=== PATIENT | female | born 1940 | race Two or more races ===

== ENCOUNTER 2017-08-27 17:16 | Inpatient (IN) | payer OTHER ==
--- NOTE | 2017-08-27 18:31 | PDOC ---
History of Present Illness - History of Present Illness Initial Comments: 08/27/17 21:48 Ms. Pierre is a 76 yo female w/ pmh of HTN, "poor circulation," and unspecified heart problems recently moved from [facility] who presents following fall in the bathroom earlier today. Per son, she was walking into the bathroom to urinate when she tripped and fell, hitting her head on the wall. She denies loss of consciousness but says she fell to the ground. She attempted to get up by bracing herself on the bathtub but says she hurt her stomach doing so. She is currently complaining of headache and left side pain. <Twan Perez - Last Filed: 08/27/17 21:48> <Jony Tipton - Last Filed: 08/28/17 01:22> - General Chief Complaint: Lightheaded Stated Complaint: NAUSEA Time Seen by Provider: 08/27/17 18:31 Past History - Past Medical History Cardiac Disorders: Yes (caRDIAC ARREST) COPD: No HTN: Yes Thyroid Disease: Yes - Surgical History Cholecystectomy: Yes - Suicide/Smoking/Psychosocial Hx Smoking History: Former smoker Have you smoked in the past 12 months: No Information on smoking cessation initiated: No Hx Alcohol Use: No Drug/Substance Use Hx: No Substance Use Type: None <Twan Perez - Last Filed: 08/27/17 21:48> <Jony Tipton - Last Filed: 08/28/17 01:22> - Past Medical History Allergies/Adverse Reactions: Allergies Allergy/AdvReac Type Severity Reaction Status Date / Time Penicillins Allergy Verified 08/27/17 17:24 Review of Systems - Review of Systems Comments:: 08/27/17 21:58 GENERAL/CONSTITUTIONAL: No fever or chills. No weakness. HEAD, EYES, EARS, NOSE AND THROAT: No change in vision. No ear pain or discharge. No sore throat. CARDIOVASCULAR:+Pain she localizes to the sternum. No shortness of breath RESPIRATORY: No cough, wheezing, or hemoptysis. GASTROINTESTINAL: No nausea, vomiting, diarrhea or constipation. GENITOURINARY: No dysuria, frequency, or change in urination. MUSCULOSKELETAL: +Pain localized to anterior left lower ribs SKIN: No rash NEUROLOGIC: +Current bitemporal frontal headache. No vertigo, loss of consciousness, or change in strength/sensation. ENDOCRINE: No increased thirst. No abnormal weight change HEMATOLOGIC/LYMPHATIC: No anemia, easy bleeding, or history of blood clots. ALLERGIC/IMMUNOLOGIC: No hives or skin allergy. <Twan Perez - Last Filed: 08/27/17 21:48> *Physical Exam - Vital Signs Last Vital Signs Temp Pulse Resp BP Pulse Ox 97.7 F 47 L 20 164/81 95 08/27/17 17:25 08/27/17 17:25 08/27/17 17:25 08/27/17 17:25 08/27/17 17:25 - Physical Exam Comments: 08/27/17 22:03 GENERAL: Awake, alert, and fully oriented, in no acute distress HEAD: No signs of trauma, normocephalic, atraumatic EYES: PERRLA, EOMI, sclera anicteric, conjunctiva clear ENT: Auricles normal inspection, hearing grossly normal, nares patent, oropharynx clear without exudates. Moist mucosa NECK: Normal ROM, supple, no lymphadenopathy, JVD, or masses LUNGS: +Pain with palpation of ribs on anterior left side. Reproducible pain with palpation of sternum. No distress, speaks full sentences, clear to auscultation bilaterally HEART: Regular rate and rhythm, normal S1 and S2, no murmurs, rubs or gallops, peripheral pulses normal and equal bilaterally. ABDOMEN: Soft, nontender, normoactive bowel sounds. No guarding, no rebound. No masses EXTREMITIES: Normal inspection, Normal range of motion, no edema. No clubbing or cyanosis. NEUROLOGICAL: Cranial nerves II through XII grossly intact. Normal speech, normal gait, no focal sensorimotor deficits SKIN: Warm, Dry, normal turgor, no rashes or lesions noted. <Twan Perez - Last Filed: 08/27/17 21:48> - Vital Signs Last Vital Signs Temp Pulse Resp BP Pulse Ox 97.7 F 47 L 20 164/81 95 08/27/17 17:25 08/27/17 17:25 08/27/17 17:25 08/27/17 17:25 08/27/17 17:25 <Jony Tipton - Last Filed: 08/28/17 01:22> ED Treatment Course - LABORATORY CBC & Chemistry Diagram: 08/27/17 21:00 08/27/17 21:00 <Twan Perez - Last Filed: 08/27/17 21:48> - LABORATORY CBC & Chemistry Diagram: 08/27/17 21:00 08/27/17 23:15 - ADDITIONAL ORDERS Additional order review: Laboratory Results 08/28/17 08/27/17 08/27/17 00:11 23:15 23:15 PT with INR 19.10 H INR 1.69 H Sodium 143 Potassium 4.6 Chloride 105 Carbon Dioxide 33 H Anion Gap 5 L BUN 22 H Creatinine 1.3 H Creat Clearance w eGFR 39.61 Random Glucose 143 H Lactic Acid Calcium 8.3 L Total Bilirubin 0.5 AST 38 H ALT 51 Alkaline Phosphatase 105 Creatine Kinase 49 Troponin I < 0.02 Total Protein 7.6 Albumin 3.1 L Lipase 08/27/17 08/27/17 08/27/17 21:00 21:00 21:00 PT with INR INR Sodium Cancelled Potassium Cancelled Chloride Cancelled Carbon Dioxide Cancelled Anion Gap Cancelled BUN Cancelled Creatinine Cancelled Creat Clearance w eGFR Cancelled Random Glucose Cancelled Lactic Acid 1.0 Calcium Cancelled Total Bilirubin Cancelled AST Cancelled ALT Cancelled Alkaline Phosphatase Cancelled Creatine Kinase Cancelled Troponin I Cancelled Total Protein Cancelled Albumin Cancelled Lipase Cancelled 08/27/17 21:00 RBC 4.17 MCV 90.8 MCHC 33.7 RDW 16.2 H MPV 9.5 Neutrophils % 63.1 Lymphocytes % 24.4 Monocytes % 9.4 Eosinophils % 2.3 Basophils % 0.8 <Jony Tipton - Last Filed: 08/28/17 01:22> Medical Decision Making - Medical Decision Making 08/27/17 22:07 Ms. Pierre presents with described acute mechanical fall - will workup to r/o cardiac causes and order CT Scan to r/o acute bleed or neck problems. Care will be continued by Dr. Tipton. <Twan Perez - Last Filed: 08/27/17 21:48> *DC/Admit/Observation/Transfer <Twan Perez - Last Filed: 08/27/17 21:48> - Discharge Dispostion Admit: Yes <Jony Tipton - Last Filed: 08/28/17 01:22> Diagnosis at time of Disposition: Head injury due to trauma Qualifiers: Encounter type: initial encounter Qualified Code(s): S09.90XA - Unspecified injury of head, initial encounter - Discharge Dispostion Condition at time of disposition: Fair
--- NOTE | 2017-08-27 20:57 | PDOC ---
Attending Attestation - Resident Resident Name: Raleigh Perezorn - ED Attending Attestation I have performed the following: I have examined & evaluated the patient, The case was reviewed & discussed with the resident, I agree w/resident's findings & plan, Exceptions are as noted - HPI HPI: 08/28/17 00:49 76-year-old Khmer-speaking female with history of hypertension, peripheral vascular disease, CHF, on Coumadin brought in by EMS after a mechanical fall with head trauma and questionable LOC. - Physicial Exam PE: 08/28/17 00:49 Patient is awake and alert, well-nourished, in no distress Normocephalic/atraumatic PERRLA, EOMI neck: No obvious deformity, minimal C1/C2 midline tenderness to palpation, cta rrr Cranial nerves II through XII are grossly intact; motor is 5 of 54; no pronation drift; - Medical Decision Making 08/28/17 00:50 Patient 76-year-old female with multiple carbonated is brought into the ER with closed head injury after mechanical fall. In the ER, patient is without focal neurological deficits. CT of head shows a hyperdense lesion to the right frontal area which appears extra-axial which may represent meningioma versus countercoup injury. Observation and repeat CT is recommended. We'll place and observation for further evaluation and repeat CT head.
[2017-08-27 21:17] LABS: BASOPHIL 0.8 % (0-2.0); EOSINOPHIL 2.3 % (0-4.5); MCH 30.6 pg (25.7-33.7); MCHC 33.7 g/dl (32.0-36.0); MEAN CELL VOLUME 90.8 fl (80-96); MEAN PLT VOLUME 9.5 fl (7.5-11.1); NEUTROPHILS 63.1 % (42.8-82.8); PLATELET COUNT 219 K/MM3 (134-434); RDW 16.2 % (11.6-15.6); WHITE BLOOD COUNT 4.2 K/mm3 (4.0-10.0)
[2017-08-27 23:51] LABS: ALBUMIN 3.1 g/dl (3.4-5.0); ANION GAP 5 (8-16); BILIRUBIN,TOTAL 0.5 mg/dL (0.2-1.0); CALCIUM 8.3 mg/dL (8.5-10.1); CO2 33 mmol/L (21-32); CREATININE 1.3 mg/dL (0.55-1.02); GLUCOSE,RANDOM 143 mg/dL (74-106); SGOT/AST 38 U/L (15-37); SGPT/ALT 51 U/L (12-78); TOT PROT 7.6 g/dl (6.4-8.2)
[2017-08-27 23:53] LABS: ALK PHOS 105 U/L (45-117)
[2017-08-27 23:54] LABS: CPK 49 IU/L (26-192); TROPONIN I < 0.02 ng/ml (0.00-0.05)
[2017-08-28 00:48] LABS: INR 1.69 (0.82-1.09); PROTHROMBIN TIME (PATIENT) 19.1 SEC (9.98-11.88)
[2017-08-28] MEDS ORDERED: ACETAMINOPHEN 325 MG TABLET (FP) PO ONE (01:05)
[2017-08-28] MEDS ORDERED: ACETAMINOPHEN 325 MG TABLET (FP) ONE (01:26)
--- NOTE | 2017-08-28 01:28 | HP ---
CHIEF COMPLAINT: s/p Mechanical Fall, Headache PCP: HISTORY OF PRESENT ILLNESS: This is a 76 y/o woman with a PMHx of: HTN, Arrhythmia, CHF, DM, Peripheral Disease, Hypothyroid, Spinal Stenosis. Who presents to the ED s/p mechanical fall. Patient is Venezuelan speaking property specialist used. Patient reports tripping on her way to the bathroom, hitting her head against the wall. Patient unsure of ? LOC. Patient reports having a temporal GALLARDO. Denies N/V or blurred vision. Patient denies fever, chills, cough, SOB, dizziness, CP. ER course was notable for: (1) CT Head- subcentimeter rounded hyperdensity in the anterior right frontal region, ?meningioma cannot r/o ICH (2) Chest Xray- no consolidation, pulmonary vascular congestion, pleural effusion (3) INR 1.69 Recent Travel: from [place] PAST MEDICAL HISTORY: See HPI PAST SURGICAL HISTORY: Cholecystectomy Hysterectomy C- sections x2 Social History: Smoking: Former Alcohol: None Drugs: None Lives with family Family History: Non-Contributory Allergies Penicillins Allergy (Verified 08/27/17 17:24) HOME MEDICATIONS: Home Medications Medication Instructions Recorded Amlodipine Besylate 10 mg PO DAILY 08/28/17 Ammonium Lactate Cream [Lac-Hydrin 1 applic TP BID 08/28/17 12% *Cream*] Aspirin/Dipyridamole [Aggrenox -] 1 combo PO BID 08/28/17 Atorvastatin Ca [Lipitor] 80 mg PO HS 08/28/17 Donepezil HCl [Aricept -] 5 mg PO DAILY 08/28/17 Ergocalciferol [Drisdol Oral 5,000 units PO DAILY 08/28/17 Solution -] Folic Acid 1 mg PO DAILY 08/28/17 Gabapentin [Neurontin] 300 mg PO BID 08/28/17 Glipizide Xl [Glucotrol Xl -] 5 mg PO BID 08/28/17 Losartan Potassium 100 mg PO 08/28/17 Meclizine HCl 12.5 mg PO BID 08/28/17 Metoprolol Succinate [Toprol Xl -] 12.5 mg PO DAILY 08/28/17 Sitagliptin Phosphate [Januvia] 50 mg PO 08/28/17 REVIEW OF SYSTEMS CONSTITUTIONAL: Absent: fever, chills, diaphoresis, generalized weakness, malaise, loss of appetite, weight change HEENT: Absent: rhinorrhea, nasal congestion, throat pain, throat swelling, difficulty swallowing, mouth swelling, ear pain, eye pain, visual changes CARDIOVASCULAR: Absent: chest pain, syncope, palpitations, irregular heart rate, lightheadedness , peripheral edema RESPIRATORY: Absent: cough, shortness of breath, dyspnea with exertion, orthopnea, wheezing, stridor, hemoptysis GASTROINTESTINAL: abdominal pain Absent: abdominal distension, nausea, vomiting, diarrhea, constipation, melena, hematochezia GENITOURINARY: Absent: dysuria, frequency, urgency, hesitancy, hematuria, flank pain, genital pain MUSCULOSKELETAL: Absent: myalgia, arthralgia, joint swelling, back pain, neck pain SKIN: Absent: rash, itching, pallor HEMATOLOGIC/IMMUNOLOGIC: Absent: easy bleeding, easy bruising, lymphadenopathy, frequent infections ENDOCRINE: Absent: unexplained weight gain, unexplained weight loss, heat intolerance, cold intolerance NEUROLOGIC: headache Absent: focal weakness or paresthesias, dizziness, unsteady gait, seizure, mental status changes, bladder or bowel incontinence PSYCHIATRIC: Absent: anxiety, depression, suicidal or homicidal ideation, hallucinations. PHYSICAL EXAMINATION Vital Signs - 24 hr 08/27/17 17:25 Temperature 97.7 F Pulse Rate 47 L Respiratory 20 Rate Blood Pressure 164/81 O2 Sat by Pulse 95 Oximetry (%) GENERAL: Awake, alert, and fully oriented, in no acute distress. HEAD: Normal with no signs of trauma. +TN to bilateral temporal aspect EYES: Pupils equal, round and reactive to light, extraocular movements intact, sclera anicteric, conjunctiva clear. No lid lag. EARS, NOSE, THROAT: Ears normal, nares patent, oropharynx clear without exudates. Moist mucous membranes. NECK: Normal range of motion, supple without lymphadenopathy, JVD, or masses. + TN to C1/C2 LUNGS: Breath sounds equal, clear to auscultation bilaterally. No wheezes, and no crackles. No accessory muscle use. HEART: Regular rate and rhythm, normal S1 and S2 without murmur, rub or gallop. ABDOMEN: Soft, nontender, not distended, normoactive bowel sounds, no guarding, no rebound, no masses. No hepatomegaly or splenomegaly. MUSCULOSKELETAL: Normal range of motion at all joints. No bony deformities or tenderness. No CVA tenderness. UPPER EXTREMITIES: 2+ pulses, warm, well-perfused. No cyanosis. No clubbing. No peripheral edema. LOWER EXTREMITIES: 2+ pulses, warm, well-perfused. No calf tenderness. No peripheral edema. NEUROLOGICAL: Cranial nerves II-XII intact. Normal speech. Gait not observed. PSYCHIATRIC: Cooperative. Good eye contact. Appropriate mood and affect. SKIN: Warm, dry, normal turgor, no rashes or lesions noted, normal capillary refill. Laboratory Results - last 24 hr 08/27/17 08/27/17 08/27/17 21:00 21:00 21:00 WBC 4.2 RBC 4.17 Hgb 12.8 Hct 37.9 MCV 90.8 MCH 30.6 MCHC 33.7 RDW 16.2 H Plt Count 219 MPV 9.5 Neutrophils % 63.1 Lymphocytes % 24.4 Monocytes % 9.4 Eosinophils % 2.3 Basophils % 0.8 PT with INR INR Sodium Cancelled Potassium Cancelled Chloride Cancelled Carbon Dioxide Cancelled Anion Gap Cancelled BUN Cancelled Creatinine Cancelled Creat Clearance w eGFR Cancelled Random Glucose Cancelled Lactic Acid Calcium Cancelled Total Bilirubin Cancelled AST Cancelled ALT Cancelled Alkaline Phosphatase Cancelled Creatine Kinase Cancelled Troponin I Cancelled Total Protein Cancelled Albumin Cancelled Lipase Cancelled 08/27/17 08/27/17 08/27/17 21:00 23:15 23:15 WBC RBC Hgb Hct MCV MCH MCHC RDW Plt Count MPV Neutrophils % Lymphocytes % Monocytes % Eosinophils % Basophils % PT with INR INR Sodium 143 Potassium 4.6 Chloride 105 Carbon Dioxide 33 H Anion Gap 5 L BUN 22 H Creatinine 1.3 H Creat Clearance w eGFR 39.61 Random Glucose 143 H Lactic Acid 1.0 Calcium 8.3 L Total Bilirubin 0.5 AST 38 H ALT 51 Alkaline Phosphatase 105 Creatine Kinase 49 Troponin I < 0.02 Total Protein 7.6 Albumin 3.1 L Lipase 08/28/17 00:11 WBC RBC Hgb Hct MCV MCH MCHC RDW Plt Count MPV Neutrophils % Lymphocytes % Monocytes % Eosinophils % Basophils % PT with INR 19.10 H INR 1.69 H Sodium Potassium Chloride Carbon Dioxide Anion Gap BUN Creatinine Creat Clearance w eGFR Random Glucose Lactic Acid Calcium Total Bilirubin AST ALT Alkaline Phosphatase Creatine Kinase Troponin I Total Protein Albumin Lipase ASSESSMENT/PLAN: This is a 76 y/o woman with a PMHx of: HTN, CHF, Arrhythmia, DM, PVD, Hypothyroid. Placed in Observation for Head Injury for further evaluation of their emergent condition. 1. Head Injury - s/p mechanical fall - CT Head- report ? meningioma cannot r/o ICH - Will repeat Head CT without contrast in 12 hrs - Will hold Coumadin and Aggrenox until repeat CT results-secondary to increase risk of bleeding - HOB elevated 30 degrees - Fall precautions - Monitor vitals 2. Subtherapeutic INR - Hold Coumadin until repeat CT results 3. Arrhythmia - ?Afib - [id number] Score 7 - EKG reviewed, no prior study to compare - Continue Amiodarone, Cardizem - Hold Coumadin r/o ICH 4. CHF -Chest Xray- reviewed -Continue Lasix -Monitor renal function 5. HTN - Monitor BP - Continue med with parameters 6. Diabetes Mellitus - Controlled - BGMs - Continue home meds 7. Hypothyroid - TSH in am - Continue Levothyroxine 8. PVD - Continue Gabapentin 9. FEN - Tolerates PO Fluids - Replete lytes prn - Low Na, Diabetic Diet 10 DVT Prophylaxis - OOB - SCDs Code Status: Full Code Dispo: Observation Problem List - Problem (1) Head injury due to trauma Code(s): S09.90XA - UNSPECIFIED INJURY OF HEAD, INITIAL ENCOUNTER Qualifiers: Encounter type: initial encounter Qualified Code(s): S09.90XA - Unspecified injury of head, initial encounter (2) Subtherapeutic international normalized ratio (INR) Code(s): R79.1 - ABNORMAL COAGULATION PROFILE (3) Arrhythmia Code(s): I49.9 - CARDIAC ARRHYTHMIA, UNSPECIFIED (4) HTN (hypertension) Code(s): I10 - ESSENTIAL (PRIMARY) HYPERTENSION (5) Diabetes mellitus Code(s): E11.9 - TYPE 2 DIABETES MELLITUS WITHOUT COMPLICATIONS (6) Spinal stenosis Code(s): M48.00 - SPINAL STENOSIS, SITE UNSPECIFIED (7) PVD (peripheral vascular disease) Code(s): I73.9 - PERIPHERAL VASCULAR DISEASE, UNSPECIFIED (8) DVT prophylaxis Code(s): ILR8704 - Visit type - Emergency Visit Emergency Visit: Yes ED Registration Date: 08/28/17 Care time: The patient presented to the Emergency Department on the above date and was hospitalized for further evaluation of their emergent condition. - New Patient This patient is new to me today: Yes Date on this admission: 08/28/17 - Critical Care Critical Care patient: No
[2017-08-28] MEDS ORDERED: sitaGLIPtin PHOSPHATE 50 MG TABLET PO SCH (07:00)
[2017-08-28] MEDS ORDERED: DONEPEZIL HCL 5 MG TABLET (FP) PO SCH (10:00)
[2017-08-28] MEDS ORDERED: amLODIPine BESYLATE 10 MG TABLET (FP) PO SCH (10:00)
[2017-08-28] MEDS ORDERED: FOLIC ACID 1 MG TABLET (FP) PO SCH (10:00)
[2017-08-28] MEDS ORDERED: GABAPENTIN 300 MG CAPSULE (FP) PO SCH (10:00)
[2017-08-28] MEDS ORDERED: METOPROLOL SUCCINATE 25 MG TAB.SR.24H (FP) PO SCH (10:00)
[2017-08-28] MEDS ORDERED: glipiZIDE-XL 5 MG TAB.ER.24 PO SCH (10:00)
[2017-08-28] MEDS ORDERED: INSULIN SLIDING SCALE (NOVOLOG) 1 VIAL SQ SCH (11:00)
--- NOTE | 2017-08-28 12:53 | EKG ---
Test Reason : Blood Pressure : / mmHG Vent. Rate : 051 BPM Atrial Rate : 051 BPM P-R Int : 190 ms QRS Dur : 118 ms QT Int : 520 ms P-R-T Axes : 009 -27 023 degrees QTc Int : 479 ms SINUS BRADYCARDIA LEFT VENTRICULAR HYPERTROPHY WITH QRS WIDENING ABNORMAL ECG NO PREVIOUS ECGS AVAILABLE Confirmed by CONSTANTINE HICKMAN, JAMES ([id number]) on 08/28/2017 12:53:11 PM Referred By: Confirmed By:JAMES FITCH MD
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
[2017-08-28] MEDS ORDERED: ATORVASTATIN CA 80 MG TABLET (FP) PO SCH (22:00)
--- NOTE | 2017-08-28 23:36 | RAPID ---
Physical Examination Vital Signs: Vital Signs Temperature 99.3 F 08/28/17 22:09 Pulse Rate 49 L 08/28/17 22:09 Respiratory Rate 18 08/28/17 22:09 Blood Pressure 117/51 08/28/17 22:09 O2 Sat by Pulse Oximetry (%) 99 08/28/17 22:09 Constitutional: Yes: Well Nourished, Moderate Distress Eyes: Yes: WNL, Conjunctiva Clear, EOM Intact, PERRL HENT: Yes: WNL, Atraumatic, Normocephalic Neck: Yes: WNL, Supple, Trachea Midline Cardiovascular: Yes: Bradycardia, S1, S2 Respiratory: Yes: WNL, Regular, CTA Bilaterally Gastrointestinal: Yes: WNL ...Rectal Exam: Yes: Deferred Renal/: Yes: WNL Breast(s): Yes: WNL Musculoskeletal: Yes: Other (L- Hip pain) Extremities: Yes: Other (L- shoulder pain) Edema: No Peripheral Pulses WNL: Yes Neurological: Yes: Alert, Oriented, Cran Nerves II-XII Intact, Unsteady Gait ...Motor Strength: WNL Psychiatric: Yes: Alert, Oriented Labs: CBC, BMP 08/27/17 21:00 08/27/17 23:15 Rapid Response - Rapid Response Assessment: Rapid Response called overhead Arrived to bedside, patient found sitting on the floor c/o L- shoulder and L- Hip pain. This is a 76 y/o woman with a PMHx of: HTN, CHF, Arrhythmia, DM, PVD, Hypothyroid. Placed in Observation for Head Injury secondary to mechanical fall at home. A/P Stat- Xray L- Shoulder/Hip r/o fx and dislocation Continue neuro checks Activity Bedrest Monitor vitals Consider PT and Short Term Rehab for unsteady gait Critical Care Total Critical Care Time (in minutes): 40 Critical Care Statement: The care of this patient involved high complexity decision making to prevent further life threatening deterioration of the patient 's condition and/or to evaluate & treat vital organ system(s) failure or risk of failure.
--- NOTE | 2017-08-28 23:48 | FALL ---
Fall Exam - Event Witnessed fall: No Location of Fall: Patient Room Fall from: While ambulating - Pre-Fall Fall Risk: High Risk Mental Status: Alert Current Medications: Current Medications Generic Name Dose Route Start Last Admin Trade Name Laura PRN Reason Stop Dose Admin Acetaminophen 1,000 mg 08/28/17 23:31 Ofirmev Injection - IVPB 08/28/17 23:32 ONCE ONE Amiodarone HCl 200 mg 08/28/17 11:30 Cordarone - PO DAILY BIA Diltiazem HCl 120 mg 08/29/17 10:00 Cardizem Cd - PO DAILY BIA Levothyroxine Sodium 25 mcg 08/29/17 07:00 Synthroid - PO AM BIA - Post-Fall Patient Outcome: Pain Only (L- shoulder, L-Hip/pelvis, L-Knee, L- Tib/Fib xrays ordered r/o fx) Exam Findings: Patient received AAOx3, HEENT- Normocephalic, Atraumatic, PERRL, +EOMS, Ears- no drainage,Nares intact, Neck- +TN to palpation (no change fro , no lymphadenopathy, Trach Treatment: Analgesia, Ice Pack Vital Signs: Vital Signs Temperature 99.3 F 08/28/17 22:09 Pulse Rate 49 L 08/28/17 22:09 Respiratory Rate 18 08/28/17 22:09 Blood Pressure 117/51 08/28/17 22:09 O2 Sat by Pulse Oximetry (%) 99 08/28/17 22:09 LOC Post-Fall: Unchanged Identify factors for HIGH RISK for Head Injury: Pt on anticoagulant ( Coumadin hx- not currently taking secondary to r/o ICH)
[2017-08-29] MEDS ORDERED: ACETAMINOPHEN 1000 MG/100 ML VIAL (NON FORMULARY) IVPB ONE (00:15)
[2017-08-29] MEDS: LEVOTHYROXINE NA 25 MCG TABLET (FP) PO SCH (06:17)
[2017-08-29 08:03] LABS: BASOPHIL 0.3 % (0-2.0); EOSINOPHIL 3.6 % (0-4.5); MCH 30.1 pg (25.7-33.7); MCHC 33.4 g/dl (32.0-36.0); MEAN PLT VOLUME 8.8 fl (7.5-11.1); NEUTROPHILS 66.5 % (42.8-82.8); PLATELET COUNT 173 K/MM3 (134-434); WHITE BLOOD COUNT 5.3 K/mm3 (4.0-10.0)
[2017-08-29 08:32] LABS: ANION GAP 4 (8-16); CALCIUM 8.1 mg/dL (8.5-10.1); CO2 31 mmol/L (21-32); CREATININE 1.1 mg/dL (0.55-1.02); GLUCOSE,RANDOM 102 mg/dL (74-106)
[2017-08-29] MEDS ORDERED: METOPROLOL TARTRATE 50 MG TABLET (FP) PO SCH (10:00)
[2017-08-29] MEDS: ACETAMINOPHEN 325 MG TABLET (FP) PO PRN ×2 (11:11→23:11)
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
--- NOTE | 2017-08-29 13:19 | CONSULT ---
Consult - text type - Consultation Consultation Note: Neurology CHIEF COMPLAINT: s/p Mechanical Fall, Headache HISTORY OF PRESENT ILLNESS: This is a 76 y/o woman with a PMHx of: HTN, Arrhythmia, CHF, DM, Peripheral Disease, Hypothyroid, Spinal Stenosis who presents to the ED s/p mechanical fall. Patient is Estonian speaking and reported tripping on her way to the bathroom, hitting her head against the wall. Patient unsure of ?LOC. Patient reported having a temporal GALLARDO. Denies N/V or blurred vision. Patient denies fever, chills, cough, SOB, dizziness, CP. she does demonstrate left leg weakness , but is unclear if this is limited by pain of the left hip. in the ER, she completed CT Head which showed subcentimeter rounded hyperdensity in the anterior right frontal region, ?meningioma cannot r/o ICH. she is admitted for further evaluation and management and an MRI of the brain demonstrated 1.2 x 1.2 cm right frontal hyperintensity possibly a meningioma as well as adjacent subarachnoid hemorrhage but no acute infarct. I was consulted and ordered an MRI withcontrast to further evaluate meningioma. I also recommended neurosurgical consultation, Dr. Strickland to be notified. Added Keppra 500 mg twice a day for seizure prevention. Discussed this with patient and hospitalist, both were in agreement. PAST MEDICAL HISTORY: See HPI PAST SURGICAL HISTORY: Cholecystectomy Hysterectomy C- sections x2 Social History: Smoking: Former Alcohol: None Drugs: None Lives with family Family History: Non-Contributory Allergies Penicillins Allergy (Verified 08/27/17 17:24) HOME MEDICATIONS: Home Medications Medication Instructions Recorded Amlodipine Besylate 10 mg PO DAILY 08/28/17 Ammonium Lactate Cream [Lac-Hydrin 1 applic TP BID 08/28/17 12% *Cream*] Aspirin/Dipyridamole [Aggrenox -] 1 combo PO BID 08/28/17 Atorvastatin Ca [Lipitor] 80 mg PO HS 08/28/17 Donepezil HCl [Aricept -] 5 mg PO DAILY 08/28/17 Ergocalciferol [Drisdol Oral 5,000 units PO DAILY 08/28/17 Solution -] Folic Acid 1 mg PO DAILY 08/28/17 Gabapentin [Neurontin] 300 mg PO BID 08/28/17 Glipizide Xl [Glucotrol Xl -] 5 mg PO BID 08/28/17 Losartan Potassium 100 mg PO 08/28/17 Meclizine HCl 12.5 mg PO BID 08/28/17 Metoprolol Succinate [Toprol Xl -] 12.5 mg PO DAILY 08/28/17 Sitagliptin Phosphate [Januvia] 50 mg PO 08/28/17 REVIEW OF SYSTEMS CONSTITUTIONAL: Absent: fever, chills, diaphoresis, generalized weakness, malaise, loss of appetite, weight change HEENT: Absent: rhinorrhea, nasal congestion, throat pain, throat swelling, difficulty swallowing, mouth swelling, ear pain, eye pain, visual changes CARDIOVASCULAR: Absent: chest pain, syncope, palpitations, irregular heart rate, lightheadedness , peripheral edema RESPIRATORY: Absent: cough, shortness of breath, dyspnea with exertion, orthopnea, wheezing, stridor, hemoptysis GASTROINTESTINAL: abdominal pain Absent: abdominal distension, nausea, vomiting, diarrhea, constipation, melena, hematochezia GENITOURINARY: Absent: dysuria, frequency, urgency, hesitancy, hematuria, flank pain, genital pain MUSCULOSKELETAL: Absent: myalgia, arthralgia, joint swelling, back pain, neck pain SKIN: Absent: rash, itching, pallor HEMATOLOGIC/IMMUNOLOGIC: Absent: easy bleeding, easy bruising, lymphadenopathy, frequent infections ENDOCRINE: Absent: unexplained weight gain, unexplained weight loss, heat intolerance, cold intolerance NEUROLOGIC: headache Absent: focal weakness or paresthesias, dizziness, unsteady gait, seizure, mental status changes, bladder or bowel incontinence PSYCHIATRIC: Absent: anxiety, depression, suicidal or homicidal ideation, hallucinations. PHYSICAL EXAMINATION Vital Signs Period Temp Pulse Resp BP Sys/Elder Pulse Ox Last 24 Hr 97.8 F-99.3 F 47-73 16-18 117-183/51-107 97-99 GENERAL: Awake, alert, and fully oriented, in no acute distress. HEAD: Normal with no signs of trauma. +TN to bilateral temporal aspect EYES: Pupils equal, round and reactive to light, extraocular movements intact, sclera anicteric, conjunctiva clear. No lid lag. EARS, NOSE, THROAT: Ears normal, nares patent, oropharynx clear without exudates. Moist mucous membranes. NECK: Normal range of motion, supple without lymphadenopathy, JVD, or masses. + TN to C1/C2 LUNGS: Breath sounds equal, clear to auscultation bilaterally. No wheezes, and no crackles. No accessory muscle use. HEART: Regular rate and rhythm, normal S1 and S2 without murmur, rub or gallop. ABDOMEN: Soft, nontender, not distended, normoactive bowel sounds, no guarding, no rebound, no masses. No hepatomegaly or splenomegaly. MUSCULOSKELETAL: Normal range of motion at all joints. No bony deformities or tenderness. No CVA tenderness. UPPER EXTREMITIES: 2+ pulses, warm, well-perfused. No cyanosis. No clubbing. No peripheral edema. LOWER EXTREMITIES: 2+ pulses, warm, well-perfused. No calf tenderness. No peripheral edema. NEUROLOGICAL: Cranial nerves II-XII intact. Normal speech. strength in upper extremities bilateral and ssymmetric, strength in left lower extremity 0/5, right 4+/5, gait deferred PSYCHIATRIC: Cooperative. Good eye contact. Appropriate mood and affect. SKIN: Warm, dry, normal turgor, no rashes or lesions noted, normal capillary refill. CBCD WBC 5.3 K/mm3 (4.0-10.0) 08/29/17 06:00 RBC 3.83 M/mm3 (3.60-5.2) 08/29/17 06:00 Hgb 11.5 GM/dL (10.7-15.3) D 08/29/17 06:00 Hct 34.5 % (32.4-45.2) 08/29/17 06:00 MCV 90.0 fl (80-96) 08/29/17 06:00 MCHC 33.4 g/dl (32.0-36.0) 08/29/17 06:00 RDW 16.0 % (11.6-15.6) H 08/29/17 06:00 Plt Count 173 K/MM3 (134-434) D 08/29/17 06:00 MPV 8.8 fl (7.5-11.1) 08/29/17 06:00 CMP Sodium 140 mmol/L (136-145) 08/29/17 06:00 Potassium 3.9 mmol/L (3.5-5.1) 08/29/17 06:00 Chloride 105 mmol/L (98-107) 08/29/17 06:00 Carbon Dioxide 31 mmol/L (21-32) 08/29/17 06:00 Anion Gap 4 (8-16) L 08/29/17 06:00 BUN 19 mg/dL (7-18) H 08/29/17 06:00 Creatinine 1.1 mg/dL (0.55-1.02) H 08/29/17 06:00 Creat Clearance w eGFR 39.61 (>60) 08/27/17 23:15 Calcium 8.1 mg/dL (8.5-10.1) L 08/29/17 06:00 Total Bilirubin 0.5 mg/dL (0.2-1.0) 08/27/17 23:15 AST 38 U/L (15-37) H 08/27/17 23:15 ALT 51 U/L (12-78) 08/27/17 23:15 Alkaline Phosphatase 105 U/L (45-117) 08/27/17 23:15 Total Protein 7.6 g/dl (6.4-8.2) 08/27/17 23:15 Albumin 3.1 g/dl (3.4-5.0) L 08/27/17 23:15 CT head reviewed X 3. MRI brain review ASSESSMENT/PLAN: 76 y/o woman with a PMHx of: HTN, Arrhythmia, CHF, DM, Peripheral Disease, Hypothyroid, Spinal Stenosis who presents to the ED s/p mechanical fall. Patient is Estonian speaking and reported tripping on her way to the bathroom, hitting her head against the wall. Patient unsure of ?LOC. Patient reported having a temporal GALLARDO. Denies N/V or blurred vision. Patient denies fever, chills , cough, SOB, dizziness, CP. she does demonstrate left leg weakness, but is unclear if this is limited by pain of the left hip. in the ER, she completed CT Head which showed subcentimeter rounded hyperdensity in the anterior right frontal region, ?meningioma cannot r/o ICH. She is admitted for further evaluation and management and an MRI of the brain demonstrated 1.2 x 1.2 cm right frontal hyperintensity possibly a meningioma as well as adjacent subarachnoid hemorrhage but no acute infarct. MRI with contrast to further evaluate meningioma. Dr. Strickland to be notified, neurosurgery consultation. Added Keppra 500 mg twice a day for seizure prevention. Hold antiplatelet and anticoagulation due to subarachnoid hemorrhage May be able to restart in 48 hours, as would also want to be cautious to prevent any ischemic strokes blood pressure control, goal less than 130/90 Continue antihypertensive medications especially in context of subarachnoid blood Stat head CT for acute changes in mental status or clinical deterioration fall precautions, recommended Continue close monitoring
--- NOTE | 2017-08-29 16:29 | CON.CARD ---
Consult Consult Specialty:: Cardiology Referred by:: Johan Reason for Consultation:: paf, bradycardia preop - History of Present Illness Chief Complaint: fall History of Present Illness: She is a 76 y/o woman with HTN, PAF on amiodarone metoprolol diltiazem and coumadin, CHF, NIDDM, Peripheral Arterial Disease, Hypothyroidism, Spinal Stenosis who was admitted s/p mechanical fall. No LOC, cp sob, palps or dizziness. Exercise tolerance is poor. Fell in hospital found on CT scan with right frontal ICH and possible meningioma. - History Source History Provided By: Family Member, Medical Record - Past Medical History Cardio/Vascular: Yes: AFIB - Alcohol/Substance Use Hx Alcohol Use: No - Smoking History Smoking history: Former smoker Have you smoked in the past 12 months: No Home Medications - Allergies Allergies/Adverse Reactions: Allergies Allergy/AdvReac Type Severity Reaction Status Date / Time Penicillins Allergy Verified 08/27/17 17:24 - Home Medications Home Medications: Ambulatory Orders Amiodarone HCl [Cordarone -] 200 mg PO DAILY 08/28/17 Coumadin 4 mg PO DAILY 08/28/17 Diltiazem Cd [Cardizem Cd -] 120 mg PO DAILY 08/28/17 Furosemide [Lasix -] 40 mg PO DAILY 08/28/17 Levothyroxine [Synthroid -] 25 mcg PO DAILY 08/28/17 Metoprolol Tartrate [Lopressor -] 50 mg PO DAILY 08/28/17 Vital Signs: Vital Signs Temperature 98.2 F 08/29/17 06:00 Pulse Rate 50 L 08/29/17 06:00 Respiratory Rate 18 08/29/17 06:00 Blood Pressure 146/74 08/29/17 06:00 O2 Sat by Pulse Oximetry (%) 99 08/28/17 23:55 Constitutional: Yes: No Distress, Calm Eyes: Yes: Conjunctiva Clear, EOM Intact HENT: Yes: Atraumatic, Normocephalic Neck: Yes: Supple, Trachea Midline Respiratory: Yes: CTA Bilaterally Gastrointestinal: Yes: Normal Bowel Sounds, Soft Cardiovascular: Yes: Regular Rate and Rhythm, Bradycardia JVD: No Carotid Bruit: No PMI: Non-Displaced Heart Sounds: Yes: S1, S2 Edema: No Peripheral Pulses WNL: Yes - Other Data Labs, Other Data: CBC, BMP 08/29/17 06:00 08/29/17 06:00 INR, PTT INR 1.69 (0.82-1.09) H 08/28/17 00:11 Imaging - Results EKG: Report Reviewed (garcía nssttw changes.) Assessment/Plan Stop diltiazem. Continue metoprolol and amiodarone. Hold all AC for now. Echo to assess LV function. No cardiac contraindications to surgery if needed. She is at intermediate risk.
--- NOTE | 2017-08-29 17:11 | PN ---
Progress Note (short form) - Note Progress Note: NEUROSURGERY CONSULT DICTATED Chart reviewed CT/MRI reviewed Pt examined H/o HTN, Arrhythmia, CHF, DM, PAD Hypothyroid, Spinal Stenosis is s/p mechanical fall. Reported tripping on her way to the bathroom, hitting her head against the wall in the L side on back. Patient denies LOC. + frontal GALLARDO. Denies N/V or blurred vision. Patient denies fever, chills. Has left leg weakness, but is unclear if this is limited by pain of the left hip. in the ER. On Keppra 500 mg twice a day for seizure prevention. She fell on more time going to bathroom yesterday. PE: AF, VSS General- unremarkable, distal pulses diminished symmetrically CN- intact; Motor- 4+/5 except L IP 3/5 limited by hip pain; Sensation- decreased vibratory sensation B feet; DTR- hyporeflexic INR 1.[address]- periventricular small vessel dz; R frontal hyperdensity MRI brain noncontrast- R frontal lesion c/w possible cortical contusion vs hemorrhagic lesion Recommend MRI brain with/without higinio to determine if this is contusion or hemorrhagic tumor such as meningioma, though given fall this is more likely a contusion D/w pt and family at bedside
[2017-08-29] MEDS ORDERED: ACETAMINOPHEN 325 MG TABLET (FP) PO PRN (18:06)
[2017-08-29] MEDS: METOPROLOL TARTRATE 50 MG TABLET (FP) PO SCH (18:16)
[2017-08-29] MEDS: FUROSEMIDE 40 MG TABLET (FP) PO SCH (18:16)
[2017-08-29] MEDS: AMIODARONE HCL 200 MG TABLET (FP) PO SCH (18:16)
[2017-08-29] MEDS: levETIRAcetam 500 MG TABLET (FP) PO SCH ×2 (18:16→23:04)
[2017-08-29 20:56] LABS: BASOPHIL 0.3 % (0-2.0); MCH 30.6 pg (25.7-33.7); MCHC 33.9 g/dl (32.0-36.0); MEAN CELL VOLUME 90.1 fl (80-96); MEAN PLT VOLUME 9.1 fl (7.5-11.1); NEUTROPHILS 69.2 % (42.8-82.8); PLATELET COUNT 182 K/MM3 (134-434); RDW 15.8 % (11.6-15.6)
[2017-08-29] MEDS: INSULIN SLIDING SCALE (NOVOLOG) 1 VIAL SQ SCH (23:07)
[2017-08-30] MEDS: LEVOTHYROXINE NA 25 MCG TABLET (FP) PO SCH (06:33)
[2017-08-30] MEDS: INSULIN SLIDING SCALE (NOVOLOG) 1 VIAL SQ SCH ×4 (06:35→21:39)
--- NOTE | 2017-08-30 07:55 | CONS ---
DATE OF CONSULTATION: 08/29/2017 CHIEF COMPLAINT: Status post fall with headache. HISTORY OF PRESENT ILLNESS: The patient is a 76-year-old right-hand dominant female with a history of multiple medical problems including hypertension, diabetes, cardiac arrhythmia, congestive heart failure, peripheral arterial disease, spinal stenosis, and hypothyroidism who is status post a fall at home. She states that she was going to the bathroom at home and fell and hit her head backwards against the wall on the left side. She denies loss of consciousness. She had some frontal headache since her admission. She denies any further nausea, vomiting, or blurry vision. She has no diplopia. She has no fever or chills. She does not have any witnessed seizure activities. The patient stated that she has been having some left hip area pain since her fall. She has difficulty ambulating as a result. She was subsequently found to have a nondisplaced fracture to the superior inferior pubic ramus. There was no evidence of a hip fracture. There was a small hematoma also noted on CT scan. PAST MEDICAL HISTORY: Significant for diabetes, hypertension, congestive heart failure, hypothyroidism, spinal stenosis, peripheral arterial disease. CURRENT MEDICATIONS: Include Tylenol, amiodarone, Keppra, Lopressor, insulin, Lasix, Synthroid. ALLERGIES: PENICILLIN. SOCIAL HISTORY: She does not smoke or drink. She lives at home with her family. She does not work. REVIEW OF SYSTEMS: Otherwise negative for other major constitutional, head, neck, cardiovascular, pulmonary, gastrointestinal, genitourinary, endocrinologic, neurologic, or psychological problems except for the above. PHYSICAL EXAMINATION: General: The patient is lying down in bed. Her family is at bedside. Vital Signs: Temperature 98.2, blood pressure 146/74 with pulse rate of 50. HEENT: Shows her to be normocephalic, atraumatic, anicteric. Neck: Supple with no carotid bruits. Coronary: Demonstrates her to be bradycardic. Lungs: Clear bilaterally. Abdomen: Benign. Extremities: Shows no obvious signs of DVT. Neurologic: The patient is awake, alert, and oriented x4. She is Greek- speaking only. Cranial nerve examination is intact 2-12. Motor examination shows at least 4+/5 strength bilateral upper and lower extremities except left iliopsoas, which is 3/5 limited by pain. Sensory examination is intact to light touch. She has decreased vibratory sensation in the distal bilateral lower extremities. Deep tendon reflexes are hyporeflexive throughout. There is no pathological or long-tract sign. Gait is not tested for safety reasons. LABORATORY EXAMINATION: Shows sodium to be 140, potassium 3.8, BUN 19, creatinine 1.1, calcium 8.1, INR 1.69. White blood cell count 5.4, hemoglobin 11.5, platelet count 173,000. CT scan of the head from August 28 as well as August 29 were reviewed. There is a right frontal hyperdense lesion, which appeared to be cortical and subcortical in nature. There is a moderate periventricular small ventral defect. There is mild atrophy. MRI of the brain without contrast demonstrated no acute ischemia. There is a 1.2-cm x 1.3-cm right frontal convexity lesion, which is both cortical and subcortical. However, given the location, this could be either a contrecoup contusion or hemorrhagic neoplasm. There is also a right parotid gland lesion of 1.5 cm x 1.2 cm. IMPRESSION: 1. Right frontal cortical/subcortical hyperdense hemorrhagic lesion, probable contusion, rule out hemorrhagic neoplasm/meningioma. 2. Right parotid gland lesion. 3. Hypertension. 4. Congestive heart failure. 5. Hypothyroidism. 6. Diabetes with likely diabetic peripheral neuropathy. 7. Pelvic fracture. RECOMMENDATIONS: The patient presents with a right frontal hemorrhagic lesion after a mechanical fall. She did not have clear seizure activities; however, she still falls when she walks even when hospitalized. She states her proximal left lower extremity is weak, and there is no CT scan evidence of hip fracture. There is evidence of a pubic ramus fracture, however. An MRI of the brain with and without contrast is recommended to rule out enhancing tumor. However, given her history of mechanical fall, this may be a contrecoup contusion. She does have elevated INR initially, which could have perpetuated the hemorrhagic component of the contusion. The above was discussed with the patient and her family at bedside today. Further recommendation and assessment will be made upon availability of the brain MRI with and without gadolinium. LOBITO MOE M.D. [id number] MTDD
[2017-08-30 08:20] LABS: BASOPHIL 0.4 % (0-2.0); EOSINOPHIL 4.2 % (0-4.5); MEAN CELL VOLUME 90.7 fl (80-96); MEAN PLT VOLUME 9.3 fl (7.5-11.1); NEUTROPHILS 63.6 % (42.8-82.8); PLATELET COUNT 174 K/MM3 (134-434)
[2017-08-30 08:24] LABS: ALBUMIN 2.6 g/dl (3.4-5.0); ANION GAP 6 (8-16); CALCIUM 7.6 mg/dL (8.5-10.1); CO2 30 mmol/L (21-32); GLUCOSE,RANDOM 98 mg/dL (74-106); MAGNESIUM 2.2 mg/dL (1.8-2.4)
[2017-08-30 08:33] LABS: ALK PHOS 100 U/L (45-117); BILIRUBIN,TOTAL 0.9 mg/dL (0.2-1.0); CHOLESTEROL 148 mg/dL (50-200); CREATININE 1.3 mg/dL (0.55-1.02); PHOSPHOROUS 3.7 mg/dL (2.5-4.9); SGOT/AST 25 U/L (15-37); SGPT/ALT 40 U/L (12-78); THYROID STIMULATING HORMONE 3.11 uIU/ml (0.358-3.74); TOT PROT 6.7 g/dl (6.4-8.2)
--- NOTE | 2017-08-30 09:09 | PN ---
Progress Note (short form) - Note Progress Note: NEUROSURGERY No dizziness, slight frontal H/A PE: AF, VSS General- unremarkable, distal pulses diminished symmetrically CN- intact; Motor- 4+/5 except L IP 3/5 limited by hip pain; Sensation- decreased vibratory sensation B feet; DTR- hyporeflexic Cr 1.3; BUN 21; eGFR 39.[address]- periventricular small vessel dz; R frontal hyperdensity MRI brain noncontrast- R frontal lesion c/w possible cortical contusion vs hemorrhagic lesion; R parotid gland 2 cm lesion Recommend MRI brain with/without higinio to determine if this is contusion or hemorrhagic tumor such as meningioma, though given fall this is more likely a contusion Keep well hydrated D/w pt W/u for R parotid gland lesion, consider ENT input
[2017-08-30] MEDS: levETIRAcetam 500 MG TABLET (FP) PO SCH ×2 (09:34→21:39)
[2017-08-30] MEDS: METOPROLOL TARTRATE 50 MG TABLET (FP) PO SCH (09:34)
[2017-08-30] MEDS: FUROSEMIDE 40 MG TABLET (FP) PO SCH (09:34)
[2017-08-30] MEDS: AMIODARONE HCL 200 MG TABLET (FP) PO SCH (09:34)
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
--- NOTE | 2017-08-30 20:06 | PN ---
Progress Note, Physician Chief Complaint: Patient complains of headache. She denies chest pain, SOB at rest, palpitation or dizziness. Tele shows sinus bradycardia without pauses. History of Present Illness: 76 year-old woman with a PMHx of HTN, paroxysmal atrial fibrillation on amiodarone metoprolol, diltiazem and coumadin, CHF, NIDDM, PVD, hypothyroidism, spinal stenosis who was admitted s/p mechanical fall. No LOC. She had sinus bradycardia. Dilt was discontinued. Seen by Neurosurgery for small homogeneously enhancing right frontal dural based lesion without associated edema, c/w calcified meningioma. No neurosurgical intervention recommended. Follow up MRI with/without higinio in 3 months. Her exercise tolerance is poor. But she has no chest pain, SOB at rest, palpitation, edema, orthopnea or PND. - Current Medication List Current Medications: Active Medications Acetaminophen (Tylenol -) 650 mg PO Q4H PRN PRN Reason: FEVER OR PAIN Last Admin: 08/29/17 23:11 Dose: 650 mg Amiodarone HCl (Cordarone -) 200 mg PO DAILY [facility] Last Admin: 08/30/17 09:34 Dose: 200 mg Furosemide (Lasix -) 40 mg PO DAILY [facility] Last Admin: 08/30/17 09:34 Dose: 40 mg Insulin Aspart (Novolog Vial Sliding Scale -) 1 vial SQ ACHS [facility] PRN Reason: Protocol Last Admin: 08/30/17 17:33 Dose: Not Given Levetiracetam (Keppra -) 500 mg PO BID [facility] Last Admin: 08/30/17 09:34 Dose: 500 mg Levothyroxine Sodium (Synthroid -) 25 mcg PO AM [facility] Last Admin: 08/30/17 06:33 Dose: 25 mcg Metoprolol Tartrate (Lopressor -) 50 mg PO DAILY [facility] Last Admin: 08/30/17 09:34 Dose: 50 mg - Objective Vital Signs: Vital Signs Temperature 98.3 F 08/30/17 18:00 Pulse Rate 52 L 08/30/17 18:00 Respiratory Rate 18 08/30/17 18:00 Blood Pressure 152/73 08/30/17 18:00 O2 Sat by Pulse Oximetry (%) 97 08/30/17 09:00 Constitutional: Yes: Well Nourished, No Distress, Calm Eyes: Yes: Conjunctiva Clear, EOM Intact HENT: Yes: Atraumatic, Normocephalic Neck: Yes: Supple, Trachea Midline Cardiovascular: Yes: Regular Rate and Rhythm, Bradycardia Respiratory: Yes: Regular, CTA Bilaterally Gastrointestinal: Yes: Normal Bowel Sounds, Soft ...Rectal Exam: Yes: Deferred Musculoskeletal: Yes: WNL Edema: No Peripheral Pulses WNL: Yes Labs: CBC, BMP 08/30/17 06:00 08/30/17 06:00 INR, PTT INR 1.69 (0.82-1.09) H 08/28/17 00:11 Assessment/Plan 76 year-old woman with a PMHx of HTN, paroxysmal atrial fibrillation on amiodarone metoprolol, diltiazem and coumadin, CHF, NIDDM, PVD, hypothyroidism, spinal stenosis who was admitted s/p mechanical fall. No LOC. She had sinus bradycardia. Dilt was discontinued. Seen by Neurosurgery for small homogeneously enhancing right frontal dural based lesion without associated edema, c/w calcified meningioma. No neurosurgical intervention recommended. Follow up MRI with/without higinio in 3 months. 1) Paroxysmal atrial fibrillation: Remains in sinus with bradycardia while on amiodarone and metoprolol. Diltiazem was discontinued. Continue metoprolol and amiodarone. Continue tele. Hold all AC for now. 2) HTN: systolic BP is mildly elevated. May decrease and change Metoprolol to long acting: Metoprolol succinate to 25 mg daily. Consider adding ARB: Diovan for BP control if her BP remains elevated after decrease metoprolol. Echo to assess LV function.
[2017-08-31] MEDS: INSULIN SLIDING SCALE (NOVOLOG) 1 VIAL SQ SCH ×2 (06:32→11:51)
[2017-08-31] MEDS: LEVOTHYROXINE NA 25 MCG TABLET (FP) PO SCH (06:33)
[2017-08-31 07:16] LABS: ANION GAP 5 (8-16); CALCIUM 7.8 mg/dL (8.5-10.1); CO2 30 mmol/L (21-32); CREATININE 1.5 mg/dL (0.55-1.02); GLUCOSE,RANDOM 96 mg/dL (74-106)
--- NOTE | 2017-08-31 08:06 | PN ---
Progress Note (short form) - Note Progress Note: NEUROSURGERY In telemetry No dizziness, minimal frontal H/A In sinus now PE: AF, VSS General- unremarkable, distal pulses diminished symmetrically CN- intact; Motor- 4+/5 except L IP 3/5 limited by hip pain; Sensation- decreased vibratory sensation B feet; DTR- hyporeflexic MRI brain noncontrast- R frontal lesion c/w calcified meningioma Stable neurologically F/u brain MRI in 3 months to ascertain stability Pelvic ramus fx W/u for R parotid gland lesion, consider ENT input
[2017-08-31] MEDS: levETIRAcetam 500 MG TABLET (FP) PO SCH ×2 (09:36→21:16)
[2017-08-31] MEDS: FUROSEMIDE 40 MG TABLET (FP) PO SCH (09:37)
[2017-08-31] MEDS: AMIODARONE HCL 200 MG TABLET (FP) PO SCH (09:37)
[2017-08-31] MEDS: METOPROLOL TARTRATE 50 MG TABLET (FP) PO SCH (11:46)
--- NOTE | 2017-08-31 11:51 | PN ---
Progress Note (short form) - Note Progress Note: Pt seen and examined. Vincentian speaking. She is a 76 year old female s/p recent fall. C/o moderate pain in the left hemipelvis, and anterior groin area. PE LLE is NVI Good ROM at the left hip, knee, ankle, foot, toes + pain in the left ant groin with L hip ROM, not severe No LLE shortening or malrotation Xrays/CT scan Show left nondisplaced superior and inferior pubic rami fractures. No acute pathology of the left hip Imp 76 F s/p fall with nondisplaced L pubic rami fractures Rec No surgery indicated P.T., ambulation, WBAT Anticoagulation, even if low dose ASA, and SCDs while in bed Can DC from an ortho pov
[2017-08-31] MEDS ORDERED: oxyCODONE HCL 5 MG TABLET PO PRN (12:51)
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
--- NOTE | 2017-08-31 16:22 | PN ---
Progress Note, Physician Chief Complaint: Patient complains of LLQ pain. Headache improved. She denies chest pain, SOB at rest, palpitation or dizziness. Tele shows sinus bradycardia in low 50's. No pauses noted. History of Present Illness: 76 year-old woman with a PMHx of HTN, paroxysmal atrial fibrillation on amiodarone metoprolol, diltiazem and coumadin, CHF, NIDDM, PVD, hypothyroidism, spinal stenosis who was admitted s/p mechanical fall. No LOC. She had sinus bradycardia. Dilt was discontinued. Seen by Neurosurgery for small homogeneously enhancing right frontal dural based lesion without associated edema, c/w calcified meningioma. No neurosurgical intervention recommended. Follow up MRI with/without higinio in 3 months. Her exercise tolerance is poor. But she has no chest pain, SOB at rest, palpitation, edema, orthopnea or PND. - Current Medication List Current Medications: Active Medications Acetaminophen (Tylenol -) 650 mg PO Q4H PRN PRN Reason: FEVER OR PAIN Last Admin: 08/29/17 23:11 Dose: 650 mg Amiodarone HCl (Cordarone -) 200 mg PO DAILY [facility] Last Admin: 08/31/17 09:37 Dose: 200 mg Furosemide (Lasix -) 40 mg PO DAILY [facility] Last Admin: 08/31/17 09:37 Dose: 40 mg Levetiracetam (Keppra -) 500 mg PO BID [facility] Last Admin: 08/31/17 09:36 Dose: 500 mg Levothyroxine Sodium (Synthroid -) 25 mcg PO AM [facility] Last Admin: 08/31/17 06:33 Dose: 25 mcg Metoprolol Succinate (Toprol Xl -) 25 mg PO DAILY [facility] Oxycodone HCl (Roxicodone -) 5 mg PO Q6H PRN PRN Reason: PAIN - Objective Vital Signs: Vital Signs Temperature 98.6 F 08/31/17 14:00 Pulse Rate 50 L 08/31/17 14:00 Respiratory Rate 18 08/31/17 14:00 Blood Pressure 129/62 08/31/17 14:00 O2 Sat by Pulse Oximetry (%) 96 08/30/17 21:00 Constitutional: Yes: Well Nourished, No Distress, Calm Eyes: Yes: WNL, Conjunctiva Clear, EOM Intact HENT: Yes: WNL, Atraumatic, Normocephalic Neck: Yes: WNL, Supple, Trachea Midline Cardiovascular: Yes: Regular Rate and Rhythm, Bradycardia Respiratory: Yes: Regular, CTA Bilaterally Gastrointestinal: Yes: Normal Bowel Sounds, Soft, Other (Mild LLQ pain on palpation.) ...Rectal Exam: Yes: Deferred Extremities: Yes: WNL Edema: No Peripheral Pulses WNL: Yes Labs: CBC, BMP 08/30/17 06:00 08/31/17 05:05 INR, PTT INR 1.69 (0.82-1.09) H 08/28/17 00:11 Assessment/Plan 76 year-old woman with a PMHx of HTN, paroxysmal atrial fibrillation on amiodarone metoprolol, diltiazem and coumadin, CHF, NIDDM, PVD, hypothyroidism, spinal stenosis who was admitted s/p mechanical fall. No LOC. She had sinus bradycardia. Dilt was discontinued. Seen by Neurosurgery for small homogeneously enhancing right frontal dural based lesion without associated edema, c/w calcified meningioma. No neurosurgical intervention recommended. Follow up MRI with/without higinio in 3 months. 1) Paroxysmal atrial fibrillation: Remains in sinus with bradycardia while on amiodarone and metoprolol. Sinus bradycardia noted. Diltiazem was discontinued. Metoprolol should be discontinued. Continue amiodarone for rhythm control. Continue tele. Hold all AC for now. 2) HTN: BP is within normal range. Discontinue Metoprolol succinate for sinus bradycardia. Consider adding ARB: Diovan for BP control if her BP remains elevated after stopping metoprolol. Echo to assess LV function.
[2017-08-31] MEDS ORDERED: MAGNESIUM HYDROX 2400MG/30ML ORAL SUSPENSION 30 ML CUP PO ONE (20:11)
[2017-08-31] MEDS: ACETAMINOPHEN 325 MG TABLET (FP) PO PRN (22:24)
[2017-09-01] MEDS: LEVOTHYROXINE NA 25 MCG TABLET (FP) PO SCH (06:27)
[2017-09-01 08:39] LABS: BASOPHIL 0.6 % (0-2.0); EOSINOPHIL 4.9 % (0-4.5); MCH 30.2 pg (25.7-33.7); MEAN CELL VOLUME 91.5 fl (80-96); MEAN PLT VOLUME 8.5 fl (7.5-11.1); NEUTROPHILS 56.6 % (42.8-82.8); PLATELET COUNT 175 K/MM3 (134-434); RDW 16.2 % (11.6-15.6); WHITE BLOOD COUNT 4.8 K/mm3 (4.0-10.0)
--- NOTE | 2017-09-01 08:54 | PN ---
Progress Note (short form) - Note Progress Note: Neurology HISTORY OF PRESENT ILLNESS: This is a 76 y/o woman with a PMHx of: HTN, Arrhythmia, CHF, DM, Peripheral Disease, Hypothyroid, Spinal Stenosis who presents to the ED s/p mechanical fall. Patient is Occitan speaking and reported tripping on her way to the bathroom, hitting her head against the wall. Patient unsure of ?LOC. Patient reported having a temporal GALLARDO. MRI of the brain demonstrated 1.2 x 1.2 cm right frontal hyperintensity, thereafter MRI [place] with contrast completed and reviewed, confirmed calcified meningioma but no acute infarct. Dr. Strickland notes reviewed and did not recommend surgical intervention at this time. Added Keppra 500 mg twice a day for seizure prevention. Also with parotid gland growth and this is being considered for further investigation. AC had been held due to SAH seen on prior MRI. Would recommend restarting this, but if further procedures to be done soon, then may have to hold AC further. No new neurologic events of the weekend. Active Medications Acetaminophen (Tylenol -) 650 mg PO Q4H PRN PRN Reason: FEVER OR PAIN Last Admin: 08/31/17 22:24 Dose: 650 mg Amiodarone HCl (Cordarone -) 200 mg PO DAILY [facility] Last Admin: 08/31/17 09:37 Dose: 200 mg Furosemide (Lasix -) 40 mg PO DAILY [facility] Last Admin: 08/31/17 09:37 Dose: 40 mg Levetiracetam (Keppra -) 500 mg PO BID [facility] Last Admin: 08/31/17 21:16 Dose: 500 mg Levothyroxine Sodium (Synthroid -) 25 mcg PO AM [facility] Last Admin: 09/01/17 06:27 Dose: 25 mcg Oxycodone HCl (Roxicodone -) 5 mg PO Q6H PRN PRN Reason: PAIN Polyethylene Glycol (Miralax (For Daily Use) -) 17 gm PO DAILY [facility] PHYSICAL EXAMINATION Vital Signs Period Temp Pulse Resp BP Sys/Elder Pulse Ox Last 24 Hr 97.6 F-98.7 F 47-53 18-18 116-129/61-65 96 GENERAL: Awake, alert, and fully oriented, in no acute distress. HEAD: Normal with no signs of trauma. +TN to bilateral temporal aspect EYES: Pupils equal, round and reactive to light, extraocular movements intact, sclera anicteric, conjunctiva clear. No lid lag. EARS, NOSE, THROAT: Ears normal, nares patent, oropharynx clear without exudates. Moist mucous membranes. NECK: Normal range of motion, supple without lymphadenopathy, JVD, or masses. + TN to C1/C2 LUNGS: Breath sounds equal, clear to auscultation bilaterally. No wheezes, and no crackles. No accessory muscle use. HEART: Regular rate and rhythm, normal S1 and S2 without murmur, rub or gallop. ABDOMEN: Soft, nontender, not distended, normoactive bowel sounds, no guarding, no rebound, no masses. No hepatomegaly or splenomegaly. MUSCULOSKELETAL: Normal range of motion at all joints. No bony deformities or tenderness. No CVA tenderness. UPPER EXTREMITIES: 2+ pulses, warm, well-perfused. No cyanosis. No clubbing. No peripheral edema. LOWER EXTREMITIES: 2+ pulses, warm, well-perfused. No calf tenderness. No peripheral edema. NEUROLOGICAL: Cranial nerves II-XII intact. Normal speech. strength in upper extremities bilateral and ssymmetric, strength in left lower extremity 0/5, right 4+/5, gait deferred PSYCHIATRIC: Cooperative. Good eye contact. Appropriate mood and affect. SKIN: Warm, dry, normal turgor, no rashes or lesions noted, normal capillary refill. CBCD WBC 5.0 K/mm3 (4.0-10.0) 08/30/17 06:00 RBC 3.83 M/mm3 (3.60-5.2) 08/30/17 06:00 Hgb 11.5 GM/dL (10.7-15.3) 08/30/17 06:00 Hct 34.8 % (32.4-45.2) 08/30/17 06:00 MCV 90.7 fl (80-96) 08/30/17 06:00 MCHC 33.0 g/dl (32.0-36.0) 08/30/17 06:00 RDW 16.0 % (11.6-15.6) H 08/30/17 06:00 Plt Count 174 K/MM3 (134-434) 08/30/17 06:00 MPV 9.3 fl (7.5-11.1) 08/30/17 06:00 CMP Sodium 140 mmol/L (136-145) 08/31/17 05:05 Potassium 3.7 mmol/L (3.5-5.1) 08/31/17 05:05 Chloride 105 mmol/L (98-107) 08/31/17 05:05 Carbon Dioxide 30 mmol/L (21-32) 08/31/17 05:05 Anion Gap 5 (8-16) L 08/31/17 05:05 BUN 35 mg/dL (7-18) H D 08/31/17 05:05 Creatinine 1.5 mg/dL (0.55-1.02) H 08/31/17 05:05 Creat Clearance w eGFR 39.61 (>60) 08/30/17 06:00 Calcium 7.8 mg/dL (8.5-10.1) L 08/31/17 05:05 Total Bilirubin 0.9 mg/dL (0.2-1.0) D 08/30/17 06:00 AST 25 U/L (15-37) D 08/30/17 06:00 ALT 40 U/L (12-78) D 08/30/17 06:00 Alkaline Phosphatase 100 U/L (45-117) 08/30/17 06:00 Total Protein 6.7 g/dl (6.4-8.2) 08/30/17 06:00 Albumin 2.6 g/dl (3.4-5.0) L 08/30/17 06:00 CT head reviewed X 3. MRI brain review MRI brain with contrast reviewed ASSESSMENT/PLAN: 76 y/o woman with a PMHx of: HTN, Arrhythmia, CHF, DM, Peripheral Disease, Hypothyroid, Spinal Stenosis who presents to the ED s/p mechanical fall. Patient is Occitan speaking and reported tripping on her way to the bathroom, hitting her head against the wall. Patient unsure of ?LOC. Patient reported having a temporal GALLARDO. Denies N/V or blurred vision. Patient denies fever, chills , cough, SOB, dizziness, CP. she does demonstrate left leg weakness, but is unclear if this is limited by pain of the left hip. in the ER, she completed CT Head which showed subcentimeter rounded hyperdensity in the anterior right frontal region, ?meningioma cannot r/o ICH. She is admitted for further evaluation and management and an MRI of the brain demonstrated 1.2 x 1.2 cm right frontal hyperintensity possibly a meningioma as well as adjacent subarachnoid hemorrhage but no acute infarct. Dr. Strickland notes reviewed, no surgical intervention rec'd at this time Keppra 500 mg twice a day for seizure prevention. Held antiplatelet and anticoagulation due to subarachnoid hemorrhage, but likely can restart now that it's been > 48hr off blood pressure control, goal less than 130/90 Continue antihypertensive medications especially in context of subarachnoid blood fall precautions, recommended Continue close monitoring
--- NOTE | 2017-09-01 09:21 | PN ---
Progress Note (short form) - Note Progress Note: Ortho Pt seen and examined s/p left superior and inferior pubic rami fx PE- + ttp, decr rom, nvi a/p PT wbat dvt ppx pain control d/c planning d/w Dr. Howard
[2017-09-01 09:29] LABS: INR 1.07 (0.82-1.09); PROTHROMBIN TIME (PATIENT) 12.1 SEC (9.98-11.88)
[2017-09-01 09:45] LABS: ALBUMIN 2.5 g/dl (3.4-5.0); ANION GAP 5 (8-16); CALCIUM 7.8 mg/dL (8.5-10.1); CO2 32 mmol/L (21-32); GLUCOSE,RANDOM 129 mg/dL (74-106); SGPT/ALT 37 U/L (12-78)
[2017-09-01 09:48] LABS: ALK PHOS 95 U/L (45-117); BILIRUBIN,TOTAL 0.7 mg/dL (0.2-1.0); CREATININE 1.6 mg/dL (0.55-1.02); SGOT/AST 27 U/L (15-37); TOT PROT 6.6 g/dl (6.4-8.2)
[2017-09-01] MEDS: AMIODARONE HCL 200 MG TABLET (FP) PO SCH (09:50)
[2017-09-01] MEDS: POLYETHYLENE GLYCOL 3350 119 GM BTL PO SCH (09:50)
[2017-09-01] MEDS: levETIRAcetam 500 MG TABLET (FP) PO SCH ×2 (09:50→21:44)
--- NOTE | 2017-09-01 09:51 | PN ---
Progress Note (short form) - Note Progress Note: NEUROSURGERY In telemetry Minimal frontal H/A only, improving L pelvic/groin pain PE: AF, VSS General- unremarkable, distal pulses diminished symmetrically CN- intact; Motor- 4+/5 except L IP 3/5 limited by hip pain; Sensation- decreased vibratory sensation B feet; DTR- hyporeflexic MRI brain noncontrast- R frontal lesion c/w calcified meningioma Stable neurologically F/u brain MRI in 3 months to ascertain stability Pelvic ramus fx, WBAG per ortho W/u for R parotid gland lesion, consider ENT input Rehab pending
[2017-09-01] MEDS ORDERED: METOPROLOL SUCCINATE 25 MG TAB.SR.24H (FP) PO SCH (10:00)
--- NOTE | 2017-09-01 13:25 | PN ---
Physical Exam: SUBJECTIVE: Patient seen and examined at the bedside. She reports intermittent headaches relieved with Tylenol. OBJECTIVE: Vital Signs Period Temp Pulse Resp BP Sys/Elder Pulse Ox Last 24 Hr 97.7 F-98.7 F 47-53 18-18 116-130/61-68 96-96 GENERAL: The patient is awake, alert, and fully oriented, in no acute distress, mosotho speaking HEAD: Normal with no signs of trauma. EYES: PERRL, extraocular movements intact, sclera anicteric, conjunctiva clear. No ptosis. ENT: Ears normal, nares patent, oropharynx clear without exudates, moist mucous membranes. NECK: Trachea midline, full range of motion, supple. LUNGS: Breath sounds equal, clear to auscultation bilaterally, no wheezes, no crackles, no accessory muscle use. HEART: Prox. afib noted on cardiac rn ABDOMEN: Soft, nontender, nondistended, normoactive bowel sounds, no guarding, no rebound, no hepatosplenomegaly, no masses. EXTREMITIES: no edema. NEUROLOGICAL: Normal speech, gait not observed. PSYCH: Normal mood, normal affect. SKIN: Warm, dry, normal turgor, no rashes or lesions noted Laboratory Results - last 24 hr 09/01/17 09/01/17 09/01/17 08:22 08:22 08:22 WBC 4.8 RBC 3.64 Hgb 11.0 Hct 33.3 MCV 91.5 MCH 30.2 MCHC 33.0 RDW 16.2 H Plt Count 175 MPV 8.5 Neutrophils % 56.6 Lymphocytes % 24.6 Monocytes % 13.3 H Eosinophils % 4.9 H Basophils % 0.6 PT with INR 12.10 H INR 1.07 D Sodium 141 Potassium 3.7 Chloride 104 Carbon Dioxide 32 Anion Gap 5 L BUN 33 H Creatinine 1.6 H Creat Clearance w eGFR 31.17 Random Glucose 129 H D Calcium 7.8 L Total Bilirubin 0.7 D AST 27 ALT 37 Alkaline Phosphatase 95 Total Protein 6.6 Albumin 2.5 L Active Medications Generic Name Dose Route Start Last Admin Trade Name Freq PRN Reason Stop Dose Admin Acetaminophen 650 mg 08/29/17 10:49 08/31/17 22:24 Tylenol - PO 650 mg Q4H PRN Administration FEVER OR PAIN Amiodarone HCl 200 mg 08/29/17 16:45 09/01/17 09:50 Cordarone - PO 200 mg DAILY [facility] Administration Furosemide 40 mg 08/29/17 17:00 08/31/17 09:37 Lasix - PO 40 mg DAILY BIA Administration Levetiracetam 500 mg 08/29/17 12:15 09/01/17 09:50 Keppra - PO 500 mg BID BIA Administration Levothyroxine Sodium 25 mcg 08/29/17 07:00 09/01/17 06:27 Synthroid - PO 25 mcg AM BIA Administration Oxycodone HCl 5 mg 08/31/17 12:51 Roxicodone - PO Q6H PRN PAIN Polyethylene Glycol 17 gm 09/01/17 10:00 09/01/17 09:50 Miralax (For Daily Use) - PO 17 grams DAILY BIA Administration ASSESSMENT/PLAN: Patient is a 76 year old female with a significant past medical history of hypertension, cardiac arrhythmia, CHF, diabetes mellitus, peripheral disease, Hypothyroid and spinal stenosis. She presented to the ED on 08/29/2017 after a mechanical fall at home. Patient reports she fell while getting out of the bathtub and hit her head against the wall. Patient unsure if she has any LOC. Patient denies fever, chills, cough, SOB, dizziness, or chest pain. During hospitalization, patient sustained a superior and inferior public veronika. fx after falling in her room. On admission, she was found to have right frontal lesion and a right parotid gland lesion. Imaging: Head CT: subcentimeter rounded hyperdensity in the anterior right frontal region , ?meningioma cannot r/o ICH, mild curvilinear susceptibility in the surrounding sulci suggestive of small volume subarachnoid hemorrhage Chest xray - no consolidation, pulmonary vascular congestion, pleural effusion MRI brain - R frontal lesion with calcified meningioma, right partoid gland lesion seen Neurology: Right frontal lesion, Subarachnoid hemorrhage MRI shoes calcified meningioma wit suggestive subarchnoid hemorrhage At this time, no neurosurgical intervention recommended but patient will need a follow up MRI in 3 months On Keppra 500mg BID Re-start anti-platelet or anticoagulation once cleared by cardiology Right parotid gland lesion CT guided biopsy with IR ordered Cardiology: Paroxysmal atrial fibrillation, likely chronic SB on cardiac rn, episodes of afib On Amiodorone for rate control Toprol stopped for bradycardia Cardiology: CHF/Heart failure On Lasix 40mg PO Echo pending Hypertension Monitor BP, Diovan to be added if BP elevated Muscular/Skeletal Pubic rami fractures with hematoma Seen by Ortho, no surgical intervention per ortho, WBAT Restart ASA and anticoags once Endocrine: Diabetes Novolog sliding scale ac/hs Hypothyroidism On Synthroid F.E.N. Fluids: tolerating PO Electrolytes: monitor Nutrition: regular/low sodium diet Prophylaxis: DVT: SCDs GI: deferred
--- NOTE | 2017-09-01 17:00 | PN ---
Progress Note, Physician Chief Complaint: AFIB History of Present Illness: This is a 76 year-old woman with a PMHx of HTN, paroxysmal atrial fibrillation on amiodarone, metoprolol, diltiazem and coumadin, CHF, NIDDM, PVD, hypothyroidism, spinal stenosis who was admitted s/p mechanical fall. No LOC. She had sinus bradycardia. Dilt was discontinued. Seen by Neurosurgery for small homogeneously enhancing right frontal dural based lesion without associated edema, c/w calcified meningioma. No neurosurgical intervention recommended. Follow up MRI with/without higinio in 3 months is planned. 09/01/17 Remains comfortable in NAD. - Current Medication List Current Medications: Active Medications Acetaminophen (Tylenol -) 650 mg PO Q4H PRN PRN Reason: FEVER OR PAIN Last Admin: 08/31/17 22:24 Dose: 650 mg Amiodarone HCl (Cordarone -) 200 mg PO DAILY [facility] Last Admin: 09/01/17 09:50 Dose: 200 mg Furosemide (Lasix -) 40 mg PO DAILY [facility] Last Admin: 08/31/17 09:37 Dose: 40 mg Levetiracetam (Keppra -) 500 mg PO BID [facility] Last Admin: 09/01/17 09:50 Dose: 500 mg Levothyroxine Sodium (Synthroid -) 25 mcg PO AM [facility] Last Admin: 09/01/17 06:27 Dose: 25 mcg Oxycodone HCl (Roxicodone -) 5 mg PO Q6H PRN PRN Reason: PAIN Polyethylene Glycol (Miralax (For Daily Use) -) 17 gm PO DAILY [facility] Last Admin: 09/01/17 09:50 Dose: 17 grams - Objective Vital Signs: Vital Signs Temperature 98.5 F 09/01/17 14:00 Pulse Rate 50 L 09/01/17 14:00 Respiratory Rate 20 09/01/17 14:00 Blood Pressure 111/61 09/01/17 14:00 O2 Sat by Pulse Oximetry (%) 96 09/01/17 09:00 Constitutional: Yes: No Distress Neck: Yes: WNL Cardiovascular: Yes: Regular Rate and Rhythm (NL S1S2, NO MRHG) Respiratory: Yes: CTA Bilaterally Gastrointestinal: Yes: Soft Extremities: Yes: WNL Edema: No Neurological: Yes: Alert, Oriented (Grossly Non focal) Labs: CBC, BMP 09/01/17 08:22 09/01/17 08:22 INR, PTT INR 1.07 (0.82-1.09) D 09/01/17 08:22 Assessment/Plan Assessment/Plan 76 year-old woman with a PMHx of HTN, paroxysmal atrial fibrillation on amiodarone metoprolol, diltiazem and coumadin, CHF, NIDDM, PVD, hypothyroidism, spinal stenosis who was admitted s/p mechanical fall. No LOC. She had sinus bradycardia. Dilt was discontinued. Seen by Neurosurgery for small homogeneously enhancing right frontal dural based lesion without associated edema, c/w calcified meningioma. No neurosurgical intervention recommended. Follow up MRI with/without higinio in 3 months. 1) Paroxysmal atrial fibrillation: Remains in sinus with bradycardia while on amiodarone and metoprolol. Sinus bradycardia noted. HR 50 BPM Diltiazem was discontinued. Metoprolol was discontinued. Continue amiodarone for rhythm control. Continue telem. Hold all AC for now. 2) HTN: BP is within normal range.l. Echo noted, normal LV function.
[2017-09-01] MEDS ORDERED: DOCUSATE SODIUM 100 MG CAPSULE (FP) PO ONE (18:45)
[2017-09-01] MEDS ORDERED: POLYETHYLENE GLYCOL 3350 119 GM BTL PO ONE (18:45)
[2017-09-02] MEDS: ACETAMINOPHEN 325 MG TABLET (FP) PO PRN (03:11)
[2017-09-02] MEDS: LEVOTHYROXINE NA 25 MCG TABLET (FP) PO SCH (06:18)
--- NOTE | 2017-09-02 07:44 | PN ---
Progress Note (short form) - Note Progress Note: NEUROSURGERY Minimal frontal H/A L pelvic/groin pain PE: AF, VSS General- unremarkable, distal pulses diminished symmetrically CN- intact; Motor- 4+/5 except L IP 3/5 limited by hip pain; Sensation- inbtact LT; DTR- hyporeflexic MRI brain with contrast- R frontal dural-based enhancing lesion c/w calcified meningioma Stable neurologically F/u brain MRI in 3 months to ascertain stability Pelvic ramus fx, WBAG per ortho Consider ENT eval prior to discharge, d/w application software engineer pending
[2017-09-02 08:24] LABS: ANION GAP 5 (8-16); CALCIUM 7.7 mg/dl (8.4-10.2); CO2 31 mmol/L (22-28); CREATININE 1.2 mg/dl (0.6-1.3); GLUCOSE,RANDOM 88 mg/dl (74-106)
[2017-09-02 08:25] LABS: ALBUMIN 2.3 g/dl (3.5-5.0); ALK PHOS 86 U/L (32-92); BILIRUBIN,TOTAL 0.9 mg/dl (0.2-1.0); MAGNESIUM 2.4 mg/dL (1.8-2.4); SGOT/AST 27 U/L (10-42); SGPT/ALT 32 U/L (10-40); TOT PROT 6.3 g/dl (6.4-8.3)
[2017-09-02] MEDS: POLYETHYLENE GLYCOL 3350 119 GM BTL PO SCH (09:19)
[2017-09-02] MEDS: AMIODARONE HCL 200 MG TABLET (FP) PO SCH (09:19)
[2017-09-02] MEDS: levETIRAcetam 500 MG TABLET (FP) PO SCH ×2 (09:19→21:42)
--- NOTE | 2017-09-02 09:34 | PN ---
Progress Note (short form) - Note Progress Note: Neurology HISTORY OF PRESENT ILLNESS: This is a 76 y/o woman with a PMHx of: HTN, Arrhythmia, CHF, DM, Peripheral Disease, Hypothyroid, Spinal Stenosis who presents to the ED s/p mechanical fall. Patient is Welsh speaking and reported tripping on her way to the bathroom, hitting her head against the wall. Patient unsure of ?LOC. Patient reported having a temporal GALLARDO. MRI of the brain demonstrated 1.2 x 1.2 cm right frontal hyperintensity, thereafter MRI [place] with contrast completed and reviewed, confirmed calcified meningioma but no acute infarct. Dr. Strickland notes reviewed and did not recommend surgical intervention at this time. Added Keppra 500 mg twice a day for seizure prevention. Also with parotid gland growth and this is being considered for further investigation. AC had been held due to SAH seen on prior MRI. Would recommend restarting this, but if further procedures to be done soon, then may have to hold AC further. No new neurologic events of the weekend. Spoke to keycase assembler, plan likely for SNF. Active Medications Acetaminophen (Tylenol -) 650 mg PO Q4H PRN PRN Reason: FEVER OR PAIN Last Admin: 09/02/17 03:11 Dose: 650 mg Amiodarone HCl (Cordarone -) 200 mg PO DAILY [facility] Last Admin: 09/02/17 09:19 Dose: 200 mg Furosemide (Lasix -) 40 mg PO DAILY [facility] Last Admin: 08/31/17 09:37 Dose: 40 mg Levetiracetam (Keppra -) 500 mg PO BID [facility] Last Admin: 09/02/17 09:19 Dose: 500 mg Levothyroxine Sodium (Synthroid -) 25 mcg PO AM [facility] Last Admin: 09/02/17 06:18 Dose: 25 mcg Oxycodone HCl (Roxicodone -) 5 mg PO Q6H PRN PRN Reason: PAIN Last Admin: 09/02/17 08:30 Dose: 5 mg Polyethylene Glycol (Miralax (For Daily Use) -) 17 gm PO DAILY [facility] Last Admin: 09/02/17 09:19 Dose: 17 grams PHYSICAL EXAMINATION Vital Signs Period Temp Pulse Resp BP Sys/Elder Pulse Ox Last 24 Hr 97.8 F-98.8 F 48-59 14-20 111-137/54-74 96 GENERAL: Awake, alert, and fully oriented, in no acute distress. HEAD: Normal with no signs of trauma. +TN to bilateral temporal aspect EYES: Pupils equal, round and reactive to light, extraocular movements intact, sclera anicteric, conjunctiva clear. No lid lag. EARS, NOSE, THROAT: Ears normal, nares patent, oropharynx clear without exudates. Moist mucous membranes. NECK: Normal range of motion, supple without lymphadenopathy, JVD, or masses. + TN to C1/C2 LUNGS: Breath sounds equal, clear to auscultation bilaterally. No wheezes, and no crackles. No accessory muscle use. HEART: Regular rate and rhythm, normal S1 and S2 without murmur, rub or gallop. ABDOMEN: Soft, nontender, not distended, normoactive bowel sounds, no guarding, no rebound, no masses. No hepatomegaly or splenomegaly. MUSCULOSKELETAL: Normal range of motion at all joints. No bony deformities or tenderness. No CVA tenderness. UPPER EXTREMITIES: 2+ pulses, warm, well-perfused. No cyanosis. No clubbing. No peripheral edema. LOWER EXTREMITIES: 2+ pulses, warm, well-perfused. No calf tenderness. No peripheral edema. NEUROLOGICAL: Cranial nerves II-XII intact. Normal speech. strength in upper extremities bilateral and ssymmetric, strength in left lower extremity 0/5, right 4+/5, gait deferred PSYCHIATRIC: Cooperative. Good eye contact. Appropriate mood and affect. SKIN: Warm, dry, normal turgor, no rashes or lesions noted, normal capillary refill. CBCD WBC 4.8 K/mm3 (4.0-10.0) 09/01/17 08:22 RBC 3.64 M/mm3 (3.60-5.2) 09/01/17 08:22 Hgb 11.0 GM/dL (10.7-15.3) 09/01/17 08:22 Hct 33.3 % (32.4-45.2) 09/01/17 08:22 MCV 91.5 fl (80-96) 09/01/17 08:22 MCHC 33.0 g/dl (32.0-36.0) 09/01/17 08:22 RDW 16.2 % (11.6-15.6) H 09/01/17 08:22 Plt Count 175 K/MM3 (134-434) 09/01/17 08:22 MPV 8.5 fl (7.5-11.1) 09/01/17 08:22 CMP Sodium 141 mmol/L (136-145) 09/02/17 05:22 Potassium 4.0 mmol/L (3.5-5.1) 09/02/17 05:22 Chloride 105 mmol/L (98-107) 09/02/17 05:22 Carbon Dioxide 31 mmol/L (22-28) H 09/02/17 05:22 Anion Gap 5 (8-16) L 09/02/17 05:22 BUN 25 mg/dl (7-18) H 09/02/17 05:22 Creatinine 1.2 mg/dl (0.6-1.3) 09/02/17 05:22 Creat Clearance w eGFR 43.45 (>60) 09/02/17 05:22 Calcium 7.7 mg/dl (8.4-10.2) L 09/02/17 05:22 Total Bilirubin 0.9 mg/dl (0.2-1.0) 09/02/17 05:22 AST 27 U/L (10-42) 09/02/17 05:22 ALT 32 U/L (10-40) 09/02/17 05:22 Alkaline Phosphatase 86 U/L (32-92) 09/02/17 05:22 Total Protein 6.3 g/dl (6.4-8.3) L 09/02/17 05:22 Albumin 2.3 g/dl (3.5-5.0) L 09/02/17 05:22 CT head reviewed X 3. MRI brain review MRI brain with contrast reviewed ASSESSMENT/PLAN: 76 y/o woman with a PMHx of: HTN, Arrhythmia, CHF, DM, Peripheral Disease, Hypothyroid, Spinal Stenosis who presents to the ED s/p mechanical fall. Patient is Welsh speaking and reported tripping on her way to the bathroom, hitting her head against the wall. Patient unsure of ?LOC. Patient reported having a temporal GALLARDO. Denies N/V or blurred vision. Patient denies fever, chills , cough, SOB, dizziness, CP. she does demonstrate left leg weakness, but is unclear if this is limited by pain of the left hip. in the ER, she completed CT Head which showed subcentimeter rounded hyperdensity in the anterior right frontal region, ?meningioma cannot r/o ICH. She is admitted for further evaluation and management and an MRI of the brain demonstrated 1.2 x 1.2 cm right frontal hyperintensity possibly a meningioma as well as adjacent subarachnoid hemorrhage but no acute infarct. Dr. Strickland notes reviewed, no surgical intervention rec'd at this time Keppra 500 mg twice a day for seizure prevention. Held antiplatelet and anticoagulation due to subarachnoid hemorrhage, but likely can restart now that it's been > 48hr off blood pressure control, goal less than 130/90 Continue antihypertensive medications especially in context of subarachnoid blood fall precautions, recommended Possible for SNF
[2017-09-02] MEDS ORDERED: BISACODYL 10 MG SUPP.RECT PR PRN (09:35)
--- NOTE | 2017-09-02 11:19 | PN ---
Physical Exam: SUBJECTIVE: Patient seen and examined OBJECTIVE: Patient reports constipation x 3-4 days, Miralax and colace given w/o relief Dulcolax AL ordered Patient for Ct guided biopsy today discharge planning once cleared by cardiology to restart anticoags. If coumadin is to be restarted, pt s/b therapeutic prior to d/c Vital Signs Period Temp Pulse Resp BP Sys/Elder Pulse Ox Last 24 Hr 97.8 F-98.8 F 48-59 14-20 111-137/54-74 95-96 GENERAL: The patient is awake, alert, and fully oriented, in no acute distress, frisian speaking HEAD: Normal with no signs of trauma. EYES: PERRL, extraocular movements intact, sclera anicteric, conjunctiva clear. No ptosis. ENT: Ears normal, nares patent, oropharynx clear without exudates, moist mucous membranes. NECK: Trachea midline, full range of motion, supple. LUNGS: Breath sounds equal, clear to auscultation bilaterally, no wheezes, no crackles, no accessory muscle use. HEART: Prox. afib noted on monitoring specialist ABDOMEN: Soft, +bowel sounds, mildly distended, c/o constipation EXTREMITIES: no edema. NEUROLOGICAL: Normal speech, gait not observed. PSYCH: Normal mood, normal affect. SKIN: Warm, dry, normal turgor, no rashes or lesions noted Laboratory Results - last 24 hr 09/02/17 05:22 Sodium 141 Potassium 4.0 Chloride 105 Carbon Dioxide 31 H Anion Gap 5 L BUN 25 H Creatinine 1.2 Creat Clearance w eGFR 43.45 Random Glucose 88 Calcium 7.7 L Magnesium 2.4 Total Bilirubin 0.9 AST 27 ALT 32 Alkaline Phosphatase 86 Total Protein 6.3 L Albumin 2.3 L Active Medications Generic Name Dose Route Start Last Admin Trade Name Freq PRN Reason Stop Dose Admin Acetaminophen 650 mg 08/29/17 10:49 09/02/17 03:11 Tylenol - PO 650 mg Q4H PRN Administration FEVER OR PAIN Amiodarone HCl 200 mg 08/29/17 16:45 09/02/17 09:19 Cordarone - PO 200 mg DAILY BIA Administration Bisacodyl 10 mg 09/02/17 09:35 Dulcolax Suppository - AL DAILY PRN CONSTIPATION Furosemide 40 mg 08/29/17 17:00 08/31/17 09:37 Lasix - PO 40 mg DAILY BIA Administration Levetiracetam 500 mg 08/29/17 12:15 09/02/17 09:19 Keppra - PO 500 mg BID BIA Administration Levothyroxine Sodium 25 mcg 08/29/17 07:00 09/02/17 06:18 Synthroid - PO 25 mcg AM BIA Administration Oxycodone HCl 5 mg 08/31/17 12:51 09/02/17 08:30 Roxicodone - PO 5 mg Q6H PRN Administration PAIN Polyethylene Glycol 17 gm 09/01/17 10:00 09/02/17 09:19 Miralax (For Daily Use) - PO 17 grams DAILY [facility] Administration ASSESSMENT/PLAN: Patient is a 76 year old female with a significant past medical history of hypertension, cardiac arrhythmia, CHF, diabetes mellitus, peripheral disease, Hypothyroid and spinal stenosis. She presented to the ED on 08/29/2017 after a mechanical fall at home. Patient reports she fell while getting out of the bathtub and hit her head against the wall. Patient unsure if she has any LOC. Patient denies fever, chills, cough, SOB, dizziness, or chest pain. During hospitalization, patient sustained a superior and inferior public veronika. fx after falling in her room. On admission, she was also found to have right frontal lesion and a right parotid gland lesion. Imaging: Head CT: subcentimeter rounded hyperdensity in the anterior right frontal region , ?meningioma cannot r/o ICH, mild curvilinear susceptibility in the surrounding sulci suggestive of small volume subarachnoid hemorrhage Chest xray - no consolidation, pulmonary vascular congestion, pleural effusion MRI brain - R frontal lesion with calcified meningioma, right partoid gland lesion seen Neurology: Right frontal lesion, Subarachnoid hemorrhage MRI shoes calcified meningioma wit suggestive subarchnoid hemorrhage At this time, no neurosurgical intervention recommended but patient will need a follow up MRI in 3 months with neurosurgery On Keppra 500mg BID Re-start anti-platelet or anticoagulation once cleared by cardiology/neuro Right parotid gland lesion CT guided biopsy with IR ordered Cardiology: Paroxysmal atrial fibrillation, likely chronic SB on monitoring specialist, episodes of afib On Amiodorone for rate control Toprol stopped for bradycardia On Coumadin 4mg home dose, if coumadin to be restarted, INR should be therapeutic prior to d/c Cardiology: CHF/Heart failure On Lasix 40mg PO Echo reviewed Hypertension Monitor BP, Diovan to be added if BP elevated Muscular/Skeletal Pubic rami fractures with hematoma Seen by Ortho, no surgical intervention per ortho, WBAT Restart ASA and anticoags once Endocrine: Diabetes Novolog sliding scale ac/hs Hypothyroidism On Synthroid F.E.N. Fluids: tolerating PO Electrolytes: monitor Nutrition: regular/low sodium diet Prophylaxis: DVT: SCDs GI: deferred Visit type - Emergency Visit Emergency Visit: Yes ED Registration Date: 08/29/17 Care time: The patient presented to the Emergency Department on the above date and was hospitalized for further evaluation of their emergent condition. - New Patient This patient is new to me today: No - Critical Care Critical Care patient: No - Discharge Referral Referred to [facility] Med P.C.: No
[2017-09-02 12:50] LABS: MCH 30.1 pg (25.7-33.7); MCHC 32.7 g/dl (32.0-36.0); MEAN CELL VOLUME 92.2 fl (80-96); PLATELET COUNT 171 K/MM3 (134-434); RDW 16.5 % (11.6-15.6); WHITE BLOOD COUNT 4.4 K/mm3 (4.0-10.0)
[2017-09-02 12:51] LABS: BASOPHIL 0.8 % (0-2.0); EOSINOPHIL 4.7 % (0-4.5); NEUTROPHILS 54.8 % (42.8-82.8)
--- NOTE | 2017-09-02 16:39 | PN ---
Progress Note, Physician Chief Complaint: AFIB History of Present Illness: This is a 76 year-old woman with a PMHx of HTN, paroxysmal atrial fibrillation on amiodarone, metoprolol, diltiazem and coumadin, CHF, NIDDM, PVD, hypothyroidism, spinal stenosis who was admitted s/p mechanical fall. No LOC. She had sinus bradycardia. Dilt was discontinued. Seen by Neurosurgery for small homogeneously enhancing right frontal dural based lesion without associated edema, c/w calcified meningioma. No neurosurgical intervention recommended. Follow up MRI with/without higinio in 3 months is planned. 09/02/17 Remains comfortable in NAD. - Current Medication List Current Medications: Active Medications Acetaminophen (Tylenol -) 650 mg PO Q4H PRN PRN Reason: FEVER OR PAIN Last Admin: 09/02/17 03:11 Dose: 650 mg Amiodarone HCl (Cordarone -) 200 mg PO DAILY [facility] Last Admin: 09/02/17 09:19 Dose: 200 mg Bisacodyl (Dulcolax Suppository -) 10 mg HI DAILY PRN PRN Reason: CONSTIPATION Furosemide (Lasix -) 40 mg PO DAILY [facility] Last Admin: 08/31/17 09:37 Dose: 40 mg Levetiracetam (Keppra -) 500 mg PO BID [facility] Last Admin: 09/02/17 09:19 Dose: 500 mg Levothyroxine Sodium (Synthroid -) 25 mcg PO AM [facility] Last Admin: 09/02/17 06:18 Dose: 25 mcg Oxycodone HCl (Roxicodone -) 5 mg PO Q6H PRN PRN Reason: PAIN Last Admin: 09/02/17 08:30 Dose: 5 mg Polyethylene Glycol (Miralax (For Daily Use) -) 17 gm PO DAILY [facility] Last Admin: 09/02/17 09:19 Dose: 17 grams - Objective Vital Signs: Vital Signs Temperature 98.3 F 09/02/17 13:40 Pulse Rate 57 L 09/02/17 13:40 Respiratory Rate 16 09/02/17 13:40 Blood Pressure 124/58 09/02/17 13:40 O2 Sat by Pulse Oximetry (%) 95 09/02/17 10:00 Constitutional: Yes: Well Nourished Neck: Yes: WNL Cardiovascular: Yes: Pulse Irregular (NL S1S2, no MRHG) Respiratory: Yes: WNL Gastrointestinal: Yes: Soft Extremities: Yes: WNL Edema: No Neurological: Yes: Alert, Oriented (Grossly non focal) Labs: CBC, BMP 09/02/17 05:22 09/02/17 05:22 INR, PTT INR 1.07 (0.82-1.09) D 09/01/17 08:22 Assessment/Plan Assessment/Plan 76 year-old woman with a PMHx of HTN, paroxysmal atrial fibrillation on amiodarone metoprolol, diltiazem and coumadin, CHF, NIDDM, PVD, hypothyroidism, spinal stenosis who was admitted s/p mechanical fall. No LOC. She had sinus bradycardia. Dilt was discontinued. Seen by Neurosurgery for small homogeneously enhancing right frontal dural based lesion without associated edema, c/w calcified meningioma. No neurosurgical intervention recommended. Follow up MRI with/without higinio in 3 months. 1) Paroxysmal atrial fibrillation: Remains in sinus with bradycardia while on amiodarone and metoprolol. Sinus bradycardia noted. HR 50 BPM Diltiazem was discontinued. Metoprolol was discontinued. Continue amiodarone for rhythm control. If it is ok from a Neurosurgical and post biopsy standpoint to restart AC then I would favor Eliquis 2.5 mg PO Q12 hours or can restart Coumadin to an INR of 2 - 3. 2) HTN: BP is within normal range.l. Echo noted, normal LV function.
--- NOTE | 2017-09-02 18:26 | DS ---
Physical Exam: SUBJECTIVE: Patient seen and examined at the bedside. States she is comfortable, only complaint is constipation. OBJECTIVE: Patient reports constipation x 3-4 days, dulcolax, colace and senna tonight scheduled Patient s/p Ct guided biopsy today, results pending Started on Eliquis 2.5mg tonight, stop Coumadin Vital Signs Period Temp Pulse Resp BP Sys/Elder Pulse Ox Last 24 Hr 97.8 F-98.8 F 48-59 14-20 124-137/54-74 95-96 PHYSICAL EXAM GENERAL: The patient is awake, alert, and fully oriented, in no acute distress, icelandic speaking HEAD: Normal with no signs of trauma. EYES: PERRL, extraocular movements intact, sclera anicteric, conjunctiva clear. No ptosis. ENT: Ears normal, nares patent, oropharynx clear without exudates, moist mucous membranes. NECK: Trachea midline, full range of motion, supple. LUNGS: Breath sounds equal, clear to auscultation bilaterally, no wheezes, no crackles, no accessory muscle use. HEART: Prox. afib noted on director cardiac ABDOMEN: Soft, +bowel sounds, mildly distended, c/o constipation EXTREMITIES: no edema. NEUROLOGICAL: Normal speech, gait not observed. PSYCH: Normal mood, normal affect. SKIN: Warm, dry, normal turgor, no rashes or lesions noted LABS Laboratory Results - last 24 hr 09/02/17 09/02/17 05:22 05:22 WBC 4.4 RBC 3.39 L Hgb 10.2 L Hct 31.3 L MCV 92.2 MCH 30.1 MCHC 32.7 RDW 16.5 H Plt Count 171 MPV 9.0 Neutrophils % 54.8 Lymphocytes % 26.4 Monocytes % 13.3 H Eosinophils % 4.7 H Basophils % 0.8 Sodium 141 Potassium 4.0 Chloride 105 Carbon Dioxide 31 H Anion Gap 5 L BUN 25 H Creatinine 1.2 Creat Clearance w eGFR 43.45 Random Glucose 88 Calcium 7.7 L Magnesium 2.4 Total Bilirubin 0.9 AST 27 ALT 32 Alkaline Phosphatase 86 Total Protein 6.3 L Albumin 2.3 L HOSPITAL COURSE: Date of Admission:08/29/17 Date of Discharge: 09/02/17 ASSESSMENT/PLAN: Patient is a 76 year old female with a significant past medical history of hypertension, cardiac arrhythmia, CHF, diabetes mellitus, peripheral disease, Hypothyroid and spinal stenosis. She presented to the ED on 08/29/2017 after a mechanical fall at home. Patient reports she fell while getting out of the bathtub and hit her head against the wall. Patient unsure if she has any LOC. Patient denies fever, chills, cough, SOB, dizziness, or chest pain. During hospitalization, patient sustained a superior and inferior public veronika. fx after falling in her room. On admission, she was also found to have right frontal lesion and a right parotid gland lesion. Imaging: Head CT: subcentimeter rounded hyperdensity in the anterior right frontal region , ?meningioma cannot r/o ICH, mild curvilinear susceptibility in the surrounding sulci suggestive of small volume subarachnoid hemorrhage Chest xray - no consolidation, pulmonary vascular congestion, pleural effusion MRI brain - R frontal lesion with calcified meningioma, right partoid gland lesion seen Neurology: Right frontal lesion, Subarachnoid hemorrhage MRI shoes calcified meningioma with suggestive subarchnoid hemorrhage At this time, no neurosurgical intervention recommended but patient will need a follow up MRI in 3 months with neurosurgery On Keppra 500mg BID to continue as an outpatient Home coumadin to be stopped and patient to be started on Eliquis 2.5mg tonight and then BID Right parotid gland lesion CT guided biopsy with IR today, results pending Follow up results as an outpatient Cardiology: Paroxysmal atrial fibrillation, likely chronic SB on director cardiac, episodes of afib On Amiodorone for rate control On Eliquis 2.5mg BID Cardiology: CHF/Heart failure On Lasix 40mg PO Hypertension Monitor BP, Diovan to be added if BP elevated Muscular/Skeletal Pubic rami fractures with hematoma Seen by Ortho, no surgical intervention per ortho, WBAT Discharge to rehab Endocrine: Diabetes Novolog sliding scale ac/hs Hypothyroidism On Synthroid Disposition: Full code. Discharge tomorrow to 09/03/2017 to [facility] for rehab. Discharge Summary Reason For Visit: TRAUMATIC INJURY OF HEAD Condition: Stable - Instructions Diet, Activity, Other Instructions: Mrs. Ignacio Emerson: You will need to please follow up with Dr. Strickland for a repeat MRI of your brain in 3 months (No later than November 2017). Continue the Coumadin but please have your levels checked in 2-3 days to make sure you are therapeutic. Referrals: Brett Strickland MD [Staff Physician] - Hong Lorenzo MD [Staff Physician] - Сергей Caceres MD [Staff Physician] - - Home Medications Comprehensive Discharge Medication List: Ambulatory Orders Amiodarone HCl [Cordarone -] 200 mg PO DAILY 08/28/17 Coumadin 4 mg PO DAILY 08/28/17 Diltiazem Cd [Cardizem Cd -] 120 mg PO DAILY 08/28/17 Furosemide [Lasix -] 40 mg PO DAILY 08/28/17 Levothyroxine [Synthroid -] 25 mcg PO DAILY 08/28/17 Metoprolol Tartrate [Lopressor -] 50 mg PO DAILY 08/28/17 - Discharge Referral Referred to [facility] No
[2017-09-02] MEDS ORDERED: SENNOSIDES 8.6MG TABLET (FP) PO PRN (18:27)
[2017-09-02] MEDS ORDERED: APIXABAN 2.5 MG TABLET PO SCH (18:30)
[2017-09-02] MEDS ORDERED: APIXABAN 2.5 MG TABLET PO ONE (18:45)
[2017-09-02] MEDS: DOCUSATE SODIUM 100 MG CAPSULE (FP) PO SCH ×2 (18:45→21:42)
[2017-09-03] MEDS: LEVOTHYROXINE NA 25 MCG TABLET (FP) PO SCH (06:45)
[2017-09-03] MEDS: DOCUSATE SODIUM 100 MG CAPSULE (FP) PO SCH (06:45)
[2017-09-03 07:22] LABS: BASOPHIL 0.5 % (0-2.0); EOSINOPHIL 3.6 % (0-4.5); MCH 29.9 pg (25.7-33.7); MCHC 32.4 g/dl (32.0-36.0); MEAN CELL VOLUME 92.1 fl (80-96); MEAN PLT VOLUME 9.2 fl (7.5-11.1); PLATELET COUNT 171 K/MM3 (134-434); RDW 16.2 % (11.6-15.6); WHITE BLOOD COUNT 4.8 K/mm3 (4.0-10.0)
[2017-09-03 07:34] LABS: INR 1.15 (0.82-1.09)
[2017-09-03 07:46] LABS: ALBUMIN 2.4 g/dl (3.4-5.0); ANION GAP 5 (8-16); CALCIUM 7.8 mg/dL (8.5-10.1); CO2 30 mmol/L (21-32); GLUCOSE,RANDOM 90 mg/dL (74-106); MAGNESIUM 2.4 mg/dL (1.8-2.4)
[2017-09-03 07:51] LABS: ALK PHOS 89 U/L (45-117); CREATININE 1.2 mg/dL (0.55-1.02); SGOT/AST 28 U/L (15-37); SGPT/ALT 32 U/L (12-78); TOT PROT 6.5 g/dl (6.4-8.2)
[2017-09-03 07:56] VITALS: BP 138/74; PULSE 57
[2017-09-03] MEDS: AMIODARONE HCL 200 MG TABLET (FP) PO SCH (09:10)
[2017-09-03] MEDS: levETIRAcetam 500 MG TABLET (FP) PO SCH (09:10)
[2017-09-03] MEDS: POLYETHYLENE GLYCOL 3350 119 GM BTL PO SCH (09:11)
--- NOTE | 2017-09-03 09:13 | PN ---
Progress Note (short form) - Note Progress Note: NEUROSURGERY Getting a sponge bath L pelvic/groin pain better PE: AF, VSS General- unremarkable CN- intact; Motor- 4+/5 except L IP 3/5 limited by hip pain; Sensation- intact LT; DTR- hyporeflexic MRI brain with contrast- R frontal dural-based enhancing lesion c/w calcified meningioma Stable neurologically F/u brain MRI in 3 months to ascertain stability Pelvic sup and inf rami fx, WBAG per ortho Consider ENT eval post-bx parotid lesion Rehab Will sign off, reconsult prn
[2017-09-03] MEDS ORDERED: FUROSEMIDE 40 MG TABLET (FP) PO SCH (09:15)
[2017-09-03] MEDS ORDERED: APIXABAN 2.5 MG TABLET PO SCH (10:00)
[2017-09-03 12:59] VITALS: TEMP 98.9
--- NOTE | 2017-09-05 16:43 | PATH ---
Cytology Non-Gynecological Report Patient Name: PANCHITO REYES [facility]. Rec. #: [id number] /Age/Gender: 1940 (Age: 76) / M Account: [id number] Location: EMERGENCY ROOM Taken: 09/02/2017 Received: 09/02/2017 Reported: 09/05/2017 Physicians: Casey Olson ACNP Specimen(s) Received Parotid mass Clinical History Right parotid nodule, 1.82 x 1.66 x 1.16 cm Final Diagnosis PAROTID, RIGHT, FINE NEEDLE ASPIRATION: SATISFACTORY FOR EVALUATION. SALIVARY GLAND NEOPLASM. SEE COMMENT. Comment: The neoplasm is comprised of cellular fragments and aggregates of epithelial/myoepithelial cells with nuclear grooves and clearing/inclusions. No appreciable stroma is identified. Cell block material shows focal inspissated material. Immunohistochemical stains performed and interpreted at [facility] show CK7 highlights the epithelial cells, while p63 is positive in myoepithelial cells. Mucicarmine shows weak non-specific staining. Additional Immunohistochemical stains performed at [place], [place] ([id number]) and interpreted at [facility] show CK5/6 is diffusely positive, while proliferative marker, ki-67 is low (~ 3%). 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 Suggest clinical/radiologic and histologic correlation for definitive subclassification. Electronically Signed Chelsea Mclaughlin M.D. Gross Description Received are eight direct smears, four of which are air-dried and Diff-Quik stained, and four of which are alcohol fixed and Pap stained. Also received is 20 ml of bloody formalin from which one cellblock is prepared.
== END 2017-09-03 12:03 | DRG 964 ==
LOC: JER 17:16 → EDSEX 17:16 → JERBED 08-28 01:22 → UNDOADMOB 08-28 01:22 → JERBED 08-28 01:25 → UNDOADMOB 08-28 01:47 → JERBED 08-28 01:47 → J8W 08-28 23:22 → INTOOBSV 08-29 15:32 → OBSVTOIN 08-29 15:32 → J8W 08-30 14:34 → J4W 08-30 14:34
PROVIDERS: ADMIT Internal Medicine; ATTEND Registered Nurse
DX: S06.6X9A Traumatic subarachnoid hemorrhage with loss of consciousness of unspecified duration, initial encounter (principal); S32.512A Fracture of superior rim of left pubis, initial encounter for closed fracture; I13.0 Hypertensive heart and chronic kidney disease with heart failure and stage 1 through stage 4 chronic kidney disease, or unspecified chronic kidney disease; S32.592A Other specified fracture of left pubis, initial encounter for closed fracture; I48.0 Paroxysmal atrial fibrillation; I50.9 Heart failure, unspecified; E11.22 Type 2 diabetes mellitus with diabetic chronic kidney disease; N18.3 Chronic kidney disease, stage 3 (moderate); W01.198A Fall on same level from slipping, tripping and stumbling with subsequent striking against other object, initial encounter; W22.8XXA Striking against or struck by other objects, initial encounter; Y93.89 Activity, other specified; Y92.031 Bathroom in apartment as the place of occurrence of the external cause; Y99.8 Other external cause status; Z86.74 Personal history of sudden cardiac arrest; Z87.891 Personal history of nicotine dependence; Z79.01 Long term (current) use of anticoagulants; I73.9 Peripheral vascular disease, unspecified; E03.9 Hypothyroidism, unspecified; M48.00 Spinal stenosis, site unspecified; R79.1 Abnormal coagulation profile; M19.90 Unspecified osteoarthritis, unspecified site; M25.512 Pain in left shoulder; M25.562 Pain in left knee; K11.8 Other diseases of salivary glands; G44.89 Other headache syndrome; I48.2 Chronic atrial fibrillation; K59.00 Constipation, unspecified
CPT/HCPCS: 36415; 70450-TC; 70551-TC; 70552-TC; 71010-TC; 71111-TC; 72125-TC; 72192-TC; 73030-TC-LT; 73523-TC; 73562-TC-LT; 73590-TC-LT; 76942-TC; 80048; 80053; 80061; 82550; 83605; 83721; 83735; 84100; 84443; 84484; 85025; 85610; 86850; 86900; 86901; 88173; 88305-TC; 88313-TC; 88341-TC; 88342-TC; 93005; 93010; 93306-TC; 97116-GP; 97161-GP; 99285-25; A9576; G0378

== ENCOUNTER 2018-02-04 12:16 | Inpatient (IN) | payer OTHER ==
[2018-02-04 12:54] VITALS: BMI 29.2
--- NOTE | 2018-02-04 12:56 | PDOC ---
History of Present Illness - General Chief Complaint: Chest Pain Stated Complaint: CHEST PAIN - History of Present Illness Initial Comments: 76 year old female with a significant past medical history of hypertension, afib (Eliquis 2.5 BID; noncompliant for last week), CHF, diabetes mellitus, peripheral disease, Hypothyroid and spinal stenosis. 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 No relieving factors. She states the pain was worsened when walking around her home and she similarly endorsed accompanying lightheadness and stomach pain. Of note, pt's daughter was recently in a fight with her fiance and pt has been emotionally distressed and depressed the last few days as result. Pt has no PMD and was recently discharged from [facility] in October and has been living with her daughter. She has recently run out of her home cardiac meds, including eliquis, and has not taken them for the past week. She does not follow with a brushing machine operator. No hx of OR. Family hx of cardiomegaly. Denies F/C, N/V, SOB, diarrhea, constipation, urinary complaints, sensory changes. Denies orthopnea, PND, HADLEY at baseline, claudications or recent palpitations. Endorses lightheadness, abdominal pain this AM accompanying chest pain. Upon receiving SL nitro in ED, pt states CP has resolved. Allergies: Penicillin, ASA - rash, N/V Past surgical history: GB removal, STANTON+BSO Social History: Lives with daughter, No alcohol or drug use, former smoker PMD: None 02/04/18 13:49 Past History - Past Medical History Allergies/Adverse Reactions: Allergies Allergy/AdvReac Type Severity Reaction Status Date / Time Penicillins Allergy Intermediate Rash Verified 02/04/18 12:39 Home Medications: Ambulatory Orders Amiodarone HCl [Cordarone -] 200 mg PO DAILY 08/28/17 Apixaban [Eliquis -] 2.5 mg PO BID tablet 09/02/17 Docusate Sodium [Colace -] 100 mg PO TID capsule 09/02/17 Polyethylene Glycol 3350 [Miralax 119 gm Btl -] 17 gm PO DAILY bottle 09/02/17 Sennosides [Senna -] 2 tab PO HS PRN tablet 09/02/17 levETIRAcetam [Keppra -] 500 mg PO BID #0 tablet 09/02/17 oxyCODONE HCL [Roxicodone -] 5 mg PO Q6H PRN #14 tablet MDD 4 doses 09/02/17 Acetaminophen 650 mg PO Q4H 02/04/18 Ammonium Lactate [Skin Treatment] 225 gm TP BID 02/04/18 Atorvastatin Ca [Lipitor] 80 mg PO HS 02/04/18 Donepezil HCl 5 mg PO DAILY 02/04/18 Folic Acid 1 mg PO DAILY 02/04/18 Gabapentin 300 mg PO BID 02/04/18 Levothyroxine [Synthroid -] 50 mcg PO AM 02/04/18 Losartan Potassium 100 mg PO DAILY 02/04/18 Meclizine HCl 12.5 mg PO BID 02/04/18 Cancer: Yes (THROAT) Cardiac Disorders: Yes (caRDIAC ARREST) COPD: No HTN: Yes Thyroid Disease: Yes - Surgical History Cardiac Surgery: No Cholecystectomy: Yes Lung Surgery: No - Suicide/Smoking/Psychosocial Hx Smoking History: Never smoked Have you smoked in the past 12 months: No Information on smoking cessation initiated: No Hx Alcohol Use: No Drug/Substance Use Hx: No Substance Use Type: None Review of Systems - Review of Systems Comments:: GENERAL/CONSTITUTIONAL: No fever or chills. lightheadness, weakness this AM. HEAD, EYES, EARS, NOSE AND THROAT: No change in vision. No ear pain or discharge. No sore throat. CARDIOVASCULAR:+ chest pain, 10/10, radiating to shoulder. No shortness of breath RESPIRATORY: No cough, wheezing, or hemoptysis. GASTROINTESTINAL: + abdominal pain. No nausea, vomiting, diarrhea or constipation. GENITOURINARY: No dysuria, frequency, or change in urination. MUSCULOSKELETAL: No joint or muscle swelling or pain. No neck or back pain. SKIN: No rash NEUROLOGIC: No headache, vertigo, loss of consciousness, or change in strength/ sensation. ENDOCRINE: No increased thirst. No abnormal weight change HEMATOLOGIC/LYMPHATIC: No anemia, easy bleeding, or history of blood clots. ALLERGIC/IMMUNOLOGIC: No hives or skin allergy. 02/04/18 13:42 *Physical Exam - Vital Signs Last Vital Signs Temp Pulse Resp BP Pulse Ox 98.1 F 70 22 169/80 97 02/04/18 12:30 02/04/18 12:30 02/04/18 12:30 02/04/18 12:30 02/04/18 12:30 - Physical Exam Comments: GENERAL: Elderly woman, Awake, alert, and fully oriented, in no acute distress HEAD: No signs of trauma, normocephalic, atraumatic EYES: PERRLA, EOMI, sclera anicteric, conjunctiva clear ENT: Auricles normal inspection, hearing grossly normal, nares patent, oropharynx clear without exudates. Moist mucosa NECK: Normal ROM, supple, no lymphadenopathy, JVD, or masses LUNGS: No distress, speaks full sentences, clear to auscultation bilaterally HEART: IRR IRR, normal S1 and S2, no murmurs, rubs or gallops, peripheral pulses normal and equal bilaterally. ABDOMEN: Soft, nontender, normoactive bowel sounds. No guarding, no rebound. No masses. L sided CVA tenderness. EXTREMITIES : Trace pedal edema BL. 1+ DP, PT pulses. Normal inspection, Normal range of motion, no edema. No clubbing or cyanosis. NEUROLOGICAL: Cranial nerves II through XII grossly intact. Normal speech, normal gait, no focal sensorimotor deficits SKIN: Warm, Dry, normal turgor, no rashes or lesions noted 02/04/18 13:43 Heart Score/ECG Review - Age Age: >/= 65 - ECG Intrepretation Rhythm: Irregularly Irregular - Terry Terry: Normal - QRS Poor R Wave Progression: Yes - ST and T Flattened T Waves: No Prolonged Q-T Interval: Yes Comment:: qtc 449 02/04/18 19:19 - ECG Impressions Normal ECG: No Non-specific ST Elevation: No Ischemic Changes: No ED Treatment Course - LABORATORY CBC & Chemistry Diagram: 02/04/18 13:25 02/04/18 13:25 Medical Decision Making - Medical Decision Making 77 yo woman w/ pmh of CHF, afib and hypothyroidism presenting with substernal CP worsened on exertion, likely unstable angina vs. costochondritis vs. GERD vs. anxiety. Of note, pt noncompliant with cardiac meds for last week due to no further prescriptions. Pt received EKG notable for afib with no ischemic changes. Ordered of CBC, CMP, Trops, CXR. Pt ordered for plavix, nitro patch, eliquis, famotidine. First trop neg. Discussed case with JONH. Will admit to hospitalist group for tele obs. 02/04/18 18:17 Pt hypertensive to 190s systolic. Gave 10mg Norvasc. Discussed with JONH. 02/04/18 19:20 *DC/Admit/Observation/Transfer Diagnosis at time of Disposition: Unstable angina, HTN (hypertension) - Discharge Dispostion Condition at time of disposition: Stable Decision to Admit order: Yes Decision to Admit order Date/Time: Case discussed with MAR. Will admit as tele obs. Will require cardiac eval and possible stress test. 02/04/18 18:34 - Referrals - Patient Instructions - Post Discharge Activity
[2018-02-04 13:32] LABS: BASO % 0.6 % (0-2.0); EOS % 6.7 % (0-4.5); HEMATOCRIT 35.4 % (32.4-45.2); HEMOGLOBIN 11.7 GM/dL (10.7-15.3); LYMPH % 35.4 % (8-40); MCH 29.9 pg (25.7-33.7); MCHC 33.1 g/dl (32.0-36.0); MEAN CELL VOLUME 90.1 fl (80-96); MEAN PLT VOLUME 8.3 fl (7.5-11.1); MONO % 10.3 % (3.8-10.2); PLATELET COUNT 192 K/MM3 (134-434); RBC 3.93 M/mm3 (3.60-5.2); RDW 15.6 % (11.6-15.6); WHITE BLOOD COUNT 4.9 K/mm3 (4.0-10.0)
[2018-02-04 14:10] LABS: INR 1.01 (0.82-1.09); PROTHROMBIN TIME (PATIENT) 11.4 SEC (9.7-13.0)
[2018-02-04] MEDS ORDERED: CLOPIDOGREL BISULFATE 75 MG TABLET (FP) PO ONE (14:21)
[2018-02-04] MEDS ORDERED: NITROGLYCERIN 2% OINTMENT - 1GM PACKET TD ONE ×2 (14:21→15:00)
[2018-02-04] MEDS ORDERED: RANITIDINE HCL 150 MG TABLET (FP) PO ONE (14:26)
--- NOTE | 2018-02-04 14:30 | PDOC ---
Attending Attestation - Resident Resident Name: Anmol Umaña - ED Attending Attestation I have performed the following: I have examined & evaluated the patient, The case was reviewed & discussed with the resident, I agree w/resident's findings & plan, Exceptions are as noted <Jony Tipton - Last Filed: 02/04/18 14:47> - HPI HPI: 02/04/18 14:47 The patient is a 77 year old female, with a significant past medical history of hypertension, AFib (Eliquis, noncompliant for last week), CHF, diabetes, peripheral disease, hypothyroidism and spinal stenosis, who presents to the emergency department with chest pain since approximately 22:00 last night. She reports her pain is a crushing tightness that radiates into her left shoulder, which she rates a 10/10 since last night. Patient reports waking up with the same pain and EMS was activated. During transport patient was given sublingual Nitro and her pain has since resolved. Patient reports mild dyspnea on exertion and dizziness this morning, but denies any diaphoresis, palpitations, or lower extremity edema. The patient reports increased stressors at home over the past couple of days. Patient has no PCP and was recently discharged from [facility] in October and has been living with her daughter. She reports she recently ran out of her Coumadin and as a result has been noncompliant for 1 week. She reports some epigastric discomfort, but denies any nausea or vomiting. She denies any recent travel or sick contacts. Allergies: Penicillins Past surgical history: cholecystectomy Social History: Lives with daughter. Non smoker. No ETOH or recreational drug use, - Physicial Exam PE: 02/04/18 14:51 CONSTITUTIONAL: Well-appearing; well-nourished; in no apparent distress HEAD: Normocephalic; atraumatic EYES: PERRL; EOM intact ENMT: External appears normal; normal oropharynx NECK: Supple; non-tender; no cervical lymphadenopathy. CARD:Irregularly irregular; Normal S1, S2. No murmurs, rubs, or gallops RESP: Normal chest excursion with respiration; breath sounds clear and equal bilaterally; no wheezes, rhonchi, or rales ABD: Soft, non-distended; non-tender; no palpable organomegaly, no palpable hernias EXT: Trace pedal edema BL. Limited internal and external rotation of Right hip( chronic). 1+ DP, PT pulses. Normal ROM in bilateral upper extremities; non- tender to palpation SKIN: Warm, dry, no rash NEURO: No focal neurological deficiencies. - Medical Decision Making 02/04/18 14:51 Documentation prepared by Jadyn Shelby, acting as medical genetics director for Jony Titpon MD. First call placed to Dr. Alcazar at 16:30. Awaiting call back. <Jadyn Shelby - Last Filed: 02/04/18 16:30>
[2018-02-04] MEDS ORDERED: RANITIDINE HCL 150 MG TABLET (FP) ONE (14:59)
[2018-02-04] MEDS ORDERED: CLOPIDOGREL BISULFATE 75 MG TABLET (FP) ONE (15:00)
[2018-02-04] MEDS ORDERED: APIXABAN 2.5 MG TABLET PO SCH ×2 (15:45→22:00)
[2018-02-04 16:00] LABS: ALBUMIN 3.3 g/dl (3.4-5.0); CALCIUM 8.6 mg/dL (8.5-10.1); CHLORIDE 108 mmol/L (98-107); POTASSIUM 3.7 mmol/L (3.5-5.1); SODIUM 144 mmol/L (136-145)
[2018-02-04 16:09] LABS: ALK PHOS 96 U/L (45-117); ANION GAP 7 (8-16); BILIRUBIN,TOTAL 0.7 mg/dL (0.2-1.0); BLOOD UREA NITROGEN 21 mg/dL (7-18); CO2 29 mmol/L (21-32); CREATININE 1.1 mg/dL (0.55-1.02); GLUCOSE,RANDOM 144 mg/dL (74-106); SGOT/AST 45 U/L (15-37); SGPT/ALT 53 U/L (12-78); TOT PROT 8.1 g/dl (6.4-8.2)
[2018-02-04] MEDS ORDERED: ACETAMINOPHEN 325 MG TABLET (FP) PO ONE (17:36)
[2018-02-04] MEDS ORDERED: LOSARTAN POTASSIUM 50 MG TABLET (FP) PO ONE (17:38)
[2018-02-04] MEDS ORDERED: ACETAMINOPHEN 325 MG TABLET (FP) ONE (17:54)
[2018-02-04] MEDS ORDERED: LOSARTAN POTASSIUM 25 MG TABLET ONE (17:55)
[2018-02-04] MEDS ORDERED: SENNOSIDES 8.6MG TABLET (FP) PO PRN (18:48)
--- NOTE | 2018-02-04 18:58 | HP ---
CHIEF COMPLAINT:Chest pain PCP:Unknown HISTORY OF PRESENT ILLNESS: 77F PMH of hypertension, AFib (Eliquis, noncompliant for last week), CHF, hypothyroidism and spinal stenosis, who presents to the emergency department with chest pain since last night. Translation per daughter. Patient reports chest pain tightness and heaviness. She states to radiates to her left shoulder and arm. Patient given sublingual nitroglycerin by EMS and pain resolved. She states she was dizzy and short of breath this morning as well which resolved as well. Patient has been shuffling between the homes of her 7 kids after alf discharge and they have been throwing her out. she has not seen a doctor since discharge from [facility] this October and has run out of medications. Patient has no PCP and was recently discharged from [facility] in October and has been living with her daughter. She reports she recently ran out of her Coumadin and as a result has been noncompliant for 1 week. She reports some epigastric discomfort, but denies any nausea or vomiting. She denies any recent travel or sick contacts. ER course was notable for: (1)Labs (2)CXR Recent Travel:Denies PAST MEDICAL HISTORY:A fib CHF hypothyroidism PAST SURGICAL HISTORY:Cholecystectomy Social History: Smoking:Denies Alcohol:Denies Drugs: Denies Allergies Penicillins Allergy (Intermediate, Verified 02/04/18 12:39) Rash HOME MEDICATIONS: Home Medications Medication Instructions Recorded Amiodarone HCl [Cordarone -] 200 mg PO DAILY 08/28/17 Apixaban [Eliquis -] 2.5 mg PO BID tablet 09/02/17 Docusate Sodium [Colace -] 100 mg PO TID capsule 09/02/17 Polyethylene Glycol 3350 [Miralax 17 gm PO DAILY bottle 09/02/17 119 gm Btl -] Sennosides [Senna -] 2 tab PO HS PRN tablet 09/02/17 levETIRAcetam [Keppra -] 500 mg PO BID #0 tablet 09/02/17 oxyCODONE HCL [Roxicodone -] 5 mg PO Q6H PRN #14 tablet MDD 4 09/02/17 doses Acetaminophen 650 mg PO Q4H 02/04/18 Ammonium Lactate [Skin Treatment] 225 gm TP BID 02/04/18 Atorvastatin Ca [Lipitor] 80 mg PO HS 02/04/18 Donepezil HCl 5 mg PO DAILY 02/04/18 Folic Acid 1 mg PO DAILY 02/04/18 Gabapentin 300 mg PO BID 02/04/18 Levothyroxine [Synthroid -] 50 mcg PO AM 02/04/18 Losartan Potassium 100 mg PO DAILY 02/04/18 Meclizine HCl 12.5 mg PO BID 02/04/18 REVIEW OF SYSTEMS CONSTITUTIONAL: Absent: fever, chills, diaphoresis, generalized weakness, malaise, loss of appetite, weight change HEENT: Absent: rhinorrhea, nasal congestion, throat pain, throat swelling, difficulty swallowing, mouth swelling, ear pain, eye pain, visual changes Present: Headache CARDIOVASCULAR: Absent: syncope, palpitations, irregular heart rate, lightheadedness, peripheral edema Present: Chest pain and tightness RESPIRATORY: Absent: cough, orthopnea, wheezing, stridor, hemoptysis Present: shortness of breath, dyspnea with exertion GASTROINTESTINAL: Absent: abdominal pain, abdominal distension, nausea, vomiting, diarrhea, constipation, melena, hematochezia Present: abdominal discomfort GENITOURINARY: Absent: dysuria, frequency, urgency, hesitancy, hematuria, flank pain, genital pain MUSCULOSKELETAL: Absent: myalgia, arthralgia, joint swelling, back pain, neck pain SKIN: Absent: rash, itching, pallor HEMATOLOGIC/IMMUNOLOGIC: Absent: easy bleeding, easy bruising, lymphadenopathy, frequent infections ENDOCRINE: Absent: unexplained weight gain, unexplained weight loss, heat intolerance, cold intolerance NEUROLOGIC: Absent: headache, focal weakness or paresthesias, dizziness, unsteady gait, seizure, mental status changes, bladder or bowel incontinence PSYCHIATRIC: Absent: anxiety, depression, suicidal or homicidal ideation, hallucinations. PHYSICAL EXAMINATION Vital Signs - 24 hr 02/04/18 02/04/18 02/04/18 12:30 16:09 17:59 Temperature 98.1 F Pulse Rate 70 Pulse Rate [ 58 L 71 Radial] Respiratory 22 20 20 Rate Blood Pressure 169/80 Blood Pressure 174/88 168/93 [Left Arm] O2 Sat by Pulse 97 97 96 Oximetry (%) GENERAL: Awake, alert, and fully oriented, in no acute distress. HEAD: Normal with no signs of trauma. EYES: Pupils equal, round and reactive to light, extraocular movements intact EARS, NOSE, THROAT: Moist mucous membranes. NECK: no JVD. Rght parotid mass LUNGS: Breath sounds equal, clear to auscultation bilaterally. No wheezes, and no crackles. No accessory muscle use. HEART: Regular rate and rhythm, normal S1 and S2 3/6 systoic murmur at RUSB ABDOMEN: Soft, nontender, not distended MUSCULOSKELETAL: No CVA tenderness. UPPER EXTREMITIES: No peripheral edema. LOWER EXTREMITIES: trace peripheral edema NEUROLOGICAL: Cranial nerves II-XII intact. Laboratory Results - last 24 hr 02/04/18 02/04/18 02/04/18 13:25 13:25 13:25 WBC 4.9 RBC 3.93 Hgb 11.7 D Hct 35.4 MCV 90.1 MCH 29.9 MCHC 33.1 RDW 15.6 Plt Count 192 MPV 8.3 Neutrophils % 47.0 D Lymphocytes % 35.4 D Monocytes % 10.3 H Eosinophils % 6.7 H D Basophils % 0.6 PT with INR 11.40 INR 1.01 Sodium 144 Potassium 3.7 Chloride 108 H Carbon Dioxide 29 Anion Gap 7 L BUN 21 H Creatinine 1.1 H Creat Clearance w eGFR 47.91 Random Glucose 144 H Calcium 8.6 Total Bilirubin 0.7 D AST 45 H ALT 53 Alkaline Phosphatase 96 Creatine Kinase 52 Troponin I < 0.02 Total Protein 8.1 Albumin 3.3 L TSH 02/04/18 13:25 WBC RBC Hgb Hct MCV MCH MCHC RDW Plt Count MPV Neutrophils % Lymphocytes % Monocytes % Eosinophils % Basophils % PT with INR INR Sodium Potassium Chloride Carbon Dioxide Anion Gap BUN Creatinine Creat Clearance w eGFR Random Glucose Calcium Total Bilirubin AST ALT Alkaline Phosphatase Creatine Kinase Troponin I Total Protein Albumin TSH 4.22 H EKG: NSR ASSESSMENT/PLAN: 77F with multiple medical problems who presents to the ED with chest pain. 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 Moreno Visit type - Emergency Visit Emergency Visit: Yes ED Registration Date: 02/04/18 Care time: The patient presented to the Emergency Department on the above date and was hospitalized for further evaluation of their emergent condition. - New Patient This patient is new to me today: Yes Date on this admission: 02/04/18 - Critical Care Critical Care patient: No Hospitalist Screening - Colonoscopy Questionnaire Colonoscopy Questionnaire: Colonoscopy Questionnaire - Patient: 50 - 75 years old and never had a screening colonoscopy: No History of colon or rectal polyps, or CA: No History of IBD, Crohn's disease or UC: No History of abdominal radiation therapy as a child: No - Relative: 1 with colon or rectal CA, or polyps at age 60 or younger: No Colon or rectal CA diagnosed at age 45 or younger: No Multiple relatives with colon or rectal CA: No - Outcome: Screening Result: Negative Screen
[2018-02-04] MEDS ORDERED: amLODIPine BESYLATE 10 MG TABLET (FP) PO ONE (19:21)
[2018-02-04] MEDS ORDERED: cloNIDine HCL 0.1 MG TABLET PO ONE (20:30)
[2018-02-04] MEDS ORDERED: amLODIPine BESYLATE 5 MG TABLET (FP) ONE (20:35)
[2018-02-04] MEDS ORDERED: cloNIDine HCL 0.1 MG TABLET ONE (20:36)
--- NOTE | 2018-02-04 23:36 | PN ---
Teaching Attending Note Name of Resident: Julien Fregoso ATTENDING PHYSICIAN STATEMENT I saw and evaluated the patient. Chart, data, imaging reviewed. I reviewed the resident's note and discussed the case with the resident. I agree with the resident's findings and plan as documented. SUBJECTIVE: 77F PMH of hypertension, AFib (Eliquis, noncompliant for last week), CHF, hypothyroidism and spinal stenosis c/o chest pain since 5/10 at night. No orthorpenea, or difficulty worsening excercise intolerance. BIBA, give NGL by EMS with some improvement of chest pain that started insiduously. Pain radiated down to left shoulder. Patient has no PCP and was recently discharged from [facility] in October and has been living with her daughter. She has been off her medications for the last week. OBJECTIVE: Last Vital Signs Temp Pulse Resp BP Pulse Ox 98.1 F 66 22 184/92 97 02/04/18 12:30 02/04/18 20:44 02/04/18 20:44 02/04/18 20:44 02/04/18 20:44 general -nad, appears comfortable heent -nc, at, moist oral mucosa neck - supple cv -s1+s2+ rrr no murmurs chest- cta b/l abdomen-obese, soft, nontender ext- no pedal edema skin - neg for rashes Abnormal Lab Results 02/04/18 02/04/18 02/04/18 13:25 13:25 13:25 Monocytes % 10.3 H Eosinophils % 6.7 H D Chloride 108 H Anion Gap 7 L BUN 21 H Creatinine 1.1 H Random Glucose 144 H AST 45 H Albumin 3.3 L TSH 4.22 H EKG - reviewed, nsr, normal rate, negative for any ischemic changes troponin- neg ASSESSMENT AND PLAN: #77yo woman with chest pain, heart score was 5. Less Likely active ACS. Cardiac enzyme negative with ekg not suggestive of ischemic changes. -tele/observation -ASA -morphine PRN for pain -serial troponin -transthoracic echo -cardiology consult -will likely need cardiac stress test #severe asymptomatic HTN- likely from medication noncompliance -clonidone 0.2mg PO -restart home medications #History of afib - currently ekg showing sinus rhythm -continue eliquis #Hypothyroidism -continue synthroid DVT ppx - on eliquis
[2018-02-04] MEDS: ATORVASTATIN CA 80 MG TABLET (FP) PO SCH (23:48)
[2018-02-04] MEDS: levETIRAcetam 500 MG TABLET (FP) PO SCH (23:49)
[2018-02-04] MEDS: GABAPENTIN 300 MG CAPSULE (FP) PO SCH (23:49)
[2018-02-04] MEDS: APIXABAN 2.5 MG TABLET PO SCH (23:49)
[2018-02-04] MEDS: MECLIZINE HCL 12.5 MG TABLET PO SCH (23:49)
[2018-02-05 06:31] LABS: HEMATOCRIT 30.9 % (32.4-45.2); HEMOGLOBIN 10.3 GM/dL (10.7-15.3); MCH 30.1 pg (25.7-33.7); MCHC 33.4 g/dl (32.0-36.0); MEAN CELL VOLUME 90.2 fl (80-96); MEAN PLT VOLUME 8.4 fl (7.5-11.1); PLATELET COUNT 165 K/MM3 (134-434); RBC 3.42 M/mm3 (3.60-5.2); RDW 15.5 % (11.6-15.6); WHITE BLOOD COUNT 3.7 K/mm3 (4.0-10.0)
[2018-02-05] MEDS ORDERED: LEVOTHYROXINE NA 50 MCG TABLET (FP) PO SCH (07:00)
[2018-02-05 07:06] LABS: BLOOD UREA NITROGEN 21 mg/dL (7-18); CHLORIDE 108 mmol/L (98-107); CO2 30 mmol/L (21-32); CREATININE 1.2 mg/dL (0.55-1.02); GLUCOSE,RANDOM 97 mg/dL (74-106); POTASSIUM 3.5 mmol/L (3.5-5.1); SODIUM 143 mmol/L (136-145)
[2018-02-05 07:07] LABS: ALBUMIN 2.7 g/dl (3.4-5.0); ANION GAP 5 (8-16); CALCIUM 8.3 mg/dL (8.5-10.1); CHOLESTEROL 110 mg/dL (50-200); MAGNESIUM 2.2 mg/dL (1.8-2.4); SGOT/AST 32 U/L (15-37); SGPT/ALT 41 U/L (12-78)
[2018-02-05 07:09] LABS: ALK PHOS 80 U/L (45-117); BILIRUBIN,TOTAL 0.7 mg/dL (0.2-1.0); HDL CHOLESTEROL 54 mg/dL (40-60); PHOSPHOROUS 4.4 mg/dL (2.5-4.9); TOT PROT 6.8 g/dl (6.4-8.2); TRIGLYCERIDES 59 mg/dL (35-160)
[2018-02-05] MEDS ORDERED: PNEUMOC 13-VAL CONJ-DIP CRM/PF 0.5 ML DISP.SYRIN IM ONE (09:00)
[2018-02-05] MEDS ORDERED: FLU VACCINE QUAD 60 MCG/0.5 ML (MDV 17-18) IM ONE (09:00)
[2018-02-05] MEDS: LOSARTAN POTASSIUM 50 MG TABLET (FP) PO SCH (09:26)
[2018-02-05] MEDS: APIXABAN 2.5 MG TABLET PO SCH ×2 (09:27→21:10)
[2018-02-05] MEDS: levETIRAcetam 500 MG TABLET (FP) PO SCH ×2 (09:27→21:10)
[2018-02-05] MEDS: GABAPENTIN 300 MG CAPSULE (FP) PO SCH ×2 (09:27→21:10)
[2018-02-05] MEDS: MECLIZINE HCL 12.5 MG TABLET PO SCH ×2 (09:27→21:10)
[2018-02-05] MEDS: FOLIC ACID 1 MG TABLET (FP) PO SCH (09:27)
[2018-02-05] MEDS: AMIODARONE HCL 200 MG TABLET (FP) PO SCH (09:27)
[2018-02-05] MEDS: DONEPEZIL HCL 5 MG TABLET (FP) PO SCH (09:27)
[2018-02-05] MEDS: POLYETHYLENE GLYCOL 3350 119 GM BTL PO SCH (09:33)
[2018-02-05] MEDS ORDERED: LOSARTAN POTASSIUM 50 MG TABLET (FP) PO SCH (10:00)
[2018-02-05] MEDS ORDERED: PATIENT'S OWN MEDICATION (NON-FORMULARY) (Losartan Potassium [Losartan Potassium] 100 MG) PO SCH (10:00)
--- NOTE | 2018-02-05 10:31 | PN ---
Teaching Attending Note Name of Resident: Сергей Davis ATTENDING PHYSICIAN STATEMENT I saw and evaluated the patient. I reviewed the resident's note and discussed the case with the resident. I agree with the resident's findings and plan as documented. SUBJECTIVE: Patient denies any chest pain at this time OBJECTIVE: Vital Signs Temperature 98.3 F 02/05/18 02:00 Pulse Rate 55 L 02/05/18 06:00 Respiratory Rate 20 02/05/18 06:00 Blood Pressure 119/63 02/05/18 06:00 O2 Sat by Pulse Oximetry (%) 97 02/04/18 21:40 CBCD WBC 3.7 K/mm3 (4.0-10.0) L 02/05/18 06:05 RBC 3.42 M/mm3 (3.60-5.2) L 02/05/18 06:05 Hgb 10.3 GM/dL (10.7-15.3) L D 02/05/18 06:05 Hct 30.9 % (32.4-45.2) L 02/05/18 06:05 MCV 90.2 fl (80-96) 02/05/18 06:05 MCHC 33.4 g/dl (32.0-36.0) 02/05/18 06:05 RDW 15.5 % (11.6-15.6) 02/05/18 06:05 Plt Count 165 K/MM3 (134-434) 02/05/18 06:05 MPV 8.4 fl (7.5-11.1) 02/05/18 06:05 CMP Sodium 143 mmol/L (136-145) 02/05/18 06:05 Potassium 3.5 mmol/L (3.5-5.1) 02/05/18 06:05 Chloride 108 mmol/L (98-107) H 02/05/18 06:05 Carbon Dioxide 30 mmol/L (21-32) 02/05/18 06:05 Anion Gap 5 (8-16) L 02/05/18 06:05 BUN 21 mg/dL (7-18) H 02/05/18 06:05 Creatinine 1.2 mg/dL (0.55-1.02) H 02/05/18 06:05 Creat Clearance w eGFR 43.34 (>60) 02/05/18 06:05 Random Glucose 97 mg/dL (74-106) 02/05/18 06:05 Calcium 8.3 mg/dL (8.5-10.1) L 02/05/18 06:05 Total Bilirubin 0.7 mg/dL (0.2-1.0) 02/05/18 06:05 AST 32 U/L (15-37) 02/05/18 06:05 ALT 41 U/L (12-78) 02/05/18 06:05 Alkaline Phosphatase 80 U/L (45-117) 02/05/18 06:05 Total Protein 6.8 g/dl (6.4-8.2) 02/05/18 06:05 Albumin 2.7 g/dl (3.4-5.0) L 02/05/18 06:05 CARDIAC ENZYMES Creatine Kinase 37 IU/L (26-192) 02/05/18 01:00 Troponin I < 0.02 ng/ml (0.00-0.05) 02/05/18 01:00 Current Medications Generic Name Dose Route Start Last Admin Trade Name Laura PRN Reason Stop Dose Admin Amiodarone HCl 200 mg 02/05/18 10:00 02/05/18 09:27 Cordarone - PO 200 mg DAILY BIA Administration Apixaban 2.5 mg 02/04/18 22:00 02/05/18 09:27 Eliquis - PO 2.5 mg BID BIA Administration Atorvastatin Calcium 80 mg 02/04/18 22:00 02/04/18 23:48 Lipitor - PO 80 mg HS BIA Administration Donepezil HCl 5 mg 02/05/18 10:00 02/05/18 09:27 Aricept - PO 5 mg DAILY BIA Administration Folic Acid 1 mg 02/05/18 10:00 02/05/18 09:27 Folic Acid - PO 1 mg DAILY BIA Administration Gabapentin 300 mg 02/04/18 22:00 02/05/18 09:27 Neurontin - PO 300 mg BID BIA Administration Levetiracetam 500 mg 02/04/18 22:00 02/05/18 09:27 Keppra - PO 500 mg BID BIA Administration Levothyroxine Sodium 50 mcg 02/05/18 07:00 02/05/18 06:21 Synthroid - PO 50 mcg AM BIA Administration Losartan Potassium 100 mg 02/05/18 10:00 02/05/18 09:26 Cozaar - PO 100 mg DAILY BIA Administration Meclizine HCl 12.5 mg 02/04/18 22:00 02/05/18 09:27 Antivert - PO 12.5 mg BID BIA Administration Polyethylene Glycol 17 gm 02/05/18 10:00 02/05/18 09:33 Miralax (For Daily Use) - PO Not Given DAILY BIA Senna 2 tab 02/04/18 18:48 Senna - PO HS PRN CONSTIPATION Home Medications Medication Instructions Recorded Amiodarone HCl [Cordarone -] 200 mg PO DAILY 08/28/17 Apixaban [Eliquis -] 2.5 mg PO BID tablet 09/02/17 Docusate Sodium [Colace -] 100 mg PO TID capsule 09/02/17 Polyethylene Glycol 3350 [Miralax 17 gm PO DAILY bottle 09/02/17 119 gm Btl -] Sennosides [Senna -] 2 tab PO HS PRN tablet 09/02/17 levETIRAcetam [Keppra -] 500 mg PO BID #0 tablet 09/02/17 oxyCODONE HCL [Roxicodone -] 5 mg PO Q6H PRN #14 tablet MDD 4 09/02/17 doses Acetaminophen 650 mg PO Q4H 02/04/18 Ammonium Lactate [Skin Treatment] 225 gm TP BID 02/04/18 Atorvastatin Ca [Lipitor] 80 mg PO HS 02/04/18 Donepezil HCl 5 mg PO DAILY 02/04/18 Folic Acid 1 mg PO DAILY 02/04/18 Gabapentin 300 mg PO BID 02/04/18 Levothyroxine [Synthroid -] 50 mcg PO AM 02/04/18 Losartan Potassium 100 mg PO DAILY 02/04/18 Meclizine HCl 12.5 mg PO BID 02/04/18 Laboratory Tests 02/04/18 02/04/18 02/04/18 13:25 13:25 19:00 Troponin I < 0.02 < 0.02 TSH 4.22 H 02/05/18 01:00 Troponin I < 0.02 TSH PE: per resident's note ASSESSMENT AND PLAN: 77F with multiple medical problems who presents to the ED with chest pain. 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
--- NOTE | 2018-02-05 14:18 | EKG ---
Test Reason : Blood Pressure : / mmHG Vent. Rate : 070 BPM Atrial Rate : 070 BPM P-R Int : 172 ms QRS Dur : 116 ms QT Int : 416 ms P-R-T Axes : 044 -18 038 degrees QTc Int : 449 ms NORMAL SINUS RHYTHM LEFT VENTRICULAR HYPERTROPHY WITH QRS WIDENING ABNORMAL ECG WHEN COMPARED WITH ECG OF 27-AUG-2017 21:49, NONSPECIFIC T WAVE ABNORMALITY NOW EVIDENT IN LATERAL LEADS Confirmed by CONSTANTINE HICKMAN, JAMES ([id number]) on 02/05/2018 2:18:12 PM Referred By: Confirmed By:JAMES FITCH MD
--- NOTE | 2018-02-05 15:38 | CON.CARD ---
Consult Consult Specialty:: Cardiology Referred by:: Moncho Moreno Reason for Consultation:: Chest pain - History of Present Illness Chief Complaint: Chest pain History of Present Illness: 77 year old female with a pmhx of htn, afib on apixaban, diastolic chf, hypothyroidism, and spinal stenosis who presents with chest pain. Patient was home when developed left sided chest tightness and heaviness. Non radiating but sob associated. No pnd, orthopnea, or edema. +Dyspnea on exertion. - Past Medical History Cardio/Vascular: Yes: AFIB - Alcohol/Substance Use Hx Alcohol Use: No - Smoking History Smoking history: Never smoked Have you smoked in the past 12 months: No Home Medications - Allergies Allergies/Adverse Reactions: Allergies Allergy/AdvReac Type Severity Reaction Status Date / Time Penicillins Allergy Intermediate Rash Verified 02/04/18 12:39 - Home Medications Home Medications: Ambulatory Orders Amiodarone HCl [Cordarone -] 200 mg PO DAILY 08/28/17 Apixaban [Eliquis -] 2.5 mg PO BID tablet 09/02/17 Docusate Sodium [Colace -] 100 mg PO TID capsule 09/02/17 Polyethylene Glycol 3350 [Miralax 119 gm Btl -] 17 gm PO DAILY bottle 09/02/17 Sennosides [Senna -] 2 tab PO HS PRN tablet 09/02/17 levETIRAcetam [Keppra -] 500 mg PO BID #0 tablet 09/02/17 oxyCODONE HCL [Roxicodone -] 5 mg PO Q6H PRN #14 tablet MDD 4 doses 09/02/17 Acetaminophen 650 mg PO Q4H 02/04/18 Ammonium Lactate [Skin Treatment] 225 gm TP BID 02/04/18 Atorvastatin Ca [Lipitor] 80 mg PO HS 02/04/18 Donepezil HCl 5 mg PO DAILY 02/04/18 Folic Acid 1 mg PO DAILY 02/04/18 Gabapentin 300 mg PO BID 02/04/18 Levothyroxine [Synthroid -] 50 mcg PO AM 02/04/18 Losartan Potassium 100 mg PO DAILY 02/04/18 Meclizine HCl 12.5 mg PO BID 02/04/18 Vital Signs: Vital Signs Temperature 97.9 F 02/05/18 14:10 Pulse Rate 54 L 02/05/18 14:10 Respiratory Rate 18 02/05/18 14:10 Blood Pressure 122/62 02/05/18 14:10 O2 Sat by Pulse Oximetry (%) 100 02/05/18 09:00 Constitutional: Yes: No Distress Respiratory: Yes: CTA Bilaterally Gastrointestinal: Yes: Normal Bowel Sounds, Soft Cardiovascular: Yes: Regular Rate and Rhythm JVD: No Carotid Bruit: No PMI: Non-Displaced Heart Sounds: Yes: S1, S2 Murmur: No: Systolic Murmur Extremities: Yes: WNL Edema: No - Other Data Labs, Other Data: CBC, BMP 02/05/18 06:05 02/05/18 06:05 INR, PTT INR 1.01 (0.82-1.09) 02/04/18 13:25 Troponin, BNP 02/04/18 02/04/18 02/05/18 13:25 19:00 01:00 Troponin I < 0.02 < 0.02 < 0.02 Troponin, BNP 02/04/18 02/04/18 02/05/18 13:25 19:00 01:00 Troponin I < 0.02 < 0.02 < 0.02 Imaging - Results Chest X-ray: Report Reviewed EKG: Image Reviewed Problem List - Problems (1) HTN (hypertension) Code(s): I10 - ESSENTIAL (PRIMARY) HYPERTENSION Assessment/Plan 77 year old female with a pmhx of htn, afib on apixaban, diastolic chf, hypothyroidism, and spinal stenosis who presents with chest pain. Patient was home when developed left sided chest tightness and heaviness. Non radiating but sob associated. No pnd, orthopnea, or edema. +Dyspnea on exertion. Currently feels well with no complaints CE's neg Tele unremarkable EKG: sinus with LVH with qrs widening Echo normal lvef, no significant valve disease 1) Chest pain No acute ischemic changes, no events on tele, CE's negative Normal LVEF Would plan for Nuclear Stress Test lexiscan NPO after midnight. Aspirin/statin. No beta carmen as HR runs around 50bpm 2) HTN Controlled on home losartan 3) Afib On amiodarone and in sinus On NOAC for AC
--- NOTE | 2018-02-05 16:03 | PN ---
Physical Exam: SUBJECTIVE: Pt reports some hoarseness in her voice and endorses some cold intolerance. Pt denies any trouble swallowing, shortness of breath, CP/ discomfort, palpitations, abdominal pain, diarrhea, constipation, n/v/f/c at the current moment OBJECTIVE: Vital Signs Period Temp Pulse Resp BP Sys/Elder Pulse Ox Last 24 Hr 97.9 F-98.3 F 54-71 18-22 108-184/52-93 96-100 GENERAL: NAD, awake, alert, laying in bed. HEENT: EOMI, YUDY, sclera anicteric NECK: Fullness of L neck felt without any overt nodules or spiculated masses, no JVD LUNGS: CTA bilaterally, no wheezes, no crackles, no accessory muscle use. HEART: Bradycardic with regular rhythm, S1, S2 without murmur ABDOMEN: Soft, NT/ND, normoactive bowel sounds, no guarding, no rebound, no hepatomegaly, no masses. EXTREMITIES: 2+ DP pulses, warm, no edema. NEUROLOGICAL: Cranial nerves II through XII grossly intact. Strength 5/5 grossly , sensation grossly intact. gait not observed. PSYCH: Pleasant, Normal mood, normal affect. SKIN: Warm, dry, no rashes or lesions noted Laboratory Results - last 24 hr 02/04/18 02/04/18 02/04/18 13:25 13:25 19:00 WBC RBC Hgb Hct MCV MCH MCHC RDW Plt Count MPV Sodium 144 Potassium 3.7 Chloride 108 H Carbon Dioxide 29 Anion Gap 7 L BUN 21 H Creatinine 1.1 H Creat Clearance w eGFR 47.91 Random Glucose 144 H Hemoglobin A1c % Calcium 8.6 Phosphorus Magnesium Total Bilirubin 0.7 D AST 45 H ALT 53 Alkaline Phosphatase 96 Creatine Kinase 52 Troponin I < 0.02 < 0.02 Total Protein 8.1 Albumin 3.3 L Triglycerides Cholesterol Total LDL Cholesterol HDL Cholesterol TSH 4.22 H 02/05/18 02/05/18 02/05/18 01:00 06:05 06:05 WBC 3.7 L RBC 3.42 L Hgb 10.3 L D Hct 30.9 L MCV 90.2 MCH 30.1 MCHC 33.4 RDW 15.5 Plt Count 165 MPV 8.4 Sodium 143 Potassium 3.5 Chloride 108 H Carbon Dioxide 30 Anion Gap 5 L BUN 21 H Creatinine 1.2 H Creat Clearance w eGFR 43.34 Random Glucose 97 Hemoglobin A1c % Calcium 8.3 L Phosphorus 4.4 Magnesium 2.2 Total Bilirubin 0.7 AST 32 ALT 41 Alkaline Phosphatase 80 Creatine Kinase 37 Troponin I < 0.02 Total Protein 6.8 Albumin 2.7 L Triglycerides 59 Cholesterol 110 Total LDL Cholesterol 59 HDL Cholesterol 54 TSH 02/05/18 06:05 WBC RBC Hgb Hct MCV MCH MCHC RDW Plt Count MPV Sodium Potassium Chloride Carbon Dioxide Anion Gap BUN Creatinine Creat Clearance w eGFR Random Glucose Hemoglobin A1c % 6.0 Calcium Phosphorus Magnesium Total Bilirubin AST ALT Alkaline Phosphatase Creatine Kinase Troponin I Total Protein Albumin Triglycerides Cholesterol Total LDL Cholesterol HDL Cholesterol TSH Active Medications Generic Name Dose Route Start Last Admin Trade Name Freq PRN Reason Stop Dose Admin Amiodarone HCl 200 mg 02/05/18 10:00 02/05/18 09:27 Cordarone - PO 200 mg DAILY BIA Administration Apixaban 2.5 mg 02/04/18 22:00 02/05/18 09:27 Eliquis - PO 2.5 mg BID BIA Administration Atorvastatin Calcium 80 mg 02/04/18 22:00 02/04/18 23:48 Lipitor - PO 80 mg HS BIA Administration Donepezil HCl 5 mg 02/05/18 10:00 02/05/18 09:27 Aricept - PO 5 mg DAILY BIA Administration Folic Acid 1 mg 02/05/18 10:00 02/05/18 09:27 Folic Acid - PO 1 mg DAILY BIA Administration Gabapentin 300 mg 02/04/18 22:00 02/05/18 09:27 Neurontin - PO 300 mg BID BIA Administration Levetiracetam 500 mg 02/04/18 22:00 02/05/18 09:27 Keppra - PO 500 mg BID BIA Administration Levothyroxine Sodium 50 mcg 02/05/18 07:00 02/05/18 06:21 Synthroid - PO 50 mcg AM BIA Administration Losartan Potassium 100 mg 02/05/18 10:00 02/05/18 09:26 Cozaar - PO 100 mg DAILY BIA Administration Meclizine HCl 12.5 mg 02/04/18 22:00 02/05/18 09:27 Antivert - PO 12.5 mg BID BIA Administration Polyethylene Glycol 17 gm 02/05/18 10:00 02/05/18 09:33 Miralax (For Daily Use) - PO Not Given DAILY BIA Senna 2 tab 02/04/18 18:48 Senna - PO HS PRN CONSTIPATION ASSESSMENT/PLAN: 1) Odynophagia/Hoarsesness --Neck XR ordered for r/o tracheal compression --Resulted in R tracheal deviation due to soft tissues; by my read patent trachea --ENT evaluation for airway patency --Will likely need CT scan of soft tissues --? previous neck biopsy brought up by daughter; will need to investigate further 2) Atypical Chest Pain --Cardiology on board --Echo shows normal LVEF; no ischemic changes noted --NPO after midnight for Nuclear stress test --Continue Statin 3) Bradycardia: --May be due to hypothyroidism --Increased Synthroid to 100 in lieu of hypothyroid symptoms and TSH elevation at 4.22 --Hoping to see bradycardia resolve 4) Pre-diabetic A1c 6.0% 5) Atrial fibrillation amiodarone 200mg PO qdaily Continue Eliquis 2.5mg PO BID 6) HTN Cozaar 100mg PO qdaily 7) Constipation Miralax 17gm PO qdaily Senna 2 tab PO HS PRN FEN: --Tolerating PO --Electrolyte abnormalities: None today --Nutrition: Cholesterol controlled diet; NPO after midnight for Nuclear stress test PPX: DVT - already on Eliquis GI - Not indicated Dispo: Continue Tele monitoring Case discussed with Dr. Roman Davis, DO - IM PGY-1 Visit type - Emergency Visit Emergency Visit: No - New Patient This patient is new to me today: No - Critical Care Critical Care patient: No
[2018-02-05] MEDS ORDERED: LEVOTHYROXINE NA 100 MCG TABLET (FP) PO SCH (16:04)
[2018-02-05] MEDS: ATORVASTATIN CA 80 MG TABLET (FP) PO SCH (21:10)
[2018-02-06 06:12] VITALS: TEMP 98.3
[2018-02-06 07:26] LABS: HEMOGLOBIN 10.1 GM/dL (10.7-15.3); MCH 30.4 pg (25.7-33.7); MCHC 33.6 g/dl (32.0-36.0); MEAN CELL VOLUME 90.5 fl (80-96); MEAN PLT VOLUME 8.7 fl (7.5-11.1); PLATELET COUNT 154 K/MM3 (134-434); RBC 3.32 M/mm3 (3.60-5.2); RDW 15.7 % (11.6-15.6); WHITE BLOOD COUNT 3.8 K/mm3 (4.0-10.0)
[2018-02-06 07:49] LABS: ALBUMIN 2.7 g/dl (3.4-5.0); ALK PHOS 82 U/L (45-117); ANION GAP 4 (8-16); BILIRUBIN,TOTAL 0.7 mg/dL (0.2-1.0); BLOOD UREA NITROGEN 27 mg/dL (7-18); CALCIUM 8.3 mg/dL (8.5-10.1); CHLORIDE 109 mmol/L (98-107); CO2 30 mmol/L (21-32); CREATININE 1.2 mg/dL (0.55-1.02); GLUCOSE,RANDOM 91 mg/dL (74-106); SGOT/AST 27 U/L (15-37); SODIUM 143 mmol/L (136-145); TOT PROT 6.7 g/dl (6.4-8.2)
[2018-02-06 07:50] LABS: SGPT/ALT 36 U/L (12-78)
[2018-02-06] MEDS: FOLIC ACID 1 MG TABLET (FP) PO SCH (09:17)
[2018-02-06] MEDS: APIXABAN 2.5 MG TABLET PO SCH (09:17)
[2018-02-06] MEDS: LOSARTAN POTASSIUM 50 MG TABLET (FP) PO SCH (09:17)
[2018-02-06] MEDS: MECLIZINE HCL 12.5 MG TABLET PO SCH (09:17)
[2018-02-06] MEDS: AMIODARONE HCL 200 MG TABLET (FP) PO SCH (09:17)
[2018-02-06] MEDS: DONEPEZIL HCL 5 MG TABLET (FP) PO SCH (09:17)
[2018-02-06] MEDS: levETIRAcetam 500 MG TABLET (FP) PO SCH (09:18)
[2018-02-06] MEDS: POLYETHYLENE GLYCOL 3350 119 GM BTL PO SCH (09:18)
[2018-02-06] MEDS: GABAPENTIN 300 MG CAPSULE (FP) PO SCH (09:18)
[2018-02-06] MEDS ORDERED: ACETAMINOPHEN 325 MG TABLET (FP) PO PRN (09:32)
[2018-02-06] MEDS ORDERED: REGADENOSON 0.4 MG/5 ML PRE-FILLED SYRINGE IVPUSH ONE ×2 (10:00→10:26)
--- NOTE | 2018-02-06 10:53 | PN ---
Progress Note, Physician Chief Complaint: No chest pain or sob overnight Tele: sinus with no events History of Present Illness: 77 year old female with a pmhx of htn, afib on apixaban, diastolic chf, hypothyroidism, and spinal stenosis who presents with chest pain. Patient was home when developed left sided chest tightness and heaviness. Non radiating but sob associated. No pnd, orthopnea, or edema. +Dyspnea on exertion. - Current Medication List Current Medications: Active Medications Acetaminophen (Tylenol -) 650 mg PO Q6H PRN PRN Reason: pain 4-6 Amiodarone HCl (Cordarone -) 200 mg PO DAILY [facility] Last Admin: 02/06/18 09:17 Dose: Not Given Apixaban (Eliquis -) 2.5 mg PO BID [facility] Last Admin: 02/06/18 09:17 Dose: Not Given Atorvastatin Calcium (Lipitor -) 80 mg PO HS [facility] Last Admin: 02/05/18 21:10 Dose: 80 mg Donepezil HCl (Aricept -) 5 mg PO DAILY [facility] Last Admin: 02/06/18 09:17 Dose: Not Given Folic Acid (Folic Acid -) 1 mg PO DAILY [facility] Last Admin: 02/06/18 09:17 Dose: Not Given Gabapentin (Neurontin -) 300 mg PO BID [facility] Last Admin: 02/06/18 09:18 Dose: Not Given Levetiracetam (Keppra -) 500 mg PO BID [facility] Last Admin: 02/06/18 09:18 Dose: Not Given Levothyroxine Sodium (Synthroid -) 100 mcg PO AM [facility] Last Admin: 02/06/18 06:37 Dose: 100 mcg Losartan Potassium (Cozaar -) 100 mg PO DAILY [facility] Last Admin: 02/06/18 09:17 Dose: Not Given Meclizine HCl (Antivert -) 12.5 mg PO BID [facility] Last Admin: 02/06/18 09:17 Dose: Not Given Polyethylene Glycol (Miralax (For Daily Use) -) 17 gm PO DAILY [facility] Last Admin: 02/06/18 09:18 Dose: Not Given Senna (Senna -) 2 tab PO HS PRN PRN Reason: CONSTIPATION - Objective Vital Signs: Vital Signs Temperature 98.3 F 02/06/18 06:00 Pulse Rate 57 L 02/06/18 06:00 Respiratory Rate 20 02/06/18 06:00 Blood Pressure 103/46 02/06/18 06:00 O2 Sat by Pulse Oximetry (%) 99 02/05/18 21:00 Constitutional: Yes: No Distress Neck: Yes: Supple Cardiovascular: Yes: Regular Rate and Rhythm, S1, S2. No: JVD, Murmur Respiratory: Yes: CTA Bilaterally Gastrointestinal: Yes: Normal Bowel Sounds, Soft Extremities: Yes: WNL Edema: No Labs: CBC, BMP 02/06/18 06:15 02/06/18 06:15 INR, PTT INR 1.01 (0.82-1.09) 02/04/18 13:25 Problem List - Problems (1) HTN (hypertension) Code(s): I10 - ESSENTIAL (PRIMARY) HYPERTENSION Assessment/Plan 77 year old female with a pmhx of htn, afib on apixaban, diastolic chf, hypothyroidism, and spinal stenosis who presents with chest pain. Patient was home when developed left sided chest tightness and heaviness. Non radiating but sob associated. No pnd, orthopnea, or edema. +Dyspnea on exertion. Currently feels well with no complaints CE's neg Tele unremarkable EKG: sinus with LVH with qrs widening Echo normal lvef, no significant valve disease 1) Chest pain No acute ischemic changes, no events on tele, CE's negative Normal LVEF Would plan for Nuclear Stress Test lexiscan today Aspirin/statin. No beta carmen as HR runs around 50bpm If stress test is positive for ischemia please contact me . If negative for ischemia than no further work up from cardiac perspective 2) HTN Controlled on home losartan 3) Afib On amiodarone and in sinus On NOAC for AC
--- NOTE | 2018-02-06 12:36 | CON.ENT ---
Consult Consult Specialty:: ENT Reason for Consultation:: Tracheal deviation in the upper chest/low neck - History of Present Illness Chief Complaint: abnormal cxr finding History of Present Illness: as per med rec. 76 year old female with a significant past medical history of hypertension, afib (Eliquis 2.5 BID; noncompliant for last week), CHF, diabetes mellitus, peripheral disease, Hypothyroid and spinal stenosis. Per daughter serving as adjunct professor of english, pt began experiencing 10/10 crushing substernal chest pain with radiation to L shoulder this AM around 3AM. No relieving factors. She states the pain was worsened when walking around her home and she similarly endorsed accompanying lightheadness and stomach pain. Of note, pt's daughter was recently in a fight with her fiance and pt has been emotionally distressed and depressed the last few days as result. Pt has no PMD and was recently discharged from [facility] in October and has been living with her daughter. She has recently run out of her home cardiac meds, including eliquis, and has not taken them for the past week. She does not follow with a carpenter form. No hx of [place]. Family hx of cardiomegaly. There is no clinical sx of tracheal stenosis - History Source History Provided By: Medical Record - Past Medical History Cardio/Vascular: Yes: AFIB - Alcohol/Substance Use Hx Alcohol Use: No - Smoking History Smoking history: Never smoked Have you smoked in the past 12 months: No Home Medications - Allergies Allergies/Adverse Reactions: Allergies Allergy/AdvReac Type Severity Reaction Status Date / Time Penicillins Allergy Intermediate Rash Verified 02/04/18 12:39 - Home Medications Home Medications: Ambulatory Orders Amiodarone HCl [Cordarone -] 200 mg PO DAILY 08/28/17 Apixaban [Eliquis -] 2.5 mg PO BID tablet 09/02/17 Docusate Sodium [Colace -] 100 mg PO TID capsule 09/02/17 Polyethylene Glycol 3350 [Miralax 119 gm Btl -] 17 gm PO DAILY bottle 09/02/17 Sennosides [Senna -] 2 tab PO HS PRN tablet 09/02/17 levETIRAcetam [Keppra -] 500 mg PO BID #0 tablet 09/02/17 oxyCODONE HCL [Roxicodone -] 5 mg PO Q6H PRN #14 tablet MDD 4 doses 09/02/17 Acetaminophen 650 mg PO Q4H 02/04/18 Ammonium Lactate [Skin Treatment] 225 gm TP BID 02/04/18 Atorvastatin Ca [Lipitor] 80 mg PO HS 02/04/18 Donepezil HCl 5 mg PO DAILY 02/04/18 Folic Acid 1 mg PO DAILY 02/04/18 Gabapentin 300 mg PO BID 02/04/18 Levothyroxine [Synthroid -] 50 mcg PO AM 02/04/18 Losartan Potassium 100 mg PO DAILY 02/04/18 Meclizine HCl 12.5 mg PO BID 02/04/18 Physical Exam-ENT Vital Signs: Vital Signs Temperature 98.3 F 02/06/18 06:00 Pulse Rate 52 L 02/06/18 10:00 Respiratory Rate 18 02/06/18 10:00 Blood Pressure 129/74 02/06/18 10:00 O2 Sat by Pulse Oximetry (%) 99 02/06/18 09:00 Constitutional: Yes: Other (Pt was not on the floor when I came to see her) Imaging - Results Chest X-ray: Report Reviewed (tracheal deviation) Problem List - Problems (1) Tracheal deviation Assessment/Plan: Suggest CT scan to define the cause of deviation, possibly thyroid gland. Pt can f/u as outpatient. This appears to be a chronic issue. Code(s): J39.8 - OTHER SPECIFIED DISEASES OF UPPER RESPIRATORY TRACT
[2018-02-06 14:55] VITALS: BP 171/85; PULSE 61
--- NOTE | 2018-02-06 15:23 | DS ---
Physical Exam: SUBJECTIVE: Patient seen and examined OBJECTIVE: Vital Signs Period Temp Pulse Resp BP Sys/Elder Pulse Ox Last 24 Hr 98.1 F-98.8 F 52-76 18-20 103-171/46-85 99-99 PHYSICAL EXAM GENERAL: The patient is awake, alert, and fully oriented, in no acute distress. HEAD: Normal with no signs of trauma. EYES: PERRL, extraocular movements intact, sclera anicteric, conjunctiva clear. ENT: Ears normal, nares patent, oropharynx clear without exudates, moist mucous membranes. NECK: Trachea midline, full range of motion, supple. LUNGS: Breath sounds equal, clear to auscultation bilaterally, no wheezes, no crackles, no accessory muscle use. HEART: Regular rate and rhythm, S1, S2 without murmur, rub or gallop. ABDOMEN: Soft, nontender, nondistended, normoactive bowel sounds, no guarding, no rebound, no hepatosplenomegaly, no masses. EXTREMITIES: 2+ pulses, warm, well-perfused, no edema. NEUROLOGICAL: Cranial nerves II through XII grossly intact. Normal speech, gait not observed. PSYCH: Normal mood, normal affect. SKIN: Warm, dry, normal turgor, no rashes or lesions noted. LABS Laboratory Results - last 24 hr 02/05/18 02/06/18 02/06/18 06:05 06:15 06:15 WBC 3.8 L RBC 3.32 L Hgb 10.1 L Hct 30.0 L MCV 90.5 MCH 30.4 MCHC 33.6 RDW 15.7 H Plt Count 154 MPV 8.7 Sodium 143 Potassium 4.0 Chloride 109 H Carbon Dioxide 30 Anion Gap 4 L BUN 27 H Creatinine 1.2 H Creat Clearance w eGFR 43.34 Random Glucose 91 Hemoglobin A1c % 6.0 Calcium 8.3 L Total Bilirubin 0.7 AST 27 ALT 36 Alkaline Phosphatase 82 Total Protein 6.7 Albumin 2.7 L HOSPITAL COURSE: Date of Admission:02/04/18 Date of Discharge: 02/06/18 <Сергей Davis - Last Filed: 02/06/18 15:23> Physical Exam: Vital Signs Temperature 98.3 F 02/06/18 14:00 Pulse Rate 61 02/06/18 14:00 Respiratory Rate 20 02/06/18 14:00 Blood Pressure 171/85 02/06/18 14:00 O2 Sat by Pulse Oximetry (%) 99 02/06/18 09:00 CBCD WBC 3.8 K/mm3 (4.0-10.0) L 02/06/18 06:15 RBC 3.32 M/mm3 (3.60-5.2) L 02/06/18 06:15 Hgb 10.1 GM/dL (10.7-15.3) L 02/06/18 06:15 Hct 30.0 % (32.4-45.2) L 02/06/18 06:15 MCV 90.5 fl (80-96) 02/06/18 06:15 MCHC 33.6 g/dl (32.0-36.0) 02/06/18 06:15 RDW 15.7 % (11.6-15.6) H 02/06/18 06:15 Plt Count 154 K/MM3 (134-434) 02/06/18 06:15 MPV 8.7 fl (7.5-11.1) 02/06/18 06:15 CMP Sodium 143 mmol/L (136-145) 02/06/18 06:15 Potassium 4.0 mmol/L (3.5-5.1) 02/06/18 06:15 Chloride 109 mmol/L (98-107) H 02/06/18 06:15 Carbon Dioxide 30 mmol/L (21-32) 02/06/18 06:15 Anion Gap 4 (8-16) L 02/06/18 06:15 BUN 27 mg/dL (7-18) H 02/06/18 06:15 Creatinine 1.2 mg/dL (0.55-1.02) H 02/06/18 06:15 Creat Clearance w eGFR 43.34 (>60) 02/06/18 06:15 Random Glucose 91 mg/dL (74-106) 02/06/18 06:15 Calcium 8.3 mg/dL (8.5-10.1) L 02/06/18 06:15 Total Bilirubin 0.7 mg/dL (0.2-1.0) 02/06/18 06:15 AST 27 U/L (15-37) 02/06/18 06:15 ALT 36 U/L (12-78) 02/06/18 06:15 Alkaline Phosphatase 82 U/L (45-117) 02/06/18 06:15 Total Protein 6.7 g/dl (6.4-8.2) 02/06/18 06:15 Albumin 2.7 g/dl (3.4-5.0) L 02/06/18 06:15 CARDIAC ENZYMES Creatine Kinase 37 IU/L (26-192) 02/05/18 01:00 Troponin I < 0.02 ng/ml (0.00-0.05) 02/05/18 01:00 Home Medications Medication Instructions Recorded Amiodarone HCl [Cordarone -] 200 mg PO DAILY 08/28/17 Apixaban [Eliquis -] 2.5 mg PO BID tablet 09/02/17 Docusate Sodium [Colace -] 100 mg PO TID capsule 09/02/17 Polyethylene Glycol 3350 [Miralax 17 gm PO DAILY bottle 09/02/17 119 gm Btl -] Sennosides [Senna -] 2 tab PO HS PRN tablet 09/02/17 levETIRAcetam [Keppra -] 500 mg PO BID #0 tablet 09/02/17 oxyCODONE HCL [Roxicodone -] 5 mg PO Q6H PRN #14 tablet MDD 4 09/02/17 doses Acetaminophen 650 mg PO Q4H 02/04/18 Ammonium Lactate [Skin Treatment] 225 gm TP BID 02/04/18 Atorvastatin Ca [Lipitor] 80 mg PO HS 02/04/18 Donepezil HCl 5 mg PO DAILY 02/04/18 Folic Acid 1 mg PO DAILY 02/04/18 Gabapentin 300 mg PO BID 02/04/18 Losartan Potassium 100 mg PO DAILY 02/04/18 Meclizine HCl 12.5 mg PO BID 02/04/18 Levothyroxine [Synthroid -] 100 mcg PO AM #30 tablet 02/06/18 <Nirmala Owens - Last Filed: 02/06/18 20:09> Discharge Summary Reason For Visit: UNSTABLE ANGINA PECTORIS; EPIGASTRIC PAIN Current Active Problems Chest pain in adult (Acute) DVT prophylaxis (Acute) Tracheal deviation (Acute) HTN (hypertension) (Chronic) Hypothyroidism (Chronic) - Home Medications Comprehensive Discharge Medication List: Ambulatory Orders Amiodarone HCl [Cordarone -] 200 mg PO DAILY 08/28/17 Apixaban [Eliquis -] 2.5 mg PO BID tablet 09/02/17 Docusate Sodium [Colace -] 100 mg PO TID capsule 09/02/17 Polyethylene Glycol 3350 [Miralax 119 gm Btl -] 17 gm PO DAILY bottle 09/02/17 Sennosides [Senna -] 2 tab PO HS PRN tablet 09/02/17 levETIRAcetam [Keppra -] 500 mg PO BID #0 tablet 09/02/17 oxyCODONE HCL [Roxicodone -] 5 mg PO Q6H PRN #14 tablet MDD 4 doses 09/02/17 Acetaminophen 650 mg PO Q4H 02/04/18 Ammonium Lactate [Skin Treatment] 225 gm TP BID 02/04/18 Atorvastatin Ca [Lipitor] 80 mg PO HS 02/04/18 Donepezil HCl 5 mg PO DAILY 02/04/18 Folic Acid 1 mg PO DAILY 02/04/18 Gabapentin 300 mg PO BID 02/04/18 Losartan Potassium 100 mg PO DAILY 02/04/18 Meclizine HCl 12.5 mg PO BID 02/04/18 Levothyroxine [Synthroid -] 100 mcg PO AM #30 tablet 02/06/18 <Сергей Davis - Last Filed: 02/06/18 15:23> - Home Medications Comprehensive Discharge Medication List: Ambulatory Orders Amiodarone HCl [Cordarone -] 200 mg PO DAILY 08/28/17 Apixaban [Eliquis -] 2.5 mg PO BID tablet 09/02/17 Docusate Sodium [Colace -] 100 mg PO TID capsule 09/02/17 Polyethylene Glycol 3350 [Miralax 119 gm Btl -] 17 gm PO DAILY bottle 09/02/17 Sennosides [Senna -] 2 tab PO HS PRN tablet 09/02/17 levETIRAcetam [Keppra -] 500 mg PO BID #0 tablet 09/02/17 oxyCODONE HCL [Roxicodone -] 5 mg PO Q6H PRN #14 tablet MDD 4 doses 09/02/17 Acetaminophen 650 mg PO Q4H 02/04/18 Ammonium Lactate [Skin Treatment] 225 gm TP BID 02/04/18 Atorvastatin Ca [Lipitor] 80 mg PO HS 02/04/18 Donepezil HCl 5 mg PO DAILY 02/04/18 Folic Acid 1 mg PO DAILY 02/04/18 Gabapentin 300 mg PO BID 02/04/18 Losartan Potassium 100 mg PO DAILY 02/04/18 Meclizine HCl 12.5 mg PO BID 02/04/18 Levothyroxine [Synthroid -] 100 mcg PO AM #30 tablet 02/06/18 <Nirmala Owens - Last Filed: 02/06/18 20:09> Condition: Stable - Instructions Diet, Activity, Other Instructions: You were hospitalized due to your chest pain. Your EKG, labs to measure heart damage, and nuclear perfusion scan were all negative for any cardiac problems. In addition you had an ultrasound of your heart which showed normal size and function of your heart. While you were here we found that you had a slow heart beat, complained of being cold, and had a lab value which showed an under- active thryoid despite your Synthroid dose. We increased your synthroid dose and you should follow instructions as below. MEDICATIONS: We increased your Synthroid dose to 100mcg ONCE daily by mouth --This new prescription will be sent to your pharmacy ([facility]) --We recommend follow-up with your primary care provider to re-draw a TSH value (measures thyroid function) in 3-4 weeks with this change FOLLOW-UP We recommend following up with your primary medical doctor within the next week. If you do not have a regular doctor feel free to call and schedule an appointment with Dr. Mcbride. 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 We would recommend a CT scan of your neck as an outpatient, however being that you had your neck biopsied you should follow-up with Dr. Bertrand for further oncology work -up. You will also be discharged with a visiting nurse service at home to prospecting driller helper you in your daily living. Referrals: Horacio Mcbride MD [Staff Physician] - Ruy Bertrand MD [Staff Physician] - Disposition: HOME
== END 2018-02-06 15:51 | disposition home or self-care (01) | DRG 311 ==
LOC: JER 12:16 → OBSVTOIN 18:53 → JERBED 18:53 → J4W 21:34
PROVIDERS: ADMIT Internal Medicine; ATTEND Internal Medicine
DX: I20.0 Unstable angina (principal); I50.32 Chronic diastolic (congestive) heart failure; I48.91 Unspecified atrial fibrillation; C07 Malignant neoplasm of parotid gland; I11.0 Hypertensive heart disease with heart failure; Z91.14 Patient's other noncompliance with medication regimen; J39.8 Other specified diseases of upper respiratory tract; Z79.01 Long term (current) use of anticoagulants; E03.9 Hypothyroidism, unspecified; M48.00 Spinal stenosis, site unspecified; Z87.891 Personal history of nicotine dependence; Z86.74 Personal history of sudden cardiac arrest; I73.9 Peripheral vascular disease, unspecified; E78.5 Hyperlipidemia, unspecified; G62.9 Polyneuropathy, unspecified
CPT/HCPCS: 36415; 71045-TC-FY; 78452-TC; 80053; 80061; 82550; 83036; 83721; 83735; 84100; 84443; 84484; 85025; 85027; 85610; 93005; 93010; 93017; 93306-TC; 97116-GP; 97161-GP; 99285-25; A9502; J0735; J2785

== ENCOUNTER 2018-02-07 16:23 | Emergency (ER) | payer OTHER ==
[2018-02-07 16:31] VITALS: BP 159/87; PULSE 73; TEMP 97.9; BMI 29.8
[2018-02-07 17:34] LABS: HEMATOCRIT 33.4 % (32.4-45.2); HEMOGLOBIN 11.6 GM/dL (10.7-15.3); LYMPH % 31.5 % (8-40); MCHC 34.7 g/dl (32.0-36.0); MEAN CELL VOLUME 89.6 fl (80-96); MEAN PLT VOLUME 8.3 fl (7.5-11.1); MONO % 10.2 % (3.8-10.2); NEUT % 49.3 % (42.8-82.8); PLATELET COUNT 177 K/MM3 (134-434); RBC 3.72 M/mm3 (3.60-5.2); RDW 15.7 % (11.6-15.6); WHITE BLOOD COUNT 3.2 K/mm3 (4.0-10.0)
[2018-02-07 17:45] LABS: INR 1.03 (0.82-1.09); PROTHROMBIN TIME (PATIENT) 11.6 SEC (9.7-13.0)
[2018-02-07 17:48] LABS: ACTIVATED PTT 31.2 SECONDS (26.9-34.4)
[2018-02-07 17:57] LABS: ALBUMIN 3.2 g/dl (3.4-5.0); ALK PHOS 97 U/L (45-117); ANION GAP 4 (8-16); BILIRUBIN,TOTAL 0.7 mg/dL (0.2-1.0); BLOOD UREA NITROGEN 20 mg/dL (7-18); CALCIUM 8.6 mg/dL (8.5-10.1); CHLORIDE 107 mmol/L (98-107); CO2 30 mmol/L (21-32); CREATININE 1.1 mg/dL (0.55-1.02); GLUCOSE,RANDOM 125 mg/dL (74-106); POTASSIUM 4.4 mmol/L (3.5-5.1); SGOT/AST 45 U/L (15-37); SGPT/ALT 51 U/L (12-78); SODIUM 141 mmol/L (136-145)
--- NOTE | 2018-02-07 18:23 | PDOC ---
History of Present Illness <Ashlee Sauer - Last Filed: 02/07/18 19:03> <Heather Pollard - Last Filed: 02/07/18 21:53> - History of Present Illness Initial Comments: 02/07/18 18:14 "The patient is a year old female, with a significant past medical history of hypertension, AFib, CHF, diabetes (not on meds), peripheral vascular disease, hypothyroidism, unstable angina, history of DVT on eliquis, and spinal stenosis , who presents to the emergency department with bilateral leg pain and elevated blood glucose. The patient describes her leg pain as a tingling sensation shooting down both legs for the past few weeks. However, she noticed that the pain was a little worse on the right, making her concerned that she may have a recurrent DVT. Pt also reports a blood glucose reading of 323 this morning after eating breakfast. She is not on insulin or any other antihyperglycemics. Also, pt was discharged yesterday after 2 day admission for chest pain. She reports her medications were not sent over to her pharmacy and is requesting a refill on all her meds. She states that she does not have a PMD at this time and cannot get new prescriptions. She denies recent fevers, chills, or dizziness. She denies recent nausea, vomit , diarrhea or constipation. She denies recent dysuria, frequency, urgency or hematuria. She denies recent chest pain or shortness of breath. Allergies: Penicillins and Aspirin. Social history: Nonsmoker. Denies EtOH use and recreational drug use. <Jac Collazo - Last Filed: 02/08/18 10:53> - General Chief Complaint: Blood Sugar Problem Stated Complaint: BLOOD SUGAR PROBLEM Time Seen by Provider: 02/07/18 16:52 Past History <Ashlee Sauer - Last Filed: 02/07/18 19:03> <Heather Pollard - Last Filed: 02/07/18 21:53> - Past Medical History Cancer: Yes (THROAT) Cardiac Disorders: Yes (caRDIAC ARREST,anlarged heart) COPD: No Diabetes: Yes HTN: Yes Hypercholesterolemia: Yes Psychiatric Problems: Yes (depression, anxeity) Thyroid Disease: Yes - Surgical History Cardiac Surgery: No Cholecystectomy: Yes Lung Surgery: No - Suicide/Smoking/Psychosocial Hx Smoking History: Never smoked Have you smoked in the past 12 months: No Information on smoking cessation initiated: No Hx Alcohol Use: No Drug/Substance Use Hx: No Substance Use Type: None <Jac Collazo - Last Filed: 02/08/18 10:53> - Past Medical History Allergies/Adverse Reactions: Allergies Allergy/AdvReac Type Severity Reaction Status Date / Time Penicillins Allergy Intermediate Rash Verified 02/07/18 16:26 aspirin Allergy Verified 02/07/18 16:27 Home Medications: Ambulatory Orders Amiodarone HCl [Cordarone -] 200 mg PO DAILY 08/28/17 Apixaban [Eliquis -] 2.5 mg PO BID tablet 09/02/17 Docusate Sodium [Colace -] 100 mg PO TID capsule 09/02/17 Polyethylene Glycol 3350 [Miralax 119 gm Btl -] 17 gm PO DAILY bottle 09/02/17 Sennosides [Senna -] 2 tab PO HS PRN tablet 09/02/17 levETIRAcetam [Keppra -] 500 mg PO BID #0 tablet 09/02/17 oxyCODONE HCL [Roxicodone -] 5 mg PO Q6H PRN #14 tablet MDD 4 doses 09/02/17 Acetaminophen 650 mg PO Q4H 02/04/18 Ammonium Lactate [Skin Treatment] 225 gm TP BID 02/04/18 Atorvastatin Ca [Lipitor] 80 mg PO HS 02/04/18 Donepezil HCl 5 mg PO DAILY 02/04/18 Folic Acid 1 mg PO DAILY 02/04/18 Gabapentin 300 mg PO BID 02/04/18 Losartan Potassium 100 mg PO DAILY 02/04/18 Meclizine HCl 12.5 mg PO BID 02/04/18 Levothyroxine [Synthroid -] 100 mcg PO AM #30 tablet 02/06/18 Amiodarone HCl 200 mg PO DAILY #30 tablet 02/07/18 Apixaban [Eliquis -] 2.5 mg PO BID #60 tablet 02/07/18 Atorvastatin Ca [Lipitor] 80 mg PO HS #30 tab 02/07/18 Donepezil HCl [Aricept -] 5 mg PO DAILY #30 tablet 02/07/18 Losartan Potassium [Cozaar -] 100 mg PO DAILY #60 tablet 02/07/18 levETIRAcetam [Keppra -] 500 mg PO BID #60 tablet 02/07/18 Review of Systems - Review of Systems Comments:: 02/07/18 18:23 "GENERAL/CONSTITUTIONAL: No fever or chills. No weakness. HEAD, EYES, EARS, NOSE AND THROAT: No change in vision. No ear pain or discharge. No sore throat. CARDIOVASCULAR: No chest pain or shortness of breath. RESPIRATORY: No cough, wheezing, or hemoptysis. GASTROINTESTINAL: No nausea, vomiting, diarrhea or constipation. GENITOURINARY: No dysuria, frequency, or change in urination. MUSCULOSKELETAL: + Bilateral leg pain. No joint or muscle swelling or pain. No neck or back pain. SKIN: No rash NEUROLOGIC: No vertigo, loss of consciousness, or change in strength/sensation. ENDOCRINE: No increased thirst. No abnormal weight change. HEMATOLOGIC/LYMPHATIC: No anemia, easy bleeding, or history of blood clots. ALLERGIC/IMMUNOLOGIC: No hives or skin allergy. " <Jac Collazo - Last Filed: 02/08/18 10:53> *Physical Exam - Vital Signs Last Vital Signs Temp Pulse Resp BP Pulse Ox 97.9 F 73 18 159/87 100 02/07/18 16:27 02/07/18 16:27 02/07/18 16:27 02/07/18 16:27 02/07/18 16:27 <Ashlee Sauer - Last Filed: 02/07/18 19:03> - Vital Signs Last Vital Signs Temp Pulse Resp BP Pulse Ox 97.9 F 73 18 159/87 100 02/07/18 16:27 02/07/18 16:27 02/07/18 16:27 02/07/18 16:27 02/07/18 16:27 <Heather Pollard - Last Filed: 02/07/18 21:53> - Vital Signs Last Vital Signs Temp Pulse Resp BP Pulse Ox 97.9 F 73 18 159/87 100 02/07/18 16:27 02/07/18 16:27 02/07/18 16:27 02/07/18 16:27 02/07/18 16:27 - Physical Exam Comments: 02/07/18 18:24 "GENERAL: Awake, alert, and fully oriented, in no acute distress. HEAD: No signs of trauma EYES: PERRLA, EOMI, sclera anicteric, conjunctiva clear ENT: Auricles normal inspection, hearing grossly normal, nares patent, oropharynx clear without exudates. Moist mucosa NECK: Nontender, no stepoffs, Normal ROM, supple, no lymphadenopathy, JVD, or masses LUNGS: Breath sounds equal, clear to auscultation bilaterally. No wheezes, and no crackles HEART: Regular rate and rhythm, normal S1 and S2, no murmurs, rubs or gallops ABDOMEN: Soft, nontender, normoactive bowel sounds. No guarding, no rebound. No masses EXTREMITIES: Normal range of motion, no edema. No clubbing or cyanosis. No cords, erythema, or tenderness NEUROLOGICAL: Cranial nerves II through XII intact. 5/5 strength and sensation in all extremities, Normal speech, normal gait, normal cerebellar function SKIN: Warm, Dry, normal turgor, no rashes or lesions noted. " <Jac Collazo - Last Filed: 02/08/18 10:53> ED Treatment Course - LABORATORY CBC & Chemistry Diagram: 02/07/18 17:20 02/07/18 17:20 - ADDITIONAL ORDERS Additional order review: Laboratory Results 02/07/18 02/07/18 02/07/18 17:20 17:20 17:20 PT with INR 11.60 INR 1.03 PTT (Actin FS) 31.2 Sodium 141 Potassium 4.4 Chloride 107 Carbon Dioxide 30 Anion Gap 4 L BUN 20 H Creatinine 1.1 H Creat Clearance w eGFR 47.91 Random Glucose 125 H Calcium 8.6 Total Bilirubin 0.7 AST 45 H ALT 51 Alkaline Phosphatase 97 Total Protein 8.0 Albumin 3.2 L Acetone, Qual Negative L 02/07/18 17:20 RBC 3.72 MCV 89.6 MCHC 34.7 RDW 15.7 H MPV 8.3 Neutrophils % 49.3 Lymphocytes % 31.5 Monocytes % 10.2 Eosinophils % 8.0 H Basophils % 1.0 <Ashlee Sauer - Last Filed: 02/07/18 19:03> - LABORATORY CBC & Chemistry Diagram: 02/07/18 17:20 02/07/18 17:20 - ADDITIONAL ORDERS Additional order review: Laboratory Results 02/07/18 02/07/18 02/07/18 17:20 17:20 17:20 PT with INR 11.60 INR 1.03 PTT (Actin FS) 31.2 Sodium 141 Potassium 4.4 Chloride 107 Carbon Dioxide 30 Anion Gap 4 L BUN 20 H Creatinine 1.1 H Creat Clearance w eGFR 47.91 Random Glucose 125 H Calcium 8.6 Total Bilirubin 0.7 AST 45 H ALT 51 Alkaline Phosphatase 97 Total Protein 8.0 Albumin 3.2 L Acetone, Qual Negative L 02/07/18 17:20 RBC 3.72 MCV 89.6 MCHC 34.7 RDW 15.7 H MPV 8.3 Neutrophils % 49.3 Lymphocytes % 31.5 Monocytes % 10.2 Eosinophils % 8.0 H Basophils % 1.0 <Heather Pollard - Last Filed: 02/07/18 21:53> - LABORATORY CBC & Chemistry Diagram: 02/07/18 17:20 02/07/18 17:20 - ADDITIONAL ORDERS Additional order review: Laboratory Results 02/07/18 02/07/18 02/07/18 17:20 17:20 17:20 PT with INR 11.60 INR 1.03 PTT (Actin FS) 31.2 Sodium 141 Potassium 4.4 Chloride 107 Carbon Dioxide 30 Anion Gap 4 L BUN 20 H Creatinine 1.1 H Creat Clearance w eGFR 47.91 Random Glucose 125 H Calcium 8.6 Total Bilirubin 0.7 AST 45 H ALT 51 Alkaline Phosphatase 97 Total Protein 8.0 Albumin 3.2 L Acetone, Qual Negative L 02/07/18 17:20 RBC 3.72 MCV 89.6 MCHC 34.7 RDW 15.7 H MPV 8.3 Neutrophils % 49.3 Lymphocytes % 31.5 Monocytes % 10.2 Eosinophils % 8.0 H Basophils % 1.0 - RADIOLOGY Radiology Studies Ordered: Category Date Time Status DUPLEX VASCUL US-2LEGS [US] Stat Ultrasound 02/07/18 17:14 Ordered <Jac Collazo - Last Filed: 02/08/18 10:53> Medical Decision Making - Medical Decision Making 02/07/18 21:54 Patient Name: MELVA HINSON THIS IS A PRELIMINARY REPORT FROM [facility] ATTENDANT IMAGES: 60 EXAM DATE AND TIME: 2018-02-07 18:11:18 EXAM: US Duplex Bilateral Lower Extremity Veins CLINICAL HISTORY: b/l le swelling TECHNIQUE: Real-time duplex ultrasound scan of the bilateral lower extremity veins integrating B-mode two-dimensional vascular structure, Doppler spectral analysis, color flow Doppler imaging and compression. COMPARISON: No relevant prior studies available. FINDINGS: RIGHT DEEP VEINS: There is NO evidence of acute deep vein thrombosis from the common femoral to the visualized calf veins on the RIGHT. RIGHT SUPERFICIAL VEINS: No thrombus in the visualized right superficial veins. Incomplete/limited evaluation on this study. LEFT DEEP VEINS: There is NO evidence of acute deep vein thrombosis from the common femoral to the visualized calf veins on the LEFT. LEFT SUPERFICIAL VEINS: No thrombus in the visualized left superficial veins. Incomplete/limited evaluation on this study. SOFT TISSUES: No popliteal cyst is imaged. IMPRESSION: NO evidence of acute deep vein thrombosis in the visualized venous segments. CPT: 02023. Duplex scan of the lower extremity veins, complete bilateral study. THIS DOCUMENT HAS BEEN ELECTRONICALLY SIGNED Pt went home with her daughter. Follow with PMD <Heather Pollard - Last Filed: 02/07/18 21:53> - Medical Decision Making 02/07/18 18:24 77 F with bilateral leg pain, R>L. Will r/o DVT given prior h/o DVT, though clinically no evidence. Pt also with elevated fsg at home, though this was after eating breakfast. Will check electrolytes to r/o metabolic derangement. - Labs - BLE US - Med refill 02/07/18 18:51 Pt with normal labs. glucose 125. Medication refills sent to pharmacy. Pt signed out to oncoming attending at 7pm, pending LE dopplers and re- evaluation. Case discussed in detail with oncoming Emergency Physician including history, physical exam and ancillary studies. Oncoming Emergency Physician has assumed care for the patient and will complete the evaluation and treatment. Patient is aware of the plan. <Jac Collazo - Last Filed: 02/08/18 10:53> *DC/Admit/Observation/Transfer - Attestations Scribe Attestion: 02/07/18 19:03 Documentation prepared by Ashlee Sauer, acting as biomedical specialist for Jac Collazo MD. <Ashlee Sauer - Last Filed: 02/07/18 19:03> - Discharge Dispostion Decision to Admit order: No <Heather Pollard - Last Filed: 02/07/18 21:53> - Attestations Physician Attestion: 02/08/18 10:53 I, Dr. Jac Collazo MD, attest that this document has been prepared under my direction and personally reviewed by me in its entirety. I further attest, that it accurately reflects all work, treatment, procedures and medical decision -making performed by me. <Jac Collazo - Last Filed: 02/08/18 10:53> Diagnosis at time of Disposition: PVD (peripheral vascular disease), Diabetes mellitus - Discharge Dispostion Disposition: HOME Condition at time of disposition: Improved - Prescriptions Prescriptions: Amiodarone HCl 200 mg PO DAILY #30 tablet Apixaban [Eliquis -] 2.5 mg PO BID #60 tablet Atorvastatin Ca [Lipitor] 80 mg PO HS #30 tab Donepezil HCl [Aricept -] 5 mg PO DAILY #30 tablet levETIRAcetam [Keppra -] 500 mg PO BID #60 tablet Losartan Potassium [Cozaar -] 100 mg PO DAILY #60 tablet - Referrals Referrals: Horacio Mcbride MD [Staff Physician] - - Patient Instructions Printed Discharge Instructions: Decreasing Your Triglycerides Through Dietary Changes, DI for Hyperglycemia -- Adult Additional Instructions: You MUST follow up with a primary care doctor to have your medications adjusted and your blood sugar closely monitored. Call the number provided to make an appointment. If you experience high blood sugars, dizziness, chest pain, shortness of breath , or any other concerning symptoms, return to the ER immediately. Otherwise, follow up with your doctor within 72 hours.
== END 2018-02-07 19:57 | disposition home or self-care (01) ==
LOC: JER 16:23
DX: I73.89 Other specified peripheral vascular diseases (principal); E11.65 Type 2 diabetes mellitus with hyperglycemia; I25.110 Atherosclerotic heart disease of native coronary artery with unstable angina pectoris; I11.0 Hypertensive heart disease with heart failure; E03.9 Hypothyroidism, unspecified; M48.00 Spinal stenosis, site unspecified; F41.8 Other specified anxiety disorders; F32.9 Major depressive disorder, single episode, unspecified; Z85.819 Personal history of malignant neoplasm of unspecified site of lip, oral cavity, and pharynx; Z86.74 Personal history of sudden cardiac arrest; Z86.718 Personal history of other venous thrombosis and embolism; Z79.01 Long term (current) use of anticoagulants
CPT/HCPCS: 36415; 80053; 82009; 85025; 85610; 85730; 93970-TC; 99283-25

== ENCOUNTER 2019-04-01 17:45 | Inpatient (IN) | payer OTHER ==
--- NOTE | 2019-04-01 17:54 | PDOC ---
Rapid Medical Evaluation Time Seen by Provider: 04/01/19 17:48 Medical Evaluation: Allergies Allergy/AdvReac Type Severity Reaction Status Date / Time Penicillins Allergy Intermediate Rash Verified 04/01/19 17:47 aspirin Allergy Verified 04/01/19 17:47 04/01/19 17:48 The patient presents for pelvic pain and dysuria and incontinence for two days. States that she also has associated abdominal pain. No nausea or vomiting. Exam: TTP of the suprapubic area, LLQ, periumbilical area Orders: Labs, IV, Urine Pt to proceed to the ED for further evaluation Discharge Disposition - Diagnosis Abdominal pain Qualifiers: Abdominal location: unspecified location Qualified Code(s): R10.9 - Unspecified abdominal pain - Referrals - Patient Instructions - Post Discharge Activity
[2019-04-01 18:03] VITALS: BMI 37.8
[2019-04-01 18:37] LABS: BASO % 0.9 % (0-2.0); EOS % 3.4 % (0-4.5); HEMATOCRIT 36.2 % (32.4-45.2); HEMOGLOBIN 11.8 GM/dL (10.7-15.3); LYMPH % 28.2 % (8-40); MCH 30.2 pg (25.7-33.7); MCHC 32.5 g/dl (32.0-36.0); MEAN CELL VOLUME 92.8 fl (80-96); MEAN PLT VOLUME 7.8 fl (7.5-11.1); MONO % 10.3 % (3.8-10.2); NEUT % 57.2 % (42.8-82.8); PLATELET COUNT 173 K/MM3 (134-434); WHITE BLOOD COUNT 3.7 K/mm3 (4.0-10.0)
[2019-04-01 18:55] LABS: EPI CELLS 9.9 /HPF (0-5/HPF); HYALINE CASTS 7 /lpf (0-8); PH,URINE 5.5 (5.0-8.0); URINE APPEARANCE CLEAR; URINE BACTERIA 342.8 /hpf (NEGATIVE); URINE BILIRUBIN NEGATIVE (NEGATIVE); URINE COLOR YELLOW; URINE GLUCOSE (UA) NEGATIVE (NEGATIVE); URINE KETONE TRACE (NEGATIVE); URINE LEUK ESTERASE 2+ (NEGATIVE); URINE NITRITE NEGATIVE (NEGATIVE); URINE PROTEIN NEGATIVE (NEGATIVE); URINE RBC 1 /hpf (0-4); URINE WBC 6 /hpf (0-5)
[2019-04-01 19:02] LABS: INR 1.02 (0.83-1.09)
[2019-04-01 19:23] LABS: ALBUMIN 3.2 g/dl (3.4-5.0); BILIRUBIN,TOTAL 0.5 mg/dL (0.2-1); BLOOD UREA NITROGEN 22.3 mg/dL (7-18); CALCIUM 8.5 mg/dL (8.5-10.1); CREATININE 1.4 mg/dL (0.55-1.3); POTASSIUM 4.6 mmol/L (3.5-5.1); TOT PROT 8.2 g/dl (6.4-8.2)
--- NOTE | 2019-04-01 19:47 | PDOC ---
History of Present Illness - General Chief Complaint: Pain Stated Complaint: ABD PAIN Time Seen by Provider: 04/01/19 17:48 History Source: Patient, Family (daughter) Exam Limitations: No Limitations - History of Present Illness Timing/Duration: 24 hours Severity: moderate Modifying Factors: improves with: other (worse with urination) Associated Symptoms: reports: denies symptoms. denies: fever/chills, nausea/ vomiting Aspirin Received prior to arrival: Yes: no aspirin today Asa Contraindications(Core Measure): Yes: Allergy (patient reports allergy) Past History - Past Medical History Allergies/Adverse Reactions: Allergies Allergy/AdvReac Type Severity Reaction Status Date / Time Penicillins Allergy Intermediate Rash Verified 04/01/19 21:00 aspirin Allergy Verified 04/01/19 17:47 Home Medications: Ambulatory Orders Amiodarone HCl [Cordarone -] 200 mg PO DAILY 04/01/19 Amlodipine Besylate [Norvasc -] 5 mg PO DAILY 04/01/19 Apixaban [Eliquis -] 2.5 mg PO BID 04/01/19 Atorvastatin Ca [Lipitor] 80 mg PO HS 04/01/19 Besifloxacin HCl [Besivance] 5 ml OP QID 04/01/19 Carvedilol [Coreg -] 12.5 mg PO BID 04/01/19 Levothyroxine Sodium [Levo-T] 25 mcg PO DAILY 04/01/19 Losartan Potassium 100 mg PO DAILY 04/01/19 Prednisolone 1% Ophthalmic [Pred Forte 1% -] 1 ml OP DAILY 04/01/19 levETIRAcetam [Keppra -] 500 mg PO BID 04/01/19 Cancer: Yes (THROAT) Cardiac Disorders: Yes (caRDIAC ARREST,anlarged heart) COPD: No Diabetes: Yes HTN: Yes Hypercholesterolemia: Yes Psychiatric Problems: Yes (depression, anxeity) Thyroid Disease: Yes - Surgical History Cardiac Surgery: No Cholecystectomy: Yes Lung Surgery: No Other Surgical History: 04/01/19 19:46 bilateral oophorectomy ~30 years ago - Suicide/Smoking/Psychosocial Hx Smoking History: Never smoked Have you smoked in the past 12 months: No Hx Alcohol Use: No Drug/Substance Use Hx: No Substance Use Type: None Review of Systems - Review of Systems Is the patient limited Yoruba proficient: Yes Constitutional: No: Chills, Fever : Yes: Burning, Dysuria, Frequency, Flank Pain, Incontinence. No: Hematuria Musculoskeletal: Yes: Back Pain *Physical Exam - Vital Signs Last Vital Signs Temp Pulse Resp BP Pulse Ox 98.5 F 57 L 18 123/72 98 04/01/19 17:48 04/01/19 17:48 04/01/19 17:48 04/01/19 17:48 04/01/19 17:48 - Physical Exam General Appearance: Yes: Obese. No: Apparent Distress Respiratory/Chest: positive: Lungs Clear, Normal Breath Sounds. negative: Crackles, Rales, Rhonchi, Wheezing Cardiovascular: positive: Regular Rhythm, Regular Rate Musculoskeletal: positive: CVA Tenderness, CVA Tenderness (R), CVA Tenderness (L ) ED Treatment Course - LABORATORY CBC & Chemistry Diagram: 04/01/19 18:27 04/01/19 18:27 - ADDITIONAL ORDERS Additional order review: Laboratory Results 04/01/19 04/01/19 04/01/19 18:27 18:27 18:27 PT with INR 12.00 INR 1.02 Sodium 141 Potassium 4.6 Chloride 106 Carbon Dioxide 31 Anion Gap 4 L BUN 22.3 H Creatinine 1.4 H Est GFR (CKD-EPI)AfAm 41.03 Est GFR (CKD-EPI)NonAf 35.40 Random Glucose 177 H Calcium 8.5 Total Bilirubin 0.5 AST 24 ALT 29 Alkaline Phosphatase 110 Total Protein 8.2 Albumin 3.2 L Lipase 129 Urine Color Yellow Urine Appearance Clear Urine pH 5.5 Ur Specific [place] 1.020 Urine Protein Negative Urine Glucose (UA) Negative Urine Ketones Trace H Urine Blood Negative Urine Nitrite Negative Urine Bilirubin Negative Urine Urobilinogen 1.0 Ur Leukocyte Esterase 2+ H Urine WBC (Auto) 6 Urine RBC (Auto) 1 Urine Casts (Auto) 7 U Epithel Cells (Auto) 9.9 Urine Bacteria (Auto) 342.8 04/01/19 18:27 RBC 3.90 MCV 92.8 MCHC 32.5 RDW 15.0 MPV 7.8 Neutrophils % 57.2 Lymphocytes % 28.2 Monocytes % 10.3 H Eosinophils % 3.4 Basophils % 0.9 Medical Decision Making - Medical Decision Making 78yo woman with pmh of HTN, heart disease, arthritis presenting with 1 day of dysuria, pelvic and back pain, foul smelling urine, incontinence. Patient denies fevers, chills, chest pain, SOB, nausea, vomiting, diarrhea / constipation. Denies hematuria. No history of UTI or nephrolithiasis. In the ED patient has stable vitals, exam is notable for suprapubic tenderness and bilateral CVA tenderness. UA Positive, 2+ leuk. Concerning for bilateral pyelonephritis. Given history of PCN allergy (possible anaphylaxis) and age, pt started on Imipenem 500 mg IV q6. 04/01/19 20:33 Patient admitted for complicated UTI with bilateral pyelonephritis. 04/02/19 00:05 *DC/Admit/Observation/Transfer Diagnosis at time of Disposition: Abdominal pain Qualifiers: Abdominal location: unspecified location Qualified Code(s): R10.9 - Unspecified abdominal pain - Discharge Dispostion Decision to Admit order: Yes - Referrals - Patient Instructions - Post Discharge Activity
--- NOTE | 2019-04-01 20:15 | PDOC ---
Documentation entered by Ashlee Sauer SCRIBE, acting as scribe for William Strickland MD. William Strickland MD: This documentation has been prepared by the Cristiane edge Nirvannie, SCRIBE, under my direction and personally reviewed by me in its entirety. I confirm that the documentation accurately reflects all work, treatment, procedures, and medical decision making performed by me. Attending Attestation - Resident Resident Name: Shade Jordan - ED Attending Attestation I have performed the following: I have examined & evaluated the patient, The case was reviewed & discussed with the resident, I agree w/resident's findings & plan - HPI HPI: 04/01/19 19:59 The patient is an 78 year old female, with a significant past medical history of hypertension, AFib, CHF, diabetes (not on meds), peripheral vascular disease , hypothyroidism, unstable angina, history of DVT on eliquis, and spinal stenosis, who presents to the emergency department with, 1 day of dysuria and suprapubic pain with radiating to the lower back. She denies recent chest pain or shortness of breath. Allergies: Penicillins, Aspirin - Physicial Exam PE: 04/02/19 00:32 Agree with exam as documented by resident - Medical Decision Making 04/02/19 00:32 infection with concern for bilateral pyelonephritis pcn allergy, pt report facial and airway swelling admit for definitive care
[2019-04-01] MEDS ORDERED: ACETAMINOPHEN 1000 MG/100 ML VIAL (NON FORMULARY) IVPB ONE (20:58)
--- NOTE | 2019-04-01 20:58 | HP ---
CHIEF COMPLAINT: difficulty urinating with foul smelling urine and lower abdominal and back pain PCP:Dr. Triana HISTORY OF PRESENT ILLNESS: 78 year old mainly Cameroonian speaking female with a significant past medical history of hypertension,atrial fibrillation (on amiodarone and eliquis), congestive heart failure, diabetes (not on meds), peripheral vascular disease, hypothyroidism, unstable angina, history of DVT, seizure(on Keppra) and spinal stenosis who presents to the emergency department with 1 day of dysuria foul smelling urine, and suprapubic pain with radiation to the lower back. UA showed 2 + leukoesterase, negative nitrite. Labs notable for a notable a normal WBC and a creatinine of 1.4. Urine and blood cultures are pending. She is currently hemodynamically stable and afebrile. She is being admitted for further medical management for bilateral pyelonephritis. ER course was notable for: (1)Allergic to PCN, Received one dosage of IV Aztreonam 1 gm in ER. ID has been consulted. (2)Mild renal insufficiency Recent Travel:denies PAST MEDICAL HISTORY: hypertension atrial fibrillation congestive heart failure diabetes mellitus peripheral vascular disease hypothyroidism unstable angina seizures history of DVT spinal stenosis PAST SURGICAL HISTORY: denies Social History: Smoking:denies Alcohol:denies Drugs: denies Family History:noncontributory Allergies Penicillins Allergy (Intermediate, Verified 04/01/19 17:47) Rash aspirin Allergy (Verified 04/01/19 17:47) HOME MEDICATIONS: Home Medications Medication Instructions Recorded Amiodarone HCl [Cordarone -] 200 mg PO DAILY 04/01/19 Amlodipine Besylate [Norvasc -] 5 mg PO DAILY 04/01/19 Apixaban [Eliquis -] 2.5 mg PO BID 04/01/19 Atorvastatin Ca [Lipitor] 80 mg PO HS 04/01/19 Besifloxacin HCl [Besivance] 5 ml OP QID 04/01/19 Carvedilol [Coreg -] 12.5 mg PO BID 04/01/19 Levothyroxine Sodium [Levo-T] 25 mcg PO DAILY 04/01/19 Losartan Potassium 100 mg PO DAILY 04/01/19 Prednisolone 1% Ophthalmic [Pred 1 ml OP DAILY 04/01/19 Forte 1% -] levETIRAcetam [Keppra -] 500 mg PO BID 04/01/19 REVIEW OF SYSTEMS CONSTITUTIONAL: Absent: fever, chills, diaphoresis, generalized weakness, malaise, loss of appetite, weight change HEENT: Absent: rhinorrhea, nasal congestion, throat pain, throat swelling, difficulty swallowing, mouth swelling, ear pain, eye pain, visual changes CARDIOVASCULAR: Absent: chest pain, syncope, palpitations, irregular heart rate, lightheadedness , peripheral edema RESPIRATORY: Absent: cough, shortness of breath, dyspnea with exertion, orthopnea, wheezing, stridor, hemoptysis GASTROINTESTINAL: Absent: suprapubic pain, abdominal distension, nausea, vomiting, diarrhea, constipation, melena, hematochezia GENITOURINARY: Absent: dysuria, frequency, urgency, hesitancy, hematuria, flank pain, genital pain, foul smelling urine MUSCULOSKELETAL: Absent: myalgia, arthralgia, joint swelling, lower back pain, neck pain SKIN: Absent: rash, itching, pallor HEMATOLOGIC/IMMUNOLOGIC: Absent: easy bleeding, easy bruising, lymphadenopathy, frequent infections ENDOCRINE: Absent: unexplained weight gain, unexplained weight loss, heat intolerance, cold intolerance NEUROLOGIC: Absent: headache, focal weakness or paresthesias, dizziness, unsteady gait, seizure, mental status changes, bladder or bowel incontinence PSYCHIATRIC: Absent: anxiety, depression, suicidal or homicidal ideation, hallucinations. PHYSICAL EXAMINATION Vital Signs - 24 hr 04/01/19 17:48 Temperature 98.5 F Pulse Rate 57 L Respiratory 18 Rate Blood Pressure 123/72 O2 Sat by Pulse 98 Oximetry (%) GENERAL: awake, alert, and fully oriented no acute distress HEAD: normal EYES: pupils equal, round and reactive to light EARS, NOSE, THROAT: ears normal, nares patent NECK: no JVD LUNGS: breath sounds equal, clear to auscultation bilaterally no rales no wheezing no use of accessory muscles HEART: Regular rate and rhythm, normal S1 and S2 without murmur, rub or gallop. ABDOMEN: soft nontender not distended normoactive bowel sounds MUSCULOSKELETAL: No bony deformities or tenderness. +CVA tenderness UPPER EXTREMITIES: 2+ pulses, warm well-perfused no cyanosis LOWER EXTREMITIES: 2+ pulses, warm well-perfused no pitting edema present NEUROLOGICAL: no neuro focal deficits PSYCHIATRIC: cooperative appropriate mood and affect SKIN: warm, dry, normal turgor, no rashes or lesions noted Laboratory Results - last 24 hr 04/01/19 04/01/19 04/01/19 18:27 18:27 18:27 WBC 3.7 L RBC 3.90 Hgb 11.8 Hct 36.2 MCV 92.8 MCH 30.2 MCHC 32.5 RDW 15.0 Plt Count 173 MPV 7.8 Absolute Neuts (auto) 2.1 Neutrophils % 57.2 Lymphocytes % 28.2 Monocytes % 10.3 H Eosinophils % 3.4 Basophils % 0.9 Nucleated RBC % 0 PT with INR 12.00 INR 1.02 Sodium Potassium Chloride Carbon Dioxide Anion Gap BUN Creatinine Est GFR (CKD-EPI)AfAm Est GFR (CKD-EPI)NonAf Random Glucose Calcium Total Bilirubin AST ALT Alkaline Phosphatase Total Protein Albumin Lipase Urine Color Yellow Urine Appearance Clear Urine pH 5.5 Ur Specific [place] 1.020 Urine Protein Negative Urine Glucose (UA) Negative Urine Ketones Trace H Urine Blood Negative Urine Nitrite Negative Urine Bilirubin Negative Urine Urobilinogen 1.0 Ur Leukocyte Esterase 2+ H Urine WBC (Auto) 6 Urine RBC (Auto) 1 Urine Casts (Auto) 7 U Epithel Cells (Auto) 9.9 Urine Bacteria (Auto) 342.8 04/01/19 18:27 WBC RBC Hgb Hct MCV MCH MCHC RDW Plt Count MPV Absolute Neuts (auto) Neutrophils % Lymphocytes % Monocytes % Eosinophils % Basophils % Nucleated RBC % PT with INR INR Sodium 141 Potassium 4.6 Chloride 106 Carbon Dioxide 31 Anion Gap 4 L BUN 22.3 H Creatinine 1.4 H Est GFR (CKD-EPI)AfAm 41.03 Est GFR (CKD-EPI)NonAf 35.40 Random Glucose 177 H Calcium 8.5 Total Bilirubin 0.5 AST 24 ALT 29 Alkaline Phosphatase 110 Total Protein 8.2 Albumin 3.2 L Lipase 129 Urine Color Urine Appearance Urine pH Ur Specific [place] Urine Protein Urine Glucose (UA) Urine Ketones Urine Blood Urine Nitrite Urine Bilirubin Urine Urobilinogen Ur Leukocyte Esterase Urine WBC (Auto) Urine RBC (Auto) Urine Casts (Auto) U Epithel Cells (Auto) Urine Bacteria (Auto) ASSESSMENT/PLAN: 78 year old mainly Cameroonian speaking female from home with a significant past medical history of hypertension(on meds) ,atrial fibrillation (on amiodarone and eliquis), congestive heart failure, diabetes (not on meds), peripheral vascular disease, hypothyroidism, unstable angina, history of DVT, seizure(on Keppra) and spinal stenosis who presents with 1 day of dysuria and suprapubic pain with radiation to the lower back. #1 Bilateral Pyelonephritis Workup- UA showed 2 + leukoesterase, normal WBC. She is currently afebrile. She is allergic to PCN. She received a dose of aztreoman 1 gm once -ID consulted -Blood and urine cultures are pending #2 Hypertension Controlled Continue with amlodipine, losartan and coreg #3 Atrial Fibrillation Heart rate controlled on coreg and on amiodarone for rhythm control.LFT's are normal. Continue with Eliquis 2.5mg twice daily for anticoagulation(creatinine 1.4, weight 141 kg, age 78) ? if appropriate therapeutic dose of anticoagulation #4 Congestive heart Failure Appears well compensated. Continue with coreg and losartan. #5 Diabetes Mellitus Accucheks before meals and at bed time. Check hemoglobin a1c #6 Hyperlipidemia Continue with statin therapy #7 Seizures Continue with Keppra Check Keppra level #8 Hypothyroidism Continue with synthroid Check TSH #9 Renal Insufficiency Creatinine 1.4 (baseline between 1.1-1.6) Continue to monitor closely FEN -low sodium diet, monitor electrolytes closely DVT Continue with systemic anticoagulation with Eliquis -SCDs Visit type - Emergency Visit Emergency Visit: Yes ED Registration Date: 04/01/19 Care time: The patient presented to the Emergency Department on the above date and was hospitalized for further evaluation of their emergent condition. - New Patient This patient is new to me today: Yes Date on this admission: 04/01/19 - Critical Care Critical Care patient: No
[2019-04-01] MEDS ORDERED: ENOXAPARIN NA (PORCINE) 30 MG/0.3 ML DISP.SYRIN SQ SCH (21:00)
[2019-04-01] MEDS ORDERED: IMIPENEM/CILASTATIN SODIUM 500 MG in SODIUM CHLORIDE 100 ML IVPB SCH (21:00)
[2019-04-01] MEDS ORDERED: ACETAMINOPHEN INJECTION 100 ML IVPB ONE (21:15)
[2019-04-01] MEDS ORDERED: AZTREONAM 1 GM in DEXTROSE 5%-WATER - 50 ML IVPB ONE (21:16)
[2019-04-01] MEDS ORDERED: ATORVASTATIN CA 80 MG TABLET (FP) PO SCH (22:00)
[2019-04-01] MEDS ORDERED: BESIFLOXACIN HCL OP SCH (22:00)
[2019-04-01] MEDS: levETIRAcetam 500 MG TABLET (FP) PO SCH (23:05)
[2019-04-01] MEDS: APIXABAN 2.5 MG TABLET PO SCH (23:05)
[2019-04-01] MEDS: CARVEDILOL 12.5 MG TABLET (FP) PO SCH (23:05)
[2019-04-02] MEDS ORDERED: LEVOTHYROXINE NA 25 MCG TABLET (FP) PO SCH (07:00)
[2019-04-02] MEDS ORDERED: SODIUM CHLORIDE 1,000 ML IV SCH (08:30)
[2019-04-02 09:08] LABS: HEMATOCRIT 31.5 % (32.4-45.2); HEMOGLOBIN 10.4 GM/dL (10.7-15.3); MCH 30.2 pg (25.7-33.7); MCHC 32.9 g/dl (32.0-36.0); MEAN CELL VOLUME 91.8 fl (80-96); MEAN PLT VOLUME 8.6 fl (7.5-11.1); PLATELET COUNT 165 K/MM3 (134-434); RBC 3.43 M/mm3 (3.60-5.2); RDW 14.9 % (11.6-15.6); WHITE BLOOD COUNT 3.3 K/mm3 (4.0-10.0)
[2019-04-02 09:33] LABS: BLOOD UREA NITROGEN 19.2 mg/dL (7-18); CALCIUM 7.8 mg/dL (8.5-10.1); CREATININE 1.1 mg/dL (0.55-1.3); POTASSIUM 3.7 mmol/L (3.5-5.1)
[2019-04-02] MEDS: APIXABAN 2.5 MG TABLET PO SCH (09:56)
[2019-04-02] MEDS: CARVEDILOL 12.5 MG TABLET (FP) PO SCH (09:56)
[2019-04-02] MEDS: levETIRAcetam 500 MG TABLET (FP) PO SCH (09:56)
[2019-04-02] MEDS ORDERED: AMIODARONE HCL 200 MG TABLET (FP) PO SCH (10:00)
[2019-04-02] MEDS ORDERED: CEFTRIAXONE 1 GM in DEXTROSE 5%-WATER - 100 ML IVPB SCH (10:00)
[2019-04-02] MEDS ORDERED: LOSARTAN POTASSIUM 50 MG TABLET (FP) PO SCH (10:00)
[2019-04-02] MEDS ORDERED: amLODIPine BESYLATE 5 MG TABLET (FP) PO SCH (10:00)
--- NOTE | 2019-04-02 11:23 | EKG ---
Test Reason : Blood Pressure : / mmHG Vent. Rate : 055 BPM Atrial Rate : 055 BPM P-R Int : 184 ms QRS Dur : 112 ms QT Int : 502 ms P-R-T Axes : 044 -27 001 degrees QTc Int : 480 ms SINUS BRADYCARDIA INCOMPLETE RIGHT BUNDLE BRANCH BLOCK VOLTAGE CRITERIA FOR LEFT VENTRICULAR HYPERTROPHY CANNOT RULE OUT SEPTAL INFARCT , AGE UNDETERMINED ABNORMAL ECG Confirmed by DANIS RAYMOND MD ([id number]) on 04/02/2019 11:22:46 AM Referred By: Confirmed By:DANIS RAYMOND MD
--- NOTE | 2019-04-02 11:43 | CON.ID ---
Consult Consult Specialty:: infectious diseases Referred by:: Dinorah Reason for Consultation:: uti,suprapubic pain - History of Present Illness Chief Complaint: difficuilty passing urine.suprapubic pain History of Present Illness: 78 year old mainly Sierra Leonean speaking female with a significant past medical history of hypertension,atrial fibrillation congestive heart failure, diabetes , peripheral vascular disease, hypothyroidism, unstable angina, history of DVT, seizure(on Keppra) and spinal stenosis admitted because of dysuria,foul smelling urine and suprapubic pain work up showed positive uti - History Source History Provided By: Medical Record Limitations to Obtaining History: Language Barrier - Past Medical History Cardio/Vascular: Yes: AFIB - Alcohol/Substance Use Hx Alcohol Use: No - Smoking History Smoking history: Never smoked Have you smoked in the past 12 months: No Home Medications - Allergies Allergies/Adverse Reactions: Allergies Allergy/AdvReac Type Severity Reaction Status Date / Time Penicillins Allergy Intermediate Rash Verified 04/01/19 21:00 aspirin Allergy Verified 04/01/19 17:47 - Home Medications Home Medications: Ambulatory Orders Amiodarone HCl [Cordarone -] 200 mg PO DAILY 04/01/19 Amlodipine Besylate [Norvasc -] 5 mg PO DAILY 04/01/19 Apixaban [Eliquis -] 2.5 mg PO BID 04/01/19 Atorvastatin Ca [Lipitor] 80 mg PO HS 04/01/19 Besifloxacin HCl [Besivance] 5 ml OP QID 04/01/19 Carvedilol [Coreg -] 12.5 mg PO BID 04/01/19 Levothyroxine Sodium [Levo-T] 25 mcg PO DAILY 04/01/19 Losartan Potassium 100 mg PO DAILY 04/01/19 Prednisolone 1% Ophthalmic [Pred Forte 1% -] 1 ml OP DAILY 04/01/19 levETIRAcetam [Keppra -] 500 mg PO BID 04/01/19 Review of Systems - Review of Systems Constitutional: reports: No Symptoms Eyes: reports: No Symptoms HENT: reports: No Symptoms Neck: reports: No Symptoms Cardiovascular: reports: No Symptoms Respiratory: reports: No Symptoms Gastrointestinal: reports: No Symptoms Genitourinary: reports: Dysuria, Frequency, Other (suprapubic pain) Musculoskeletal: reports: No Symptoms Integumentary: reports: No Symptoms Neurological: reports: No Symptoms Endocrine: reports: No Symptoms Hematology/Lymphatic: reports: No Symptoms Psychiatric: reports: No Symptoms Physical Exam Vital Signs: Vital Signs Temperature 99.4 F 04/02/19 07:35 Pulse Rate 64 04/02/19 07:35 Respiratory Rate 14 04/02/19 07:35 Blood Pressure 131/68 04/02/19 07:35 O2 Sat by Pulse Oximetry (%) 96 04/02/19 09:00 Constitutional: Yes: Well Nourished, Calm Cardiovascular: Yes: Pulse Irregular Respiratory: Yes: Regular, CTA Bilaterally Gastrointestinal: Yes: Normal Bowel Sounds, Soft Renal/: Yes: Other (suprapubic pain) Musculoskeletal: Yes: WNL Extremities: Yes: WNL Neurological: Yes: Alert, Oriented Psychiatric: Yes: Alert, Oriented Labs: CBC, BMP 04/02/19 07:50 04/02/19 07:50 Imaging - Results Chest X-ray: Report Reviewed, Image Reviewed Assessment/Plan 78 year old mainly Sierra Leonean speaking female from home with a significant past medical history of hypertension(on meds) ,atrial fibrillation (on amiodarone and eliquis), congestive heart failure, diabetes (not on meds), peripheral vascular disease, hypothyroidism, unstable angina, history of DVT, seizure(on Keppra) and spinal stenosis who presents with 1 day of dysuria and suprapubic pain with radiation to the lower back. Hypertension Atrial Fibrillation Congestive heart Failure Diabetes Mellitus Hyperlipidemia Seizures Hypothyroidism Renal Insufficiency plan would continue aztreonam for now await for final cx to be back rest as per the team
[2019-04-02] MEDS ORDERED: DEXTROSE 5%-WATER - 50 ML IVPB ONE ×2 (12:01→17:35)
[2019-04-02] MEDS ORDERED: AZTREONAM 1 GM VIAL (RESTRICTED TO ID) ONE ×2 (12:01→17:34)
[2019-04-02] MEDS: AZTREONAM 1 GM in DEXTROSE 5%-WATER - 50 ML IVPB SCH ×2 (12:04→17:36)
--- NOTE | 2019-04-02 15:15 | PN ---
Teaching Attending Note Name of Resident: Arianna Caraballo ATTENDING PHYSICIAN STATEMENT I saw and evaluated the patient. I reviewed the resident's note and discussed the case with the resident. I agree with the resident's findings and plan as documented. SUBJECTIVE: Feels well. Suprapubic pain resolved. No flank pain/nausea/vomiting/ dysuria/hematuria. OBJECTIVE: Afebrile, Hemodynamically Stable. Last Vital Signs Temp Pulse Resp BP Pulse Ox 98.9 F 64 14 131/68 96 04/02/19 13:35 04/02/19 07:35 04/02/19 07:35 04/02/19 07:35 04/02/19 09:00 HEENT - Atraumatic, Normocephalic Heart -S1, S2, RRR Lungs - clear to auscultation Abdomen - High BMI. Soft, non-tender. No CVA tenderness. Extremities - no edema, no calf tenderness. Laboratory Results - last 24 hr 04/01/19 04/01/19 04/01/19 18:27 18:27 18:27 WBC 3.7 L RBC 3.90 Hgb 11.8 Hct 36.2 MCV 92.8 MCH 30.2 MCHC 32.5 RDW 15.0 Plt Count 173 MPV 7.8 Absolute Neuts (auto) 2.1 Neutrophils % 57.2 Lymphocytes % 28.2 Monocytes % 10.3 H Eosinophils % 3.4 Basophils % 0.9 Nucleated RBC % 0 PT with INR 12.00 INR 1.02 Sodium Potassium Chloride Carbon Dioxide Anion Gap BUN Creatinine Est GFR (CKD-EPI)AfAm Est GFR (CKD-EPI)NonAf POC Glucometer Random Glucose Hemoglobin A1c % Calcium Total Bilirubin AST ALT Alkaline Phosphatase Total Protein Albumin Lipase TSH Free T4 Urine Color Yellow Urine Appearance Clear Urine pH 5.5 Ur Specific [place] 1.020 Urine Protein Negative Urine Glucose (UA) Negative Urine Ketones Trace H Urine Blood Negative Urine Nitrite Negative Urine Bilirubin Negative Urine Urobilinogen 1.0 Ur Leukocyte Esterase 2+ H Urine WBC (Auto) 6 Urine RBC (Auto) 1 Urine Casts (Auto) 7 U Epithel Cells (Auto) 9.9 Urine Bacteria (Auto) 342.8 04/01/19 04/01/19 04/02/19 18:27 21:52 07:50 WBC 3.3 L RBC 3.43 L Hgb 10.4 L Hct 31.5 L MCV 91.8 MCH 30.2 MCHC 32.9 RDW 14.9 Plt Count 165 MPV 8.6 D Absolute Neuts (auto) Neutrophils % Lymphocytes % Monocytes % Eosinophils % Basophils % Nucleated RBC % PT with INR INR Sodium 141 Potassium 4.6 Chloride 106 Carbon Dioxide 31 Anion Gap 4 L BUN 22.3 H Creatinine 1.4 H Est GFR (CKD-EPI)AfAm 41.03 Est GFR (CKD-EPI)NonAf 35.40 POC Glucometer 186 Random Glucose 177 H Hemoglobin A1c % Calcium 8.5 Total Bilirubin 0.5 AST 24 ALT 29 Alkaline Phosphatase 110 Total Protein 8.2 Albumin 3.2 L Lipase 129 TSH Free T4 Urine Color Urine Appearance Urine pH Ur Specific [place] Urine Protein Urine Glucose (UA) Urine Ketones Urine Blood Urine Nitrite Urine Bilirubin Urine Urobilinogen Ur Leukocyte Esterase Urine WBC (Auto) Urine RBC (Auto) Urine Casts (Auto) U Epithel Cells (Auto) Urine Bacteria (Auto) 04/02/19 04/02/19 04/02/19 07:50 07:50 11:29 WBC RBC Hgb Hct MCV MCH MCHC RDW Plt Count MPV Absolute Neuts (auto) Neutrophils % Lymphocytes % Monocytes % Eosinophils % Basophils % Nucleated RBC % PT with INR INR Sodium 141 Potassium 3.7 Chloride 107 Carbon Dioxide 29 Anion Gap 5 L BUN 19.2 H Creatinine 1.1 Est GFR (CKD-EPI)AfAm 54.91 Est GFR (CKD-EPI)NonAf 47.38 POC Glucometer 167 Random Glucose 147 H Hemoglobin A1c % 7.6 H Calcium 7.8 L Total Bilirubin AST ALT Alkaline Phosphatase Total Protein Albumin Lipase TSH 8.03 H Free T4 1.09 Urine Color Urine Appearance Urine pH Ur Specific [place] Urine Protein Urine Glucose (UA) Urine Ketones Urine Blood Urine Nitrite Urine Bilirubin Urine Urobilinogen Ur Leukocyte Esterase Urine WBC (Auto) Urine RBC (Auto) Urine Casts (Auto) U Epithel Cells (Auto) Urine Bacteria (Auto) Current Medications Generic Name Dose Route Start Last Admin Trade Name Freq PRN Reason Stop Dose Admin Amiodarone HCl 200 mg 04/02/19 10:00 04/02/19 09:55 Cordarone - PO 200 mg DAILY BIA Administration Amlodipine Besylate 5 mg 04/02/19 10:00 04/02/19 09:55 Norvasc - PO 5 mg DAILY BIA Administration Apixaban 2.5 mg 04/01/19 22:00 04/02/19 09:56 Eliquis - PO 2.5 mg BID BIA Administration Atorvastatin Calcium 80 mg 04/01/19 22:00 04/01/19 23:05 Lipitor - PO 80 mg HS BIA Administration Carvedilol 12.5 mg 04/01/19 22:00 04/02/19 09:56 Coreg - PO 12.5 mg BID BIA Administration Sodium Chloride 1,000 mls @ 100 mls/hr 04/02/19 08:30 04/02/19 08:41 Normal Saline - IV 100 mls/hr ASDIR BIA Administration Aztreonam 1 gm/ Dextrose 50 mls @ 100 mls/hr 04/02/19 12:00 04/02/19 12:04 IVPB 100 mls/hr Q8H-IV BIA Administration Protocol Levetiracetam 500 mg 04/01/19 22:00 04/02/19 09:56 Keppra - PO 500 mg BID BIA Administration Levothyroxine Sodium 25 mcg 04/02/19 07:00 04/02/19 06:00 Synthroid - PO 25 mcg DAILY@0700 BIA Administration Losartan Potassium 100 mg 04/02/19 10:00 04/02/19 09:56 Cozaar - PO 100 mg DAILY BIA Administration ASSESSMENT/PLAN: 78 year old female with history of HTN, Atrial fibrillation (on Eliquis), Chronic Diastolic CHF, DM 2 (diet controlled), PVD, Hypothyroidism, History of DVT, Seizure Disorder, CAD, Hx DVT, Spinal Stenosis, presented with 1 day history of dysuria and suprapubic pain. No fever/chills/nausea/vomiting. 1. Acute UTI UA positive for LE Treated empirically with Aztreonam (PCN allergic) Afebrile, hemodynamically Stable. No leukocytosis or CVA tenderness. No sign of pyelonephritis. Will discharge on Levofloxacin to complete 10 day treatment course given history of recurrent UTIs. Will follow urine Cx and communicate with the patient to adjust Abx to suit. 2. HTN - Controlled on Norvasc, Losartan, Coreg. 3. Atrial Fibrillation - Continue Coreg and Amiodarone. AC with Eliquis 2.5mg BID. Unclear why on reduced dose - for out-patient PCP/Cardiology follow up for Eliquis dose review. 4. Chronic Diastolic CHF - continue BB, MOE-I. 5. DM 2 - diet controlled. 6. HLD - continue Statin 7. Seizure Disorder - continue Keppra. 8. Hypothyroidism - Elevated TSH, free T4 wnl. On amiodarone. For out-patient PCP/Cardiology follow up for Levothyroxine and Amiodarone dose titration. 9. OSORIO sec to UTI - resolved with IV hydration Medically optimized for discharge on abx therapy for UTI.
[2019-04-02 15:47] VITALS: BP 136/73; PULSE 55; TEMP 98.1
[2019-04-02] MEDS ORDERED: PT OWN MED DRAWER 7, Y5N ONE (17:05)
--- NOTE | 2019-04-02 18:36 | DS ---
Physical Exam: SUBJECTIVE: Patient seen and examined at bedside. Pt states she does not have pain. OBJECTIVE: Vital Signs Period Temp Pulse Resp BP Sys/Elder Pulse Ox Last 24 Hr 98.1 F-99.4 F 55-64 14-18 131-156/68-79 96-96 PHYSICAL EXAM GENERAL: The patient is awake, alert, and fully oriented, in no acute distress. HEAD: Normal with no signs of trauma. LUNGS: Breath sounds equal, clear to auscultation bilaterally, no wheezes, no crackles, no accessory muscle use. HEART: irregularly irregular, S1, S2 without murmur, rub or gallop. ABDOMEN: Soft, nontender, nondistended, normoactive bowel sounds, no guarding EXTREMITIES: 2+ pulses, warm, well-perfused, no edema. NEUROLOGICAL: Cranial nerves II through XII grossly intact. Normal speech, gait not observed. PSYCH: Normal mood, normal affect. SKIN: Warm, dry, normal turgor, no rashes or lesions noted. LABS Laboratory Last Values WBC 3.3 K/mm3 (4.0-10.0) L 04/02/19 07:50 RBC 3.43 M/mm3 (3.60-5.2) L 04/02/19 07:50 Hgb 10.4 GM/dL (10.7-15.3) L 04/02/19 07:50 Hct 31.5 % (32.4-45.2) L 04/02/19 07:50 MCV 91.8 fl (80-96) 04/02/19 07:50 MCH 30.2 pg (25.7-33.7) 04/02/19 07:50 MCHC 32.9 g/dl (32.0-36.0) 04/02/19 07:50 RDW 14.9 % (11.6-15.6) 04/02/19 07:50 Plt Count 165 K/MM3 (134-434) 04/02/19 07:50 MPV 8.6 fl (7.5-11.1) D 04/02/19 07:50 Absolute Neuts (auto) 2.1 K/mm3 (1.5-8.0) 04/01/19 18:27 Neutrophils % 57.2 % (42.8-82.8) 04/01/19 18:27 Lymphocytes % 28.2 % (8-40) 04/01/19 18:27 Monocytes % 10.3 % (3.8-10.2) H 04/01/19 18:27 Eosinophils % 3.4 % (0-4.5) 04/01/19 18:27 Basophils % 0.9 % (0-2.0) 04/01/19 18:27 Nucleated RBC % 0 % (0-0) 04/01/19 18:27 PT with INR 12.00 SEC (9.7-13.0) 04/01/19 18:27 INR 1.02 (0.83-1.09) 04/01/19 18:27 Sodium 141 mmol/L (136-145) 04/02/19 07:50 Potassium 3.7 mmol/L (3.5-5.1) 04/02/19 07:50 Chloride 107 mmol/L (98-107) 04/02/19 07:50 Carbon Dioxide 29 mmol/L (21-32) 04/02/19 07:50 Anion Gap 5 MMOL/L (8-16) L 04/02/19 07:50 BUN 19.2 mg/dL (7-18) H 04/02/19 07:50 Creatinine 1.1 mg/dL (0.55-1.3) 04/02/19 07:50 Est GFR (CKD-EPI)AfAm 54.91 04/02/19 07:50 Est GFR (CKD-EPI)NonAf 47.38 04/02/19 07:50 POC Glucometer 168 UNITS (80-120) 04/02/19 16:33 Random Glucose 147 mg/dL (74-106) H 04/02/19 07:50 Hemoglobin A1c % 7.6 % (4.2-6.3) H 04/02/19 07:50 Calcium 7.8 mg/dL (8.5-10.1) L 04/02/19 07:50 Total Bilirubin 0.5 mg/dL (0.2-1) 04/01/19 18:27 AST 24 U/L (15-37) 04/01/19 18:27 ALT 29 U/L (13-61) 04/01/19 18:27 Alkaline Phosphatase 110 U/L (45-117) 04/01/19 18:27 Total Protein 8.2 g/dl (6.4-8.2) 04/01/19 18:27 Albumin 3.2 g/dl (3.4-5.0) L 04/01/19 18:27 Lipase 129 U/L (73-393) 04/01/19 18:27 TSH 8.03 uIU/ml (0.358-3.74) H 04/02/19 07:50 Free T4 1.09 ng/dl (0.76-1.46) 04/02/19 07:50 Urine Color Yellow 04/01/19 18:27 Urine Appearance Clear 04/01/19 18:27 Urine pH 5.5 (5.0-8.0) 04/01/19 18:27 Ur Specific [place] 1.020 (1.010-1.035) 04/01/19 18:27 Urine Protein Negative (NEGATIVE) 04/01/19 18:27 Urine Glucose (UA) Negative (NEGATIVE) 04/01/19 18:27 Urine Ketones Trace (NEGATIVE) H 04/01/19 18:27 Urine Blood Negative (NEGATIVE) 04/01/19 18:27 Urine Nitrite Negative (NEGATIVE) 04/01/19 18:27 Urine Bilirubin Negative (NEGATIVE) 04/01/19 18:27 Urine Urobilinogen 1.0 mg/dL (0.2-1.0) 04/01/19 18:27 Ur Leukocyte Esterase 2+ (NEGATIVE) H 04/01/19 18:27 Urine WBC (Auto) 6 /hpf (0-5) 04/01/19 18:27 Urine RBC (Auto) 1 /hpf (0-4) 04/01/19 18:27 Urine Casts (Auto) 7 /lpf (0-8) 04/01/19 18:27 U Epithel Cells (Auto) 9.9 /HPF (0-5/HPF) 04/01/19 18:27 Urine Bacteria (Auto) 342.8 /hpf (NEGATIVE) 04/01/19 18:27 HOSPITAL COURSE: Date of Admission:04/01/19 78 year old female with a significant past medical history of hypertension, atrial fibrillation (eliquis), chronic diastolic CHF, DM (not tx), peripheral vascular disease, hypothyroidism, history of DVT,CAD, seizure(on Keppra) and spinal stenosis who presents to the emergency department with 1 day of dysuria and suprapubic pain. UA showed 2 + leukoesterase, negative nitrite. Labs notable for a notable a WBC 3.7 and a creatinine of 1.4-->1.1. Urine and blood cultures are pending. She is afebrile. The pt has an allergy to penicillin. The pt is empirically treated with aztreonam. While admitted, the pt's A1C was found to be 7.6%. The pt TSH was 8.03. It is recommended that the pt follows up outpt with endocrine to manage her hypothyroid and her diabetes. pt is discharged on levofloxacin for 4 days to complete a 5 day course. Urine cultures will be followed and communicated with the patient regarding adjustment of antibiotic. The pt will continue home medications as prescribed. The pt is going to follow up next week with her PCP Dr. Blake. Disp: home Date of Discharge: 04/02/19 Minutes to complete discharge: 36 Discharge Summary Reason For Visit: PYELONEPHRITIS Current Active Problems Abdominal pain (Acute) UTI (urinary tract infection) (Acute) Diabetes mellitus (Chronic) HTN (hypertension) (Chronic) Hypothyroidism (Chronic) Condition: Stable - Instructions Diet, Activity, Other Instructions: You presented to the hospital with pain in your abdomen because of an infection in your urine. You were treated with antibiotics. Medications: 1. Continue taking Levaquin 750 mg once a day for 4 days. Labs: 1. While you were in the hospital, your blood showed an abnormal value for your thyroid hormone. Follow up with the following physicians: 1. Primary physician in one week, please call to schedule follow up to further manage your infection and to check your thyroid. Additionally your A1c ( Diabetes marker) is elevated (7.6%). Please further discuss this with your PCP as your diabetes regimen needs to be adjusted. You are being discharged back home. Diet: Continue to follow a low salt/ low sugar diet and drink plenty of fluids. Continue all your medications as prescribed. Please return to the ER if you have any signs or symptoms of chest pain, shortness of breath, uncontrollable fever, chills, nausea, vomiting, numbness, tingling, or weakness in any part of your body, changes in vision, or slurred speech. Please return to the ER if symptoms persist, worsen, or new symptoms arise. Referrals: Carlos Triana MD [Staff Physician] - Disposition: HOME - Home Medications Comprehensive Discharge Medication List: Ambulatory Orders Amiodarone HCl 200 mg PO DAILY 04/21/18 Atorvastatin Ca [Lipitor] 80 mg PO HS 04/21/18 Losartan Potassium 100 mg PO DAILY 04/21/18 levETIRAcetam [Keppra -] 500 mg PO BID 04/21/18 Amlodipine Besylate [Norvasc -] 5 mg PO DAILY 04/01/19 Apixaban [Eliquis -] 2.5 mg PO BID 04/01/19 Besifloxacin HCl [Besivance] 5 ml OP QID 04/01/19 Carvedilol [Coreg -] 12.5 mg PO BID 04/01/19 Levothyroxine Sodium [Levo-T] 25 mcg PO DAILY 04/01/19 Prednisolone 1% Ophthalmic [Pred Forte 1% -] 1 ml OP DAILY 04/01/19 levoFLOXacin [Levaquin] 750 mg PO DAILY 4 Days #4 tab 04/02/19 This patient is new to me today: No Emergency Visit: No Critical Care patient: No - Discharge Referral Referred to [facility] No
== END 2019-04-02 19:40 | disposition home or self-care (01) | DRG 690 ==
LOC: JER 17:45 → SUPCPDRO 17:45 → JERBED 20:37 → J6S 22:37
PROVIDERS: ADMIT Internal Medicine
DX: N39.0 Urinary tract infection, site not specified (principal); I50.32 Chronic diastolic (congestive) heart failure; G40.802 Other epilepsy, not intractable, without status epilepticus; N17.9 Acute kidney failure, unspecified; I11.0 Hypertensive heart disease with heart failure; I48.91 Unspecified atrial fibrillation; E03.9 Hypothyroidism, unspecified; M48.00 Spinal stenosis, site unspecified; N28.9 Disorder of kidney and ureter, unspecified; F41.8 Other specified anxiety disorders; E78.5 Hyperlipidemia, unspecified; E11.51 Type 2 diabetes mellitus with diabetic peripheral angiopathy without gangrene; I25.119 Atherosclerotic heart disease of native coronary artery with unspecified angina pectoris; Z86.718 Personal history of other venous thrombosis and embolism; Z85.01 Personal history of malignant neoplasm of esophagus; Z88.0 Allergy status to penicillin
CPT/HCPCS: 36415; 71045-TC-FY; 80048; 80053; 80177; 81003; 82962; 83036; 83690; 84439; 84443; 85025; 85027; 85610; 87040; 87086; 93005; 93010; 99285-25; J0131; J7030

== ENCOUNTER 2019-04-07 10:28 | Emergency (ER) | payer OTHER ==
[2019-04-07 10:38] VITALS: BMI 31.5
[2019-04-07 11:20] LABS: EPI CELLS 12.8 /HPF (0-5/HPF); HYALINE CASTS 9 /lpf (0-8); PH,URINE 5.5 (5.0-8.0); URINE APPEARANCE CLOUDY; URINE BACTERIA 1119.3 /hpf (NEGATIVE); URINE BILIRUBIN NEGATIVE (NEGATIVE); URINE COLOR YELLOW; URINE GLUCOSE (UA) NEGATIVE (NEGATIVE); URINE KETONE NEGATIVE (NEGATIVE); URINE LEUK ESTERASE 2+ (NEGATIVE); URINE NITRITE NEGATIVE (NEGATIVE); URINE PROTEIN TRACE (NEGATIVE); URINE UROBILINOGEN 0.2 mg/dL (0.2-1.0); URINE WBC 31 /hpf (0-5)
[2019-04-07 11:38] LABS: URINE RBC 3.2 /hpf (0-4)
--- NOTE | 2019-04-07 11:54 | PDOC ---
Documentation entered by Mauricio Alexis SCRIBE, acting as scribe for Jac Collazo MD. Jac Collazo MD: This documentation has been prepared by the Vanesa edge Elijah, SCRIBE, under my direction and personally reviewed by me in its entirety. I confirm that the documentation accurately reflects all work, treatment, procedures, and medical decision making performed by me. History of Present Illness - General Chief Complaint: Pain Stated Complaint: R/O UTI Time Seen by Provider: 04/07/19 11:09 History Source: Patient Exam Limitations: No Limitations - History of Present Illness Initial Comments: 04/07/19 11:27 Patient is an 78 year old female with a significant past medical history of hypertension, AFib, CHF, diabetes (not on meds), peripheral vascular disease, hypothyroidism, unstable angina, history of DVT on eliquis, and spinal stenosis who presents to the ED with lower abdominal and vaginal pain beginning x2 weeks ago. Patient described the pain as feeling as if she needs to void but can't. Pt also endorses lower abdominal pain. Denies flank pain. Denies F/C. Of note, pt was evaluated a week ago for similar complaint, found to have UTI and admitted. Pt was on Aztreonam as in and OH'ed on a course of Levaquin, which she has completed. However, she notes no improvement in her symptoms despite finishing the abx. Allergies: Penicillins and Aspirins PCP: Dr. Triana Past History - Past Medical History Allergies/Adverse Reactions: Allergies Allergy/AdvReac Type Severity Reaction Status Date / Time Penicillins Allergy Intermediate Rash Verified 04/07/19 10:32 aspirin Allergy Verified 04/07/19 10:32 Home Medications: Ambulatory Orders Amiodarone HCl 200 mg PO DAILY 04/21/18 Atorvastatin Ca [Lipitor] 80 mg PO HS 04/21/18 Losartan Potassium 100 mg PO DAILY 04/21/18 levETIRAcetam [Keppra -] 500 mg PO BID 04/21/18 Amlodipine Besylate [Norvasc -] 5 mg PO DAILY 04/01/19 Apixaban [Eliquis -] 2.5 mg PO BID 04/01/19 Besifloxacin HCl [Besivance] 5 ml OP QID 04/01/19 Carvedilol [Coreg -] 12.5 mg PO BID 04/01/19 Levothyroxine Sodium [Levo-T] 25 mcg PO DAILY 04/01/19 Prednisolone 1% Ophthalmic [Pred Forte 1% -] 1 ml OP DAILY 04/01/19 levoFLOXacin [Levaquin] 750 mg PO DAILY 4 Days #4 tab 04/02/19 Anemia: No Asthma: No Cancer: Yes (thyroid CA) Cardiac Disorders: Yes COPD: No CHF: No Diabetes: Yes GI Disorders: No Disorders: No HTN: Yes Hypercholesterolemia: Yes Liver Disease: No Psychiatric Problems: Yes (depression, anxeity) Seizures: Yes Thyroid Disease: Yes - Surgical History Cardiac Surgery: No Cholecystectomy: Yes Lung Surgery: No - Suicide/Smoking/Psychosocial Hx Smoking History: Never smoked Have you smoked in the past 12 months: No If you are a former smoker, when did you quit?: 30 years ago Hx Alcohol Use: No Drug/Substance Use Hx: No Substance Use Type: None Hx Substance Use Treatment: No Review of Systems - Review of Systems Comments:: 04/07/19 11:28 GENERAL/CONSTITUTIONAL: No fever or chills. No weakness. HEAD, EYES, EARS, NOSE AND THROAT: No change in vision. No ear pain or discharge. No sore throat. CARDIOVASCULAR: No shortness of breath, no loss of consciousness RESPIRATORY: No cough, wheezing, or hemoptysis. GASTROINTESTINAL: +Lower Abdominal Pain. No nausea, vomiting or constipation. GENITOURINARY:+Vaginal Pain. No dysuria, frequency, or change in urination. MUSCULOSKELETAL: No joint or muscle swelling or pain. No neck or back pain. SKIN: No rash NEUROLOGIC: No vertigo, no change in strength/sensation. ENDOCRINE: No increased thirst. No abnormal weight change. HEMATOLOGIC/LYMPHATIC: No anemia, easy bleeding, or history of blood clots. ALLERGIC/IMMUNOLOGIC: No hives or skin allergy. *Physical Exam - Vital Signs Last Vital Signs Temp Pulse Resp BP Pulse Ox 98.1 F 63 18 134/69 04/07/19 10:35 04/07/19 10:35 04/07/19 10:35 04/07/19 10:35 - Physical Exam Comments: 04/07/19 11:28 GENERAL: Awake, alert, and fully oriented, in no acute distress. HEAD: No signs of trauma EYES: PERRLA, EOMI, sclera anicteric, conjunctiva clear ENT: Auricles normal inspection, hearing grossly normal, nares patent, oropharynx clear without exudates. Moist mucosa NECK: Nontender, no stepoffs, Normal ROM, supple, no lymphadenopathy, JVD, or masses LUNGS: Breath sounds equal, clear to auscultation bilaterally. No wheezes, and no crackles HEART: Regular rate and rhythm, normal S1 and S2, no murmurs, rubs or gallops ABDOMEN: + bilateral lower quadrant TTP, normoactive bowel sounds. No guarding , no rebound. No masses EXTREMITIES: Normal range of motion, no edema. No clubbing or cyanosis. No cords, erythema, or tenderness NEUROLOGICAL: Cranial nerves II through XII intact. 5/5 strength and sensation in all extremities, Normal speech, normal gait, normal cerebellar function SKIN: Warm, Dry, normal turgor, no rashes or lesions noted. ED Treatment Course - LABORATORY CBC & Chemistry Diagram: 04/07/19 11:38 04/07/19 11:38 - ADDITIONAL ORDERS Additional order review: Laboratory Results 04/07/19 11:04 Urine Color Yellow Urine Appearance Cloudy Urine pH 5.5 Ur Specific [place] 1.019 Urine Protein Trace Urine Glucose (UA) Negative Urine Ketones Negative Urine Blood Negative Urine Nitrite Negative Urine Bilirubin Negative Urine Urobilinogen 0.2 Ur Leukocyte Esterase 2+ H Urine WBC (Auto) 31 Urine RBC (Auto) 3.2 Urine Casts (Auto) 9 U Epithel Cells (Auto) 12.8 Urine Bacteria (Auto) 1119.3 - RADIOLOGY Radiology Studies Ordered: Category Date Time Status ABDOMEN & PELVIS CT WITH CONTR [CT] Stat CT Scan 04/07/19 11:27 Ordered Medical Decision Making - Medical Decision Making 04/07/19 11:53 78 F with dysuria and lower abdominal pain. Pt was recently admitted for pyelo and tx'ed with IV abx, DC'ed with levaquin, but having persistent urinary symptoms. - Labs, UA, UCx - CTAP 04/07/19 12:05 UA with + WBCs and LE I spoke with Dr. Ortiz, who evaluated pt during previous admission. Given negative UCx, he does not recommend empiric abx. Will wait for repeat UCx. 04/07/19 13:[address] shows nonspecific mesenteric haziness, per radiology consistent with panniculitis. Pt with no evidence of panniculitis on exam. Repeat abdominal exam after fluids non-tender. Pt is well appearing, with normal vitals. Clinically stable for DC at this time. I discussed the physical exam findings, ancillary test results and final diagnoses with the patient. I answered all of the patient's questions. The patient was satisfied with the care received and felt comfortable with the discharge plan and treatment plan. The patient agrees to follow up with the primary care physician within 24-72 hours. *DC/Admit/Observation/Transfer Diagnosis at time of Disposition: Abdominal pain - Discharge Dispostion Disposition: HOME - Referrals Referrals: Shelia Triana MD [Primary Care Provider] - Xiang Kendall MD [Staff Physician] - - Patient Instructions Printed Discharge Instructions: DI for Dysuria -- Adult Additional Instructions: Your CT scan and bloodwork did not show any abnormalities. Please follow up with a urologist for further evaluation of your vaginal pain. Call the number provided to make an appointment. If you experience worsening pain, fevers, vomiting, or any other concerning symptoms, return to the ER immediately. Craig tomografa computarizada y anlisis de thai no mostraron anomalas. Por favor, nicolette un seguimiento con un urlogo para alta evaluacin adicional de craig dolor vaginal. Llame al nmero proporcionado para hacer alta sheryl. Si experimenta un empeoramiento del dolor, fiebre, vmitos o cualquier otro sntomas preocupantes, vuelva a la leland de emergencias inmediatamente. Print Language: IRISH - Post Discharge Activity - Attestations Physician Attestion: 04/07/19 16:44 I, Dr. Jac Collazo MD, attest that this document has been prepared under my direction and personally reviewed by me in its entirety. I further attest, that it accurately reflects all work, treatment, procedures and medical decision -making performed by me.
[2019-04-07 12:46] LABS: BASO % 0.6 % (0-2.0); EOS % 3.3 % (0-4.5); HEMATOCRIT 32.4 % (32.4-45.2); HEMOGLOBIN 10.6 GM/dL (10.7-15.3); LYMPH % 23.4 % (8-40); MCH 30.1 pg (25.7-33.7); MCHC 32.6 g/dl (32.0-36.0); MEAN CELL VOLUME 92.3 fl (80-96); MEAN PLT VOLUME 8.4 fl (7.5-11.1); MONO % 11.5 % (3.8-10.2); NEUT % 61.2 % (42.8-82.8); PLATELET COUNT 177 K/MM3 (134-434); RBC 3.51 M/mm3 (3.60-5.2); RDW 15.3 % (11.6-15.6); WHITE BLOOD COUNT 3.9 K/mm3 (4.0-10.0)
[2019-04-07 12:52] LABS: ALBUMIN 2.9 g/dl (3.4-5.0); ALK PHOS 101 U/L (45-117); ANION GAP 2 MMOL/L (8-16); BILIRUBIN,TOTAL 0.4 mg/dL (0.2-1); BLOOD UREA NITROGEN 21.8 mg/dL (7-18); CALCIUM 8.5 mg/dL (8.5-10.1); CHLORIDE 108 mmol/L (98-107); CO2 31 mmol/L (21-32); CREATININE 1.3 mg/dL (0.55-1.3); GLUCOSE,RANDOM 175 mg/dL (74-106); LIPASE 115 U/L (73-393); N-TERMINAL BNP 298.2 pg/ml (5-450); POTASSIUM 4.2 mmol/L (3.5-5.1); SGOT/AST 19 U/L (15-37); SGPT/ALT 26 U/L (13-61); SODIUM 142 mmol/L (136-145); TOT PROT 7.3 g/dl (6.4-8.2)
[2019-04-07] MEDS ORDERED: SODIUM CHLORIDE 1,000 ML IV STA (13:07)
--- NOTE | 2019-04-07 14:50 | EKG ---
Test Reason : Blood Pressure : / mmHG Vent. Rate : 057 BPM Atrial Rate : 057 BPM P-R Int : 182 ms QRS Dur : 112 ms QT Int : 486 ms P-R-T Axes : 051 -23 -05 degrees QTc Int : 473 ms SINUS BRADYCARDIA WITH OCCASIONAL PREMATURE VENTRICULAR COMPLEXES AND PREMATURE ATRIAL COMPLEXES INCOMPLETE LEFT BUNDLE BRANCH BLOCK MODERATE VOLTAGE CRITERIA FOR LVH, MAY BE NORMAL VARIANT BORDERLINE ECG WHEN COMPARED WITH ECG OF 01-APR-2019 18:39, PREMATURE VENTRICULAR COMPLEXES ARE NOW PRESENT PREMATURE ATRIAL COMPLEXES ARE NOW PRESENT INCOMPLETE LEFT BUNDLE BRANCH BLOCK HAS REPLACED INCOMPLETE RIGHT BUNDLE BRANCH BLOCK Confirmed by TERRY HICKMAN, DARWIN ([id number]) on 04/07/2019 2:49:48 PM Referred By: Confirmed By:DARWIN STEWART MD
[2019-04-07 17:06] VITALS: BP 171/81; PULSE 61; TEMP 97.6
== END 2019-04-07 17:10 | disposition home or self-care (01) ==
LOC: JER 10:28
PROC: 3E0337Z Introduction of Electrolytic and Water Balance Substance into Peripheral Vein, Percutaneous Approach (ICD-10-PCS; principal; 2019-04-07)
DX: R10.9 Unspecified abdominal pain (principal); I48.91 Unspecified atrial fibrillation; I10 Essential (primary) hypertension; E11.9 Type 2 diabetes mellitus without complications; I73.9 Peripheral vascular disease, unspecified; E03.9 Hypothyroidism, unspecified; Z86.718 Personal history of other venous thrombosis and embolism; Z79.01 Long term (current) use of anticoagulants; F41.8 Other specified anxiety disorders; E07.9 Disorder of thyroid, unspecified
CPT/HCPCS: 36415; 74177-TC; 80053; 81003; 82550; 83605; 83690; 83880; 84484; 85025; 87086; 93005; 93010; 99283-25; J7030

== ENCOUNTER 2019-06-09 17:11 | Emergency (ER) | payer OTHER ==
[2019-06-09 17:55] VITALS: BMI 34.4
[2019-06-09] MEDS ORDERED: SODIUM CHLORIDE 1,000 ML IV STA (17:56)
--- NOTE | 2019-06-09 17:56 | PDOC ---
Rapid Medical Evaluation Time Seen by Provider: 06/09/19 17:52 Medical Evaluation: Allergies Allergy/AdvReac Type Severity Reaction Status Date / Time Penicillins Allergy Intermediate Rash Verified 04/07/19 10:32 aspirin Allergy Verified 04/07/19 10:32 06/09/19 17:52 Pt presents to the ER today for lower abdominal pain since last night. Daughter states that yesterday the patient reported dysuria. Today the patient states she cannot urinate. Denies fevers, chills, n/v/d. She also reports some SOB that has since resolved itself Exam: NAD, TTP of the RLQ, suprapubic and LLQ Orders: labs, urine, IV Pt to proceed to the ER for further evaluation Discharge Disposition - Diagnosis Dysuria - Referrals - Patient Instructions - Post Discharge Activity
[2019-06-09 18:44] LABS: BASO % 0.7 % (0-2.0); EOS % 5.1 % (0-4.5); HEMATOCRIT 34.8 % (32.4-45.2); HEMOGLOBIN 11.2 GM/dL (10.7-15.3); LYMPH % 22.8 % (8-40); MCH 29.5 pg (25.7-33.7); MCHC 32.3 g/dl (32.0-36.0); MEAN CELL VOLUME 91.4 fl (80-96); MEAN PLT VOLUME 9.1 fl (7.5-11.1); MONO % 10.6 % (3.8-10.2); NEUT % 60.8 % (42.8-82.8); PLATELET COUNT 180 K/MM3 (134-434)
[2019-06-09 18:59] LABS: INR 1.17 (0.83-1.09); PROTHROMBIN TIME (PATIENT) 13.8 SEC (9.7-13.0)
[2019-06-09 19:18] LABS: ALBUMIN 3.2 g/dl (3.4-5.0); ALK PHOS 110 U/L (45-117); ANION GAP 4 MMOL/L (8-16); BILIRUBIN,TOTAL 0.7 mg/dL (0.2-1); BLOOD UREA NITROGEN 26.3 mg/dL (7-18); CALCIUM 8.9 mg/dL (8.5-10.1); CHLORIDE 106 mmol/L (98-107); CO2 30 mmol/L (21-32); CREATININE 1.6 mg/dL (0.55-1.3); GLUCOSE,RANDOM 183 mg/dL (74-106); POTASSIUM 4.4 mmol/L (3.5-5.1); SGOT/AST 22 U/L (15-37); SGPT/ALT 24 U/L (13-61); SODIUM 140 mmol/L (136-145)
--- NOTE | 2019-06-09 21:31 | PDOC ---
*Physical Exam - Vital Signs Last Vital Signs Temp Pulse Resp BP Pulse Ox 98.1 F 59 L 18 129/67 100 06/09/19 17:53 06/09/19 17:53 06/09/19 17:53 06/09/19 17:53 06/09/19 17:53 ED Treatment Course - LABORATORY CBC & Chemistry Diagram: 06/09/19 18:28 06/09/19 18:28 - ADDITIONAL ORDERS Additional order review: Laboratory Results 06/09/19 06/09/19 18:28 18:28 PT with INR 13.80 H INR 1.17 H Sodium 140 Potassium 4.4 Chloride 106 Carbon Dioxide 30 Anion Gap 4 L BUN 26.3 H Creatinine 1.6 H Est GFR (CKD-EPI)AfAm 34.91 Est GFR (CKD-EPI)NonAf 30.12 Random Glucose 183 H Calcium 8.9 Total Bilirubin 0.7 AST 22 ALT 24 Alkaline Phosphatase 110 Troponin I < 0.02 Total Protein 8.0 Albumin 3.2 L 06/09/19 18:28 RBC 3.80 MCV 91.4 MCHC 32.3 RDW 15.0 MPV 9.1 Neutrophils % 60.8 Lymphocytes % 22.8 Monocytes % 10.6 H Eosinophils % 5.1 H Basophils % 0.7 Medical Decision Making - Medical Decision Making 06/09/19 21:29 Patient seen by the advanced practice provider under my direct supervision. Ancillary testing reviewed as necessary. I agree with plan as outlined by the advanced practice provider. *DC/Admit/Observation/Transfer Diagnosis at time of Disposition: Dysuria - Referrals - Patient Instructions - Post Discharge Activity
[2019-06-09 22:13] LABS: PH,URINE 5.5 (5.0-8.0); URINE APPEARANCE CLEAR; URINE BILIRUBIN NEGATIVE (NEGATIVE); URINE COLOR YELLOW; URINE GLUCOSE (UA) 2+ (NEGATIVE); URINE KETONE NEGATIVE (NEGATIVE); URINE LEUK ESTERASE NEGATIVE (NEGATIVE); URINE NITRITE NEGATIVE (NEGATIVE); URINE PROTEIN TRACE (NEGATIVE)
--- NOTE | 2019-06-09 23:34 | PDOC ---
History of Present Illness - General Chief Complaint: Shortness of Breath Stated Complaint: SOB/ URINATION PROBELMS Time Seen by Provider: 06/09/19 17:52 History Source: Patient, Family Exam Limitations: Language Barrier Past History - Past Medical History Allergies/Adverse Reactions: Allergies Allergy/AdvReac Type Severity Reaction Status Date / Time Penicillins Allergy Intermediate Rash Verified 06/09/19 17:52 aspirin Allergy Verified 06/09/19 17:52 Home Medications: Ambulatory Orders Amiodarone HCl 200 mg PO DAILY 04/21/18 Atorvastatin Ca [Lipitor] 80 mg PO HS 04/21/18 Losartan Potassium 100 mg PO DAILY 04/21/18 levETIRAcetam [Keppra -] 500 mg PO BID 04/21/18 Amlodipine Besylate [Norvasc -] 5 mg PO DAILY 04/01/19 Apixaban [Eliquis -] 2.5 mg PO BID 04/01/19 Besifloxacin HCl [Besivance] 5 ml OP QID 04/01/19 Carvedilol [Coreg -] 12.5 mg PO BID 04/01/19 Levothyroxine Sodium [Levo-T] 25 mcg PO DAILY 04/01/19 Prednisolone 1% Ophthalmic [Pred Forte 1% -] 1 ml OP DAILY 04/01/19 levoFLOXacin [Levaquin] 750 mg PO DAILY 4 Days #4 tab 04/02/19 Anemia: No Asthma: No Cancer: Yes (thyroid CA) Cardiac Disorders: Yes COPD: No CHF: No Diabetes: Yes GI Disorders: No Disorders: No HTN: Yes Hypercholesterolemia: Yes Liver Disease: No Psychiatric Problems: Yes (depression, anxeity) Seizures: Yes Thyroid Disease: Yes - Surgical History Cardiac Surgery: No Cholecystectomy: Yes Lung Surgery: No - Suicide/Smoking/Psychosocial Hx Smoking History: Never smoked Have you smoked in the past 12 months: No If you are a former smoker, when did you quit?: 30 years ago Hx Alcohol Use: No Drug/Substance Use Hx: No Substance Use Type: None Hx Substance Use Treatment: No *Physical Exam - Vital Signs Last Vital Signs Temp Pulse Resp BP Pulse Ox 98.1 F 59 L 18 129/67 100 06/09/19 17:53 06/09/19 17:53 06/09/19 17:53 06/09/19 17:53 06/09/19 17:53 - Physical Exam General Appearance: No: Apparent Distress Respiratory/Chest: positive: Lungs Clear, Normal Breath Sounds. negative: Respiratory Distress Cardiovascular: positive: Regular Rhythm, Regular Rate, S1, S2. negative: Murmur Gastrointestinal/Abdominal: positive: Tender (mild along suprapubic region), Soft, Other (abdomen slightly larger appearing per daughter; no significant distension noted). negative: Guarding, Rebound, Mass Neurologic: positive: Alert, Normal Mood/Affect ED Treatment Course - LABORATORY CBC & Chemistry Diagram: 06/09/19 18:28 06/09/19 18:28 - ADDITIONAL ORDERS Additional order review: Laboratory Results 06/09/19 06/09/19 06/09/19 21:34 21:30 18:28 PT with INR 13.80 H INR 1.17 H Sodium Potassium Chloride Carbon Dioxide Anion Gap BUN Creatinine Est GFR (CKD-EPI)AfAm Est GFR (CKD-EPI)NonAf Random Glucose Calcium Total Bilirubin AST ALT Alkaline Phosphatase Troponin I < 0.02 Total Protein Albumin Urine Color Yellow Urine Appearance Clear Urine pH 5.5 Ur Specific [place] 1.029 Urine Protein Trace Urine Glucose (UA) 2+ H Urine Ketones Negative Urine Blood Negative Urine Nitrite Negative Urine Bilirubin Negative Urine Urobilinogen 1.0 Ur Leukocyte Esterase Negative 06/09/19 18:28 PT with INR INR Sodium 140 Potassium 4.4 Chloride 106 Carbon Dioxide 30 Anion Gap 4 L BUN 26.3 H Creatinine 1.6 H Est GFR (CKD-EPI)AfAm 34.91 Est GFR (CKD-EPI)NonAf 30.12 Random Glucose 183 H Calcium 8.9 Total Bilirubin 0.7 AST 22 ALT 24 Alkaline Phosphatase 110 Troponin I < 0.02 Total Protein 8.0 Albumin 3.2 L Urine Color Urine Appearance Urine pH Ur Specific [place] Urine Protein Urine Glucose (UA) Urine Ketones Urine Blood Urine Nitrite Urine Bilirubin Urine Urobilinogen Ur Leukocyte Esterase 06/09/19 18:28 RBC 3.80 MCV 91.4 MCHC 32.3 RDW 15.0 MPV 9.1 Neutrophils % 60.8 Lymphocytes % 22.8 Monocytes % 10.6 H Eosinophils % 5.1 H Basophils % 0.7 - RADIOLOGY Radiology Studies Ordered: Category Date Time Status ABDOMEN & PELVIS CT W/O CONTR [CT] Stat CT Scan 06/09/19 21:54 Taken Medical Decision Making - Medical Decision Making 78 y/o F hx of HTN, HLD, seizure, T2DM, rheumatoid arthritis, PVF, afib (on eliquis), chronic diastolic CHF, hypothyroidism, cholecystectomy, hysterectomy presents with lower abd pain since last night along with not having voided all day today. Per daughter, patient informed her of not urinating around 5 PM. Due to patient being in pain, patient appeared slightly short of breath to daughter , but is fine now. Denies fever, URI sxs, cp, n/v/d, back pain, saddle/groin paresthesia, trauma, numbness/tingling/weakness of extremities. Concern for urinary retention Hernandez was placed with 300 cc of urine output obtained Abnormal Lab Results 06/09/19 06/09/19 06/09/19 18:28 18:28 18:28 Monocytes % 10.6 H Eosinophils % 5.1 H PT with INR 13.80 H INR 1.17 H Anion Gap 4 L BUN 26.3 H Creatinine 1.6 H Random Glucose 183 H Albumin 3.2 L Urine Glucose (UA) 06/09/19 21:34 Monocytes % Eosinophils % PT with INR INR Anion Gap BUN Creatinine Random Glucose Albumin Urine Glucose (UA) 2+ H Labs reviewed; BUN/Cr slightly elevated (Have been elevated in past as well) CT A/P done with no acute findings noted Patient appears comfortable and denies any pain Not suspicious for cauda equina Per daughter, she wants to also have patient evaluated by psychiatrist because at times she will often complain of things though nothing is wrong Will refer to urology stable for dc 06/09/19 23:34 *DC/Admit/Observation/Transfer Diagnosis at time of Disposition: Urinary retention - Discharge Dispostion Disposition: HOME Condition at time of disposition: Improved Decision to Admit order: No - Referrals Referrals: Brett Garcia MD [Staff Physician] - 2 Days - Patient Instructions Printed Discharge Instructions: DI for Urinary Retention in Women Additional Instructions: Thank you for choosing [facility]. It was a pleasure taking care of you. You had a Hernandez catheter placed for urinary retention You were referred to urologist for further evaluation Please also follow-up with your regular doctor. Return to the Emergency Department if your symptoms worsen or persist or have other concerning symptoms. - Post Discharge Activity
[2019-06-10 00:37] VITALS: BP 139/58; PULSE 56; TEMP 97.9
--- NOTE | 2019-06-10 15:29 | EKG ---
Test Reason : Blood Pressure : / mmHG Vent. Rate : 056 BPM Atrial Rate : 056 BPM P-R Int : 176 ms QRS Dur : 114 ms QT Int : 490 ms P-R-T Axes : 015 -26 -08 degrees QTc Int : 472 ms SINUS BRADYCARDIA MODERATE VOLTAGE CRITERIA FOR LVH, MAY BE NORMAL VARIANT BORDERLINE ECG WHEN COMPARED WITH ECG OF 07-APR-2019 11:42, PREMATURE VENTRICULAR COMPLEXES ARE NO LONGER PRESENT PREMATURE ATRIAL COMPLEXES ARE NO LONGER PRESENT INCOMPLETE LEFT BUNDLE BRANCH BLOCK IS NO LONGER PRESENT Confirmed by JAMES FITCH MD ([id number]) on 06/10/2019 3:28:52 PM Referred By: Confirmed By:JAMES FITCH MD
== END 2019-06-10 00:32 | disposition home or self-care (01) ==
LOC: JER 17:11
PROC: 0T9B70Z Drainage of Bladder with Drainage Device, Via Natural or Artificial Opening (ICD-10-PCS; principal; 2019-06-09)
DX: R33.9 Retention of urine, unspecified (principal); I10 Essential (primary) hypertension; E78.5 Hyperlipidemia, unspecified; E11.9 Type 2 diabetes mellitus without complications; M06.9 Rheumatoid arthritis, unspecified; I48.91 Unspecified atrial fibrillation; Z79.01 Long term (current) use of anticoagulants
CPT/HCPCS: 36415; 74176-TC; 80053; 81003; 84484; 85025; 85610; 87086; 93005; 93010; 99284-25

== ENCOUNTER 2019-09-15 12:16 | Observation (INO) | payer OTHER ==
--- NOTE | 2019-09-15 13:17 | PDOC ---
History of Present Illness - General Chief Complaint: Shortness of Breath Stated Complaint: SOB Time Seen by Provider: 09/15/19 13:17 History Source: Patient, Family - History of Present Illness Initial Comments: 09/15/19 15:23 Ms. Pierre is an 78 y/o woman with hx afib on eliquis, asthma, DM, HTN, mitral valve prolapse, CHF p/w one day of nausea, diarrhea, epigastric pain. She reports presenting to her PCP for a scheduled follow up and was sent for further evaluation of epigastric pain, shortness of breath. She reports that since last night she has felt nauseated, and today began to feel intermittent epigastric pain alongside mild generalized abdominal pain during the PCP visit. She reports 3x nbnb diarrhea over the course of the day, alongside mild shortness of breath. She denies any dyspnea on exertion or any resultant limitations to her ADLs. She denies any chest pain, vision changes. Her daughter reports that she has been eating less in an effort to lose weight, and for the last four days has complained of gas after having only a cup of black coffee with her morning medications, skipping food until lunch time. Past History - Past Medical History Allergies/Adverse Reactions: Allergies Allergy/AdvReac Type Severity Reaction Status Date / Time Penicillins Allergy Intermediate Rash Verified 09/15/19 12:30 aspirin Allergy Verified 09/15/19 12:30 Home Medications: Ambulatory Orders Amiodarone HCl 200 mg PO DAILY 04/21/18 Atorvastatin Ca [Lipitor] 80 mg PO HS 04/21/18 Losartan Potassium 100 mg PO DAILY 04/21/18 levETIRAcetam [Keppra -] 500 mg PO BID 04/21/18 Amlodipine Besylate [Norvasc -] 5 mg PO DAILY 04/01/19 Apixaban [Eliquis -] 2.5 mg PO BID 04/01/19 Besifloxacin HCl [Besivance] 5 ml OP QID 04/01/19 Carvedilol [Coreg -] 12.5 mg PO BID 04/01/19 Levothyroxine Sodium [Levo-T] 25 mcg PO DAILY 04/01/19 Prednisolone 1% Ophthalmic [Pred Forte 1% -] 1 ml OP DAILY 04/01/19 levoFLOXacin [Levaquin] 750 mg PO DAILY 4 Days #4 tab 04/02/19 Anemia: No Asthma: No Cancer: Yes (thyroid CA) Cardiac Disorders: Yes COPD: No CHF: No Diabetes: Yes GI Disorders: No Disorders: No HTN: Yes Hypercholesterolemia: Yes Liver Disease: No Psychiatric Problems: Yes (depression, anxeity) Seizures: Yes Thyroid Disease: Yes - Surgical History Cardiac Surgery: No Cholecystectomy: Yes Lung Surgery: No - Psycho Social/Smoking Cessation Hx Smoking History: Never smoked Have you smoked in the past 12 months: No If you are a former smoker, when did you quit?: 30 years ago Information on smoking cessation initiated: No Hx Alcohol Use: No Drug/Substance Use Hx: No Substance Use Type: None Hx Substance Use Treatment: No Review of Systems - Review of Systems Able to Perform ROS?: Yes Comments:: 09/15/19 16:18 ROS: GENERAL/CONSTITUTIONAL: No fever or chills. No weakness. HEAD, EYES, EARS, NOSE AND THROAT: No change in vision. No ear pain or discharge. No sore throat. CARDIOVASCULAR: Shortness of breath, chest pain RESPIRATORY: No cough, wheezing, or hemoptysis. GASTROINTESTINAL: Nausea, diarrhea. No vomiting or constipation. GENITOURINARY: No dysuria, frequency, or change in urination. MUSCULOSKELETAL: No joint or muscle swelling or pain. No neck or back pain. SKIN: No rash NEUROLOGIC: No headache, vertigo, loss of consciousness, or change in strength/ sensation. ENDOCRINE: No increased thirst. No abnormal weight change HEMATOLOGIC/LYMPHATIC: No anemia, easy bleeding, or history of blood clots. ALLERGIC/IMMUNOLOGIC: No hives or skin allergy. *Physical Exam - Vital Signs Last Vital Signs Temp Pulse Resp BP Pulse Ox 97.1 F L 57 L 18 132/70 100 09/15/19 12:21 09/15/19 12:21 09/15/19 12:21 09/15/19 12:21 09/15/19 12:21 - Physical Exam 09/15/19 16:19 PE: GENERAL: Awake, alert, and fully oriented, in no acute distress HEAD: No signs of trauma, normocephalic, atraumatic EYES: PERRLA, EOMI, sclera anicteric, conjunctiva clear ENT: Auricles normal inspection, hearing grossly normal, nares patent, oropharynx clear without exudates. Moist mucosa NECK: Normal ROM, supple, no lymphadenopathy, JVD, or masses LUNGS: No distress, speaks full sentences, clear to auscultation bilaterally HEART: Regular rate and rhythm, normal S1 and S2, no murmurs, rubs or gallops, peripheral pulses normal and equal bilaterally. ABDOMEN: Mild generalized tenderness. Soft, normoactive bowel sounds. No guarding, no rebound. No masses EXTREMITIES : Normal inspection, Normal range of motion, no edema. No clubbing or cyanosis NEUROLOGICAL: Cranial nerves II through XII grossly intact. Normal speech, normal gait, no focal sensorimotor deficits SKIN: Warm, Dry, normal turgor, no rashes or lesions noted Heart Score/ECG Review - History History: Slightly suspicious - Electrocardiogram EKG: Normal - Age Age: >/= 65 - Risk Factors Risk Factors Heart Score: Yes Hx Hypertension, Yes Hx Diabetes, Yes Positive family hx of cardiac disease Based on the list above the patient has:: >/=3 risk factors or Hx atherosclerotic disease - Troponin Troponin: </= normal limit - Score Heart Score - Total: 4 ED Treatment Course - LABORATORY CBC & Chemistry Diagram: 09/15/19 14:08 09/15/19 14:08 Medical Decision Making - Medical Decision Making 09/15/19 15:51 78F w/hx HTN, DM, afib on eliquis, MV prolapse p/w epigastric pain, nausea, shortness of breath. Differential includes ACS given cardiac history and pain with shortness of breath. Gastritis also possible given reported diet change with pill doses on empty stomach. Plan: CBC CMP Troponin Lipase BNP EKG CXR Dispo: Likely admit --- Cr - 1.7 Trop - negative BNP - negative 09/15/19 17:00 Daughter Wally) - [phone] OR [phone] 09/15/19 17:07 Case discussed with admitting team, patient admitted to telemetry obs. Discharge - Discharge Information Problems reviewed: Yes Clinical Impression/Diagnosis: Shortness of breath Condition: Stable - Admission Yes - Follow up/Referral Referrals: Shelia Triana MD [Primary Care Provider] - - Patient Discharge Instructions - Post Discharge Activity
[2019-09-15] MEDS ORDERED: MAG HYDROX/AL HYDROX/SIMETH 30 ML UNIT-DOSE CUP PO ONE (13:58)
[2019-09-15] MEDS ORDERED: FAMOTIDINE 20 MG/50 ML IVPB 20 MG/50 ML MG IVPB ONE ×2 (13:58→14:04)
[2019-09-15] MEDS ORDERED: MAG HYDROX/AL HYDROX/SIMETH 30 ML UNIT-DOSE CUP ONE (14:04)
[2019-09-15 14:26] LABS: BASO % 0.8 % (0-2.0); EOS % 1.3 % (0-4.5); HEMATOCRIT 34.2 % (32.4-45.2); HEMOGLOBIN 11.3 GM/dL (10.7-15.3); LYMPH % 21.1 % (8-40); MCH 29.8 pg (25.7-33.7); MEAN CELL VOLUME 90.2 fl (80-96); MEAN PLT VOLUME 8.9 fl (7.5-11.1); MONO % 9.5 % (3.8-10.2); NEUT % 67.3 % (42.8-82.8); PLATELET COUNT 179 K/MM3 (134-434); RBC 3.79 M/mm3 (3.60-5.2); RDW 15.6 % (11.6-15.6); WHITE BLOOD COUNT 5.2 K/mm3 (4.0-10.0)
[2019-09-15 15:06] LABS: ALBUMIN 3.2 g/dl (3.4-5.0); BILIRUBIN,TOTAL 0.7 mg/dL (0.2-1); BLOOD UREA NITROGEN 26.8 mg/dL (7-18); CALCIUM 8.7 mg/dL (8.5-10.1); CREATININE 1.7 mg/dL (0.55-1.3); POTASSIUM 4.2 mmol/L (3.5-5.1); TOT PROT 8.2 g/dl (6.4-8.2)
--- NOTE | 2019-09-15 15:14 | EKG ---
Test Reason : Blood Pressure : / mmHG Vent. Rate : 059 BPM Atrial Rate : 059 BPM P-R Int : 176 ms QRS Dur : 114 ms QT Int : 496 ms P-R-T Axes : 005 087 071 degrees QTc Int : 491 ms POOR DATA QUALITY, INTERPRETATION MAY BE ADVERSELY AFFECTED SINUS BRADYCARDIA OTHERWISE NORMAL ECG WHEN COMPARED WITH ECG OF 09-JUN-2019 18:02, QRS AXIS SHIFTED RIGHT ST ELEVATION NOW PRESENT IN INFERIOR LEADS NONSPECIFIC T WAVE ABNORMALITY HAS REPLACED INVERTED T WAVES IN INFERIOR LEADS NONSPECIFIC T WAVE ABNORMALITY NOW EVIDENT IN LATERAL LEADS Confirmed by TERRY HICKMAN, DARWIN ([id number]) on 09/15/2019 3:14:22 PM Referred By: Confirmed By:DARWIN STEWART MD
--- NOTE | 2019-09-15 15:23 | PDOC ---
Documentation entered by Dora Price SCRIBE, acting as scribe for Jac Collazo MD. Jac Collazo MD: This documentation has been prepared by the Dee edge Brenda, SCRIBE, under my direction and personally reviewed by me in its entirety. I confirm that the documentation accurately reflects all work, treatment, procedures, and medical decision making performed by me. Attending Attestation - Resident Resident Name: RosaGordon - ED Attending Attestation I have performed the following: I have examined & evaluated the patient, The case was reviewed & discussed with the resident, I agree w/resident's findings & plan, Exceptions are as noted - HPI HPI: 09/15/19 14:34 The patient is an 78 year old female, with a significant PMH of HTN, HLD, seizure, NIDDM, rheumatoid arthritis, PVF, afib (on eliquis), chronic diastolic CHF and hypothyroidism who presents to the emergency department for nausea and epigastric pain that radiates to her chest. As per the daughter, the patient has been having minimal food intake, stating that she drank only black coffee this morning, though she has been taking her medications. Pt also endorses mild SOB. The patient denies headache and dizziness. Denies fever, chills, vomiting and constipation. Denies dysuria, frequency, urgency and hematuria. Allergies: NKA Past surgical history: cholecystectomy, hysterectomy PCP: Shelia Triana 09/15/19 15:27 - Physicial Exam PE: 09/15/19 14:34 GENERAL: Awake, alert, and fully oriented, in no acute distress. HEAD: No signs of trauma EYES: PERRLA, EOMI, sclera anicteric, conjunctiva clear ENT: Auricles normal inspection, hearing grossly normal, nares patent, oropharynx clear without exudates. Moist mucosa NECK: Nontender, no stepoffs, Normal ROM, supple, no lymphadenopathy, JVD, or masses LUNGS: Breath sounds equal, clear to auscultation bilaterally. No wheezes, and no crackles HEART: Regular rate and rhythm, normal S1 and S2, no murmurs, rubs or gallops ABDOMEN: Soft, nontender, normoactive bowel sounds. No guarding, no rebound. No masses EXTREMITIES: Normal range of motion, no edema. No clubbing or cyanosis. No cords, erythema, or tenderness NEUROLOGICAL: Cranial nerves II through XII intact. 5/5 strength and sensation in all extremities, Normal speech, normal gait, normal cerebellar function SKIN: Warm, Dry, normal turgor, no rashes or lesions noted. - Medical Decision Making 09/15/19 15:26 78 F with nausea, epigastric and chest pain. Likely gastritis. Will evaluate for ACS given cardiac history. Pt with no evidence of volume overload but given SOB will also work up for CHF. - Labs, trop, BNP - CXR - Admit tele
[2019-09-15 16:01] LABS: N-TERMINAL BNP 206.4 pg/ml (5-450)
--- NOTE | 2019-09-15 17:05 | PN ---
Teaching Attending Note Name of Resident: Jarvis Fraser ATTENDING PHYSICIAN STATEMENT I saw and evaluated the patient. I reviewed the resident's note and discussed the case with the resident. I agree with the resident's findings and plan as documented. SUBJECTIVE: Patient is an 78 yof PMHx HTN, DM, PVD, asthma, hypothyroidism, seizure d/o, spinal stenosis, a fib on eliquis, diastolic CHF, and CAD presents from 1 day of abdominal pain. Patient states that was trying to loose weight and was drinking black coffee and one meal per day. Family at bedside, And certain food is bothering her. and as per daughter that after eating she would lie down in bed. OBJECTIVE: Vital Signs Temperature 97.1 F L 09/15/19 12:21 Pulse Rate 57 L 09/15/19 12:21 Respiratory Rate 18 09/15/19 12:21 Blood Pressure 132/70 09/15/19 12:21 O2 Sat by Pulse Oximetry (%) 100 09/15/19 12:21 GENERAL: The patient is awake, alert, and fully oriented, in no acute distress. HEAD: Normal with no signs of trauma. EYES: PERRL, extraocular movements intact, sclera anicteric, conjunctiva clear. ENT: Ears normal, oropharynx clear without exudates, moist mucous membranes. NECK: Trachea midline, full range of motion, supple. LUNGS: Breath sounds equal, clear to auscultation bilaterally, no wheezes, no crackles, no accessory muscle use. HEART: Regular rate and rhythm, S1, S2 without murmur, rub or gallop. ABDOMEN: Soft, Nt, ND, normoactive bowel sounds, no guarding, no rebound, no hepatosplenomegaly, no masses. EXTREMITIES: 2+ pulses, warm, well-perfused, no edema. NEUROLOGICAL: Cranial nerves II through XII grossly intact. Normal speech, gait not observed. PSYCH: Normal mood, normal affect. SKIN: Warm, dry, normal turgor, no rashes or lesions noted CBCD WBC 5.2 K/mm3 (4.0-10.0) 09/15/19 14:08 RBC 3.79 M/mm3 (3.60-5.2) 09/15/19 14:08 Hgb 11.3 GM/dL (10.7-15.3) 09/15/19 14:08 Hct 34.2 % (32.4-45.2) 09/15/19 14:08 MCV 90.2 fl (80-96) 09/15/19 14:08 MCHC 33.0 g/dl (32.0-36.0) 09/15/19 14:08 RDW 15.6 % (11.6-15.6) 09/15/19 14:08 Plt Count 179 K/MM3 (134-434) 09/15/19 14:08 MPV 8.9 fl (7.5-11.1) 09/15/19 14:08 CMP Sodium 140 mmol/L (136-145) 09/15/19 14:08 Potassium 4.2 mmol/L (3.5-5.1) 09/15/19 14:08 Chloride 105 mmol/L (98-107) 09/15/19 14:08 Carbon Dioxide 29 mmol/L (21-32) 09/15/19 14:08 Anion Gap 6 MMOL/L (8-16) L 09/15/19 14:08 BUN 26.8 mg/dL (7-18) H 09/15/19 14:08 Creatinine 1.7 mg/dL (0.55-1.3) H 09/15/19 14:08 Random Glucose 127 mg/dL (74-106) H 09/15/19 14:08 Calcium 8.7 mg/dL (8.5-10.1) 09/15/19 14:08 Total Bilirubin 0.7 mg/dL (0.2-1) 09/15/19 14:08 AST 29 U/L (15-37) 09/15/19 14:08 ALT 29 U/L (13-61) 09/15/19 14:08 Alkaline Phosphatase 96 U/L (45-117) 09/15/19 14:08 Total Protein 8.2 g/dl (6.4-8.2) 09/15/19 14:08 Albumin 3.2 g/dl (3.4-5.0) L 09/15/19 14:08 CARDIAC ENZYMES Creatine Kinase 92 U/L (26-192) 09/15/19 14:08 Troponin I < 0.02 ng/ml (0.00-0.05) 09/15/19 14:08 Home Medications Medication Instructions Recorded Amiodarone HCl 200 mg PO DAILY 04/21/18 Atorvastatin Ca [Lipitor] 80 mg PO HS 04/21/18 Losartan Potassium 100 mg PO DAILY 04/21/18 levETIRAcetam [Keppra -] 500 mg PO BID 04/21/18 Amlodipine Besylate [Norvasc -] 5 mg PO DAILY 04/01/19 Apixaban [Eliquis -] 2.5 mg PO BID 04/01/19 Besifloxacin HCl [Besivance] 5 ml OP QID 04/01/19 Carvedilol [Coreg -] 12.5 mg PO BID 04/01/19 Levothyroxine Sodium [Levo-T] 25 mcg PO DAILY 04/01/19 Prednisolone 1% Ophthalmic [Pred 1 ml OP DAILY 04/01/19 Forte 1% -] levoFLOXacin [Levaquin] 750 mg PO DAILY 4 Days #4 tab 04/02/19 ASSESSMENT AND PLAN: Patient is an 78yo female presented to the hospital with Epigastric pain due to drinking black coffee and having 1x meal. # Acute PUD most likely due to increased caffeine intake.will place her on protonix IV 40mg bid for now and will assess her in am. # Acute dehydration: on IVf x 1 liter x 75cc/hr x 1 liter #Acute midepigastric pain r/o ACS , ce q6x3 sets, ekg, cardio consult , cardio consult dr Hurd DVT PX: SCDS,HEPARIN SQ
--- NOTE | 2019-09-15 18:16 | HP ---
CHIEF COMPLAINT: Abdominal pain/chest pain PCP: Dr. Carlos Triana MD HISTORY OF PRESENT ILLNESS: 78 y/o female PMH HTN, DM, PVD, asthma, hypothyroidism, seizure d/o, spinal stenosis, a fib on eliquis, diastolic CHF, and CAD presents from 1 day of abdominal pain. The pain started last night and worsened this AM. She states she has been on a calorie restricted diet for 1 week in an effort to lose weight for general health benefit; daughter lost 50 lbs and son-in-law 40 lbs. She drinks 1 black coffee per day and part of a sandwich for the rest. The pain is located in the epigastric region and mid-back, sharp character, radiates up to the chest, is associated with intake of coffee and home meds, and is associated with general lethargy. She denies dysuria and hematuria. She denies orthopnea, PND and any change in ability to climb stairs or walk distances. She has had a recent sore throat with cough productive of white plegm only; no blood. HEART score 4 for age, presentation, cardiac history, and family history. Last echo done last year: LV hypertrophy, NL EF. ER course was notable for: (1) Trop< 0.02 x1 (2) EKG [place], NSR (3) Recent Travel: denies. No sick contacts. No new foods. PAST MEDICAL HISTORY: HTN, DM, PVD, asthma, hypothyroidism, seizure d/o, spinal stenosis, a fib on eliquis, diastolic CHF, and CAD. Pt states she has hemorrhoids. Family history: Father CHF, Mother DM PAST SURGICAL HISTORY: LEFT cataract removal (2019) Social History: Smoking: remote history of social smoking in youth Alcohol: denies Drugs: denies Allergies Penicillins Allergy (Intermediate, Verified 09/15/19 12:30). Rash. Patient reports swelling / throat closing and epi administration. Aspirin Allergy (Verified 09/15/19 12:30) HOME MEDICATIONS: Medication Instructions Recorded Amiodarone HCl 200 mg PO DAILY 04/21/18 Atorvastatin Ca [Lipitor] 80 mg PO HS 04/21/18 Losartan Potassium 100 mg PO DAILY 04/21/18 levETIRAcetam [Keppra -] 500 mg PO BID 04/21/18 Amlodipine Besylate [Norvasc -] 5 mg PO DAILY 04/01/19 Apixaban [Eliquis -] 2.5 mg PO BID 04/01/19 Besifloxacin HCl [Besivance] 5 ml OP QID 04/01/19 Carvedilol [Coreg -] 12.5 mg PO BID 04/01/19 Levothyroxine Sodium [Levo-T] 50 mcg PO DAILY 04/01/19 Prednisolone 1% Ophthalmic [Pred 1 ml OP DAILY 04/01/19 Forte 1% -] Docusate Sodium [Colace] 200 mg PO AC 09/15/19 Ergocalciferol [Vitamin D2] 50,000 unit PO Q7D@1000 MDD 20 09/15/19 Solifenacin Succinate [Vesicare -] 10 mg PO DAILY 09/15/19 REVIEW OF SYSTEMS CONSTITUTIONAL: Absent: fever, chills, diaphoresis, generalized weakness, malaise, loss of appetite, weight change HEENT: Absent: rhinorrhea, nasal congestion, throat pain, throat swelling, difficulty swallowing, mouth swelling, ear pain, eye pain, visual changes CARDIOVASCULAR: Absent: chest pain, syncope, palpitations, irregular heart rate, lightheadedness , peripheral edema RESPIRATORY: Absent: cough, shortness of breath, dyspnea with exertion, orthopnea, wheezing, stridor, hemoptysis GASTROINTESTINAL: Absent: abdominal pain, abdominal distension, nausea, vomiting, diarrhea, constipation, melena, hematochezia GENITOURINARY: Absent: dysuria, frequency, urgency, hesitancy, hematuria, flank pain, genital pain MUSCULOSKELETAL: Absent: myalgia, arthralgia, joint swelling, back pain, neck pain SKIN: Absent: rash, itching, pallor HEMATOLOGIC/IMMUNOLOGIC: Absent: easy bleeding, easy bruising, lymphadenopathy, frequent infections ENDOCRINE: Absent: unexplained weight gain, unexplained weight loss, heat intolerance, cold intolerance NEUROLOGIC: Absent: headache, focal weakness or paresthesias, dizziness, unsteady gait, seizure, mental status changes, bladder or bowel incontinence PSYCHIATRIC: Absent: anxiety, depression, suicidal or homicidal ideation, hallucinations. PHYSICAL EXAMINATION Vital Signs - 24 hr 09/15/19 12:21 Temperature 97.1 F L Pulse Rate 57 L Respiratory 18 Rate Blood Pressure 132/70 O2 Sat by Pulse 100 Oximetry (%) GENERAL: AOx3, in no acute distress, Greek speaking HEAD: NCAT EYES: BERTA, EOMI, conjunctiva clear. RIGHT cataract ENT: Ears normal, nares patent, oropharynx clear without exudates. Moist mucous membranes. NECK: Normal range of motion, supple without lymphadenopathy, JVD, or masses. LUNGS: CTAB. No wheezes, and no crackles. No accessory muscle use. HEART: RRR s1 s2 ABDOMEN: Tender to palpation in epigatrium. No guarding. Soft, BS present in all 4 quadrants, non-distended, no JVD, MUSCULOSKELETAL: No bony deformities or tenderness. No CVA tenderness. UPPER EXTREMITIES: 2+ pulses, warm, well-perfused. No cyanosis. No clubbing. No peripheral edema. LOWER EXTREMITIES: 2+ pulses, warm, well-perfused. No calf tenderness. No peripheral edema. NEUROLOGICAL: No focal deficits. Cranial nerves II-XII intact. Normal speech. Gait not appreciated. PSYCHIATRIC: Cooperative. Good eye contact. Appropriate mood and affect. SKIN: Warm, dry, normal turgor, no rashes or lesions noted, normal capillary refill. JULIENNE: No visible external tears or hemorrhoids. Good sphincter tone. No stool in vault. Laboratory Results - last 24 hr 09/15/19 09/15/19 09/15/19 14:08 14:08 14:08 WBC 5.2 RBC 3.79 Hgb 11.3 Hct 34.2 MCV 90.2 MCH 29.8 MCHC 33.0 RDW 15.6 Plt Count 179 MPV 8.9 Absolute Neuts (auto) 3.5 Neutrophils % 67.3 Lymphocytes % 21.1 Monocytes % 9.5 Eosinophils % 1.3 Basophils % 0.8 Nucleated RBC % 0 Sodium 140 Potassium 4.2 Chloride 105 Carbon Dioxide 29 Anion Gap 6 L BUN 26.8 H Creatinine 1.7 H Est GFR (CKD-EPI)AfAm 32.44 Est GFR (CKD-EPI)NonAf 27.99 Random Glucose 127 H Calcium 8.7 Total Bilirubin 0.7 AST 29 ALT 29 Alkaline Phosphatase 96 Creatine Kinase 92 Troponin I < 0.02 B-Natriuretic Peptide 206.4 Total Protein 8.2 Albumin 3.2 L Lipase 84 ASSESSMENT/PLAN: 78 y/o female PMH HTN, DM, PVD, asthma, hypothyroidism, seizure d/o, spinal stenosis, a fib on eliquis, diastolic CHF, and CAD presents from 1 day of abdominal pain. # Gastritis - Less likely ACS: Trop NEG x1, 2nd pending - ECG bradycardia with prolonged qtc 491 - CXR: cardiomegally, no infiltrates, no effusion - Repeat ECG in AM - Protonix 40 mg IV BID - TSH - Consult cardiology - F/u FOBT # OSORIO on CKD4 - NS @ 75 x 1 L # Hypoalbuminemia - H/O decreased PO intake - Provide appropriate diet as tolerated (Diabetic, low sodium) # DM - Hold home regimen - ISS ACHS - Hba1c # HTN - Cont. curent home regimen # F/E/N - NS @ 75 x 1 L - Cont. to monitor - Diabetic, low sodium diet # DVT prophylaxis - On eliquis # Disposition - Admit to med/surg with cont. cardiac monitoring - DaughterLisa, available at Farooq Salinas MD Visit type - Emergency Visit Emergency Visit: Yes ED Registration Date: 09/15/19 Care time: The patient presented to the Emergency Department on the above date and was hospitalized for further evaluation of their emergent condition. - New Patient This patient is new to me today: Yes Date on this admission: 09/16/19 - Critical Care Critical Care patient: No ATTENDING PHYSICIAN STATEMENT I saw and evaluated the patient. I reviewed the resident's note and discussed the case with the resident. I agree with the resident's findings and plan as documented. SUBJECTIVE: OBJECTIVE: ASSESSMENT AND PLAN:
[2019-09-15] MEDS ORDERED: SODIUM CHLORIDE 1,000 ML IV SCH (18:30)
[2019-09-15] MEDS ORDERED: ATORVASTATIN CA 80 MG TABLET (FP) PO SCH (22:00)
[2019-09-15] MEDS ORDERED: APIXABAN 5 MG TABLET ONE (22:31)
[2019-09-15] MEDS ORDERED: CARVEDILOL 12.5 MG TABLET (FP) ONE (22:31)
[2019-09-15] MEDS ORDERED: ATORVASTATIN CA 80 MG TABLET (FP) ONE (22:32)
[2019-09-15] MEDS ORDERED: PANTOPRAZOLE SODIUM 40 MG VIAL ONE (22:32)
[2019-09-15] MEDS ORDERED: levETIRAcetam 500 MG TABLET (FP) PO ONE (22:32)
[2019-09-15] MEDS: levETIRAcetam 500 MG TABLET (FP) PO SCH (22:37)
[2019-09-15] MEDS: PANTOPRAZOLE SODIUM 40 MG VIAL IVPUSH SCH (22:37)
[2019-09-15] MEDS: CARVEDILOL 12.5 MG TABLET (FP) PO SCH (22:37)
[2019-09-15] MEDS: APIXABAN 2.5 MG TABLET PO SCH (22:37)
[2019-09-16 06:44] VITALS: TEMP 98; BMI 37.0
[2019-09-16] MEDS ORDERED: LEVOTHYROXINE NA 50 MCG TABLET (FP) PO SCH (07:00)
[2019-09-16] MEDS ORDERED: AMIODARONE HCL 200 MG TABLET (FP) PO SCH (10:00)
[2019-09-16] MEDS ORDERED: amLODIPine BESYLATE 5 MG TABLET (FP) PO SCH (10:00)
[2019-09-16] MEDS ORDERED: LOSARTAN POTASSIUM 50 MG TABLET (FP) PO SCH (10:00)
[2019-09-16] MEDS: levETIRAcetam 500 MG TABLET (FP) PO SCH (10:02)
[2019-09-16] MEDS: PANTOPRAZOLE SODIUM 40 MG VIAL IVPUSH SCH (10:02)
[2019-09-16] MEDS: APIXABAN 2.5 MG TABLET PO SCH (10:03)
[2019-09-16] MEDS: CARVEDILOL 12.5 MG TABLET (FP) PO SCH (10:03)
--- NOTE | 2019-09-16 10:46 | CON.CARD ---
Consult Consult Specialty:: cardiology Reason for Consultation:: hx CHF; now with dizziness - History of Present Illness Chief Complaint: Pt A&Ox3; OOB in chair; denies chest pain or dyspnea; no longer dizzy History of Present Illness: The patient is an 78 year old female (b. [place]), with a significant PMH of HTN, diastolic CHF, HLD, obesity, sedentary, seizure (on Keppra), ? syncope in 2018, NIDDM, rheumatoid arthritis, PVF, PAF (on eliquis),and hypothyroidism , who presents to the emergency department for nausea and epigastric pain that radiates to her chest. As per the daughter, the patient has been having minimal food intake, stating that she drank only black coffee this morning, though she has been taking her medications. Pt also endorses mild SOB. The patient denies headache and dizziness. Denies fever, chills, vomiting and constipation. Denies dysuria, frequency, urgency and hematuria. Stress Lexiscan MIBI 03/2018: no ischemia - History Source History Provided By: Patient, Family Member (daughter), Medical Record Limitations to Obtaining History: Poor Historian - Past Medical History Cardio/Vascular: Yes: AFIB - Alcohol/Substance Use Hx Alcohol Use: No - Smoking History Smoking history: Former smoker Have you smoked in the past 12 months: No If you are a former smoker, when did you quit?: 30 years ago Home Medications - Allergies Allergies/Adverse Reactions: Allergies Allergy/AdvReac Type Severity Reaction Status Date / Time Penicillins Allergy Intermediate Rash Verified 09/15/19 12:30 aspirin Allergy Verified 09/15/19 12:30 - Home Medications Home Medications: Ambulatory Orders Amiodarone HCl 200 mg PO DAILY 04/21/18 Atorvastatin Ca [Lipitor] 80 mg PO HS 04/21/18 Losartan Potassium 100 mg PO DAILY 04/21/18 levETIRAcetam [Keppra -] 500 mg PO BID 04/21/18 Amlodipine Besylate [Norvasc -] 5 mg PO DAILY 04/01/19 Apixaban [Eliquis -] 2.5 mg PO BID 04/01/19 Besifloxacin HCl [Besivance] 5 ml OP QID 04/01/19 Carvedilol [Coreg -] 12.5 mg PO BID 04/01/19 Levothyroxine Sodium [Levo-T] 50 mcg PO DAILY 04/01/19 Prednisolone 1% Ophthalmic [Pred Forte 1% -] 1 ml OP DAILY 04/01/19 Docusate Sodium [Colace] 200 mg PO AC 09/15/19 Ergocalciferol [Vitamin D2] 50,000 unit PO Q7D@1000 MDD 20 09/15/19 Solifenacin Succinate [Vesicare -] 10 mg PO DAILY 09/15/19 Family Medical History Family History: Denies Vital Signs: Vital Signs Temperature 98.0 F 09/16/19 06:20 Pulse Rate 64 09/16/19 06:20 Respiratory Rate 18 09/16/19 06:20 Blood Pressure 138/79 09/16/19 06:20 O2 Sat by Pulse Oximetry (%) 97 09/16/19 06:25 - Other Data Labs, Other Data: CBC, BMP 09/15/19 14:08 09/15/19 14:08 Troponin, BNP 09/15/19 09/15/19 14:08 18:46 Troponin I < 0.02 < 0.02 B-Natriuretic Peptide 206.4 Troponin, BNP 09/15/19 09/15/19 14:08 18:46 Troponin I < 0.02 < 0.02 B-Natriuretic Peptide 206.4 Problem List - Problems (1) Atypical chest pain Assessment/Plan: TNI < 0.02 EKG: sinus bradycardia (on Coreg). Stress Lexiscan MIBI 03/2018: no ischemia Code(s): R07.89 - OTHER CHEST PAIN (2) Abdominal pain Assessment/Plan: f/u GI workup Code(s): R10.9 - UNSPECIFIED ABDOMINAL PAIN (3) Diabetes mellitus Code(s): E11.9 - TYPE 2 DIABETES MELLITUS WITHOUT COMPLICATIONS (4) HTN (hypertension) Code(s): I10 - ESSENTIAL (PRIMARY) HYPERTENSION (5) Hyperlipidemia Code(s): E78.5 - HYPERLIPIDEMIA, UNSPECIFIED (6) Hypothyroidism Code(s): E03.9 - HYPOTHYROIDISM, UNSPECIFIED (7) PVD (peripheral vascular disease) Code(s): I73.9 - PERIPHERAL VASCULAR DISEASE, UNSPECIFIED (8) Seizures Code(s): R56.9 - UNSPECIFIED CONVULSIONS (9) Spinal stenosis Code(s): M48.00 - SPINAL STENOSIS, SITE UNSPECIFIED (10) Fall Code(s): W19.XXXA - UNSPECIFIED FALL, INITIAL ENCOUNTER (11) Syncope Assessment/Plan: hx admission for LOC in 2018 Code(s): R55 - SYNCOPE AND COLLAPSE (12) Diastolic CHF Assessment/Plan: euvolemic presently. Code(s): I50.30 - UNSPECIFIED DIASTOLIC (CONGESTIVE) HEART FAILURE (13) PAF (paroxysmal atrial fibrillation) Assessment/Plan: EKG:sinus bradycardia ?Remote hx of PAF. Plan: Stop amiodarone (pt has apparently been on this since at least 2018 for uncertain reasons. Continue carvedilol for HR control, and BP. F?u HR and BP. Plan on long-term cardiac monitoring as outpatient to help ascertain rhythm/ rate status and continued need for apixaban and amiodarone (Hx sycnope with fall in 2018, which could have been catastrophic, when on apixaban, if she had suffered a head injury). Code(s): I48.0 - PAROXYSMAL ATRIAL FIBRILLATION (14) Dizziness Assessment/Plan: Pt's daughter says her mother has been "starving herself" in order to lose weight. She has "not eaten anything, only drinks black coffee, and takes 15 pills a day "" for the past 10 days; she has lost about 15 lbs in that time. She has now developed abdoiminal discomfort and dizziness. The daughter says "she does not listen to me". Will get dietary consult. Code(s): R42 - DIZZINESS AND GIDDINESS
[2019-09-16 11:16] LABS: HEMATOCRIT 32.3 % (32.4-45.2); HEMOGLOBIN 10.7 GM/dL (10.7-15.3); MCH 30.1 pg (25.7-33.7); MCHC 33.1 g/dl (32.0-36.0); MEAN CELL VOLUME 90.9 fl (80-96); MEAN PLT VOLUME 8.7 fl (7.5-11.1); PLATELET COUNT 176 K/MM3 (134-434); RBC 3.55 M/mm3 (3.60-5.2); RDW 15.6 % (11.6-15.6); WHITE BLOOD COUNT 4.4 K/mm3 (4.0-10.0)
[2019-09-16 11:36] VITALS: BP 147/78; PULSE 59
--- NOTE | 2019-09-16 11:53 | EKG ---
Test Reason : Blood Pressure : / mmHG Vent. Rate : 059 BPM Atrial Rate : 277 BPM P-R Int : 000 ms QRS Dur : 114 ms QT Int : 508 ms P-R-T Axes : 000 -25 009 degrees QTc Int : 502 ms SINUS BRADYCARDIA INCOMPLETE LEFT BUNDLE BRANCH BLOCK MODERATE VOLTAGE CRITERIA FOR LVH, MAY BE NORMAL VARIANT ABNORMAL ECG Confirmed by CONSTANTINE HICKMAN, JAMES ([id number]) on 09/16/2019 11:53:45 AM Referred By: Confirmed By:JAMES FITCH MD
--- NOTE | 2019-09-16 11:58 | EKG ---
Test Reason : Blood Pressure : / mmHG Vent. Rate : 057 BPM Atrial Rate : 057 BPM P-R Int : 182 ms QRS Dur : 116 ms QT Int : 500 ms P-R-T Axes : 081 -17 033 degrees QTc Int : 486 ms SINUS BRADYCARDIA WITH PREMATURE SUPRAVENTRICULAR COMPLEXES LEFT VENTRICULAR HYPERTROPHY WITH QRS WIDENING NONSPECIFIC T WAVE ABNORMALITY PROLONGED QT ABNORMAL ECG WHEN COMPARED WITH ECG OF 15-SEP-2019 12:38, PREMATURE SUPRAVENTRICULAR COMPLEXES ARE NOW PRESENT QUESTIONABLE CHANGE IN QRS AXIS ST NO LONGER ELEVATED IN INFERIOR LEADS Confirmed by JAMES FITCH MD ([id number]) on 09/16/2019 11:57:54 AM Referred By: Confirmed By:JAMES FITCH MD
--- NOTE | 2019-09-16 12:25 | ECHO ---
Name: SRAVAN PANCHITO Exam:Adult Echocardiogram Study Date: 09/16/2019 08:44 AM Age: 78 yrs Height: 65 in Weight: 270 lb BSA: 2.2 m2 MMode/2D Measurements & Calculations IVSd: 0.90 cm Ao root diam: 3.0 cm LVIDd: 4.0 cm LA dimension: 3.7 cm LVIDs: 2.8 cm LVPWd: 1.2 cm LVPWs: 1.4 cm EDV(Teich): 68.8 ml ESV(Teich): 29.0 ml LVOT diam: 1.9 cm RV S Ahsan: 14.7 cm/sec Doppler Measurements & Calculations MV E max ahsan: 98.7 cm/sec Ao V2 max: 162.4 cm/sec MV A max ahsan: 105.1 cm/sec Ao max P.6 mmHg MV E/A: 0.94 MV dec time: 0.25 sec CAESAR(V,D): 2.2 cm2 LV V1 max P.9 mmHg TR max ahsan: 255.2 cm/sec LV V1 max: 121.9 cm/sec TR max P.0 mmHg PA V2 max: 99.9 cm/sec Med Peak E' Ahsan: 4.4 cm/sec PA max P.0 mmHg Med E/e': 22.5 Lat Peak E' Ahsan: 6.4 cm/sec Lat E/e': 15.5 Procedure A complete two-dimensional transthoracic echocardiogram was performed (2D, M-mode, Doppler and color flow Doppler). Left Ventricle The left ventricular size, thickness and function are normal. The left ventricular ejection fraction is normal. Ejection Fraction = 55-60%. No regional wall motion abnormalities noted. Right Ventricle The right ventricle is normal in size and function. Atria Normal left and right atrial size and function. Mitral Valve There is no mitral regurgitation noted. Tricuspid Valve There is trace tricuspid regurgitation. Right ventricular systolic pressure is normal. Aortic Valve No hemodynamically significant valvular aortic stenosis. No aortic regurgitation is present. Pulmonic Valve There is no pulmonic valvular regurgitation. Great Vessels The aortic root is normal size. Pericardium/Pleura There is no pericardial effusion. Interpretation Summary The left ventricular size, thickness and function are normal The right ventricle is normal in size and function. There is trace tricuspid regurgitation. MD Joao Chao 09/16/2019 12:24 PM
[2019-09-16 13:05] LABS: ALBUMIN 3.1 g/dl (3.4-5.0); BILIRUBIN,TOTAL 0.5 mg/dL (0.2-1); BLOOD UREA NITROGEN 29.3 mg/dL (7-18); CALCIUM 8.6 mg/dL (8.5-10.1); CREATININE 1.7 mg/dL (0.55-1.3); MAGNESIUM 2.1 mg/dL (1.8-2.4); PHOSPHOROUS 3.4 mg/dL (2.5-4.9); POTASSIUM 4.4 mmol/L (3.5-5.1); TOT PROT 7.6 g/dl (6.4-8.2)
--- NOTE | 2019-09-16 14:56 | DS ---
Physical Exam: SUBJECTIVE: Patient seen and examined resting in bed. She says her stomach pain is improved. She denies NVD. OBJECTIVE: Vital Signs Period Temp Pulse Resp BP Sys/Elder Pulse Ox Last 24 Hr 98.0 F-98.4 F 58-64 18-20 110-147/57-79 96-97 PHYSICAL EXAM GENERAL: AOx3, in no acute distress, Gibraltarian speaking HEAD: NCAT EYES: BERTA, EOMI, conjunctiva clear. RIGHT cataract ENT: Ears normal, nares patent, oropharynx clear without exudates. Moist mucous membranes. NECK: Normal range of motion, supple without lymphadenopathy, JVD, or masses. LUNGS: CTAB. No wheezes, and no crackles. No accessory muscle use. HEART: RRR s1 s2 ABDOMEN: Tender to palpation in epigatrium. No guarding. Soft, BS present in all 4 quadrants, non-distended, no JVD, MUSCULOSKELETAL: No bony deformities or tenderness. No CVA tenderness. UPPER EXTREMITIES: 2+ pulses, warm, well-perfused. No cyanosis. No clubbing. No peripheral edema. LOWER EXTREMITIES: 2+ pulses, warm, well-perfused. No calf tenderness. No peripheral edema. NEUROLOGICAL: No focal deficits. Cranial nerves II-XII intact. Normal speech. Gait not appreciated. PSYCHIATRIC: Cooperative. Good eye contact. Appropriate mood and affect. SKIN: Warm, dry, normal turgor, no rashes or lesions noted, normal capillary refill. JULIENNE: No visible external tears or hemorrhoids. Good sphincter tone. No stool in vault. LABS Laboratory Results - last 24 hr 09/15/19 09/15/19 09/15/19 14:08 14:08 18:45 WBC RBC Hgb Hct MCV MCH MCHC RDW Plt Count MPV Sodium 140 Potassium 4.2 Chloride 105 Carbon Dioxide 29 Anion Gap 6 L BUN 26.8 H Creatinine 1.7 H Est GFR (CKD-EPI)AfAm 32.44 Est GFR (CKD-EPI)NonAf 27.99 POC Glucometer Random Glucose 127 H Hemoglobin A1c % Calcium 8.7 Phosphorus Magnesium Total Bilirubin 0.7 AST 29 ALT 29 Alkaline Phosphatase 96 Creatine Kinase 92 Troponin I < 0.02 B-Natriuretic Peptide 206.4 Total Protein 8.2 Albumin 3.2 L Lipase 84 TSH Stool Occult Blood Negative 09/15/19 09/16/19 09/16/19 18:46 10:50 10:50 WBC 4.4 RBC 3.55 L Hgb 10.7 Hct 32.3 L MCV 90.9 MCH 30.1 MCHC 33.1 RDW 15.6 Plt Count 176 MPV 8.7 Sodium 139 Potassium 4.4 Chloride 104 Carbon Dioxide 28 Anion Gap 6 L BUN 29.3 H Creatinine 1.7 H Est GFR (CKD-EPI)AfAm 32.44 Est GFR (CKD-EPI)NonAf 27.99 POC Glucometer Random Glucose 139 H Hemoglobin A1c % Calcium 8.6 Phosphorus 3.4 Magnesium 2.1 Total Bilirubin 0.5 AST 23 ALT 29 Alkaline Phosphatase 87 Creatine Kinase Troponin I < 0.02 B-Natriuretic Peptide Total Protein 7.6 Albumin 3.1 L Lipase TSH 2.44 Stool Occult Blood 09/16/19 09/16/19 10:50 11:46 WBC RBC Hgb Hct MCV MCH MCHC RDW Plt Count MPV Sodium Potassium Chloride Carbon Dioxide Anion Gap BUN Creatinine Est GFR (CKD-EPI)AfAm Est GFR (CKD-EPI)NonAf POC Glucometer 141 Random Glucose Hemoglobin A1c % 7.0 H Calcium Phosphorus Magnesium Total Bilirubin AST ALT Alkaline Phosphatase Creatine Kinase Troponin I B-Natriuretic Peptide Total Protein Albumin Lipase TSH Stool Occult Blood HOSPITAL COURSE: Date of Admission:09/15/19 78 y/o female PMH HTN, DM, PVD, asthma, hypothyroidism, seizure d/o, spinal stenosis, a fib on eliquis, diastolic CHF, and CAD presents from 1 day of abdominal pain. She was admitted for treatment of gastritis and r/o ACS given abdominal pain radiating to chest. Trop NEG x2, ECG bradycardia with prolonged qtc 491, CXR: cardiomegally, no infiltrates, no effusion, repeat ECG RR NSR. She was administered Protonix 40 mg IV BID with symptoms relief. TSH WNL 2.44. Cardiology consulted and recommended dc amiodorone. FOBT neg. She was administered NS @ 75 x 1 L for OSORIO on CKD4. She had noted hypoalbuminemia, consisted with prolonged fasting and she was provided appropriate nutrition and education. DM on ISS ACHS. Comorbid conditions treated with home regimen. Daughter, Lisa, available at . She was dc to home. Date of Discharge: 09/16/19 Farooq Salinas MD Discharge Summary Problems reviewed: Yes Reason For Visit: SHORTNESS OF BREATH Current Active Problems Atypical chest pain (Acute) Diastolic CHF (Acute) Dizziness (Acute) PAF (paroxysmal atrial fibrillation) (Acute) Shortness of breath (Acute) Syncope (Acute) Condition: Improved - Instructions Diet, Activity, Other Instructions: YOUR VISIT You came to the hospital because you were feeling abdominal pain. You were admitted to the hospital for care of gastritis, an irritation of the stomach. You were given medicine to treat this problem and you will continue to take medication for this problem for 1 month (see below). MEDICATIONS Please continue to take your home medications as prescribed. *STOP* taking amiodorone as per third mate. *NEW MEDICATION* Pantoprazole 40 mg once a day for 30 days ADDITIONAL CARE It is important you make changes to your diet. After each meal you must sit upright for 3 hours, such as in a chair and NOT reclined or laying down. To prevent symptoms, avoid foods that are spicy, greasy, or acidic. Some examples of foods to avoid include black coffee, hot peppers, fried foods, tomatoes and citrus juices. Please make an appointment to see your primary care provider, Dr. Cheung, 1 week from today. [facility] clinic is located at [address] [place] [address]. Please call to make an appointment. If you would like to continue seeing Dr. Farooq Salinas, please ask for a Friday morning appointment. Please make an appointment to see a home care specialist. We have provided a referral for you. ADDITIONAL INFORMATION Please call 911 or come directly to the emergency department if you experience unusual headache, vision change, shortness of breath, chest pain, numbness, tingling, loss of alertness/awareness, loss of function, unusual bleeding or any alarming symptoms. Referrals: Kody Pratt DO [Staff Physician] - Shelia Triana MD [Primary Care Provider] - 1 Week Disposition: HOME - Home Medications Comprehensive Discharge Medication List: Ambulatory Orders Atorvastatin Ca [Lipitor] 80 mg PO HS 04/21/18 Losartan Potassium 100 mg PO DAILY 04/21/18 levETIRAcetam [Keppra -] 500 mg PO BID 04/21/18 Amlodipine Besylate [Norvasc -] 5 mg PO DAILY 04/01/19 Apixaban [Eliquis -] 2.5 mg PO BID 04/01/19 Besifloxacin HCl [Besivance] 5 ml OP QID 04/01/19 Carvedilol [Coreg -] 12.5 mg PO BID 04/01/19 Levothyroxine Sodium [Levo-T] 50 mcg PO DAILY 04/01/19 Prednisolone 1% Ophthalmic [Pred Forte 1% -] 1 ml OP DAILY 04/01/19 Docusate Sodium [Colace] 200 mg PO AC 09/15/19 Ergocalciferol [Vitamin D2] 50,000 unit PO Q7D@1000 MDD 20 09/15/19 Solifenacin Succinate [Vesicare -] 10 mg PO DAILY 09/15/19 Pantoprazole Sodium [Protonix] 40 mg PO DAILY #30 tablet. 09/16/19 ATTENDING PHYSICIAN STATEMENT I saw and evaluated the patient. I reviewed the resident's note and discussed the case with the resident. I agree with the resident's findings and plan as documented. SUBJECTIVE: OBJECTIVE: ASSESSMENT AND PLAN:
--- NOTE | 2019-09-16 17:05 | PN ---
Teaching Attending Note Name of Resident: Farooq Salinas ATTENDING PHYSICIAN STATEMENT I saw and evaluated the patient. I reviewed the resident's note and discussed the case with the resident. I agree with the resident's findings and plan as documented. SUBJECTIVE: Patient is an 78 yof PMHx HTN, DM, PVD, asthma, hypothyroidism, seizure d/o, spinal stenosis, a fib on eliquis, diastolic CHF, and CAD presents from 1 day of abdominal pain. Patient feels better with no acute distress, no shortness of breath, no headache. no further chest pain. OBJECTIVE: Vital Signs Temperature 98.0 F 09/16/19 09:00 Pulse Rate 59 L 09/16/19 09:00 Respiratory Rate 18 09/16/19 09:00 Blood Pressure 147/78 09/16/19 09:00 O2 Sat by Pulse Oximetry (%) 96 09/16/19 09:00 GENERAL: The patient is awake, alert, and fully oriented, in no acute distress. HEAD: Normal with no signs of trauma. EYES: PERRL, extraocular movements intact, sclera anicteric, conjunctiva clear. ENT: Ears normal, oropharynx clear without exudates, moist mucous membranes. NECK: Trachea midline, full range of motion, supple. LUNGS: Breath sounds equal, clear to auscultation bilaterally, no wheezes, no crackles, no accessory muscle use. HEART: Regular rate and rhythm, S1, S2 without murmur, rub or gallop. ABDOMEN: Soft, Nt, ND, normoactive bowel sounds, no guarding, no rebound, no hepatosplenomegaly, no masses. EXTREMITIES: 2+ pulses, warm, well-perfused, no edema. NEUROLOGICAL: Cranial nerves II through XII grossly intact. Normal speech, gait not observed. PSYCH: Normal mood, normal affect. SKIN: Warm, dry, normal turgor, no rashes or lesions noted CBCD WBC 4.4 K/mm3 (4.0-10.0) 09/16/19 10:50 RBC 3.55 M/mm3 (3.60-5.2) L 09/16/19 10:50 Hgb 10.7 GM/dL (10.7-15.3) 09/16/19 10:50 Hct 32.3 % (32.4-45.2) L 09/16/19 10:50 MCV 90.9 fl (80-96) 09/16/19 10:50 MCHC 33.1 g/dl (32.0-36.0) 09/16/19 10:50 RDW 15.6 % (11.6-15.6) 09/16/19 10:50 Plt Count 176 K/MM3 (134-434) 09/16/19 10:50 MPV 8.7 fl (7.5-11.1) 09/16/19 10:50 CMP Sodium 139 mmol/L (136-145) 09/16/19 10:50 Potassium 4.4 mmol/L (3.5-5.1) 09/16/19 10:50 Chloride 104 mmol/L (98-107) 09/16/19 10:50 Carbon Dioxide 28 mmol/L (21-32) 09/16/19 10:50 Anion Gap 6 MMOL/L (8-16) L 09/16/19 10:50 BUN 29.3 mg/dL (7-18) H 09/16/19 10:50 Creatinine 1.7 mg/dL (0.55-1.3) H 09/16/19 10:50 Random Glucose 139 mg/dL (74-106) H 09/16/19 10:50 Calcium 8.6 mg/dL (8.5-10.1) 09/16/19 10:50 Total Bilirubin 0.5 mg/dL (0.2-1) 09/16/19 10:50 AST 23 U/L (15-37) 09/16/19 10:50 ALT 29 U/L (13-61) 09/16/19 10:50 Alkaline Phosphatase 87 U/L (45-117) 09/16/19 10:50 Total Protein 7.6 g/dl (6.4-8.2) 09/16/19 10:50 Albumin 3.1 g/dl (3.4-5.0) L 09/16/19 10:50 CARDIAC ENZYMES Creatine Kinase 92 U/L (26-192) 09/15/19 14:08 Troponin I < 0.02 ng/ml (0.00-0.05) 09/15/19 18:46 Home Medications Medication Instructions Recorded Atorvastatin Ca [Lipitor] 80 mg PO HS 04/21/18 Losartan Potassium 100 mg PO DAILY 04/21/18 levETIRAcetam [Keppra -] 500 mg PO BID 04/21/18 Amlodipine Besylate [Norvasc -] 5 mg PO DAILY 04/01/19 Apixaban [Eliquis -] 2.5 mg PO BID 04/01/19 Besifloxacin HCl [Besivance] 5 ml OP QID 04/01/19 Carvedilol [Coreg -] 12.5 mg PO BID 04/01/19 Levothyroxine Sodium [Levo-T] 50 mcg PO DAILY 04/01/19 Prednisolone 1% Ophthalmic [Pred 1 ml OP DAILY 04/01/19 Forte 1% -] Docusate Sodium [Colace] 200 mg PO AC 09/15/19 Ergocalciferol [Vitamin D2] 50,000 unit PO Q7D@1000 MDD 20 09/15/19 Solifenacin Succinate [Vesicare -] 10 mg PO DAILY 09/15/19 Pantoprazole Sodium [Protonix] 40 mg PO DAILY #30 tablet. 09/16/19 ASSESSMENT AND PLAN: Patient is an 78yo female presented to the hospital with Epigastric pain due to drinking black coffee and having 1x meal. #Acute PUD most likely due to increased caffeine intake. will discharge the patient on protonix 40mg po daily, follow up with GI and clinic within a week. #Acute dehydration: s/p IVf x 1 liter #Acute midepigastric pain r/o ACS , trops are negative, chest pressure resolved , as per cardio dr brar to discontinue amiodoran . follow up with your own cylinder worker within a week period. DVT PX: SCDS, HEPARIN SQ
== END 2019-09-16 14:45 | disposition home or self-care (01) ==
LOC: JER 12:16 → JERBED 18:28 → J4W 09-16 05:58
PROVIDERS: ADMIT Internal Medicine; ATTEND Internal Medicine
PROC: 3E033GC Introduction of Other Therapeutic Substance into Peripheral Vein, Percutaneous Approach (ICD-10-PCS; principal; 2019-09-15)
DX: K29.70 Gastritis, unspecified, without bleeding (principal); R06.02 Shortness of breath; E11.22 Type 2 diabetes mellitus with diabetic chronic kidney disease; I12.9 Hypertensive chronic kidney disease with stage 1 through stage 4 chronic kidney disease, or unspecified chronic kidney disease; N18.4 Chronic kidney disease, stage 4 (severe); N17.9 Acute kidney failure, unspecified; I11.0 Hypertensive heart disease with heart failure; R07.89 Other chest pain; I48.0 Paroxysmal atrial fibrillation; J45.909 Unspecified asthma, uncomplicated; I34.1 Nonrheumatic mitral (valve) prolapse; I50.32 Chronic diastolic (congestive) heart failure; G40.909 Epilepsy, unspecified, not intractable, without status epilepticus; E03.9 Hypothyroidism, unspecified; E87.6 Hypokalemia; R10.13 Epigastric pain; M06.9 Rheumatoid arthritis, unspecified; R77.0 Abnormality of albumin; E66.9 Obesity, unspecified; Z68.37 Body mass index [BMI] 37.0-37.9, adult; Z86.79 Personal history of other diseases of the circulatory system; Z87.891 Personal history of nicotine dependence; Z82.49 Family history of ischemic heart disease and other diseases of the circulatory system; Z79.01 Long term (current) use of anticoagulants; Z88.0 Allergy status to penicillin; Z88.6 Allergy status to analgesic agent; M48.00 Spinal stenosis, site unspecified
CPT/HCPCS: 36415; 71045-TC-FY; 80053; 82272; 82550; 82962; 83036; 83690; 83735; 83880; 84100; 84443; 84484; 85025; 85027; 93005; 93010; 93306-TC; 96365; 96375; 99285-25; G0378; J7030

== ENCOUNTER 2020-04-06 13:12 | Emergency (ER) | payer OTHER ==
[2020-04-06 13:20] VITALS: BP 159/84; PULSE 72; TEMP 98.1; BMI 32.3
[2020-04-06] MEDS ORDERED: ACETAMINOPHEN INJECTION 100 ML IVPB ONE (14:30)
[2020-04-06] MEDS ORDERED: METOCLOPRAMIDE HCL INJECTION 10 MG/2 ML VIAL ONE (14:30)
[2020-04-06] MEDS ORDERED: METOCLOPRAMIDE HCL INJECTION 10 MG/2 ML VIAL IVPUSH ONE (14:32)
[2020-04-06] MEDS ORDERED: ACETAMINOPHEN 1000 MG/100 ML VIAL (NON FORMULARY) IVPB ONE (14:32)
[2020-04-06] MEDS ORDERED: SODIUM CHLORIDE 1,000 ML IV STA (14:33)
--- NOTE | 2020-04-06 15:23 | PDOC ---
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 States she fell last year at her son's house in a bathtub and hit her head. States she was hospitalized for a month afterward and since discharge has had headaches that start in the AM and last about two hours. States the HAs have been getting worse, start in the back of the the head and move toward the front until the whole head hurts. States it is better with dark room/turning off the l ight PMH PSH FHx SHx CONSTITUTIONAL: Absent: fever, no chills, no fatigue EYES: Absent: visual changes ENT: Absent: ear pain, no sore throat CARDIOVASCULAR: Absent: chest pain, no palpitations RESPIRATORY: Absent: cough, no SOB GI: Absent: abdominal pain, no nausea, no vomiting, no constipation, no diarrhea GENITOURINARY: Absent: dysuria, no frequency, no hematuria MUSKULOSKELETAL: Absent: back pain, no arthralgia, no myalgia SKIN: Absent: rash NEURO: Absent: headache PE Assessment Plan 04/06/20 15:27 ED Treatment Course - LABORATORY CBC & Chemistry Diagram: 04/06/20 14:50 04/06/20 14:50 - Medications Given in the ED: ED Medications Discontinued Medications Generic Name Dose Route Start Last Admin Trade Name Laura PRN Reason Stop Dose Admin Acetaminophen 1,000 mg 04/06/20 14:32 04/06/20 14:50 Ofirmev Injection - IVPB 04/06/20 14:33 1,000 mg ONCE ONE Administration Diphenhydramine HCl 25 mg 04/06/20 14:32 04/06/20 14:50 Benadryl Injection - IVPUSH 04/06/20 14:33 25 mg ONCE ONE Administration Metoclopramide HCl 10 mg 04/06/20 14:32 04/06/20 14:50 Reglan Injection - IVPUSH 04/06/20 14:33 10 mg ONCE ONE Administration
[2020-04-06 15:26] LABS: BASO % 0.5 % (0-2.0); HEMATOCRIT 35.3 % (32.4-45.2); HEMOGLOBIN 11.4 GM/dL (10.7-15.3); LYMPH % 31.8 % (8-40); MCH 29.3 pg (25.7-33.7); MCHC 32.2 g/dl (32.0-36.0); MEAN CELL VOLUME 90.8 fl (80-96); MEAN PLT VOLUME 8.8 fl (7.5-11.1); MONO % 9.9 % (3.8-10.2); NEUT % 54.8 % (42.8-82.8); PLATELET COUNT 203 K/MM3 (134-434); RBC 3.88 M/mm3 (3.60-5.2); RDW 16.1 % (11.6-15.6); WHITE BLOOD COUNT 3.5 K/mm3 (4.0-10.0)
--- NOTE | 2020-04-06 15:30 | PDOC ---
History of Present Illness - General Chief Complaint: Vaginal Bleeding Stated Complaint: VAGINAL BLEEDING Time Seen by Provider: 04/06/20 14:12 - History of Present Illness Initial Comments: 04/06/20 15:30 HPI 79yo female GxP7 w/ h/o calcified meningioma on eliquis p/w GALLARDO and vaginal spotting. States she fell last year at her son's house in a bathtub and hit her head. States she was hospitalized for a month afterward and since discharge has had headaches that start in the AM and last about two hours. States the HAs have been getting worse, start in the back of the the head and move toward the front until the whole head hurts. States it is better with dark room/turning off the light. Recently the GALLARDO have been severe enough that watching TV can be painful. She reports this morning the GALLARDO was the worst it has been. She reports vomiting this morning. She also endorses one episode of vaginal spotting (today). Says she saw spots on her pad. Says she has had 7 kids and has had one uterine prolapse (years ago) associated w/ bleeding. With the spotting + the GALLARDO, she decided to come to the ED. Denies recent trauma (to vagina or head), or falls. Denies loss of vision or blurry vision. Denies recent LOC, dizziness, confusion, or fever. Denies sexual activity Denies foreign body insertion. PMH: HTN, DM, PVD, asthma, hypothyroidism, seizure d/o, spinal stenosis, a fib on eliquis, diastolic CHF, and CAD. Pt states she has hemorrhoids. Past CT read states the uterus has been removed. PSH cholecystectomy FHx Father CHF, mother DM SHx former smoker, no EtOH, no illicit drug use CONSTITUTIONAL: Absent: fever, no chills, no fatigue EYES: Absent: visual changes ENT: Absent: ear pain, no sore throat, tinnitus CARDIOVASCULAR: Absent: chest pain, no palpitations RESPIRATORY: no SOB GI: Absent: no nausea, no vomiting besides the one episode this morning (states it was foamy), no constipation, no diarrhea. states she feels more bloated than usual. GENITOURINARY: Absent: dysuria, no frequency MUSKULOSKELETAL: Absent: back pain, no arthralgia, no myalgia SKIN: Absent: rash NEURO: no paresthesia or weakness PE VS 98.1 T , 72bpm , 16RR , 159/84 , 97% ora NAD [place] Speaking. NEURO: Mental status: The patient alert and is oriented x3. Cranial nerves: Cranial nerves II through XII are intact Motor: The upper extremities are 5 over 5 in all muscle groups. The lower extremities are 5 over 5 in all muscle groups. Sensation: Sensation is intact to light touch throughout. Cerebellar: Degogh-ufchec-chme is normal in both upper extremities. Dpmz-kbjz-wcbm is normal in both lower extremities. Gait: Normal. Lungs: CTAB CV: RRR, no mgr appreciated. ABD: mild epigastric tenderness. PELVIC EXAM: External genitalia normal without lesions. Vaginal vault is has physiologic discharge. Cervix hard to visualize but appears to have erythematous speckling. Will refer for OBGYN appointment. No cervical motion tenderness. Anterior vaginal wall feels firm. Adnexa are nontender and without masses. Assessment: 79yoF w/ PAF, HTN, DM, and Diastolic CHF p/w GALLARDO that is worse than others she has had and one episode of spotting. Plan: CT noncon of head, CBC, CMP MDM: CBC wnl CMP wnl CT head normal Pelvic exam showed erythematous speckling in the vaginal wall. Firm anterior vaginal wall. No acute process seen on CT. Bloodwork normal. Pt feels better after receiving tylenol, reglan, and benadryl. Decision to d/c home w/ instructions to f/u with OBGYN and PCP. 04/06/20 16:56 Past History - Medical History Allergies/Adverse Reactions: Allergies Allergy/AdvReac Type Severity Reaction Status Date / Time Penicillins Allergy Intermediate Rash Verified 04/06/20 13:20 aspirin Allergy Verified 04/06/20 13:20 Home Medications: Ambulatory Orders Atorvastatin Ca [Lipitor] 80 mg PO HS 04/21/18 levETIRAcetam [Keppra -] 500 mg PO BID 04/21/18 Amlodipine Besylate [Norvasc -] 5 mg PO DAILY 04/01/19 Apixaban [Eliquis -] 2.5 mg PO BID 04/01/19 Levothyroxine Sodium [Levo-T] 75 mcg PO DAILY 04/01/19 Solifenacin Succinate [Vesicare -] 10 mg PO DAILY 09/15/19 Carvedilol [Coreg -] 3.125 mg PO BID #60 tablet 02/07/20 Famotidine 20 mg PO DAILY #14 tablet 02/07/20 metFORMIN HCL [Metformin HCl ER] 500 mg PO DAILY #30 tab.er.24h 02/07/20 Anemia: Yes Asthma: No Cancer: No Cardiac Disorders: Yes (CAD, afib) CVA: No COPD: No CHF: Yes Dementia: No Diabetes: Yes GI Disorders: Yes (colie, constipation) Disorders: Yes (prolapsed bladder) HTN: Yes Hypercholesterolemia: Yes Liver Disease: No Psychiatric Problems: Yes (depression, anxeity) Seizures: No (per pt and daughter) Thyroid Disease: Yes (hypothyroid) - Surgical History Abdominal Surgery: No Appendectomy: Yes Cardiac Surgery: No Cholecystectomy: Yes Lung Surgery: No Neurologic Surgery: No Orthopedic Surgery: No - Psycho-Social/Smoking History Smoking History: Never smoked Have you smoked in the past 12 months: No If you are a former smoker, when did you quit?: 30 years ago - Substance Abuse Hx (Audit-C & DAST Scrn) How often the patient has a drink containing alcohol: Never Score: In Men: 4 or > Positive; In Women: 3 or > Positive: 0 Screen Result (Pos requires Nsg. Audit-10AR): Negative In the last yr the pt used illegal drug/Rx for NonMed reason: No Score: Yes response is considered Positive: 0 Screen Result (Positive result requires Nsg. DAST-10): Negative *Physical Exam - Vital Signs Last Vital Signs Temp Pulse Resp BP Pulse Ox 98.1 F 72 16 159/84 97 04/06/20 13:18 04/06/20 13:18 04/06/20 13:18 04/06/20 13:18 04/06/20 13:18 ED Treatment Course - LABORATORY CBC & Chemistry Diagram: 04/06/20 14:50 04/06/20 14:50 - ADDITIONAL ORDERS Additional order review: 04/06/20 14:50 RBC 3.88 MCV 90.8 MCHC 32.2 RDW 16.1 H MPV 8.8 Neutrophils % 54.8 Lymphocytes % 31.8 Monocytes % 9.9 Eosinophils % 3.0 Basophils % 0.5 - Medications Given in the ED: ED Medications Discontinued Medications Generic Name Dose Route Start Last Admin Trade Name Freq PRN Reason Stop Dose Admin Acetaminophen 1,000 mg 07/09/20 14:32 04/06/20 14:50 Ofirmev Injection - IVPB 04/06/20 14:33 1,000 mg ONCE ONE Administration Diphenhydramine HCl 25 mg 04/06/20 14:32 04/06/20 14:50 Benadryl Injection - IVPUSH 04/06/20 14:33 25 mg ONCE ONE Administration Metoclopramide HCl 10 mg 04/06/20 14:32 04/06/20 14:50 Reglan Injection - IVPUSH 04/06/20 14:33 10 mg ONCE ONE Administration Discharge - Discharge Information Problems reviewed: Yes Clinical Impression/Diagnosis: Headache Qualifiers: Headache type: unspecified Condition: Improved Disposition: HOME - Admission No - Follow up/Referral Referrals: Carlos Triana MD [Staff Physician] - Anjelica Griffith MD [Staff Physician] - - Patient Discharge Instructions Patient Printed Discharge Instructions: DI for Headache, DI for Vaginal Bleeding Additional Instructions: You came to the emergency room with a headache and one episode of spotting. While you were here, we analyzed some of your blood, took a picture of your head, and gave you some medicine for the headache. You must return to the Emergency Department with any new complaints, if your symptoms persist and do not improve or if you develop any other new or worsening concerns. As discussed, please call to follow up with your Primary Care physician in 1-2 days to discuss what happened to you in the emergency room, and make sure you are being looked after and taken care of. Your emergency room visit is not complete without this follow up appointment. Thank you for coming to the [facility]. We hope you feel better soon! Please follow up with Dr. Griffith (OBGYN) and your primary care doctor as soon as possible. - Post Discharge Activity
--- NOTE | 2020-04-06 15:53 | PDOC ---
Documentation entered by Bigg Izaguirre SCRIBE, acting as scribe for Gina Bhakta MD. Gina Bhakta MD: This documentation has been prepared by the Z[employer] Xhesika, SCRIBE, under my direction and personally reviewed by me in its entirety. I confirm that the documentation accurately reflects all work, treatment, procedures, and medical decision making performed by me. Attending Attestation - Resident Resident Name: Nikhil Bianchi - ED Attending Attestation I have performed the following: I have examined & evaluated the patient, The case was reviewed & discussed with the resident, I agree w/resident's findings & plan - HPI HPI: 04/06/20 15:31 The patient is a 79y/o F, GxP7 with a PMH of calcified meningioma (on eliquis) who presents to the ED BIBA for vaginal spotting and headache. Pt states her headaches begin in the back of the the head and radiate toward the front, progressively getting worse. Pt states her headaches start in the morning and last for two hours. Pt states her headaches are alleviated when the lights are off and she is in a dark room. Denies fever, chills, chest pain, SOB, palpitation, dizziness, weakness, N, V, D, abdominal pain, bladder and bowel problems, focal weakness/paresthesias, leg swelling/pain, rash. No sick contacts or travel. No new changes in medications. No suspicious food intake Allergies: NKDA Past Medical History:calcified meningioma (on eliquis) Social history: Lives with family. No tobacco, ETOH or drug use. Meds: as documented in EMR Family history: noncontributory 04/06/20 16:57 - Physicial Exam PE: 04/06/20 15:38 Agree with the resident's HPI and PE as documented in the electronic medical record. NAD, well appearing, EOMI, PERRL, nl conjunctiva, anicteric; neck supple. lungs clear, RRR, abdomen soft nontender. No rebound, no guarding. Back nontender. HEAD x4, no focal neuro deficits. No peripheral edema. normal color for ethnicity, WWP. no focal neuro deficits. speech clear. pelvic exam by resident see documentation Vaginal vault is has physiologic discharge. Cervix hard to visualize but appears to have erythematous speckling. No cervical motion tenderness. Anterior vaginal wall feels firm. Adnexa are nontender and without masses. 04/06/20 15:52 04/06/20 16:57 04/06/20 16:58 04/07/20 15:00 - Medical Decision Making 04/06/20 15:52 Vital Signs Temp Pulse Resp BP Pulse Ox 98.1 F 72 16 159/84 97 04/06/20 13:18 04/06/20 13:18 04/06/20 13:18 04/06/20 13:18 04/06/20 13:18 vitals reviewed, wnl reassuring. neuro intact no cp or sob basic labs wnl ct head with old calcific meningioma no acute bleed/cva no new mass. analgesia, hydration uterine prolapse likely calling vaginal spotting. discharge in stable condition, return precautions. 04/06/20 16:58 Discharge - Discharge Information Problems reviewed: Yes Clinical Impression/Diagnosis: Vaginal spotting Headache Qualifiers: Headache type: unspecified Condition: Improved Disposition: HOME - Admission No - Follow up/Referral Referrals: Anjelica Griffith MD [Staff Physician] - Carlos Triana MD [Staff Physician] - - Patient Discharge Instructions Patient Printed Discharge Instructions: DI for Headache, DI for Vaginal Bleeding Additional Instructions: You came to the emergency room with a headache and one episode of spotting. While you were here, we analyzed some of your blood, took a picture of your head, and gave you some medicine for the headache. You must return to the Emergency Department with any new complaints, if your symptoms persist and do not improve or if you develop any other new or worsening concerns. As discussed, please call to follow up with your Primary Care physician in 1-2 days to discuss what happened to you in the emergency room, and make sure you a re being looked after and taken care of. Your emergency room visit is not complete without this follow up appointment. Thank you for coming to the [facility]. We hope you feel better soon! Please follow up with Dr. Griffith (OBGYN) and your primary care doctor as soon as possible. - Post Discharge Activity
[2020-04-06 15:58] LABS: ALBUMIN 3.3 g/dl (3.4-5.0); BILIRUBIN,TOTAL 0.7 mg/dL (0.2-1); BLOOD UREA NITROGEN 19.8 mg/dL (7-18); CALCIUM 8.6 mg/dL (8.5-10.1); CREATININE 1.2 mg/dL (0.55-1.3); POTASSIUM 4.2 mmol/L (3.5-5.1); TOT PROT 8.3 g/dl (6.4-8.2)
== END 2020-04-06 17:24 | disposition home or self-care (01) ==
LOC: JER 13:12
PROC: 3E0337Z Introduction of Electrolytic and Water Balance Substance into Peripheral Vein, Percutaneous Approach (ICD-10-PCS; principal; 2020-04-06)
PROC: 3E033GC Introduction of Other Therapeutic Substance into Peripheral Vein, Percutaneous Approach (ICD-10-PCS; principal; 2020-04-06)
DX: R51 Headache (principal)
CPT/HCPCS: 36415; 70450-TC; 80053; 85025; 86850; 86900; 86901; 99285-25; J0131

== ENCOUNTER 2020-09-10 14:24 | Emergency (ER) | payer MEDICARE, OTHER ==
[2020-09-10 16:16] VITALS: BMI 30.4
[2020-09-10 16:33] LABS: BASO % 0.4 % (0-2.0); EOS % 1.6 % (0-4.5); HEMATOCRIT 34.7 % (32.4-45.2); HEMOGLOBIN 11.3 GM/dL (10.7-15.3); MCH 29.7 pg (25.7-33.7); MCHC 32.5 g/dl (32.0-36.0); MEAN CELL VOLUME 91.4 fl (80-96); MEAN PLT VOLUME 8.8 fl (7.5-11.1); MONO % 8.9 % (3.8-10.2); NEUT % 65.1 % (42.8-82.8); PLATELET COUNT 225 K/MM3 (134-434); RDW 15.6 % (11.6-15.6); WHITE BLOOD COUNT 4.5 K/mm3 (4.0-10.0)
[2020-09-10 16:47] LABS: CHLORIDE 102 mmol/L (98-107); POTASSIUM 3.9 mmol/L (3.5-5.1); SODIUM 137 mmol/L (136-145)
[2020-09-10 16:49] LABS: CALCIUM 8.8 mg/dL (8.5-10.1)
[2020-09-10 16:50] LABS: ALBUMIN 3.3 g/dl (3.4-5.0); ANION GAP 8 MMOL/L (8-16); BLOOD UREA NITROGEN 21.5 mg/dL (7-18); CO2 27 mmol/L (21-32); GLUCOSE,RANDOM 260 mg/dL (74-106)
[2020-09-10 16:53] LABS: CREATININE 1.2 mg/dL (0.55-1.3); SGOT/AST 16 U/L (15-37); SGPT/ALT 20 U/L (13-61)
[2020-09-10 16:54] LABS: BILIRUBIN,TOTAL 0.5 mg/dL (0.2-1); TOT PROT 8.6 g/dl (6.4-8.2)
[2020-09-10 16:56] LABS: ALK PHOS 92 U/L (45-117)
[2020-09-10 17:48] VITALS: BP 134/81; PULSE 80; TEMP 97.8
== END 2020-09-10 17:42 | disposition home or self-care (01) ==
LOC: JER 14:24
DX: R73.9 Hyperglycemia, unspecified (principal)
CPT/HCPCS: 36415; 71046-TC-FY; 80053; 82010; 82550; 84484; 85025; 93005; 93010; 99285-25

== ENCOUNTER 2020-12-02 17:23 | Emergency (ER) | payer MEDICARE, OTHER ==
[2020-12-02 17:27] VITALS: BP 152/84; PULSE 115; TEMP 98.5; BMI 37.3
[2020-12-02] MEDS ORDERED: LIDOCAINE 5% TOPICAL PATCH TP ONE (17:59)
[2020-12-02] MEDS ORDERED: ACETAMINOPHEN 500 MG TABLET (FP) PO ONE (18:00)
[2020-12-02] MEDS ORDERED: ACETAMINOPHEN 325 MG TABLET (FP) ONE (18:09)
[2020-12-02] MEDS ORDERED: LIDOCAINE 5% TOPICAL PATCH ONE (18:09)
[2020-12-02] MEDS ORDERED: LIDOCAINE PATCH REMOVAL MC SCH (22:00)
== END 2020-12-02 18:45 | disposition home or self-care (01) ==
LOC: JER 17:23
DX: S16.1XXA Strain of muscle, fascia and tendon at neck level, initial encounter (principal)
CPT/HCPCS: 99284-25

== ENCOUNTER 2020-12-13 11:31 | Emergency (ER) | payer MEDICARE, OTHER ==
[2020-12-13 11:47] VITALS: BP 138/104; PULSE 79; TEMP 98.3; BMI 31.4
[2020-12-13] MEDS ORDERED: FAMOTIDINE 10 MG TABLET PO ONE (11:55)
[2020-12-13] MEDS ORDERED: MAG HYDROX/AL HYDROX/SIMETH 30 ML UNIT-DOSE CUP PO ONE (11:55)
[2020-12-13 12:12] LABS: EOS % 1.8 % (0-4.5); HEMATOCRIT 34.8 % (32.4-45.2); HEMOGLOBIN 10.8 GM/dl (10.7-15.3); LYMPH % 27.5 % (8-40); MCH 28.5 pg (25.7-33.7); MCHC 30.9 g/dl (32.0-36.0); MEAN CELL VOLUME 92.2 fl (80-96); MEAN PLT VOLUME 8.1 fl (7.5-11.1); NEUT % 55.7 % (42.8-82.8); PLATELET COUNT 210 K/MM3 (134-434); RBC 3.78 M/mm3 (3.60-5.2); RDW 14.8 % (11.6-15.6); WHITE BLOOD COUNT 3.9 K/mm3 (4.0-10.8)
[2020-12-13] MEDS ORDERED: MAG HYDROX/AL HYDROX/SIMETH 30 ML UNIT-DOSE CUP ONE (12:16)
[2020-12-13] MEDS ORDERED: FAMOTIDINE 20 MG TABLET ONE (12:16)
[2020-12-13 12:20] LABS: ALBUMIN 3.4 g/dl (3.4-5.0); ALK PHOS 65 U/L (45-117); ANION GAP 7 MMOL/L (8-16); BILIRUBIN,TOTAL 0.8 mg/dl (0.2-1); CALCIUM 8.9 mg/dl (8.5-10); CHLORIDE 100 mmol/L (98-107); CO2 27 mmol/L (21-32); CREATININE 1.1 mg/dl (0.55-1.3); GLUCOSE,RANDOM 190 mg/dl (74-106); POTASSIUM 3.8 mmol/L (3.5-5.1); SGOT/AST 19 U/L (15-37); SGPT/ALT 17 U/L (13-61); SODIUM 134 mmol/L (136-145); TOT PROT 7.9 g/dl (6.4-8.2)
[2020-12-13 13:50] LABS: LIPASE 75 U/L (73-393)
== END 2020-12-13 15:32 | disposition home or self-care (01) ==
LOC: FER 11:31
DX: R07.9 Chest pain, unspecified (principal)
CPT/HCPCS: 36415; 71045-TC-FY; 80053; 82550; 83690; 84484; 85025; 93005; 99285-25

== ENCOUNTER → 2020-12-13 | Day surgery (SDC) | payer MEDICARE, OTHER ==
[2020-11-16 15:22] VITALS: BMI 31.4
[~2020-12-13] MED LIST: LIDOCAINE HCL/PF 2% SDV 5ML VIAL ONE; PROPOFOL 20 ML ONE
[2020-12-13 09:50] VITALS: BP 152/84; PULSE 104; TEMP 98.4
== END | disposition home or self-care (01) ==
LOC: FASU-ENDO 09:25
PROVIDERS: ATTEND Internal Medicine Gastroenterology
DX: Z53.8 Procedure and treatment not carried out for other reasons (principal)
CPT/HCPCS: 82962

== ENCOUNTER 2021-04-06 10:10 | Emergency (ER) | payer MEDICARE, OTHER ==
[2021-04-06 10:45] VITALS: BP 128/86; PULSE 94; TEMP 99; BMI 35.9
[2021-04-06] MEDS ORDERED: ACETAMINOPHEN 1000 MG/100 ML VIAL (NON FORMULARY) IVPB ONE (11:03)
[2021-04-06] MEDS ORDERED: FAMOTIDINE 20 MG/50 ML IVPB 20 MG/50 ML MG IVPB ONE ×2 (11:04→11:51)
[2021-04-06] MEDS ORDERED: MAG HYDROX/AL HYDROX/SIMETH -MYLANTA- ORAL SUSPENSION PO ONE (11:04)
[2021-04-06 11:37] LABS: BASO % 0.4 % (0-2.0); EOS % 0.7 % (0-4.5); HEMATOCRIT 34.7 % (32.4-45.2); LYMPH % 6.4 % (8-40); MCH 28.1 pg (25.7-33.7); MCHC 31.8 g/dl (32.0-36.0); MEAN CELL VOLUME 88.6 fl (80-96); MEAN PLT VOLUME 8.3 fl (7.5-11.1); MONO % 7.9 % (3.8-10.2); NEUT % 84.6 % (42.8-82.8); PLATELET COUNT 211 10^3/uL (134-434); RBC 3.91 M/mm3 (3.60-5.2); RDW 15.2 % (11.6-15.6); WHITE BLOOD COUNT 8.6 K/mm3 (4.0-10.0)
[2021-04-06 11:43] LABS: INR 1.41 (0.83-1.09); PROTHROMBIN TIME (PATIENT) 17.2 SEC (9.7-13.0)
[2021-04-06 11:46] LABS: ACTIVATED PTT 32.1 SECONDS (25.2-36.5)
[2021-04-06] MEDS ORDERED: ACETAMINOPHEN INJECTION 100 ML IVPB ONE (11:51)
[2021-04-06] MEDS ORDERED: MAG HYDROX/AL HYDROX/SIMETH 30 ML UNIT-DOSE CUP ONE (11:51)
[2021-04-06 11:55] LABS: CHLORIDE 107 mmol/L (98-107); SODIUM 139 mmol/L (136-145)
[2021-04-06 11:57] LABS: ALBUMIN 3.1 g/dl (3.4-5.0); ANION GAP 6 MMOL/L (8-16); CALCIUM 8.2 mg/dL (8.5-10.1); CO2 25 mmol/L (21-32)
[2021-04-06 11:58] LABS: GLUCOSE,RANDOM 164 mg/dL (74-106)
[2021-04-06 12:00] LABS: SGPT/ALT 13 U/L (13-61)
[2021-04-06 12:01] LABS: CREATININE 1.1 mg/dL (0.55-1.3); SGOT/AST 10 U/L (15-37)
[2021-04-06 12:02] LABS: BILIRUBIN,TOTAL 0.6 mg/dL (0.2-1); TOT PROT 8.3 g/dl (6.4-8.2)
[2021-04-06 12:03] LABS: ALK PHOS 80 U/L (45-117)
[2021-04-06 13:03] LABS: LACTIC ACID 2.1 mmol/L (0.4-2.0)
[2021-04-06] MEDS ORDERED: SODIUM CHLORIDE 0.9% 1000 ML INFUS.BAG IV ONE ×2 (13:14→15:59)
[2021-04-06 14:58] LABS: URINE APPEARANCE CLEAR; URINE BILIRUBIN NEGATIVE (NEGATIVE); URINE COLOR YELLOW; URINE GLUCOSE (UA) TRACE (NEGATIVE); URINE KETONE NEGATIVE (NEGATIVE); URINE LEUK ESTERASE NEGATIVE (NEGATIVE); URINE NITRITE NEGATIVE (NEGATIVE); URINE PROTEIN TRACE (NEGATIVE); URINE UROBILINOGEN 0.2 mg/dL (0.2-1.0)
[2021-04-06] MEDS ORDERED: MIDAZOLAM HCL 2 MG/2 ML SINGLE DOSE VIAL IVPUSH ONE (15:16)
[2021-04-06] MEDS ORDERED: MIDAZOLAM HCL 2 MG/2 ML SINGLE DOSE VIAL ONE (15:28)
[2021-04-06] MEDS ORDERED: LIDOCAINE HCL 1%, 10 MG/ML (50 mL VIAL) INF ONE (16:55)
[2021-04-06] MEDS ORDERED: LIDOCAINE HCL 1%, 10 MG/ML (20ML VIAL) ONE (16:55)
[2021-04-06 17:54] LABS: CSF APPEARANCE CLEAR; CSF COLOR COLORLESS; CSF WBC 0
[2021-04-06 18:08] LABS: BF GLUCOSE (CSF ONLY) 98 mg/dL (40-70)
[2021-04-06 18:21] LABS: CSF APPEARANCE CLEAR; CSF COLOR COLORLESS; CSF WBC 0
== END 2021-04-06 18:49 | disposition home or self-care (01) ==
LOC: JER 10:10
PROC: 3E0333Z Introduction of Anti-inflammatory into Peripheral Vein, Percutaneous Approach (ICD-10-PCS; principal; 2021-04-06)
PROC: 3E033GC Introduction of Other Therapeutic Substance into Peripheral Vein, Percutaneous Approach (ICD-10-PCS; 2021-04-06)
PROC: 3E033GC Introduction of Other Therapeutic Substance into Peripheral Vein, Percutaneous Approach (ICD-10-PCS; 2021-04-06)
DX: R50.9 Fever, unspecified (principal); R51.9 Headache, unspecified
CPT/HCPCS: 36415; 71045-TC-FY; 80053; 81003; 82945; 83605; 84157; 84484; 85025; 85610; 85730; 86694; 86735; 86765; 86787; 86788; 86789; 87040; 87070; 87086; 87205; 87804; 93005; 93010; 96374; 96375; 99285-25; C9803; J0131; U0003; U0005

== ENCOUNTER 2021-04-07 08:49 | Emergency (ER) | payer MEDICARE, OTHER ==
[2021-04-07 09:12] VITALS: BMI 35.9
[2021-04-07] MEDS ORDERED: ACETAMINOPHEN 1000 MG/100 ML VIAL (NON FORMULARY) IVPB ONE (10:34)
[2021-04-07] MEDS ORDERED: SODIUM CHLORIDE 0.9% 500 ML INFUS.BAG IV ONE (10:34)
[2021-04-07] MEDS ORDERED: METOCLOPRAMIDE HCL INJECTION 10 MG/2 ML VIAL IVPUSH ONE (10:34)
[2021-04-07] MEDS ORDERED: METOCLOPRAMIDE HCL INJECTION 10 MG/2 ML VIAL ONE (10:39)
[2021-04-07] MEDS ORDERED: ACETAMINOPHEN INJECTION 100 ML IVPB ONE (10:40)
[2021-04-07 11:10] LABS: BASO % 1.2 % (0-2.0); EOS % 0.9 % (0-4.5); HEMATOCRIT 31.2 % (32.4-45.2); HEMOGLOBIN 10.4 GM/dL (10.7-15.3); LYMPH % 10.1 % (8-40); MCH 28.8 pg (25.7-33.7); MCHC 33.2 g/dl (32.0-36.0); MEAN CELL VOLUME 86.7 fl (80-96); MEAN PLT VOLUME 8.2 fl (7.5-11.1); MONO % 10.8 % (3.8-10.2); PLATELET COUNT 177 10^3/uL (134-434); WHITE BLOOD COUNT 7.9 K/mm3 (4.0-10.0)
[2021-04-07 11:40] LABS: ALBUMIN 2.7 g/dl (3.4-5.0); CALCIUM 7.9 mg/dL (8.5-10.1)
[2021-04-07 11:41] LABS: BLOOD UREA NITROGEN 11.1 mg/dL (7-18)
[2021-04-07 11:45] LABS: BILIRUBIN,TOTAL 1.2 mg/dL (0.2-1)
[2021-04-07 12:39] LABS: ANISOCYTOSIS 0; MACROCYTOSIS 0; PLATELET ESTIMATE NORMAL
[2021-04-07 14:21] VITALS: BP 122/65; PULSE 79; TEMP 98.9
== END 2021-04-07 14:31 | disposition home or self-care (01) ==
LOC: JER 08:49
PROC: 3E033NZ Introduction of Analgesics, Hypnotics, Sedatives into Peripheral Vein, Percutaneous Approach (ICD-10-PCS; principal; 2021-04-07)
PROC: 3E033GC Introduction of Other Therapeutic Substance into Peripheral Vein, Percutaneous Approach (ICD-10-PCS; 2021-04-07)
DX: R51.9 Headache, unspecified (principal)
CPT/HCPCS: 36415; 70450-TC; 80053; 83605; 85025; 96374; 96375; 99285-25; J0131

== ENCOUNTER 2021-06-28 14:14 | Emergency (ER) | payer MEDICARE, OTHER ==
[2021-06-28 14:41] VITALS: BMI 32.3
[2021-06-28] MEDS ORDERED: ACETAMINOPHEN 1000 MG/100 ML VIAL (NON FORMULARY) IVPB ONE (15:19)
[2021-06-28] MEDS ORDERED: PANTOPRAZOLE SODIUM 40 MG VIAL IVPUSH ONE (15:19)
[2021-06-28] MEDS ORDERED: MAG HYDROX/AL HYDROX/SIMETH 30 ML UNIT-DOSE CUP PO ONE (15:19)
[2021-06-28] MEDS ORDERED: ACETAMINOPHEN INJECTION 100 ML IVPB ONE (15:54)
[2021-06-28] MEDS ORDERED: MAG HYDROX/AL HYDROX/SIMETH 30 ML UNIT-DOSE CUP ONE (15:54)
[2021-06-28] MEDS ORDERED: PANTOPRAZOLE SODIUM 40 MG VIAL ONE (15:54)
[2021-06-28 16:06] LABS: BASO % 0.6 % (0-2.0); EOS % 1.2 % (0-4.5); HEMOGLOBIN 10.9 GM/dL (10.7-15.3); LYMPH % 25.8 % (8-40); MCH 28.1 pg (25.7-33.7); MCHC 32.9 g/dl (32.0-36.0); MEAN CELL VOLUME 85.4 fl (80-96); MEAN PLT VOLUME 7.5 fl (7.5-11.1); MONO % 10.8 % (3.8-10.2); NEUT % 61.6 % (42.8-82.8); PLATELET COUNT 258 10^3/uL (134-434); RBC 3.87 M/mm3 (3.60-5.2); RDW 16.7 % (11.6-15.6); WHITE BLOOD COUNT 4.1 K/mm3 (4.0-10.0)
[2021-06-28 16:20] LABS: CHLORIDE 107 mmol/L (98-107); SODIUM 139 mmol/L (136-145)
[2021-06-28 16:22] VITALS: PULSE 82
[2021-06-28 16:22] LABS: CALCIUM 9.1 mg/dL (8.5-10.1)
[2021-06-28 16:23] LABS: ANION GAP 5 MMOL/L (8-16); BLOOD UREA NITROGEN 20.5 mg/dL (7-18); CO2 27 mmol/L (21-32); GLUCOSE,RANDOM 120 mg/dL (74-106)
[2021-06-28 16:26] LABS: SGOT/AST 21 U/L (15-37); SGPT/ALT 28 U/L (13-61)
[2021-06-28 16:27] LABS: BILIRUBIN,TOTAL 0.5 mg/dL (0.2-1); TOT PROT 8.7 g/dl (6.4-8.2)
[2021-06-28 16:28] LABS: ALK PHOS 81 U/L (45-117)
[2021-06-28 20:54] VITALS: BP 141/76; TEMP 98.4
== END 2021-06-28 20:20 | disposition home or self-care (01) ==
LOC: JER 14:14
PROC: 3E0333Z Introduction of Anti-inflammatory into Peripheral Vein, Percutaneous Approach (ICD-10-PCS; principal; 2021-06-28)
PROC: 3E033GC Introduction of Other Therapeutic Substance into Peripheral Vein, Percutaneous Approach (ICD-10-PCS; 2021-06-28)
DX: R14.0 Abdominal distension (gaseous) (principal); R07.9 Chest pain, unspecified
CPT/HCPCS: 36415; 71045-TC-FY; 74019-TC-FY; 80053; 82550; 84484; 85025; 93005; 93010; 96374; 96375; 99285-25; C9803; J0131; U0003; U0005

== ENCOUNTER 2021-07-28 12:53 | Emergency (ER) | payer MEDICARE, OTHER ==
[2021-07-28 14:20] VITALS: BP 144/82; PULSE 94; TEMP 98.3; BMI 29.0
[2021-07-28] MEDS ORDERED: FAMOTIDINE 20 MG/50 ML IVPB 20 MG/50 ML MG IVPB ONE ×2 (14:44→15:07)
[2021-07-28] MEDS ORDERED: MAG HYDROX/AL HYDROX/SIMETH -MYLANTA- ORAL SUSPENSION PO ONE (14:44)
[2021-07-28] MEDS ORDERED: SODIUM CHLORIDE 0.9% 500 ML INFUS.BAG IV ONE (14:45)
[2021-07-28] MEDS ORDERED: MAG HYDROX/AL HYDROX/SIMETH 30 ML UNIT-DOSE CUP ONE (15:07)
[2021-07-28 15:24] LABS: BASO % 0.6 % (0-2.0); EOS % 1.2 % (0-4.5); HEMATOCRIT 33.6 % (32.4-45.2); LYMPH % 24.5 % (8-40); MCH 28.5 pg (25.7-33.7); MCHC 32.7 g/dl (32.0-36.0); MEAN CELL VOLUME 87.1 fl (80-96); MEAN PLT VOLUME 7.5 fl (7.5-11.1); MONO % 9.9 % (3.8-10.2); NEUT % 63.8 % (42.8-82.8); PLATELET COUNT 249 10^3/uL (134-434); RBC 3.86 M/mm3 (3.60-5.2); RDW 16.8 % (11.6-15.6); WHITE BLOOD COUNT 4.5 K/mm3 (4.0-10.0)
[2021-07-28 15:30] LABS: INR 1.13 (0.83-1.09); PROTHROMBIN TIME (PATIENT) 13.2 SEC (9.7-13.0)
[2021-07-28 15:32] LABS: ACTIVATED PTT 30.8 SECONDS (25.2-36.5)
[2021-07-28 15:39] LABS: CHLORIDE 109 mmol/L (98-107); SODIUM 141 mmol/L (136-145)
[2021-07-28] MEDS ORDERED: ACETAMINOPHEN 1000 MG/100 ML VIAL IVPB ONE (15:40)
[2021-07-28 15:42] LABS: BLOOD UREA NITROGEN 15.4 mg/dL (7-18); CALCIUM 8.9 mg/dL (8.5-10.1); LIPASE 116 U/L (73-393)
[2021-07-28 15:43] LABS: ANION GAP 5 MMOL/L (8-16); CO2 26 mmol/L (21-32); GLUCOSE,RANDOM 120 mg/dL (74-106); MAGNESIUM 2.1 mg/dL (1.8-2.4)
[2021-07-28] MEDS ORDERED: ACETAMINOPHEN INJECTION 100 ML IVPB ONE (15:44)
[2021-07-28 15:45] LABS: CREATININE 1.2 mg/dL (0.55-1.3); SGOT/AST 20 U/L (15-37); SGPT/ALT 24 U/L (13-61)
[2021-07-28 15:47] LABS: BILIRUBIN,TOTAL 0.4 mg/dL (0.2-1); TOT PROT 8.8 g/dl (6.4-8.2)
[2021-07-28 15:48] LABS: ALK PHOS 82 U/L (45-117)
== END 2021-07-28 20:35 | disposition home or self-care (01) ==
LOC: JER 12:53
PROC: 3E033GC Introduction of Other Therapeutic Substance into Peripheral Vein, Percutaneous Approach (ICD-10-PCS; principal; 2021-07-28)
DX: R07.9 Chest pain, unspecified (principal); R10.84 Generalized abdominal pain; R19.7 Diarrhea, unspecified
CPT/HCPCS: 36415; 71046-TC-FY; 74177-TC; 80053; 82550; 83690; 83735; 84484; 85025; 85610; 85730; 93005; 93010; 96365; 96375; 99285-25; C9803; J0131; Q9967; U0003; U0005

== ENCOUNTER 2021-09-12 17:26 | Inpatient (IN) | payer MEDICARE, OTHER ==
[2021-09-12 20:30] LABS: BASO % 0.5 % (0-2.0); EOS % 0.8 % (0-4.5); HEMATOCRIT 32.2 % (32.4-45.2); HEMOGLOBIN 10.5 GM/dL (10.7-15.3); LYMPH % 20.2 % (8-40); MCHC 32.6 g/dl (32.0-36.0); MEAN CELL VOLUME 86.1 fl (80-96); MONO % 8.7 % (3.8-10.2); NEUT % 69.8 % (42.8-82.8); PLATELET COUNT 234 10^3/uL (134-434); RBC 3.74 M/mm3 (3.60-5.2); RDW 16.5 % (11.6-15.6); WHITE BLOOD COUNT 6.5 K/mm3 (4.0-10.0)
[2021-09-12 20:38] LABS: INR 1.15 (0.83-1.09); PROTHROMBIN TIME (PATIENT) 12.9 SEC (9.7-13.0)
[2021-09-12 20:40] LABS: ACTIVATED PTT 30.4 SECONDS (25.2-36.5)
[2021-09-12 21:07] LABS: N-TERMINAL BNP 2677.7 pg/ml (5-450)
[2021-09-12 21:46] LABS: CHLORIDE 110 mmol/L (98-107); SODIUM 140 mmol/L (136-145)
[2021-09-12 21:48] LABS: CALCIUM 8.6 mg/dL (8.5-10.1)
[2021-09-12 21:49] LABS: ALBUMIN 2.8 g/dl (3.4-5.0); ANION GAP 6 MMOL/L (8-16); BLOOD UREA NITROGEN 15.4 mg/dL (7-18); CO2 24 mmol/L (21-32); GLUCOSE,RANDOM 128 mg/dL (74-106)
[2021-09-12 21:50] LABS: LIPASE 138 U/L (73-393)
[2021-09-12 21:51] LABS: SGPT/ALT 11 U/L (13-61)
[2021-09-12 21:52] LABS: CREATININE 1.2 mg/dL (0.55-1.3); SGOT/AST 8 U/L (15-37)
[2021-09-12 21:53] LABS: TOT PROT 8.1 g/dl (6.4-8.2)
[2021-09-12 21:54] LABS: BILIRUBIN,TOTAL 0.4 mg/dL (0.2-1)
[2021-09-12 21:55] LABS: ALK PHOS 65 U/L (45-117)
[2021-09-13 00:03] VITALS: BMI 35.0
[2021-09-13 07:31] LABS: BASO % 0.4 % (0-2.0); EOS % 0.7 % (0-4.5); HEMATOCRIT 32.3 % (32.4-45.2); HEMOGLOBIN 10.6 GM/dL (10.7-15.3); MCH 28.3 pg (25.7-33.7); MCHC 32.8 g/dl (32.0-36.0); MEAN CELL VOLUME 86.4 fl (80-96); MEAN PLT VOLUME 8.3 fl (7.5-11.1); MONO % 7.5 % (3.8-10.2); NEUT % 80.4 % (42.8-82.8); PLATELET COUNT 241 10^3/uL (134-434); RBC 3.74 M/mm3 (3.60-5.2); RDW 16.3 % (11.6-15.6); WHITE BLOOD COUNT 7.4 K/mm3 (4.0-10.0)
[2021-09-13 07:49] LABS: ALBUMIN 2.9 g/dl (3.4-5.0); BLOOD UREA NITROGEN 12.7 mg/dL (7-18); CALCIUM 8.7 mg/dL (8.5-10.1); MAGNESIUM 2.2 mg/dL (1.8-2.4)
[2021-09-13 07:52] LABS: PHOSPHOROUS 3.4 mg/dL (2.5-4.9)
[2021-09-13 07:54] LABS: BILIRUBIN,TOTAL 0.6 mg/dL (0.2-1); TOT PROT 8.2 g/dl (6.4-8.2)
[2021-09-14 07:40] LABS: BASO % 0.4 % (0-2.0); EOS % 0.8 % (0-4.5); HEMATOCRIT 30.2 % (32.4-45.2); LYMPH % 11.9 % (8-40); MCH 28.5 pg (25.7-33.7); MCHC 33.2 g/dl (32.0-36.0); MEAN CELL VOLUME 85.6 fl (80-96); MEAN PLT VOLUME 8.2 fl (7.5-11.1); MONO % 9.2 % (3.8-10.2); NEUT % 77.7 % (42.8-82.8); PLATELET COUNT 217 10^3/uL (134-434); RBC 3.53 M/mm3 (3.60-5.2); RDW 16.3 % (11.6-15.6); WHITE BLOOD COUNT 7.4 K/mm3 (4.0-10.0)
[2021-09-14 07:58] LABS: CALCIUM 8.4 mg/dL (8.5-10.1)
[2021-09-14 07:59] LABS: ALBUMIN 2.4 g/dl (3.4-5.0)
[2021-09-14 08:01] LABS: MAGNESIUM 2.3 mg/dL (1.8-2.4)
[2021-09-14 08:03] LABS: BILIRUBIN,TOTAL 0.8 mg/dL (0.2-1); TOT PROT 7.6 g/dl (6.4-8.2)
[2021-09-14 08:05] LABS: CREATININE 1.1 mg/dL (0.55-1.3)
[2021-09-15 07:38] LABS: BASO % 0.3 % (0-2.0); EOS % 1.6 % (0-4.5); HEMATOCRIT 29.9 % (32.4-45.2); HEMOGLOBIN 9.9 GM/dL (10.7-15.3); LYMPH % 13.7 % (8-40); MCH 28.6 pg (25.7-33.7); MCHC 33.2 g/dl (32.0-36.0); MEAN CELL VOLUME 86.1 fl (80-96); MEAN PLT VOLUME 8.1 fl (7.5-11.1); MONO % 10.4 % (3.8-10.2); PLATELET COUNT 235 10^3/uL (134-434); RBC 3.47 M/mm3 (3.60-5.2); RDW 16.4 % (11.6-15.6); WHITE BLOOD COUNT 6.3 K/mm3 (4.0-10.0)
[2021-09-15 08:08] LABS: ALBUMIN 2.3 g/dl (3.4-5.0); CALCIUM 8.2 mg/dL (8.5-10.1); MAGNESIUM 2.3 mg/dL (1.8-2.4)
[2021-09-15 08:09] LABS: BLOOD UREA NITROGEN 17.7 mg/dL (7-18)
[2021-09-15 08:13] LABS: BILIRUBIN,TOTAL 0.6 mg/dL (0.2-1); TOT PROT 7.6 g/dl (6.4-8.2)
[2021-09-16 07:37] LABS: BASO % 0.5 % (0-2.0); EOS % 2.2 % (0-4.5); HEMATOCRIT 30.6 % (32.4-45.2); HEMOGLOBIN 10.1 GM/dL (10.7-15.3); MCH 28.3 pg (25.7-33.7); MCHC 32.9 g/dl (32.0-36.0); MEAN CELL VOLUME 85.9 fl (80-96); MEAN PLT VOLUME 7.8 fl (7.5-11.1); MONO % 13.1 % (3.8-10.2); NEUT % 66.2 % (42.8-82.8); PLATELET COUNT 264 10^3/uL (134-434); RBC 3.57 M/mm3 (3.60-5.2); RDW 16.1 % (11.6-15.6); WHITE BLOOD COUNT 4.6 K/mm3 (4.0-10.0)
[2021-09-16 07:42] LABS: CALCIUM 8.4 mg/dL (8.5-10.1)
[2021-09-16 07:43] LABS: ALBUMIN 2.4 g/dl (3.4-5.0)
[2021-09-16 07:44] LABS: BLOOD UREA NITROGEN 15.1 mg/dL (7-18)
[2021-09-17 07:19] LABS: BASO % 0.6 % (0-2.0); EOS % 2.6 % (0-4.5); HEMATOCRIT 29.9 % (32.4-45.2); HEMOGLOBIN 9.8 GM/dL (10.7-15.3); LYMPH % 24.4 % (8-40); MCH 28.1 pg (25.7-33.7); MCHC 32.7 g/dl (32.0-36.0); MEAN CELL VOLUME 86.1 fl (80-96); MEAN PLT VOLUME 8.1 fl (7.5-11.1); NEUT % 60.4 % (42.8-82.8); PLATELET COUNT 285 10^3/uL (134-434); RBC 3.47 M/mm3 (3.60-5.2); RDW 16.2 % (11.6-15.6); WHITE BLOOD COUNT 4.2 K/mm3 (4.0-10.0)
[2021-09-17 07:51] LABS: ALBUMIN 2.4 g/dl (3.4-5.0); BLOOD UREA NITROGEN 21.7 mg/dL (7-18)
[2021-09-17 07:52] LABS: CALCIUM 8.7 mg/dL (8.5-10.1)
[2021-09-17 07:53] LABS: MAGNESIUM 2.7 mg/dL (1.8-2.4)
[2021-09-17 07:54] LABS: PHOSPHOROUS 4.1 mg/dL (2.5-4.9)
[2021-09-17 07:56] LABS: BILIRUBIN,TOTAL 0.5 mg/dL (0.2-1); TOT PROT 7.7 g/dl (6.4-8.2)
[2021-09-17 11:09] VITALS: TEMP 98.4
[2021-09-17 18:28] VITALS: BP 132/72; PULSE 88
== END 2021-09-17 18:20 | disposition home or self-care (01) | DRG 309 ==
LOC: JER 17:26 → JERBED 21:04 → JICU 23:20
PROVIDERS: ADMIT Internal Medicine Pulmonary Disease; ATTEND Internal Medicine
DX: I48.91 Unspecified atrial fibrillation (principal); I50.32 Chronic diastolic (congestive) heart failure; E11.9 Type 2 diabetes mellitus without complications; I11.0 Hypertensive heart disease with heart failure; E66.9 Obesity, unspecified; Z68.35 Body mass index [BMI] 35.0-35.9, adult; E78.5 Hyperlipidemia, unspecified
CPT/HCPCS: 36415; 71046-TC-FY; 80053; 82962; 83690; 83735; 83880; 84100; 84439; 84443; 84479; 84484; 85025; 85610; 85730; 93005; 93010; 93306-TC; 99285-25; C9803; J0131; U0003; U0005

== ENCOUNTER 2021-10-23 11:58 | Emergency (ER) | payer MEDICARE, OTHER ==
[2021-10-23 12:08] VITALS: TEMP 97.6; BMI 35.0
[2021-10-23] MEDS ORDERED: dilTIAZem HCL 50 MG/10 ML - 10 ML VIAL IVPUSH ONE (13:05)
[2021-10-23] MEDS ORDERED: SODIUM CHLORIDE 0.9% 500 ML INFUS.BAG IV ONE (13:05)
[2021-10-23] MEDS ORDERED: dilTIAZem HCL 125 MG/25 ML - 25 ML VIAL ONE (13:14)
[2021-10-23 13:54] VITALS: PULSE 87
[2021-10-23 14:00] LABS: BASO % 0.6 % (0-2.0); EOS % 0.8 % (0-4.5); HEMATOCRIT 33.9 % (32.4-45.2); HEMOGLOBIN 10.5 GM/dL (10.7-15.3); LYMPH % 25.5 % (8-40); MCH 26.2 pg (25.7-33.7); MCHC 30.9 g/dl (32.0-36.0); MEAN CELL VOLUME 84.7 fl (80-96); MEAN PLT VOLUME 8.3 fl (7.5-11.1); MONO % 10.3 % (3.8-10.2); NEUT % 62.8 % (42.8-82.8); PLATELET COUNT 266 10^3/uL (134-434); RBC 4.01 M/mm3 (3.60-5.2); WHITE BLOOD COUNT 4.7 K/mm3 (4.0-10.0)
[2021-10-23] MEDS ORDERED: dilTIAZem HCL 60 MG TABLET PO ONE (14:08)
[2021-10-23] MEDS ORDERED: dilTIAZem HCL 60 MG TABLET ONE (14:17)
[2021-10-23 14:18] LABS: CHLORIDE 112 mmol/L (98-107); SODIUM 141 mmol/L (136-145)
[2021-10-23 14:20] LABS: CALCIUM 9.1 mg/dL (8.5-10.1)
[2021-10-23 14:21] LABS: ALBUMIN 3.1 g/dl (3.4-5.0); ANION GAP 2 MMOL/L (8-16); BLOOD UREA NITROGEN 22.5 mg/dL (7-18); CO2 26 mmol/L (21-32); GLUCOSE,RANDOM 148 mg/dL (74-106); MAGNESIUM 2.1 mg/dL (1.8-2.4)
[2021-10-23 14:24] LABS: CREATININE 1.3 mg/dL (0.55-1.3); SGOT/AST 10 U/L (15-37); SGPT/ALT 12 U/L (13-61)
[2021-10-23 14:26] LABS: TOT PROT 8.4 g/dl (6.4-8.2)
[2021-10-23 14:27] LABS: ALK PHOS 69 U/L (45-117)
[2021-10-23 14:33] LABS: BILIRUBIN,TOTAL 0.6 mg/dL (0.2-1)
[2021-10-23 15:18] VITALS: BP 139/83
== END 2021-10-23 15:17 | disposition home or self-care (01) ==
LOC: JER 11:58
PROC: 3E033GC Introduction of Other Therapeutic Substance into Peripheral Vein, Percutaneous Approach (ICD-10-PCS; principal; 2021-10-23)
DX: I48.91 Unspecified atrial fibrillation (principal)
CPT/HCPCS: 36415; 71045-TC-FY; 80053; 82550; 83735; 84484; 85025; 93005; 93010; 99291; C9803; U0003; U0005

== ENCOUNTER 2021-12-16 09:47 | Observation (INO) | payer MEDICARE, OTHER ==
[2021-12-16 09:56] VITALS: BMI 35.0
[2021-12-16] MEDS ORDERED: ACETAMINOPHEN 1000 MG/100 ML BAG IVPB ONE (10:28)
[2021-12-16] MEDS ORDERED: MAG HYDROX/AL HYDROX/SIMETH -MYLANTA- ORAL SUSPENSION PO ONE (10:28)
[2021-12-16] MEDS ORDERED: FAMOTIDINE 20 MG/50 ML IVPB 20 MG/50 ML MG IVPB ONE ×2 (10:28→10:37)
[2021-12-16] MEDS ORDERED: SIMETHICONE 80 MG TAB.CHEW (FP) PO ONE (10:29)
[2021-12-16 10:34] LABS: BASO % 0.6 % (0-2.0); EOS % 1.2 % (0-4.5); HEMATOCRIT 33.1 % (32.4-45.2); HEMOGLOBIN 10.7 GM/dL (10.7-15.3); MCH 26.5 pg (25.7-33.7); MCHC 32.3 g/dl (32.0-36.0); MEAN CELL VOLUME 82.2 fl (80-96); MEAN PLT VOLUME 7.5 fl (7.5-11.1); MONO % 8.4 % (3.8-10.2); NEUT % 57.8 % (42.8-82.8); PLATELET COUNT 255 10^3/uL (134-434); RBC 4.03 M/mm3 (3.60-5.2); RDW 18.9 % (11.6-15.6); WHITE BLOOD COUNT 4.5 K/mm3 (4.0-10.0)
[2021-12-16] MEDS ORDERED: MAG HYDROX/AL HYDROX/SIMETH 30 ML UNIT-DOSE CUP ONE (10:37)
[2021-12-16] MEDS ORDERED: ACETAMINOPHEN INJECTION 100 ML IVPB ONE (10:37)
[2021-12-16] MEDS ORDERED: SIMETHICONE 80 MG TAB.CHEW (FP) ONE (10:37)
[2021-12-16 10:49] LABS: ALBUMIN 3.4 g/dl (3.4-5.0); BLOOD UREA NITROGEN 23.6 mg/dL (7-18); CALCIUM 9.3 mg/dL (8.5-10.1)
[2021-12-16 10:50] LABS: MAGNESIUM 2.1 mg/dL (1.8-2.4)
[2021-12-16 10:53] LABS: CREATININE 1.2 mg/dL (0.55-1.3)
[2021-12-16 10:55] LABS: BILIRUBIN,TOTAL 0.6 mg/dL (0.2-1); TOT PROT 8.4 g/dl (6.4-8.2)
[2021-12-16 11:36] LABS: LACTIC ACID 2.8 mmol/L (0.4-2.0)
[2021-12-16 14:44] LABS: URINE APPEARANCE CLEAR; URINE BILIRUBIN NEGATIVE (NEGATIVE); URINE COLOR YELLOW; URINE GLUCOSE (UA) 2+ (NEGATIVE); URINE KETONE NEGATIVE (NEGATIVE); URINE LEUK ESTERASE NEGATIVE (NEGATIVE); URINE NITRITE NEGATIVE (NEGATIVE); URINE PROTEIN NEGATIVE (NEGATIVE); URINE UROBILINOGEN 0.2 mg/dL (0.2-1.0)
[2021-12-16] MEDS ORDERED: SODIUM CHLORIDE 0.9% 500 ML INFUS.BAG IV ONE (14:50)
[2021-12-16] MEDS: SODIUM CHLORIDE 1,000 ML IV SCH (16:02)
[2021-12-16] MEDS: INSULIN (NOVOLOG) ASPART 100 UNITS/ML 10ML VIAL SQ SCH (17:26)
[2021-12-16] MEDS: APIXABAN 5 MG TABLET PO SCH (21:10)
[2021-12-16] MEDS: ATORVASTATIN CA 40 MG TABLET (FP) PO SCH (21:10)
[2021-12-16] MEDS: levETIRAcetam 500 MG TABLET (FP) PO SCH (21:10)
[2021-12-16] MEDS: SIMETHICONE 80 MG TAB.CHEW (FP) PO PRN (21:16)
[2021-12-17] MEDS: SODIUM CHLORIDE 1,000 ML IV SCH ×2 (06:05→15:21)
[2021-12-17] MEDS: INSULIN (NOVOLOG) ASPART 100 UNITS/ML 10ML VIAL SQ SCH ×2 (07:28→17:07)
[2021-12-17] MEDS: levETIRAcetam 500 MG TABLET (FP) PO SCH ×2 (09:28→21:39)
[2021-12-17] MEDS: PANTOPRAZOLE 40 MG TABLET PO SCH (09:28)
[2021-12-17] MEDS: LEVOTHYROXINE NA 50 MCG TABLET (FP) PO SCH (09:28)
[2021-12-17] MEDS: APIXABAN 5 MG TABLET PO SCH ×2 (09:28→21:39)
[2021-12-17] MEDS: LOSARTAN POTASSIUM 50 MG TABLET PO SCH (09:28)
[2021-12-17 10:19] LABS: HEMATOCRIT 31.6 % (32.4-45.2); MCH 26.1 pg (25.7-33.7); MCHC 31.7 g/dl (32.0-36.0); MEAN CELL VOLUME 82.4 fl (80-96); MEAN PLT VOLUME 7.6 fl (7.5-11.1); PLATELET COUNT 247 10^3/uL (134-434); RBC 3.84 M/mm3 (3.60-5.2); RDW 18.1 % (11.6-15.6); WHITE BLOOD COUNT 3.6 K/mm3 (4.0-10.0)
[2021-12-17 11:12] LABS: BLOOD UREA NITROGEN 13.5 mg/dL (7-18); CALCIUM 8.7 mg/dL (8.5-10.1)
[2021-12-17] MEDS: ACETAMINOPHEN 325 MG TABLET (FP) PO PRN (15:27)
[2021-12-17] MEDS: ATORVASTATIN CA 40 MG TABLET (FP) PO SCH (21:39)
[2021-12-18] MEDS: ACETAMINOPHEN 325 MG TABLET (FP) PO PRN (01:01)
[2021-12-18] MEDS: SODIUM CHLORIDE 1,000 ML IV SCH (03:42)
[2021-12-18] MEDS: INSULIN (NOVOLOG) ASPART 100 UNITS/ML 10ML VIAL SQ SCH (06:39)
[2021-12-18] MEDS: LEVOTHYROXINE NA 50 MCG TABLET (FP) PO SCH (06:40)
[2021-12-18] MEDS: APIXABAN 5 MG TABLET PO SCH (09:15)
[2021-12-18] MEDS: PANTOPRAZOLE 40 MG TABLET PO SCH (09:15)
[2021-12-18] MEDS: levETIRAcetam 500 MG TABLET (FP) PO SCH (09:15)
[2021-12-18] MEDS: LOSARTAN POTASSIUM 50 MG TABLET PO SCH (09:16)
[2021-12-18] MEDS: SIMETHICONE 80 MG TAB.CHEW (FP) PO PRN (09:44)
[2021-12-18 15:26] VITALS: BP 154/83; PULSE 89; TEMP 97.8
== END 2021-12-18 16:57 | disposition home or self-care (01) ==
LOC: JER 09:47 → JERBED 15:24 → J6S 20:12
PROVIDERS: ADMIT Internal Medicine; ATTEND Nurse Practitioner Acute Care
PROC: 3E033NZ Introduction of Analgesics, Hypnotics, Sedatives into Peripheral Vein, Percutaneous Approach (ICD-10-PCS; principal; 2021-12-16)
PROC: 3E0337Z Introduction of Electrolytic and Water Balance Substance into Peripheral Vein, Percutaneous Approach (ICD-10-PCS; 2021-12-16)
DX: I48.0 Paroxysmal atrial fibrillation (principal); I50.33 Acute on chronic diastolic (congestive) heart failure; I10 Essential (primary) hypertension; E78.5 Hyperlipidemia, unspecified; R19.7 Diarrhea, unspecified; R10.9 Unspecified abdominal pain; E87.2 Acidosis; E03.9 Hypothyroidism, unspecified; Z87.891 Personal history of nicotine dependence; E66.9 Obesity, unspecified; Z68.34 Body mass index [BMI] 34.0-34.9, adult; Z90.49 Acquired absence of other specified parts of digestive tract; Z88.0 Allergy status to penicillin; Z29.9 Encounter for prophylactic measures, unspecified; Z91.013 Allergy to seafood; Z88.8 Allergy status to other drugs, medicaments and biological substances
CPT/HCPCS: 36415; 71045-TC-FY; 74177-TC; 80048; 80053; 81003; 82272; 82962; 83605; 83690; 83735; 84443; 84484; 85025; 85027; 87045; 87046; 87086; 87177; 87209; 93005; 93010; 96365; 96375; 99285-25; C9803-CS; G0378; U0003; U0005

== ENCOUNTER 2022-03-05 16:21 | Inpatient (IN) | payer MEDICARE, OTHER ==
[2022-03-05] MEDS ORDERED: METOCLOPRAMIDE HCL INJECTION 10 MG/2 ML VIAL IVPUSH ONE (18:29)
[2022-03-05] MEDS ORDERED: ACETAMINOPHEN 1000 MG/100 ML BAG IVPB ONE (18:29)
[2022-03-05] MEDS ORDERED: SODIUM CHLORIDE 0.9% 500 ML INFUS.BAG IV ONE (18:29)
[2022-03-05 18:39] LABS: BASO % 0.5 % (0-2.0); EOS % 1.1 % (0-4.5); HEMATOCRIT 33.5 % (32.4-45.2); HEMOGLOBIN 10.6 GM/dL (10.7-15.3); LYMPH % 23.2 % (8-40); MCH 26.7 pg (25.7-33.7); MCHC 31.8 g/dl (32.0-36.0); MEAN CELL VOLUME 83.9 fl (80-96); MEAN PLT VOLUME 7.2 fl (7.5-11.1); MONO % 12.8 % (3.8-10.2); NEUT % 62.4 % (42.8-82.8); PLATELET COUNT 284 10^3/uL (134-434); RBC 3.99 M/mm3 (3.60-5.2); RDW 17.6 % (11.6-15.6)
[2022-03-05 18:46] LABS: INR 1.32 (0.83-1.09); PROTHROMBIN TIME (PATIENT) 15.2 SEC (9.7-13.0)
[2022-03-05 18:48] LABS: ACTIVATED PTT 32.9 SECONDS (25.2-36.5)
[2022-03-05 18:52] LABS: CALCIUM 9.1 mg/dL (8.5-10.1)
[2022-03-05 18:53] LABS: ALBUMIN 3.2 g/dl (3.4-5.0); MAGNESIUM 2.3 mg/dL (1.8-2.4)
[2022-03-05 18:56] LABS: CREATININE 1.7 mg/dL (0.55-1.3); PHOSPHOROUS 3.7 mg/dL (2.5-4.9)
[2022-03-05 18:57] LABS: BILIRUBIN,TOTAL 0.3 mg/dL (0.2-1); TOT PROT 8.6 g/dl (6.4-8.2)
[2022-03-05] MEDS ORDERED: METOCLOPRAMIDE HCL INJECTION 10 MG/2 ML VIAL ONE (19:23)
[2022-03-05] MEDS ORDERED: ACETAMINOPHEN INJECTION 100 ML IVPB ONE (19:23)
[2022-03-06] MEDS ORDERED: ACETAMINOPHEN 325 MG TABLET (FP) PO PRN (02:01)
[2022-03-06] MEDS ORDERED: levETIRAcetam 500 MG TABLET (FP) PO ONE (02:05)
[2022-03-06] MEDS: levETIRAcetam 500 MG TABLET (FP) PO SCH ×3 (02:11→21:38)
[2022-03-06 05:06] LABS: URINE APPEARANCE CLEAR; URINE BILIRUBIN NEGATIVE (NEGATIVE); URINE COLOR YELLOW; URINE GLUCOSE (UA) 3+ (NEGATIVE); URINE KETONE NEGATIVE (NEGATIVE); URINE LEUK ESTERASE NEGATIVE (NEGATIVE); URINE NITRITE NEGATIVE (NEGATIVE); URINE PROTEIN NEGATIVE (NEGATIVE); URINE UROBILINOGEN 0.2 mg/dL (0.2-1.0)
[2022-03-06] MEDS: INSULIN SLIDING SCALE (NOVOLOG) 1 VIAL SQ SCH ×4 (06:25→21:38)
[2022-03-06] MEDS: LEVOTHYROXINE NA 50 MCG TABLET (FP) PO SCH (06:25)
[2022-03-06 09:23] LABS: BASO % 0.6 % (0-2.0); EOS % 1.7 % (0-4.5); HEMATOCRIT 32.5 % (32.4-45.2); HEMOGLOBIN 10.4 GM/dL (10.7-15.3); LYMPH % 29.2 % (8-40); MCH 26.8 pg (25.7-33.7); MEAN PLT VOLUME 7.2 fl (7.5-11.1); MONO % 9.9 % (3.8-10.2); NEUT % 58.6 % (42.8-82.8); PLATELET COUNT 277 10^3/uL (134-434); RBC 3.87 M/mm3 (3.60-5.2); RDW 17.5 % (11.6-15.6)
[2022-03-06 09:36] LABS: CHLORIDE 111 mmol/L (98-107); SODIUM 141 mmol/L (136-145)
[2022-03-06 09:37] LABS: BLOOD UREA NITROGEN 21.7 mg/dL (7-18)
[2022-03-06 09:39] LABS: ANION GAP 6 MMOL/L (8-16); CALCIUM 8.7 mg/dL (8.5-10.1); CO2 25 mmol/L (21-32)
[2022-03-06 09:40] LABS: GLUCOSE,RANDOM 112 mg/dL (74-106)
[2022-03-06 09:41] LABS: MAGNESIUM 2.2 mg/dL (1.8-2.4)
[2022-03-06 09:43] LABS: PHOSPHOROUS 4.1 mg/dL (2.5-4.9)
[2022-03-06 09:44] LABS: BILIRUBIN,TOTAL 0.4 mg/dL (0.2-1); CREATININE 1.2 mg/dL (0.55-1.3); IRON SERUM 29 ug/dL (50-175); SGOT/AST 7 U/L (15-37); SGPT/ALT 11 U/L (13-61)
[2022-03-06 09:45] LABS: TOT PROT 8.1 g/dl (6.4-8.2); TOTAL IRON BINDING CAPACITY 284 ug/dL (250-450)
[2022-03-06 09:46] LABS: ALK PHOS 71 U/L (45-117)
[2022-03-06] MEDS: PANTOPRAZOLE 40 MG TABLET PO SCH (09:56)
[2022-03-06] MEDS: SOLIFENACIN SUCCINATE 5 MG TAB PO SCH (09:56)
[2022-03-06] MEDS: APIXABAN 5 MG TABLET PO SCH ×2 (09:56→21:38)
[2022-03-06 11:23] LABS: HIV INTERPRETATION NEGATIVE (NEGATIVE)
[2022-03-06] MEDS ORDERED: REMDESIVIR 200 MG in SODIUM CHLORIDE 250 ML IVPB ONE (12:00)
[2022-03-06] MEDS: ATORVASTATIN CA 40 MG TABLET (FP) PO SCH (21:37)
[2022-03-07] MEDS: LEVOTHYROXINE NA 50 MCG TABLET (FP) PO SCH (06:01)
[2022-03-07] MEDS: INSULIN SLIDING SCALE (NOVOLOG) 1 VIAL SQ SCH ×4 (06:01→22:30)
[2022-03-07] MEDS: PANTOPRAZOLE 40 MG TABLET PO SCH (10:16)
[2022-03-07] MEDS: APIXABAN 5 MG TABLET PO SCH ×2 (10:16→22:26)
[2022-03-07] MEDS: SOLIFENACIN SUCCINATE 5 MG TAB PO SCH (10:16)
[2022-03-07] MEDS: levETIRAcetam 500 MG TABLET (FP) PO SCH ×2 (10:16→22:26)
[2022-03-07] MEDS: REMDESIVIR 100 MG in SODIUM CHLORIDE 250 ML IVPB SCH (12:33)
[2022-03-07 15:02] VITALS: BMI 31.8
[2022-03-07] MEDS ORDERED: INSULIN (NOVOLOG) ASPART 100 UNITS/ML 10ML VIAL ONE (21:00)
[2022-03-07] MEDS: ATORVASTATIN CA 40 MG TABLET (FP) PO SCH (22:26)
[2022-03-08] MEDS: INSULIN SLIDING SCALE (NOVOLOG) 1 VIAL SQ SCH ×4 (06:33→22:08)
[2022-03-08] MEDS: LEVOTHYROXINE NA 50 MCG TABLET (FP) PO SCH (06:33)
[2022-03-08] MEDS: APIXABAN 5 MG TABLET PO SCH ×2 (09:53→22:07)
[2022-03-08] MEDS: PANTOPRAZOLE 40 MG TABLET PO SCH (09:53)
[2022-03-08] MEDS: SOLIFENACIN SUCCINATE 5 MG TAB PO SCH (09:53)
[2022-03-08] MEDS: levETIRAcetam 500 MG TABLET (FP) PO SCH ×2 (09:53→22:08)
[2022-03-08 10:39] LABS: BASO % 0.8 % (0-2.0); EOS % 2.5 % (0-4.5); HEMATOCRIT 32.1 % (32.4-45.2); HEMOGLOBIN 10.2 GM/dL (10.7-15.3); LYMPH % 30.8 % (8-40); MCH 26.6 pg (25.7-33.7); MCHC 31.8 g/dl (32.0-36.0); MEAN CELL VOLUME 83.5 fl (80-96); MEAN PLT VOLUME 7.3 fl (7.5-11.1); MONO % 12.2 % (3.8-10.2); NEUT % 53.7 % (42.8-82.8); PLATELET COUNT 269 10^3/uL (134-434); RBC 3.85 M/mm3 (3.60-5.2); RDW 17.7 % (11.6-15.6); WHITE BLOOD COUNT 3.5 K/mm3 (4.0-10.0)
[2022-03-08 10:56] LABS: CHLORIDE 108 mmol/L (98-107); SODIUM 140 mmol/L (136-145)
[2022-03-08 10:58] LABS: ALBUMIN 2.9 g/dl (3.4-5.0); BLOOD UREA NITROGEN 23.1 mg/dL (7-18); CALCIUM 8.9 mg/dL (8.5-10.1)
[2022-03-08 11:02] LABS: CALCIUM 8.9 mg/dL (8.5-10.1)
[2022-03-08 11:03] LABS: ANION GAP 6 MMOL/L (8-16); BILIRUBIN,TOTAL 0.3 mg/dL (0.2-1); CO2 26 mmol/L (21-32); GLUCOSE,RANDOM 109 mg/dL (74-106); TOT PROT 7.8 g/dl (6.4-8.2)
[2022-03-08] MEDS: REMDESIVIR 100 MG in SODIUM CHLORIDE 250 ML IVPB SCH (11:43)
[2022-03-08] MEDS ORDERED: INSULIN (NOVOLOG) ASPART 100 UNITS/ML 10ML VIAL ONE (21:15)
[2022-03-08] MEDS: ATORVASTATIN CA 40 MG TABLET (FP) PO SCH (22:08)
[2022-03-09] MEDS: LEVOTHYROXINE NA 50 MCG TABLET (FP) PO SCH (06:58)
[2022-03-09] MEDS: INSULIN SLIDING SCALE (NOVOLOG) 1 VIAL SQ SCH ×2 (06:58→12:53)
[2022-03-09] MEDS: PANTOPRAZOLE 40 MG TABLET PO SCH (09:25)
[2022-03-09] MEDS: APIXABAN 5 MG TABLET PO SCH (09:25)
[2022-03-09] MEDS: levETIRAcetam 500 MG TABLET (FP) PO SCH (09:25)
[2022-03-09] MEDS: SOLIFENACIN SUCCINATE 5 MG TAB PO SCH (09:25)
[2022-03-09 15:24] VITALS: BP 119/68; PULSE 84; TEMP 98.6
== END 2022-03-09 15:31 | disposition home or self-care (01) | DRG 178 ==
LOC: JER 16:21 → JERBED 22:24 → OBSVTOIN 03-06 01:50 → J8W 03-06 04:41
PROVIDERS: ADMIT Internal Medicine; ATTEND Internal Medicine
PROC: XW033E5 Introduction of Remdesivir Anti-infective into Peripheral Vein, Percutaneous Approach, New Technology Group 5 (ICD-10-PCS; principal; 2022-03-06)
DX: U07.1 COVID-19 (principal); I50.32 Chronic diastolic (congestive) heart failure; N17.9 Acute kidney failure, unspecified; I13.0 Hypertensive heart and chronic kidney disease with heart failure and stage 1 through stage 4 chronic kidney disease, or unspecified chronic kidney disease; I48.0 Paroxysmal atrial fibrillation; Z79.01 Long term (current) use of anticoagulants; E03.9 Hypothyroidism, unspecified; E66.9 Obesity, unspecified; E78.5 Hyperlipidemia, unspecified; E11.51 Type 2 diabetes mellitus with diabetic peripheral angiopathy without gangrene; Z79.84 Long term (current) use of oral hypoglycemic drugs; Z68.30 Body mass index [BMI] 30.0-30.9, adult; K52.9 Noninfective gastroenteritis and colitis, unspecified; D64.9 Anemia, unspecified; G40.909 Epilepsy, unspecified, not intractable, without status epilepticus; D32.9 Benign neoplasm of meninges, unspecified; E11.22 Type 2 diabetes mellitus with diabetic chronic kidney disease; N18.9 Chronic kidney disease, unspecified
CPT/HCPCS: 36415; 70450-TC; 71045-TC-FY; 72125-TC; 76775-TC; 80048; 80053; 81003; 82550; 82570; 82728; 82962; 83540; 83550; 83690; 83735; 84100; 84156; 84443; 85025; 85610; 85651; 85730; 86140; 86850; 86900; 86901; 87086; 87389; 93005; 93010; 93880-TC; 99285-25; C9399; C9803-CS; G0378; U0003; U0005

== ENCOUNTER 2022-05-24 04:09 | Day surgery (SDC) | payer MEDICARE, OTHER ==
[2022-05-21 15:40] VITALS: BMI 30.4
[2022-05-24] MEDS ORDERED: BUPIVACAINE HCL/PF 0.75% 10 ML VIAL ONE (07:11)
[2022-05-24] MEDS ORDERED: LIDOCAINE HCL/PF 1% SDV 5ML VIAL ONE ×2 (07:11→07:12)
[2022-05-24] MEDS ORDERED: VASOPRESSIN 20 UNITS/ML VIAL IV ONE (10:57)
[2022-05-24] MEDS ORDERED: LIDOCAINE 1% P/F 10 MG/ML VIAL INF ONE ×2 (11:37→11:38)
[2022-05-24] MEDS ORDERED: BUPIVACAINE HCL/PF 0.75% 10 ML VIAL NR ONE ×2 (11:38→11:40)
[2022-05-24 12:05] VITALS: TEMP 97.7
[2022-05-24 12:25] VITALS: BP 164/104; PULSE 60; RESP 18
[2022-05-24] MEDS ORDERED: oxyCODONE HCL 5 MG TABLET PO ONE (13:00)
== END 2022-05-24 12:20 | disposition home or self-care (01) ==
LOC: JASU-SURG 04:09
PROVIDERS: ATTEND Pain Medicine Pain Medicine
PROC: BR16YZZ Fluoroscopy of Lumbar Facet Joint(s) using Other Contrast (ICD-10-PCS; 2022-05-24)
PROC: 3E0T3BZ Introduction of Anesthetic Agent into Peripheral Nerves and Plexi, Percutaneous Approach (ICD-10-PCS; principal; 2022-05-24 10:00)
DX: M47.896 Other spondylosis, lumbar region (principal)
CPT/HCPCS: 76000-TC-FY

== ENCOUNTER 2022-10-24 11:27 | Inpatient (IN) | payer MEDICARE, OTHER ==
[2022-10-24 11:54] VITALS: BMI 36.8
[2022-10-24] MEDS ORDERED: ACETAMINOPHEN 1000 MG/100 ML BAG IVPB ONE (12:38)
[2022-10-24] MEDS ORDERED: ACETAMINOPHEN INJECTION 100 ML IVPB ONE (12:46)
[2022-10-24] MEDS ORDERED: dilTIAZem HCL 50 MG/10 ML - 10 ML VIAL IVPUSH ONE ×2 (13:01→15:15)
[2022-10-24] MEDS ORDERED: dilTIAZem HCL 125 MG/25 ML - 25 ML VIAL ONE (13:08)
[2022-10-24] MEDS ORDERED: SODIUM CHLORIDE 0.9% 500 ML INFUS.BAG IV ONE (13:10)
[2022-10-24 13:20] LABS: BASO % 0.4 % (0-2.0); EOS % 0.8 % (0-4.5); HEMATOCRIT 32.2 % (32.4-45.2); HEMOGLOBIN 9.6 GM/dL (10.7-15.3); LYMPH % 14.6 % (8-40); MCH 24.7 pg (25.7-33.7); MCHC 29.7 g/dl (32.0-36.0); MEAN CELL VOLUME 83.3 fl (80-96); MEAN PLT VOLUME 7.9 fl (7.5-11.1); NEUT % 75.2 % (42.8-82.8); PLATELET COUNT 253 10^3/uL (134-434); RBC 3.87 M/mm3 (3.60-5.2); RDW 18.4 % (11.6-15.6); WHITE BLOOD COUNT 6.4 K/mm3 (4.0-10.0)
[2022-10-24 13:44] LABS: ALBUMIN 2.8 g/dl (3.4-5.0); CALCIUM 8.6 mg/dL (8.5-10.1)
[2022-10-24 13:45] LABS: BLOOD UREA NITROGEN 17.4 mg/dL (7-18); MAGNESIUM 2.2 mg/dL (1.8-2.4)
[2022-10-24 13:47] LABS: CREATININE 1.2 mg/dL (0.55-1.3)
[2022-10-24 13:48] LABS: BILIRUBIN,TOTAL 0.5 mg/dL (0.2-1); TOT PROT 8.3 g/dl (6.4-8.2)
[2022-10-24] MEDS ORDERED: dilTIAZem HCL 30 MG TABLET PO ONE (15:15)
[2022-10-24] MEDS ORDERED: dilTIAZem HCL 30 MG TABLET ONE (15:27)
[2022-10-24] MEDS ORDERED: dilTIAZem HCL 60 MG TABLET PO ONE (16:39)
[2022-10-24] MEDS ORDERED: dilTIAZem HCL 60 MG TABLET ONE (16:56)
[2022-10-24 17:04] LABS: URINE APPEARANCE CLOUDY; URINE BILIRUBIN NEGATIVE (NEGATIVE); URINE COLOR YELLOW; URINE GLUCOSE (UA) >=1000 (NEGATIVE); URINE KETONE NEGATIVE (NEGATIVE); URINE LEUK ESTERASE TRACE (NEGATIVE); URINE NITRITE NEGATIVE (NEGATIVE); URINE PROTEIN 30 (NEGATIVE); URINE UROBILINOGEN 0.2 mg/dL (0.2-1.0)
[2022-10-24 17:05] LABS: EPI CELLS 49 /uL (0-25.1); HYALINE CASTS 1 /uL (0-3.1); URINE BACTERIA 1494 /uL (0-1359); URINE RBC 21 /uL (0-23.9); URINE WBC 147 /uL (0-25.8)
[2022-10-24] MEDS ORDERED: AZTREONAM 1 GM VIAL (RESTRICTED TO ID) ONE (17:31)
[2022-10-24] MEDS: AZTREONAM 1 GM in DEXTROSE 5%-WATER - 50 ML IVPB SCH (17:54)
[2022-10-24] MEDS ORDERED: AZTREONAM 1 GM in DEXTROSE 5%-WATER - 50 ML IVPB SCH (18:00)
[2022-10-24 18:03] LABS: N-TERMINAL BNP 3182.4 pg/ml (5-450)
[2022-10-24] MEDS: levETIRAcetam 500 MG TABLET (FP) PO SCH (22:13)
[2022-10-24] MEDS: ATORVASTATIN CA 40 MG TABLET (FP) PO SCH (22:13)
[2022-10-24] MEDS: APIXABAN 5 MG TABLET PO SCH (22:13)
[2022-10-25] MEDS: AZTREONAM 1 GM in DEXTROSE 5%-WATER - 50 ML IVPB SCH ×2 (02:41→10:23)
[2022-10-25] MEDS: LEVOTHYROXINE NA 50 MCG TABLET (FP) PO SCH (06:03)
[2022-10-25 08:34] LABS: BASO % 0.5 % (0-2.0); HEMATOCRIT 28.9 % (32.4-45.2); MCH 25.6 pg (25.7-33.7); MCHC 31.1 g/dl (32.0-36.0); MEAN PLT VOLUME 8.2 fl (7.5-11.1); MONO % 9.7 % (3.8-10.2); NEUT % 74.8 % (42.8-82.8); PLATELET COUNT 249 10^3/uL (134-434); RBC 3.53 M/mm3 (3.60-5.2)
[2022-10-25 09:08] LABS: CALCIUM 8.5 mg/dL (8.5-10.1)
[2022-10-25 09:09] LABS: ALBUMIN 2.8 g/dl (3.4-5.0); BLOOD UREA NITROGEN 15.1 mg/dL (7-18); MAGNESIUM 2.1 mg/dL (1.8-2.4)
[2022-10-25 09:13] LABS: BILIRUBIN,TOTAL 0.6 mg/dL (0.2-1)
[2022-10-25 09:15] LABS: TOT PROT 7.8 g/dl (6.4-8.2)
[2022-10-25] MEDS ORDERED: SOLIFENACIN SUCCINATE 5 MG TAB PO SCH (10:00)
[2022-10-25] MEDS ORDERED: OXYBUTYNIN CHLORIDE 5 MG PO SCH (10:00)
[2022-10-25] MEDS ORDERED: PATIENT'S OWN MEDICATION (NON-FORMULARY) (Empagliflozin [Jardiance] 10 MG Tablet) PO SCH (10:00)
[2022-10-25] MEDS ORDERED: DRONEDARONE HCL 400 MG TAB (FP) PO SCH (10:00)
[2022-10-25] MEDS: LOSARTAN POTASSIUM 50 MG TABLET PO SCH (10:24)
[2022-10-25] MEDS: PANTOPRAZOLE 40 MG TABLET PO SCH (10:24)
[2022-10-25] MEDS: levETIRAcetam 500 MG TABLET (FP) PO SCH ×2 (10:24→22:18)
[2022-10-25] MEDS: APIXABAN 5 MG TABLET PO SCH ×2 (10:24→22:18)
[2022-10-25] MEDS ORDERED: dilTIAZem HCL 50 MG/10 ML - 10 ML VIAL IVPUSH ONE (11:34)
[2022-10-25] MEDS: INSULIN SLIDING SCALE (NOVOLOG) 1 VIAL SQ SCH (22:18)
[2022-10-25] MEDS: ATORVASTATIN CA 40 MG TABLET (FP) PO SCH (22:18)
[2022-10-25] MEDS: CARVEDILOL 6.25 MG TABLET (FP) PO SCH (22:18)
[2022-10-26] MEDS: LEVOTHYROXINE NA 50 MCG TABLET (FP) PO SCH (06:15)
[2022-10-26] MEDS: INSULIN SLIDING SCALE (NOVOLOG) 1 VIAL SQ SCH ×4 (06:15→21:42)
[2022-10-26 07:37] LABS: HEMATOCRIT 28.1 % (32.4-45.2); HEMOGLOBIN 8.6 GM/dL (10.7-15.3); MCH 25.4 pg (25.7-33.7); MCHC 30.6 g/dl (32.0-36.0); MEAN PLT VOLUME 7.9 fl (7.5-11.1); PLATELET COUNT 203 10^3/uL (134-434); RBC 3.38 M/mm3 (3.60-5.2); RDW 17.7 % (11.6-15.6)
[2022-10-26 07:59] LABS: ALBUMIN 2.6 g/dl (3.4-5.0); BLOOD UREA NITROGEN 17.2 mg/dL (7-18); CALCIUM 8.6 mg/dL (8.5-10.1)
[2022-10-26 08:04] LABS: BILIRUBIN,TOTAL 0.5 mg/dL (0.2-1); TOT PROT 7.5 g/dl (6.4-8.2)
[2022-10-26] MEDS: APIXABAN 5 MG TABLET PO SCH ×2 (10:34→21:39)
[2022-10-26] MEDS: CARVEDILOL 6.25 MG TABLET (FP) PO SCH ×2 (10:34→21:39)
[2022-10-26] MEDS: PANTOPRAZOLE 40 MG TABLET PO SCH (10:34)
[2022-10-26] MEDS: levETIRAcetam 500 MG TABLET (FP) PO SCH ×2 (10:34→21:49)
[2022-10-26] MEDS: LOSARTAN POTASSIUM 50 MG TABLET PO SCH (10:34)
[2022-10-26 12:51] VITALS: RESP 18
[2022-10-26] MEDS: ATORVASTATIN CA 40 MG TABLET (FP) PO SCH (21:39)
[2022-10-27] MEDS ORDERED: ACETAMINOPHEN 1000 MG/100 ML BAG IVPB ONE (03:36)
[2022-10-27] MEDS: INSULIN SLIDING SCALE (NOVOLOG) 1 VIAL SQ SCH ×4 (06:32→21:52)
[2022-10-27] MEDS: LEVOTHYROXINE NA 50 MCG TABLET (FP) PO SCH (06:32)
[2022-10-27] MEDS: PANTOPRAZOLE 40 MG TABLET PO SCH (08:01)
[2022-10-27] MEDS ORDERED: FUROSEMIDE 40 MG/4 ML INJECTABLE VIAL IVPUSH ONE (08:45)
[2022-10-27] MEDS: levETIRAcetam 500 MG TABLET (FP) PO SCH ×2 (09:08→21:48)
[2022-10-27] MEDS: APIXABAN 5 MG TABLET PO SCH ×2 (09:08→21:48)
[2022-10-27] MEDS: CARVEDILOL 6.25 MG TABLET (FP) PO SCH ×2 (09:08→21:48)
[2022-10-27] MEDS: LOSARTAN POTASSIUM 50 MG TABLET PO SCH (09:08)
[2022-10-27] MEDS: ATORVASTATIN CA 40 MG TABLET (FP) PO SCH (21:48)
[2022-10-28] MEDS: INSULIN SLIDING SCALE (NOVOLOG) 1 VIAL SQ SCH ×4 (06:41→22:57)
[2022-10-28] MEDS: LEVOTHYROXINE NA 50 MCG TABLET (FP) PO SCH (06:41)
[2022-10-28 07:41] LABS: HEMATOCRIT 28.9 % (32.4-45.2); HEMOGLOBIN 8.9 GM/dL (10.7-15.3); MCH 25.4 pg (25.7-33.7); MCHC 30.7 g/dl (32.0-36.0); MEAN CELL VOLUME 82.6 fl (80-96); PLATELET COUNT 249 10^3/uL (134-434); RDW 17.5 % (11.6-15.6)
[2022-10-28 08:09] LABS: CALCIUM 8.5 mg/dL (8.5-10.1)
[2022-10-28 08:10] LABS: ALBUMIN 2.4 g/dl (3.4-5.0); BLOOD UREA NITROGEN 14.6 mg/dL (7-18); MAGNESIUM 2.1 mg/dL (1.8-2.4)
[2022-10-28 08:13] LABS: CREATININE 0.9 mg/dL (0.55-1.3); PHOSPHOROUS 3.4 mg/dL (2.5-4.9)
[2022-10-28 08:14] LABS: BILIRUBIN,TOTAL 0.4 mg/dL (0.2-1); TOT PROT 7.4 g/dl (6.4-8.2)
[2022-10-28] MEDS: CARVEDILOL 6.25 MG TABLET (FP) PO SCH ×2 (08:43→11:30)
[2022-10-28] MEDS: LOSARTAN POTASSIUM 50 MG TABLET PO SCH ×2 (08:43→11:30)
[2022-10-28] MEDS: PANTOPRAZOLE 40 MG TABLET PO SCH ×2 (08:44→12:33)
[2022-10-28] MEDS ORDERED: REGADENOSON 0.4 MG/5 ML PRE-FILLED SYRINGE IVPUSH ONE ×2 (10:00→10:28)
[2022-10-28] MEDS: APIXABAN 5 MG TABLET PO SCH ×2 (12:33→22:54)
[2022-10-28] MEDS: levETIRAcetam 500 MG TABLET (FP) PO SCH ×2 (12:33→22:54)
[2022-10-28 12:48] LABS: RETICULOCYTES 2.07 % (0.5-1.5)
[2022-10-28] MEDS ORDERED: LISINOPRIL 5 MG TABLET PO SCH (16:00)
[2022-10-28] MEDS: ATORVASTATIN CA 40 MG TABLET (FP) PO SCH (22:54)
[2022-10-28] MEDS: CARVEDILOL 12.5 MG TABLET (FP) PO SCH (22:54)
[2022-10-29] MEDS: LEVOTHYROXINE NA 50 MCG TABLET (FP) PO SCH ×2 (05:48→06:09)
[2022-10-29] MEDS: INSULIN SLIDING SCALE (NOVOLOG) 1 VIAL SQ SCH ×3 (06:08→16:43)
[2022-10-29 08:30] LABS: HEMATOCRIT 29.7 % (32.4-45.2); MCH 25.2 pg (25.7-33.7); MCHC 30.5 g/dl (32.0-36.0); MEAN CELL VOLUME 82.7 fl (80-96); MEAN PLT VOLUME 7.9 fl (7.5-11.1); PLATELET COUNT 285 10^3/uL (134-434); RBC 3.59 M/mm3 (3.60-5.2); RDW 17.9 % (11.6-15.6); WHITE BLOOD COUNT 4.3 K/mm3 (4.0-10.0)
[2022-10-29] MEDS: APIXABAN 5 MG TABLET PO SCH (09:23)
[2022-10-29] MEDS: CARVEDILOL 12.5 MG TABLET (FP) PO SCH (09:23)
[2022-10-29] MEDS: LOSARTAN POTASSIUM 50 MG TABLET PO SCH (09:23)
[2022-10-29] MEDS: PANTOPRAZOLE 40 MG TABLET PO SCH (09:23)
[2022-10-29] MEDS: levETIRAcetam 500 MG TABLET (FP) PO SCH (09:23)
[2022-10-29 09:24] LABS: CALCIUM 8.5 mg/dL (8.5-10.1)
[2022-10-29 09:25] LABS: ALBUMIN 2.6 g/dl (3.4-5.0); BLOOD UREA NITROGEN 16.6 mg/dL (7-18)
[2022-10-29 09:29] LABS: BILIRUBIN,TOTAL 0.4 mg/dL (0.2-1); TOT PROT 7.7 g/dl (6.4-8.2)
[2022-10-29 16:02] VITALS: BP 135/74; PULSE 88; TEMP 98.2
== END 2022-10-29 17:15 | disposition home or self-care (01) | DRG 309 ==
LOC: JER 11:27 → JERBED 15:34 → J4W 19:47
PROVIDERS: ADMIT Internal Medicine; ATTEND Internal Medicine
DX: I48.19 Other persistent atrial fibrillation (principal); I50.32 Chronic diastolic (congestive) heart failure; I11.0 Hypertensive heart disease with heart failure; E03.9 Hypothyroidism, unspecified; E11.51 Type 2 diabetes mellitus with diabetic peripheral angiopathy without gangrene; Z79.84 Long term (current) use of oral hypoglycemic drugs; E78.5 Hyperlipidemia, unspecified; K21.9 Gastro-esophageal reflux disease without esophagitis; R07.89 Other chest pain; Z79.01 Long term (current) use of anticoagulants; G40.909 Epilepsy, unspecified, not intractable, without status epilepticus; Z91.14 Patient's other noncompliance with medication regimen; I42.8 Other cardiomyopathies
CPT/HCPCS: 0241U-QW; 36415; 71045-TC-FY; 74177-TC; 78452-TC; 80053; 80061; 81003; 82728; 82962; 83036; 83540; 83550; 83605; 83690; 83735; 83880; 84100; 84443; 84484; 85025; 85027; 85045; 86850; 86900; 86901; 87086; 93005; 93010; 93017; 93306-TC; 97116-GP; 97162-GP; 99285-25; A9502; C9803-CS; J2785; U0003; U0005

== ENCOUNTER 2022-11-11 10:50 | Inpatient (IN) | payer OTHER ==
[2022-11-11 11:24] VITALS: BMI 19.0
[2022-11-11] MEDS ORDERED: MAG HYDROX/AL HYDROX/SIMETH 30 ML UNIT-DOSE CUP PO ONE (11:32)
[2022-11-11] MEDS ORDERED: ONDANSETRON 4 MG/2 ML VIAL IVPUSH ONE (11:32)
[2022-11-11] MEDS ORDERED: FAMOTIDINE 20 MG/50 ML IVPB 20 MG/50 ML MG IVPB ONE ×2 (11:32→15:08)
[2022-11-11] MEDS ORDERED: ACETAMINOPHEN 1000 MG/100 ML BAG IVPB ONE (11:32)
[2022-11-11 13:20] LABS: BASO % 0.4 % (0-2.0); EOS % 0.5 % (0-4.5); HEMATOCRIT 29.9 % (32.4-45.2); HEMOGLOBIN 9.3 GM/dL (10.7-15.3); LYMPH % 18.6 % (8-40); MCH 25.2 pg (25.7-33.7); MCHC 31.2 g/dl (32.0-36.0); MEAN CELL VOLUME 80.8 fl (80-96); MEAN PLT VOLUME 7.8 fl (7.5-11.1); MONO % 12.3 % (3.8-10.2); NEUT % 68.2 % (42.8-82.8); PLATELET COUNT 224 10^3/uL (134-434); RDW 17.9 % (11.6-15.6); WHITE BLOOD COUNT 5.2 K/mm3 (4.0-10.0)
[2022-11-11 13:27] LABS: INR 1.31 (0.83-1.09); PROTHROMBIN TIME (PATIENT) 15.2 SEC (9.7-13.0)
[2022-11-11 13:30] LABS: ACTIVATED PTT 32.5 SECONDS (25.2-36.5)
[2022-11-11 13:50] LABS: CALCIUM 8.6 mg/dL (8.5-10.1)
[2022-11-11 13:51] LABS: ALBUMIN 2.8 g/dl (3.4-5.0); MAGNESIUM 2.3 mg/dL (1.8-2.4)
[2022-11-11 13:53] LABS: CREATININE 1.1 mg/dL (0.55-1.3)
[2022-11-11 13:55] LABS: BILIRUBIN,TOTAL 0.9 mg/dL (0.2-1); TOT PROT 8.2 g/dl (6.4-8.2)
[2022-11-11 14:01] LABS: BLOOD UREA NITROGEN 17.4 mg/dL (7-18)
[2022-11-11 15:06] LABS: N-TERMINAL BNP 5343.2 pg/ml (5-450)
[2022-11-11] MEDS ORDERED: ACETAMINOPHEN INJECTION 100 ML IVPB ONE (15:08)
[2022-11-11] MEDS ORDERED: MAG HYDROX/AL HYDROX/SIMETH 30 ML UNIT-DOSE CUP ONE ×2 (15:08→20:50)
[2022-11-11] MEDS ORDERED: ONDANSETRON 4 MG/2 ML VIAL ONE (15:08)
[2022-11-11] MEDS ORDERED: PANTOPRAZOLE 40 MG TABLET PO ONE (19:09)
[2022-11-11] MEDS: PANTOPRAZOLE 40 MG TABLET PO SCH (19:13)
[2022-11-11] MEDS: INSULIN SLIDING SCALE (NOVOLOG) 1 VIAL SQ SCH (20:37)
[2022-11-11] MEDS ORDERED: levETIRAcetam 500 MG TABLET (FP) PO ONE (20:49)
[2022-11-11] MEDS ORDERED: CARVEDILOL 25 MG TABLET (FP) ONE (20:49)
[2022-11-11] MEDS ORDERED: ATORVASTATIN CA 40 MG TABLET (FP) ONE (20:49)
[2022-11-11] MEDS ORDERED: APIXABAN 5 MG TABLET ONE (20:49)
[2022-11-11] MEDS: BUMETANIDE INJECTION 1 MG/4 ML VIAL IVPUSH SCH (20:55)
[2022-11-11] MEDS: CARVEDILOL 25 MG TABLET (FP) PO SCH (21:02)
[2022-11-11] MEDS: MAG HYDROX/AL HYDROX/SIMETH 30 ML UNIT-DOSE CUP PO SCH (21:02)
[2022-11-11] MEDS: levETIRAcetam 500 MG TABLET (FP) PO SCH (21:02)
[2022-11-11] MEDS: ATORVASTATIN CA 40 MG TABLET (FP) PO SCH (21:02)
[2022-11-11] MEDS: APIXABAN 5 MG TABLET PO SCH (21:02)
[2022-11-12] MEDS: MAG HYDROX/AL HYDROX/SIMETH 30 ML UNIT-DOSE CUP PO SCH ×3 (06:47→21:19)
[2022-11-12 07:10] LABS: BASO % 0.4 % (0-2.0); EOS % 1.4 % (0-4.5); HEMATOCRIT 28.5 % (32.4-45.2); HEMOGLOBIN 8.7 GM/dL (10.7-15.3); LYMPH % 22.3 % (8-40); MCH 24.7 pg (25.7-33.7); MCHC 30.6 g/dl (32.0-36.0); MEAN CELL VOLUME 80.6 fl (80-96); MEAN PLT VOLUME 8.3 fl (7.5-11.1); NEUT % 58.9 % (42.8-82.8); PLATELET COUNT 215 10^3/uL (134-434); RBC 3.53 M/mm3 (3.60-5.2); WHITE BLOOD COUNT 4.5 K/mm3 (4.0-10.0)
[2022-11-12] MEDS: INSULIN SLIDING SCALE (NOVOLOG) 1 VIAL SQ SCH ×3 (07:10→17:53)
[2022-11-12] MEDS: PANTOPRAZOLE 40 MG TABLET PO SCH ×2 (10:58→21:22)
[2022-11-12] MEDS: LOSARTAN POTASSIUM 50 MG TABLET PO SCH (10:58)
[2022-11-12] MEDS: levETIRAcetam 500 MG TABLET (FP) PO SCH ×2 (10:58→21:18)
[2022-11-12] MEDS: LEVOTHYROXINE NA 50 MCG TABLET (FP) PO SCH (10:58)
[2022-11-12] MEDS: APIXABAN 5 MG TABLET PO SCH ×2 (10:58→21:18)
[2022-11-12] MEDS: CARVEDILOL 25 MG TABLET (FP) PO SCH ×2 (10:58→21:18)
[2022-11-12] MEDS: FUROSEMIDE 40 MG/4 ML INJECTABLE VIAL IVPUSH SCH (10:58)
[2022-11-12] MEDS ORDERED: IRON SUCROSE INJECTION 200 MG in SODIUM CHLORIDE 90 ML IVPB ONE (12:05)
[2022-11-12] MEDS: BUMETANIDE INJECTION 1 MG/4 ML VIAL IVPUSH SCH (15:17)
[2022-11-12] MEDS: ATORVASTATIN CA 40 MG TABLET (FP) PO SCH (21:18)
[2022-11-13] MEDS: MAG HYDROX/AL HYDROX/SIMETH 30 ML UNIT-DOSE CUP PO SCH ×3 (06:36→21:28)
[2022-11-13] MEDS: INSULIN SLIDING SCALE (NOVOLOG) 1 VIAL SQ SCH ×3 (06:36→17:54)
[2022-11-13 07:27] LABS: BASO % 0.4 % (0-2.0); EOS % 1.5 % (0-4.5); HEMATOCRIT 27.2 % (32.4-45.2); HEMOGLOBIN 8.5 GM/dL (10.7-15.3); LYMPH % 15.4 % (8-40); MCH 25.2 pg (25.7-33.7); MCHC 31.2 g/dl (32.0-36.0); MEAN CELL VOLUME 80.8 fl (80-96); MEAN PLT VOLUME 8.2 fl (7.5-11.1); MONO % 16.5 % (3.8-10.2); NEUT % 66.2 % (42.8-82.8); PLATELET COUNT 216 10^3/uL (134-434); RBC 3.37 M/mm3 (3.60-5.2); RDW 17.7 % (11.6-15.6); WHITE BLOOD COUNT 4.8 K/mm3 (4.0-10.0)
[2022-11-13 09:13] LABS: CALCIUM 8.4 mg/dL (8.5-10.1)
[2022-11-13 09:15] LABS: ALBUMIN 2.5 g/dl (3.4-5.0); BLOOD UREA NITROGEN 28.8 mg/dL (7-18); MAGNESIUM 2.3 mg/dL (1.8-2.4)
[2022-11-13 09:17] LABS: CREATININE 1.4 mg/dL (0.55-1.3); PHOSPHOROUS 3.9 mg/dL (2.5-4.9)
[2022-11-13 09:18] LABS: BILIRUBIN,TOTAL 0.5 mg/dL (0.2-1); TOT PROT 7.5 g/dl (6.4-8.2)
[2022-11-13] MEDS: LOSARTAN POTASSIUM 50 MG TABLET PO SCH (09:47)
[2022-11-13] MEDS: FUROSEMIDE 40 MG/4 ML INJECTABLE VIAL IVPUSH SCH (09:47)
[2022-11-13] MEDS: CARVEDILOL 25 MG TABLET (FP) PO SCH (09:47)
[2022-11-13] MEDS: levETIRAcetam 500 MG TABLET (FP) PO SCH ×2 (09:47→21:28)
[2022-11-13] MEDS: PANTOPRAZOLE 40 MG TABLET PO SCH ×2 (09:47→21:28)
[2022-11-13] MEDS: APIXABAN 5 MG TABLET PO SCH ×2 (09:47→21:28)
[2022-11-13] MEDS: LEVOTHYROXINE NA 50 MCG TABLET (FP) PO SCH (09:47)
[2022-11-13 14:41] VITALS: RESP 20
[2022-11-13] MEDS: DOCUSATE SODIUM 100 MG CAPSULE (FP) PO SCH (15:14)
[2022-11-13] MEDS ORDERED: FUROSEMIDE 40 MG/4 ML INJECTABLE VIAL IVPUSH ONE (15:23)
[2022-11-13] MEDS: ATORVASTATIN CA 40 MG TABLET (FP) PO SCH (21:28)
[2022-11-13] MEDS: METOPROLOL TARTRATE 50 MG TABLET (FP) PO SCH (21:30)
[2022-11-13] MEDS ORDERED: SENNOSIDES 8.6MG TABLET (FP) PO SCH (22:00)
[2022-11-14] MEDS ORDERED: ACETAMINOPHEN 325 MG TABLET (FP) PO PRN (04:50)
[2022-11-14] MEDS: MAG HYDROX/AL HYDROX/SIMETH 30 ML UNIT-DOSE CUP PO SCH ×2 (05:48→13:25)
[2022-11-14] MEDS: INSULIN SLIDING SCALE (NOVOLOG) 1 VIAL SQ SCH ×3 (06:27→16:20)
[2022-11-14 08:30] LABS: BASO % 0.4 % (0-2.0); EOS % 1.8 % (0-4.5); HEMATOCRIT 28.7 % (32.4-45.2); HEMOGLOBIN 8.9 GM/dL (10.7-15.3); LYMPH % 22.4 % (8-40); MCHC 30.9 g/dl (32.0-36.0); MEAN CELL VOLUME 80.7 fl (80-96); MEAN PLT VOLUME 8.4 fl (7.5-11.1); MONO % 18.5 % (3.8-10.2); NEUT % 56.9 % (42.8-82.8); PLATELET COUNT 225 10^3/uL (134-434); RBC 3.55 M/mm3 (3.60-5.2); RDW 17.8 % (11.6-15.6)
[2022-11-14 08:44] LABS: BLOOD UREA NITROGEN 30.3 mg/dL (7-18); MAGNESIUM 2.3 mg/dL (1.8-2.4)
[2022-11-14 08:46] LABS: CALCIUM 8.6 mg/dL (8.5-10.1)
[2022-11-14 08:47] LABS: ALBUMIN 2.7 g/dl (3.4-5.0); BILIRUBIN,TOTAL 0.5 mg/dL (0.2-1); CREATININE 1.3 mg/dL (0.55-1.3); PHOSPHOROUS 3.2 mg/dL (2.5-4.9); TOT PROT 7.7 g/dl (6.4-8.2)
[2022-11-14] MEDS: PANTOPRAZOLE 40 MG TABLET PO SCH (09:19)
[2022-11-14] MEDS: METOPROLOL TARTRATE 50 MG TABLET (FP) PO SCH (09:19)
[2022-11-14] MEDS: DOCUSATE SODIUM 100 MG CAPSULE (FP) PO SCH (09:19)
[2022-11-14] MEDS: LEVOTHYROXINE NA 50 MCG TABLET (FP) PO SCH (09:19)
[2022-11-14] MEDS: LOSARTAN POTASSIUM 50 MG TABLET PO SCH (09:19)
[2022-11-14] MEDS: APIXABAN 5 MG TABLET PO SCH (09:19)
[2022-11-14] MEDS: levETIRAcetam 500 MG TABLET (FP) PO SCH (09:19)
[2022-11-14] MEDS ORDERED: FUROSEMIDE 40 MG TABLET (FP) PO SCH (10:00)
[2022-11-14] MEDS ORDERED: METOPROLOL TARTRATE 50 MG TABLET (FP) PO ONE (12:57)
[2022-11-14 15:31] VITALS: BP 115/83; PULSE 114; TEMP 98.2
== END 2022-11-14 18:01 | disposition home health service (06) | DRG 291 ==
LOC: JER 10:50 → JERBED 14:48 → OBSVTOIN 17:21 → J4W 21:20
PROVIDERS: ADMIT Internal Medicine; ATTEND Internal Medicine
DX: I11.0 Hypertensive heart disease with heart failure (principal); I50.23 Acute on chronic systolic (congestive) heart failure; J96.01 Acute respiratory failure with hypoxia; I48.0 Paroxysmal atrial fibrillation; Z79.01 Long term (current) use of anticoagulants; E03.9 Hypothyroidism, unspecified; E11.51 Type 2 diabetes mellitus with diabetic peripheral angiopathy without gangrene; G40.909 Epilepsy, unspecified, not intractable, without status epilepticus; Z79.84 Long term (current) use of oral hypoglycemic drugs; R10.13 Epigastric pain; I42.8 Other cardiomyopathies; R13.10 Dysphagia, unspecified; E66.01 Morbid (severe) obesity due to excess calories; Z68.37 Body mass index [BMI] 37.0-37.9, adult; D50.9 Iron deficiency anemia, unspecified
CPT/HCPCS: 0241U-QW; 36415; 71045-TC-FY; 74177-TC; 80053; 82962; 83605; 83690; 83735; 83880; 84100; 84484; 85025; 85027; 85610; 85730; 93005; 93010; 93308; 94761; 97116-GP; 97162-GP; 99285-25; G0378; J1756; Q9967

== ENCOUNTER → 2024-01-02 | Day surgery (SDC) | payer OTHER ==
[2024-01-01 17:02] VITALS: BMI 33.9
[~2024-01-02] MED LIST changes: +ACETAMINOPHEN 500 MG TABLET (FP) PO PRN; +BUPIVACAINE HCL/PF 0.75% 10 ML VIAL ONE; +LIDOCAINE HCL/PF 1% SDV 5ML VIAL ONE; -LIDOCAINE HCL/PF 2% SDV 5ML VIAL ONE; -PROPOFOL 20 ML ONE
[2024-01-02] MEDS: BUPIVACAINE HCL/PF 0.75% 10 ML VIAL NR ONE (11:08)
[2024-01-02] MEDS: LIDOCAINE HCL 1% PRESERVATIVE FREE - 30ML VIAL IJ ONE (11:08)
[2024-01-02 11:33] VITALS: PULSE 76
[2024-01-02 12:00] VITALS: BP 120/80; RESP 18; TEMP 97
== END | disposition home or self-care (01) ==
LOC: JASU-SURG 04:38
PROVIDERS: ATTEND Pain Medicine Pain Medicine
PROC: 3E0T33Z Introduction of Anti-inflammatory into Peripheral Nerves and Plexi, Percutaneous Approach (ICD-10-PCS; 2024-01-02)
PROC: 3E0T3BZ Introduction of Anesthetic Agent into Peripheral Nerves and Plexi, Percutaneous Approach (ICD-10-PCS; principal; 2024-01-02 11:00)
DX: M47.816 Spondylosis without myelopathy or radiculopathy, lumbar region (principal)
CPT/HCPCS: 76000-TC-FY

== ENCOUNTER → 2024-02-03 | Day surgery (SDC) | payer OTHER ==
[2024-01-30 10:51] VITALS: BMI 31.1
[~2024-02-03] MED LIST changes: +DEXAMETHASONE SOD PHOSPHATE 10 MG/1 ML VIAL ONE; +LIDOCAINE HCL/PF 2% SDV 5ML VIAL ONE
== END | disposition home or self-care (01) ==
LOC: JASU-SURG 04:21
PROVIDERS: ATTEND Pain Medicine Pain Medicine
DX: Z53.8 Procedure and treatment not carried out for other reasons (principal)
CPT/HCPCS: J1100

== ENCOUNTER 2024-02-10 04:22 | Day surgery (SDC) | payer OTHER ==
[2024-02-10] MEDS ORDERED: LIDOCAINE HCL/PF 2% SDV 5ML VIAL ONE (07:35)
[2024-02-10] MEDS ORDERED: BUPIVACAINE HCL/PF 0.75% 10 ML VIAL ONE (07:36)
[2024-02-10] MEDS ORDERED: DEXAMETHASONE SOD PHOSPHATE 10 MG/1 ML VIAL ONE (07:36)
[2024-02-10] MEDS ORDERED: LIDOCAINE HCL/PF 1% SDV 5ML VIAL ONE (07:36)
[2024-02-10] MEDS: LIDOCAINE HCL/PF 2% SDV 5ML VIAL INF ONE (11:42)
[2024-02-10] MEDS: LIDOCAINE 1% P/F 10 MG/ML VIAL INF ONE (11:42)
[2024-02-10] MEDS: DEXAMETHASONE SOD PHOSPHATE 10 MG/1 ML VIAL IVPUSH ONE (11:47)
[2024-02-10] MEDS: BUPIVACAINE HCL/PF 0.75% 10 ML VIAL NR ONE (11:47)
[2024-02-10 12:45] VITALS: BP 125/72; PULSE 80; RESP 18; TEMP 97.1
== END 2024-02-10 13:00 | disposition home or self-care (01) ==
LOC: JASU-SURG 04:22
PROVIDERS: ATTEND Pain Medicine Pain Medicine
PROC: 015B3ZZ Destruction of Lumbar Nerve, Percutaneous Approach (ICD-10-PCS; principal; 2024-02-10 10:45)
DX: M47.816 Spondylosis without myelopathy or radiculopathy, lumbar region (principal)
CPT/HCPCS: 76000-TC-FY; J1100

== ENCOUNTER 2024-02-23 11:40 | Emergency (ER) | payer OTHER ==
[2024-02-23 12:30] VITALS: RESP 16; BMI 35.9
[2024-02-23 12:52] LABS: EPI CELLS 7 /uL (0-25.1); HYALINE CASTS 0 /uL (0-3.1); URINE APPEARANCE CLEAR; URINE BACTERIA 20 /uL (0-1359); URINE BILIRUBIN NEGATIVE (NEGATIVE); URINE COLOR YELLOW; URINE GLUCOSE (UA) 2+ (NEGATIVE); URINE KETONE NEGATIVE (NEGATIVE); URINE LEUK ESTERASE NEGATIVE (NEGATIVE); URINE NITRITE NEGATIVE (NEGATIVE); URINE PROTEIN NEGATIVE (NEGATIVE); URINE RBC 13 /uL (0-23.9); URINE UROBILINOGEN 0.2 mg/dL (0.2-1.0); URINE WBC 4 /uL (0-25.8)
[2024-02-23 13:51] LABS: BASO % 0.7 % (0-2.0); EOS % 1.5 % (0-4.5); HEMATOCRIT 31.1 % (32.4-45.2); MCH 27.8 pg (25.7-33.7); MEAN PLT VOLUME 7.6 fl (7.5-11.1); MONO % 12.1 % (3.8-10.2); NEUT % 64.7 % (42.8-82.8); PLATELET COUNT 221 10^3/uL (134-434); RBC 3.58 M/mm3 (3.60-5.2); RDW 17.2 % (11.6-15.6); WHITE BLOOD COUNT 5.2 K/mm3 (4.0-10.0)
[2024-02-23] MEDS ORDERED: ACETAMINOPHEN INJECTION 100 ML IVPB ONE (13:51)
[2024-02-23] MEDS: ACETAMINOPHEN 1000 MG/100 ML BAG IVPB ONE (13:57)
[2024-02-23 14:04] LABS: ACTIVATED PTT 34.6 SECONDS (25.2-36.5); INR 1.29 (0.83-1.09); PROTHROMBIN TIME (PATIENT) 14.7 SEC (9.7-13.0)
[2024-02-23 14:43] LABS: BILIRUBIN,TOTAL 0.7 mg/dL (0.2-1); BLOOD UREA NITROGEN 21.1 mg/dL (7-18); CALCIUM 8.9 mg/dL (8.5-10.1); CREATININE 1.5 mg/dL (0.55-1.3); TOT PROT 8.7 g/dl (6.4-8.2)
[2024-02-23] MEDS: SODIUM CHLORIDE 0.9% 1000 ML INFUS.BAG IV ONE (15:34)
[2024-02-23 15:44] VITALS: BP 138/87; PULSE 69; TEMP 98.7
== END 2024-02-23 17:55 | disposition home or self-care (01) ==
LOC: JER 11:40
PROC: 3E033NZ Introduction of Analgesics, Hypnotics, Sedatives into Peripheral Vein, Percutaneous Approach (ICD-10-PCS; principal; 2024-02-23)
DX: R39.198 Other difficulties with micturition (principal); R10.30 Lower abdominal pain, unspecified; R10.13 Epigastric pain
CPT/HCPCS: 36415; 74177-TC; 80053; 81003; 83690; 84484; 85025; 85610; 85730; 86850; 86900; 86901; 87086; 93005; 93010; 99285-25; J0131; Q9967

== ENCOUNTER 2024-03-08 21:43 | Emergency (ER) | payer OTHER ==
[2024-03-08 22:00] VITALS: BP 132/75; PULSE 89; RESP 20; TEMP 97.9; BMI 35.9
[2024-03-08 22:53] LABS: PH,URINE 5.5 (5.0-8.0); URINE APPEARANCE CLEAR; URINE BILIRUBIN NEGATIVE (NEGATIVE); URINE COLOR YELLOW; URINE GLUCOSE (UA) 3+ (NEGATIVE); URINE KETONE TRACE (NEGATIVE); URINE LEUK ESTERASE NEGATIVE (NEGATIVE); URINE NITRITE NEGATIVE (NEGATIVE); URINE PROTEIN TRACE (NEGATIVE); URINE UROBILINOGEN 0.2 mg/dL (0.2-1.0)
== END 2024-03-08 23:32 | disposition home or self-care (01) ==
LOC: JER 21:43
DX: R10.2 Pelvic and perineal pain (principal); R10.30 Lower abdominal pain, unspecified
CPT/HCPCS: 81003; 87086; 99283-25

== ENCOUNTER 2024-04-23 21:50 | Emergency (ER) | payer OTHER ==
[2024-04-23 22:05] VITALS: TEMP 97.7; BMI 35.9
[2024-04-23] MEDS ORDERED: METOCLOPRAMIDE HCL INJECTION 10 MG/2 ML VIAL ONE (22:39)
[2024-04-23] MEDS ORDERED: ACETAMINOPHEN INJECTION 100 ML IVPB ONE (22:39)
[2024-04-23] MEDS: METOCLOPRAMIDE HCL INJECTION 10 MG/2 ML VIAL IVPB ONE (22:51)
[2024-04-23] MEDS: ACETAMINOPHEN 1000 MG/100 ML BAG IVPB ONE (22:51)
[2024-04-23 22:57] LABS: BASO % 0.7 % (0-2.0); EOS % 1.8 % (0-4.5); HEMATOCRIT 32.3 % (32.4-45.2); HEMOGLOBIN 10.3 GM/dL (10.7-15.3); LYMPH % 20.8 % (8-40); MCH 27.4 pg (25.7-33.7); MCHC 31.9 g/dl (32.0-36.0); MEAN CELL VOLUME 85.9 fl (80-96); MONO % 14.4 % (3.8-10.2); NEUT % 62.3 % (42.8-82.8); PLATELET COUNT 243 10^3/uL (134-434); RBC 3.76 M/mm3 (3.60-5.2); RDW 17.2 % (11.6-15.6); WHITE BLOOD COUNT 4.6 K/mm3 (4.0-10.0)
[2024-04-23 23:17] LABS: CHLORIDE 105 mmol/L (98-107); POTASSIUM 4.7 mmol/L (3.5-5.1); SODIUM 140 mmol/L (136-145)
[2024-04-23 23:20] LABS: ALBUMIN 3.1 g/dl (3.4-5.0); ANION GAP 4 mmol/L (4-13); BLOOD UREA NITROGEN 31.1 mg/dL (7-18); CO2 31 mmol/L (21-32); GLUCOSE,RANDOM 168 mg/dL (74-106)
[2024-04-23 23:22] LABS: SGPT/ALT 12 U/L (13-61)
[2024-04-23 23:23] LABS: CREATININE 1.9 mg/dL (0.55-1.3); SGOT/AST 11 U/L (15-37)
[2024-04-23 23:24] LABS: TOT PROT 9.2 g/dl (6.4-8.2)
[2024-04-23 23:25] LABS: ALK PHOS 73 U/L (45-117); BILIRUBIN,TOTAL 0.5 mg/dL (0.2-1)
[2024-04-24 00:06] VITALS: BP 122/80; PULSE 102; RESP 16
[2024-04-24 00:09] LABS: ERYTHROCYTE SEDIMENTATION RATE 66 mm/hr (0-30)
== END 2024-04-24 02:24 | disposition left against medical advice (07) ==
LOC: JER 21:50
PROC: 3E033NZ Introduction of Analgesics, Hypnotics, Sedatives into Peripheral Vein, Percutaneous Approach (ICD-10-PCS; principal; 2024-04-23)
PROC: 3E033GC Introduction of Other Therapeutic Substance into Peripheral Vein, Percutaneous Approach (ICD-10-PCS; 2024-04-23)
DX: R51.9 Headache, unspecified (principal)
CPT/HCPCS: 36415; 70450-TC; 80053; 85025; 85651; 86140; 96374; 96375; 99284-25; J0131

== ENCOUNTER 2024-04-24 14:46 | Emergency (ER) | payer OTHER ==
[2024-04-24 14:53] VITALS: BP 132/79; PULSE 94; RESP 18; TEMP 98.1; BMI 35.9
[2024-04-24] MEDS ORDERED: ACETAMINOPHEN INJECTION 100 ML IVPB ONE (15:40)
[2024-04-24 16:00] LABS: BASO % 0.7 % (0-2.0); EOS % 0.7 % (0-4.5); HEMATOCRIT 31.3 % (32.4-45.2); HEMOGLOBIN 10.1 GM/dL (10.7-15.3); LYMPH % 19.7 % (8-40); MCH 27.5 pg (25.7-33.7); MCHC 32.4 g/dl (32.0-36.0); MEAN PLT VOLUME 7.9 fl (7.5-11.1); MONO % 13.2 % (3.8-10.2); NEUT % 65.7 % (42.8-82.8); PLATELET COUNT 225 10^3/uL (134-434); RBC 3.68 M/mm3 (3.60-5.2)
[2024-04-24] MEDS: SODIUM CHLORIDE 0.9% 500 ML INFUS.BAG IV ONE (16:07)
[2024-04-24] MEDS: ACETAMINOPHEN 1000 MG/100 ML BAG IVPB ONE (16:08)
[2024-04-24] MEDS ORDERED: TETRACAINE 0.5% OPHTH SOLN 2 ML BOTTLE ONE (16:15)
[2024-04-24] MEDS ORDERED: FLUORESCEIN NA 1 EA STRIP ONE (16:15)
[2024-04-24] MEDS: TETRACAINE 0.5% HCL 0.6ML DROPPER.BOTTLE OS ONE (16:17)
[2024-04-24] MEDS: FLUORESCEIN NA 1 EA STRIP OS ONE (16:17)
[2024-04-24 16:33] LABS: ALBUMIN 3.2 g/dl (3.4-5.0); BLOOD UREA NITROGEN 28.7 mg/dL (7-18); POTASSIUM 4.4 mmol/L (3.5-5.1)
[2024-04-24 16:36] LABS: CREATININE 1.6 mg/dL (0.55-1.3)
[2024-04-24 16:40] LABS: BILIRUBIN,TOTAL 0.7 mg/dL (0.2-1)
[2024-04-24] MEDS: ACYCLOVIR INJECTION 1,000 MG in DEXTROSE 5%-WATER - 100 ML IVPB ONE (16:49)
[2024-04-24] MEDS: ACYCLOVIR INJECTION 1,000 MG in DEXTROSE 5%-WATER - 250 ML IVPB ONE (17:49)
== END 2024-04-24 18:52 | disposition home or self-care (01) ==
LOC: JER 14:46
PROC: 3E03329 Introduction of Other Anti-infective into Peripheral Vein, Percutaneous Approach (ICD-10-PCS; principal; 2024-04-24)
PROC: 3E033NZ Introduction of Analgesics, Hypnotics, Sedatives into Peripheral Vein, Percutaneous Approach (ICD-10-PCS; 2024-04-24)
DX: R51.9 Headache, unspecified (principal); B02.9 Zoster without complications; R21 Rash and other nonspecific skin eruption
CPT/HCPCS: 36415; 80053; 85025; 96365; 96375; 99284-25; J0131

== ENCOUNTER 2024-08-12 09:49 | Emergency (ER) | payer OTHER ==
[2024-08-12 10:13] VITALS: TEMP 98.6; BMI 35.9
[2024-08-12] MEDS ORDERED: LIDOCAINE 4% PATCH TP ONE (11:42)
[2024-08-12] MEDS ORDERED: ACETAMINOPHEN 500 MG TABLET (FP) ONE (11:43)
[2024-08-12] MEDS: LIDOCAINE 4% PATCH TP ONE (12:22)
[2024-08-12] MEDS: ACETAMINOPHEN 500 MG TABLET (FP) PO ONE (12:22)
[2024-08-12 15:04] VITALS: BP 124/79; PULSE 85; RESP 20
[2024-08-12] MEDS ORDERED: LIDOCAINE PATCH REMOVAL MC ONE (22:00)
== END 2024-08-12 15:41 | disposition home or self-care (01) ==
LOC: JER 09:49
DX: M54.50 Low back pain, unspecified (principal); G89.29 Other chronic pain; R07.9 Chest pain, unspecified
CPT/HCPCS: 72170-TC-FY; 73521-TC-FY; 93005; 93010; 99284-25

== ENCOUNTER 2025-01-25 09:52 | Emergency (ER) | payer OTHER ==
[2025-01-25 10:32] VITALS: RESP 18; BMI 32.9
[2025-01-25] MEDS ORDERED: ACETAMINOPHEN INJECTION 100 ML ONE (10:56)
[2025-01-25] MEDS ORDERED: MORPHINE SULFATE 2 MG/ML SYRINGE ONE (10:56)
[2025-01-25] MEDS: morphine SULFATE 4 MG/ML VIAL IVPUSH ONE (11:03)
[2025-01-25] MEDS: ACETAMINOPHEN 1000 MG/100 ML BAG IVPB ONE (11:04)
[2025-01-25 11:08] LABS: ABSOLUTE IMMATURE GRANULOCYTES 0.03 x10^3/uL (0.0-0.031); BASOPHILS # 0.03 x10^3/uL (0.01-0.08); EOSINOPHIL % 1.4 % (0.7-5.8); EOSINOPHILS # 0.08 x10^3/uL (0.04-0.36); HEMATOCRIT 35.6 % (34.1-44.9); HEMOGLOBIN 10.3 g/dL (11.2-15.7); MCHC 28.9 g/dl (32.2-35.5); MEAN CELL VOLUME 93.2 fl (79.4-94.8); MONOCYTE % 8.8 % (4.7-12.5); PLATELET COUNT 283 x10^3/uL (182-369); RDW 15.2 % (12.5-17.0)
[2025-01-25 11:36] LABS: LACTIC ACID 2.8 mmol/L (0.4-2.0)
[2025-01-25 11:37] LABS: POTASSIUM 3.4 mmol/L (3.5-5.1)
[2025-01-25 11:42] LABS: ALBUMIN 3.2 g/dl (3.4-5.0); BLOOD UREA NITROGEN 18.8 mg/dL (7-18); CALCIUM 9.9 mg/dL (8.5-10.1)
[2025-01-25 11:43] LABS: CREATININE 1.8 mg/dL (0.55-1.3)
[2025-01-25 11:46] LABS: BILIRUBIN,TOTAL 0.8 mg/dL (0.2-1)
[2025-01-25] MEDS: LACTATED RINGERS SOLUTION 1000 ML INFUS.BAG IV ONE ×2 (12:17→15:57)
[2025-01-25 14:31] LABS: EPI CELLS >36 /uL (0-25.1); HYALINE CASTS 1 /uL (0-3.1); PH,URINE 5.5 (5.0-8.0); URINE APPEARANCE CLOUDY; URINE BACTERIA 1510 /uL (0-1359); URINE BILIRUBIN NEGATIVE (NEGATIVE); URINE COLOR YELLOW; URINE GLUCOSE (UA) 3+ (NEGATIVE); URINE KETONE NEGATIVE (NEGATIVE); URINE LEUK ESTERASE 1+ (NEGATIVE); URINE NITRITE NEGATIVE (NEGATIVE); URINE PROTEIN NEGATIVE (NEGATIVE); URINE RBC 12 /uL (0-23.9); URINE UROBILINOGEN 0.2 mg/dL (0.2-1.0); URINE WBC 63 /uL (0-25.8)
[2025-01-25] MEDS ORDERED: NITROFURANTOIN MACROCRYSTAL 50 MG CAPSULE (FP) ONE (15:02)
[2025-01-25] MEDS: NITROFURANTOIN MONOHYD/M-CRYST 100 MG CAPSULE PO ONE (15:14)
[2025-01-25 17:11] VITALS: BP 133/62; PULSE 90; TEMP 97.9
== END 2025-01-25 17:22 | disposition home or self-care (01) ==
LOC: JER 09:52
PROC: 3E033NZ Introduction of Analgesics, Hypnotics, Sedatives into Peripheral Vein, Percutaneous Approach (ICD-10-PCS; principal; 2025-01-25)
PROC: 3E033NZ Introduction of Analgesics, Hypnotics, Sedatives into Peripheral Vein, Percutaneous Approach (ICD-10-PCS; 2025-01-25)
DX: N39.0 Urinary tract infection, site not specified (principal); M54.50 Low back pain, unspecified; R10.32 Left lower quadrant pain; K59.00 Constipation, unspecified
CPT/HCPCS: 36415; 73502-TC-LT-FY; 74177-TC; 80053; 81003; 83605; 83690; 85025; 87086; 99285-25; J0131; Q9967

== ENCOUNTER 2025-03-24 09:25 | Emergency (ER) | payer OTHER ==
[2025-03-24 09:34] VITALS: BP 117/82; PULSE 103; RESP 18; TEMP 98; BMI 35.5
[2025-03-24] MEDS ORDERED: ACETAMINOPHEN INJECTION 100 ML ONE (10:27)
[2025-03-24] MEDS: ACETAMINOPHEN 1000 MG/100 ML BAG IVPB ONE (10:46)
[2025-03-24 10:51] LABS: ABSOLUTE IMMATURE GRANULOCYTES 0.03 x10^3/uL (0.0-0.031); BASOPHILS # 0.03 x10^3/uL (0.01-0.08); EOSINOPHIL % 1.7 % (0.7-5.8); EOSINOPHILS # 0.11 x10^3/uL (0.04-0.36); HEMATOCRIT 31.6 % (34.1-44.9); MCHC 28.5 g/dl (32.2-35.5); MEAN CELL VOLUME 93.2 fl (79.4-94.8); MEAN PLT VOLUME 9.9 fl (9.4-12.3); MONOCYTE # 0.83 x10^3/uL (0.24-0.86); MONOCYTE % 12.5 % (4.7-12.5); PLATELET COUNT 263 x10^3/uL (182-369); RDW 15.9 % (12.5-17.0)
[2025-03-24 10:55] LABS: EPI CELLS >36 /uL (0-25.1); HYALINE CASTS 0 /uL (0-3.1); URINE APPEARANCE CLEAR; URINE BACTERIA 402 /uL (0-1359); URINE BILIRUBIN NEGATIVE (NEGATIVE); URINE COLOR YELLOW; URINE GLUCOSE (UA) 3+ (NEGATIVE); URINE KETONE NEGATIVE (NEGATIVE); URINE LEUK ESTERASE TRACE (NEGATIVE); URINE NITRITE NEGATIVE (NEGATIVE); URINE PROTEIN TRACE (NEGATIVE); URINE RBC 21 /uL (0-23.9); URINE UROBILINOGEN 0.2 mg/dL (0.2-1.0); URINE WBC 20 /uL (0-25.8)
[2025-03-24 11:01] LABS: INR 1.52 (0.83-1.09); PROTHROMBIN TIME (PATIENT) 16.6 SEC (9.7-13.0)
[2025-03-24 11:04] LABS: ACTIVATED PTT 31.3 SECONDS (25.2-36.5)
[2025-03-24 11:15] LABS: POTASSIUM 4.5 mmol/L (3.5-5.1)
[2025-03-24 11:17] LABS: CALCIUM 9.6 mg/dL (8.5-10.1)
[2025-03-24 11:18] LABS: ALBUMIN 2.9 g/dl (3.4-5.0); BLOOD UREA NITROGEN 22.4 mg/dL (7-18)
[2025-03-24 11:21] LABS: CREATININE 1.8 mg/dL (0.55-1.3)
[2025-03-24 11:22] LABS: BILIRUBIN,TOTAL 0.6 mg/dL (0.2-1)
[2025-03-24 11:23] LABS: TOT PROT 8.7 g/dl (6.4-8.2)
[2025-03-24 12:21] LABS: HCV DIAGNOSTIC IN-HOUSE W/RFLX NON-REACTIVE (NONREACTIVE)
[2025-03-24 12:22] LABS: HIV INTERPRETATION NEGATIVE (NEGATIVE)
[2025-03-24] MEDS: LACTATED RINGERS SOLUTION 1000 ML INFUS.BAG IV ONE (12:26)
== END 2025-03-24 15:35 | disposition home or self-care (01) ==
LOC: JER 09:25
PROC: 3E033NZ Introduction of Analgesics, Hypnotics, Sedatives into Peripheral Vein, Percutaneous Approach (ICD-10-PCS; principal; 2025-03-24)
DX: R31.9 Hematuria, unspecified (principal); R10.32 Left lower quadrant pain; N93.9 Abnormal uterine and vaginal bleeding, unspecified; R30.0 Dysuria; R35.0 Frequency of micturition; K64.4 Residual hemorrhoidal skin tags
CPT/HCPCS: 36415; 74177-TC; 80053; 81003; 82272; 85025; 85610; 85730; 86803; 86850; 86900; 86901; 87086; 87389; 96374; 99285-25; Q9967

== ENCOUNTER 2025-04-26 11:30 | Observation (INO) | payer OTHER ==
[2025-04-26] MEDS ORDERED: ACETAMINOPHEN 500 MG TABLET (FP) ONE (13:25)
[2025-04-26] MEDS: ACETAMINOPHEN 500 MG TABLET (FP) PO ONE (14:10)
[2025-04-26 18:38] LABS: ABSOLUTE IMMATURE GRANULOCYTES 0.03 x10^3/uL (0.0-0.031); BASOPHILS # 0.04 x10^3/uL (0.01-0.08); EOSINOPHIL % 2.6 % (0.7-5.8); EOSINOPHILS # 0.16 x10^3/uL (0.04-0.36); MCHC 28.8 g/dl (32.2-35.5); MEAN CELL VOLUME 89.7 fl (79.4-94.8); MEAN PLT VOLUME 9.3 fl (9.4-12.3); MONOCYTE # 0.61 x10^3/uL (0.24-0.86); MONOCYTE % 9.8 % (4.7-12.5); RDW 16.1 % (12.5-17.0)
[2025-04-26 18:49] LABS: INR 1.39 (0.83-1.09); PROTHROMBIN TIME (PATIENT) 15.3 SEC (9.7-13.0)
[2025-04-26 19:43] LABS: CO2 29.0 mmol/L (21-32); GLUCOSE,RANDOM 152.0 mg/dL (74-106)
[2025-04-26 19:46] LABS: CREATININE 1.8 mg/dL (0.55-1.3); SGOT/AST 16.0 U/L (15-37); SGPT/ALT 12.0 U/L (13-61)
[2025-04-26 19:48] LABS: TOT PROT 8.7 g/dl (6.4-8.2)
[2025-04-26 19:49] LABS: ALK PHOS 75.0 U/L (45-117)
[2025-04-26] MEDS ORDERED: LIDOCAINE 5% TOPICAL PATCH ONE (21:02)
[2025-04-26] MEDS: LIDOCAINE 5% TOPICAL PATCH TP SCH (21:06)
[2025-04-26] MEDS ORDERED: ACETAMINOPHEN 325 MG TABLET (FP) ONE (21:07)
[2025-04-26] MEDS: ACETAMINOPHEN 325 MG TABLET (FP) PO PRN (21:08)
[2025-04-26] MEDS ORDERED: PATIENT'S OWN MEDICATION (NON-FORMULARY) (Metoprolol Tartrate [Metoprolol Tartrate] 100 MG PO SCH (22:00)
[2025-04-26] MEDS: levETIRAcetam 500 MG TABLET (FP) PO SCH (23:43)
[2025-04-26] MEDS: ATORVASTATIN CA 40 MG TABLET (FP) PO SCH (23:43)
[2025-04-26] MEDS: METOPROLOL TARTRATE 50 MG TABLET (FP) PO SCH (23:43)
[2025-04-26] MEDS: LIDOCAINE PATCH REMOVAL MC SCH (23:44)
[2025-04-27 01:16] VITALS: BMI 35.5
[2025-04-27] MEDS: morphine CARPU-JECT 2 MG/1 ML DISP.SYRIN IVPUSH PRN ×2 (02:28→21:56)
[2025-04-27] MEDS: INSULIN ASPART SLIDING SCALE (NOVOLOG) 1 VIAL SQ SCH (06:30)
[2025-04-27] MEDS: LEVOTHYROXINE NA 50 MCG TABLET (FP) PO SCH (06:31)
[2025-04-27 08:34] LABS: ABSOLUTE IMMATURE GRANULOCYTES 0.03 x10^3/uL (0.0-0.031); BASOPHILS # 0.03 x10^3/uL (0.01-0.08); EOSINOPHIL % 2.0 % (0.7-5.8); EOSINOPHILS # 0.15 x10^3/uL (0.04-0.36); MCHC 29.0 g/dl (32.2-35.5); MEAN CELL VOLUME 89.3 fl (79.4-94.8); MEAN PLT VOLUME 9.8 fl (9.4-12.3); MONOCYTE # 0.72 x10^3/uL (0.24-0.86); MONOCYTE % 9.5 % (4.7-12.5); RDW 16.1 % (12.5-17.0)
[2025-04-27 08:55] LABS: GLUCOSE,RANDOM 161.0 mg/dL (74-106)
[2025-04-27 08:56] LABS: SGPT/ALT 11.0 U/L (13-61)
[2025-04-27 08:57] LABS: SGOT/AST 12.0 U/L (15-37)
[2025-04-27 08:58] LABS: ALK PHOS 74.0 U/L (45-117); CREATININE 1.5 mg/dL (0.55-1.3); TOT PROT 8.4 g/dl (6.4-8.2)
[2025-04-27 09:44] LABS: CO2 29.0 mmol/L (21-32)
[2025-04-27] MEDS ORDERED: ENOXAPARIN NA (PORCINE) 40 MG/0.4 ML DISP.SYRIN SQ SCH (10:00)
[2025-04-27] MEDS: PANTOPRAZOLE 40 MG TABLET PO SCH (10:14)
[2025-04-27] MEDS: APIXABAN 2.5 MG TABLET PO SCH (10:14)
[2025-04-27] MEDS: EMPAGLIFLOZIN (JARDIANCE) 10 MG TABLET PO SCH (10:14)
[2025-04-27] MEDS: LOSARTAN POTASSIUM 50 MG TABLET PO SCH (10:14)
[2025-04-27] MEDS: ACETAMINOPHEN 325 MG TABLET (FP) PO SCH (11:33)
[2025-04-28 17:51] VITALS: BP 136/75; PULSE 88; RESP 16; TEMP 97.9
== END 2025-04-28 19:07 ==
LOC: JER 11:30 → JERBED 16:19 → J6S 23:25
PROVIDERS: ADMIT Student in an Organized Health Care Education/Training Program; ATTEND Internal Medicine
DX: S52.122A Displaced fracture of head of left radius, initial encounter for closed fracture (principal); S91.112A Laceration without foreign body of left great toe without damage to nail, initial encounter; M25.462 Effusion, left knee; M25.552 Pain in left hip; M25.551 Pain in right hip; I13.0 Hypertensive heart and chronic kidney disease with heart failure and stage 1 through stage 4 chronic kidney disease, or unspecified chronic kidney disease; I50.32 Chronic diastolic (congestive) heart failure; N18.9 Chronic kidney disease, unspecified; E11.22 Type 2 diabetes mellitus with diabetic chronic kidney disease; E78.5 Hyperlipidemia, unspecified; E03.9 Hypothyroidism, unspecified; K21.9 Gastro-esophageal reflux disease without esophagitis; I48.91 Unspecified atrial fibrillation; F03.90 Unspecified dementia, unspecified severity, without behavioral disturbance, psychotic disturbance, mood disturbance, and anxiety; G40.909 Epilepsy, unspecified, not intractable, without status epilepticus; Z87.891 Personal history of nicotine dependence; Z79.01 Long term (current) use of anticoagulants; Z79.84 Long term (current) use of oral hypoglycemic drugs; W01.0XXA Fall on same level from slipping, tripping and stumbling without subsequent striking against object, initial encounter; Y92.009 Unspecified place in unspecified non-institutional (private) residence as the place of occurrence of the external cause
CPT/HCPCS: 36415; 70450-TC; 72192-TC; 73070-TC-LT-FY; 73070-TC-RT-FY; 73521-TC-FY; 73560-TC-LT-FY; 73560-TC-RT-FY; 73660-TC-LT-FY; 73718-TC-LT; 80053; 82962; 83735; 84100; 85025; 85610; 86850; 86900; 86901; 87637-QW; 93005; 93010; 96374; 96376; 97116-GP; 97162-GP; 99285-25; G0378